=== PATIENT | female | born 1960 ===

== ENCOUNTER 2018-02-15 13:00 | Inpatient (IN) | payer MEDICARE, BC ==
[2018-02-15 14:00] VITALS: BMI 34.7
--- NOTE | 2018-02-15 14:04 | CP.PCM.HP ---
History of Present Illness - History of Present Illness History of Present Illness: Medicine Note for Hospitalist Service - Dr. 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 Patient seen and examined during dialysis. No acute complaints. Denied any fever, chills, chest pain, abdominal pain, n/v/d/c, or urinary symptoms. PMD: Dr. Salmeron Nephsteffi: Dr. 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, CAD s/p stents, IVC thrombus on Aspirin/Eliquis, ESRD on HD MWF (current left femoral HD access) with multiple failed HD access [id number], HTN, HLD,T2DM, Anemia of Chronic Disease, and Anxiety PSHx: cholecystectomy, , laser eye, left knee arthroscopy, cardiac stents, multiple AV fistula malfunction/revision [id number], left hand ischemia left radial artery embolus s/p embolectomy 11/2013, prior PD catheter and removal 09/2017, current access- left common femoral HD catheter 10/2017, pacemaker 01/15/18 Meds: As per EMR Allergy: Vancomycin SHx:Denies alcohol, tobacco and illicit drug use; lives w/ family at home FHx : Sister: breast ca; Brother: CKD/CA Present on Admission - Present on Admission Any Indicators Present on Admission: No Review of Systems - Constitutional Constitutional: absent: Anorexia, Chills, Fever, Headache, Night Sweats, Weight Loss, Weakness - EENT Eyes: absent: Blurred Vision, Change in Vision Ears: absent: Dizziness Nose/Mouth/Throat: absent: Nasal Congestion, Change in Voice, Hoarsness, Sore Throat - Cardiovascular Cardiovascular: absent: Chest Pain, Chest Pain at Rest, Dyspnea, Dyspnea on Exertion - Respiratory Respiratory: absent: Cough, Dyspnea - Gastrointestinal Gastrointestinal: absent: Abdominal Pain, Diarrhea, Nausea, Vomiting - Integumentary Integumentary: absent: Bleeding Lesions, Rash, Jaundice - Neurological Neurological: absent: Dizziness, Focal Weakness, Headaches, Loss of Vision - Psychiatric Psychiatric: Anxiety Past Patient History - Infectious Disease Hx of Infectious Diseases: None - Tetanus Immunizations Tetanus Immunization: Unknown - Past Medical History & Family History Past Medical History?: Yes - Past Social History Smoking Status: Never Smoked - CARDIAC Hx Cardiac Disorders: Yes Hx Congestive Heart Failure: Yes Hx Hypercholesterolemia: Yes Hx Hypertension: Yes - PULMONARY Hx Pneumonia: Yes - NEUROLOGICAL HX Cerebrovascular Accident: Yes - HEENT Hx HEENT Problems: Yes (RETINOPATHY) Hx Cataracts: Yes (Bilateral surgery,LASER SURGERY ALSO) Other/Comment: blurry vision, reading glasses, missing teeth - RENAL Hx Renal Failure: Yes (ESRD with HD) - ENDOCRINE/METABOLIC Hx Diabetes Mellitus Type 1: Yes Hx Diabetes Mellitus Type 2: Yes Hx Hypothyroidism: Yes - HEMATOLOGICAL/ONCOLOGICAL Hx Blood Disorders: Yes Hx Anemia: Yes - INTEGUMENTARY Hx Dermatological Problems: Yes Other/Comment: ble discolored, club foot left, hammertoes r ft, thick toenails b /l feet, 3 abd small incisions covered with dermabond and lower left abd healed from peritoneal dialysis cath insertion 03/2017, 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 5--18 large bruised area to forehead post fall,left upper arm large bruise from fall. left knee large laceration,stitched from fall. - MUSCULOSKELETAL/RHEUMATOLOGICAL Hx Arthritis: Yes - GASTROINTESTINAL Hx Gastroesophageal Reflux: Yes - GENITOURINARY/GYNECOLOGICAL Hx Genitourinary Disorders: Yes Hx Urinary Tract Infection: Yes - PSYCHIATRIC Hx Emotional Abuse: No Hx Physical Abuse: No Hx Substance Use: No - SURGICAL HISTORY Hx Surgeries: Yes (peritoneal dialysis inertion,multiple shunt placement,c section,laser eye s) Hx Cardiac Catheterization: Yes Hx Coronary Stent: Yes Other/Comment: l knee arthroscopy, central line to left groin area. - ANESTHESIA Hx Anesthesia: Yes Hx Anesthesia Reactions: No Hx Malignant Hyperthermia: No Meds Allergies/Adverse Reactions: Allergies Allergy/AdvReac Type Severity Reaction Status Date / Time vancomycin Allergy Unknown ITCHING Verified 02/13/18 12:09 Physical Exam - Constitutional Appears: No Acute Distress, Chronically Ill - Head Exam Head Exam: NORMAL INSPECTION, NORMOCEPHALIC - Eye Exam Eye Exam: EOMI, Normal appearance, PERRL Pupil Exam: NORMAL ACCOMODATION - ENT Exam ENT Exam: Mucous Membranes Moist - Neck Exam Neck exam: Positive for: Normal Inspection - Respiratory Exam Respiratory Exam: Clear to Auscultation Bilateral, NORMAL BREATHING PATTERN - Cardiovascular Exam Cardiovascular Exam: REGULAR RHYTHM, RRR - GI/Abdominal Exam GI & Abdominal Exam: Normal Bowel Sounds, Soft, Tenderness (lower abdomen, has bruising 2/2 mechanical fall ) - Extremities Exam Extremities exam: Positive for: normal inspection Additional comments: left femoral HD catheter in place. left knee sutures intact. bilateral lower extremities, with venous stasis - Skin Skin Exam: Dry, Intact, Warm Additional comments: Mulitple bruises throughout her head, upper and lower extremities, at different stages of healing. 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 Plan: ESRD on HD MWF - Nephrology consulted - Dr. Still - Patient admitted for hemodialysis. She will be dialyzed and discharged back to [place]. Disposition: Dr. Jakub Campbell spoke with Dr. Still, patient is admitted for hemodialysis. Dr. Still will see the patient here and after dialysis she will be discharged back to [facility]. DW Dr. Jakub Campbell, Sarah Car DO, PGY-1
[2018-02-15 14:30] VITALS: PULSE 64; RESP 16
[2018-02-15 15:24] LABS: HEMOGLOBIN 9.1 g/dL (11.0-16.0); MEAN CELL VOLUME 98.2 fL (81.0-99.0); MEAN CORPUSCULAR HEMOGLOBIN 32.3 pg (27.0-31.0); MEAN CORPUSCULAR HGB CONC 32.9 g/dL (33.0-37.0); MEAN PLATELET VOLUME 9.7 fL (7.2-11.7); RBC 2.82 Mil/uL (3.80-5.20); RED CELL DISTRIBUTION WIDTH 17.3 % (11.5-14.5); WHITE BLOOD COUNT 5.6 K/uL (4.8-10.8)
--- NOTE | 2018-02-15 16:16 | CP.PCM.DIS ---
Provider - Provider Date of Admission: 02/15/18 13:00 Attending physician: Jakub Campbell MD Time Spent in preparation of Discharge (in minutes): 55 Hospital Course - Lab Results Lab Results: Most Recent Lab Values WBC 5.6 K/uL (4.8-10.8) 02/15/18 15:21 RBC 2.82 Mil/uL (3.80-5.20) L 02/15/18 15:21 Hgb 9.1 g/dL (11.0-16.0) L 02/15/18 15:21 Hct 27.7 % (34.0-47.0) L 02/15/18 15:21 MCV 98.2 fL (81.0-99.0) 02/15/18 15:21 MCH 32.3 pg (27.0-31.0) H 02/15/18 15:21 MCHC 32.9 g/dL (33.0-37.0) L 02/15/18 15:21 RDW 17.3 % (11.5-14.5) H 02/15/18 15:21 Plt Count 268 K/uL (130-400) 02/15/18 15:21 MPV 9.7 fL (7.2-11.7) 02/15/18 15:21 Sodium 134 mmol/L (132-148) 02/15/18 15:19 Potassium 4.2 mmol/L (3.6-5.2) 02/15/18 15:19 Chloride 95 mmol/L (98-107) L 02/15/18 15:19 Carbon Dioxide 26 mmol/L (22-30) 02/15/18 15:19 Anion Gap 17 (10-20) 02/15/18 15:19 BUN 61 mg/dL (7-17) H 02/15/18 15:19 Creatinine 7.3 mg/dL (0.7-1.2) H 02/15/18 15:19 Est GFR ( Amer) 7 02/15/18 15:19 Est GFR (Non-Af Amer) 6 02/15/18 15:19 POC Glucose (mg/dL) 137 mg/dL (65-110) H 02/15/18 15:19 Random Glucose 152 mg/dL (65-105) H 02/15/18 15:19 Calcium 8.0 mg/dl (8.6-10.4) L 02/15/18 15:19 - Hospital Course Hospital Course: Throughout Hospital Course: CC: in need of dialysis HPI: 57 year old female with PMHx of 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 Patient seen and examined during dialysis. No acute complaints. Denied any fever, chills, chest pain, abdominal pain, n/v/d/c, or urinary symptoms. PMD: Dr. Salmeron Nephsteffi: Dr. 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, CAD s/p stents, IVC thrombus on Aspirin/Eliquis, ESRD on HD MWF (current left femoral HD access) with multiple failed HD access [id number], HTN, HLD,T2DM, Anemia of Chronic Disease, and Anxiety PSHx: cholecystectomy, , laser eye, left knee arthroscopy, cardiac stents, multiple AV fistula malfunction/revision [id number], left hand ischemia 2 /2 left radial artery embolus s/p embolectomy 11/2013, prior PD catheter and removal 09/2017, current access- left common femoral HD catheter 10/2017, pacemaker 01/15/18 Meds: As per EMR Allergy: Vancomycin SHx:Denies alcohol, tobacco and illicit drug use; lives w/ family at home FHx : Sister: breast ca; Brother: CKD/OR Discharge Exam - Additional Findings Additional findings: - Constitutional Appears: No Acute Distress, Chronically Ill - Head Exam Head Exam: NORMAL INSPECTION, NORMOCEPHALIC - Eye Exam Eye Exam: EOMI, Normal appearance, PERRL Pupil Exam: NORMAL ACCOMODATION - ENT Exam ENT Exam: Mucous Membranes Moist - Neck Exam Neck exam: Positive for: Normal Inspection - Respiratory Exam Respiratory Exam: Clear to Auscultation Bilateral, NORMAL BREATHING PATTERN - Cardiovascular Exam Cardiovascular Exam: REGULAR RHYTHM, RRR - GI/Abdominal Exam GI & Abdominal Exam: Normal Bowel Sounds, Soft, Tenderness (lower abdomen, has bruising 2/2 mechanical fall ) - Extremities Exam Extremities exam: Positive for: normal inspection Additional comments: left femoral HD catheter in place. left knee sutures intact. bilateral lower extremities, with venous stasis - Skin Skin Exam: Dry, Intact, Warm Additional comments: Mulitple bruises throughout her head, upper and lower extremities, at different stages of healing. Discharge Plan - Follow Up Plan Condition: STABLE Disposition: OTHER INSTITUTION Instructions: Preventing Falls in the Older Adult, Hemodialysis (DC), End Stage Kidney Disease (DC), Renal Failure Diet (DC) Referrals: Melvin Still MD [Staff Provider] -
[2018-02-15 16:25] VITALS: BP 174/92; TEMP 97; O2SAT 97
== END 2018-02-15 18:41 | disposition designated cancer center or children's hospital (05) | DRG 291 ==
LOC: C.3T 13:00
PROVIDERS: ADMIT Family Medicine; ATTEND Family Medicine
PROC: 5A1D70Z Performance of Urinary Filtration, Intermittent, Less than 6 Hours Per Day (ICD-10-PCS; principal; 2018-02-15)
DX: I13.2 Hypertensive heart and chronic kidney disease with heart failure and with stage 5 chronic kidney disease, or end stage renal disease (principal); N18.6 End stage renal disease; I50.9 Heart failure, unspecified; I25.10 Atherosclerotic heart disease of native coronary artery without angina pectoris; D63.8 Anemia in other chronic diseases classified elsewhere; E11.319 Type 2 diabetes mellitus with unspecified diabetic retinopathy without macular edema; E11.22 Type 2 diabetes mellitus with diabetic chronic kidney disease; K21.9 Gastro-esophageal reflux disease without esophagitis; E78.5 Hyperlipidemia, unspecified; E78.00 Pure hypercholesterolemia, unspecified; E03.9 Hypothyroidism, unspecified; F41.9 Anxiety disorder, unspecified; Z95.0 Presence of cardiac pacemaker; Z95.5 Presence of coronary angioplasty implant and graft; Z86.73 Personal history of transient ischemic attack (TIA), and cerebral infarction without residual deficits; Z79.4 Long term (current) use of insulin; Z87.01 Personal history of pneumonia (recurrent); Z87.440 Personal history of urinary (tract) infections; Z99.2 Dependence on renal dialysis

== ENCOUNTER 2018-02-17 15:17 | Inpatient (IN) | payer MEDICARE, BC ==
--- NOTE | 2018-02-17 16:07 | CP.PCM.HP ---
History of Present Illness - History of Present Illness History of Present Illness: CC: dialysis Patient is a 57 y/o F with pmhx of ESRD MWF (on hemodialysis for 6 years, 4 months of peritoneal dialysis last), DMII, hypertension, HLD, CAD s/p stents, and symptomatic bradycardia with pacemaker placement in December 2017 who presents today from [place] for dialysis. Patient had a pacemaker placed in December at [place] and has been in and out of the hospital since. Most recently patient was admitted for a fall about 2 weeks ago. Patient had no fractures, but has extensive ecchymosis on face, arms, and legs, and had a left knee laceration that was sutured closed. Today patient is still having pain from her fall. Allergies:vancomycin- itchy rash PMD: Dr. Bashir Salmeron Nephro: Dr. Still PMHx: ESRD, DMII, hypotension, CAD, and pacemaker Psurg: cholecystectomy 1975, c section 1983, R knee arthroscopy 1988, 2 stent 1995, pacemaker (12/2017), L foot ulcer 2015, pacemaker 12/2017, av fistulas left and right arm that failed, multiple permacaths Famhx: Dad: DMII, Mom: Alzheimer's, sister: Breast CA at 53, sister: leukemia at 60, brother: DM, CKD Social: lives with 2 sisters and nephew. denies tobacco, alcohol, and drug use Meds: as per EMR Present on Admission - Present on Admission Any Indicators Present on Admission: No History of DVT/PE: No History of Uncontrolled Diabetes: No Urinary Catheter: No Decubitus Ulcer Present: No Review of Systems - Constitutional Constitutional: absent: Anorexia, Chills, Fever, Headache, Weakness - EENT Eyes: absent: Blurred Vision, Change in Vision Ears: absent: Dizziness Nose/Mouth/Throat: absent: Nasal Congestion, Sore Throat - Cardiovascular Cardiovascular: absent: Chest Pain, Chest Pain at Rest, Dyspnea, Dyspnea on Exertion, Palpitations - Respiratory Respiratory: absent: Cough, Dyspnea - Gastrointestinal Gastrointestinal: absent: Abdominal Pain, Constipation, Diarrhea, Nausea, Vomiting - Genitourinary Genitourinary: absent: Change in Urinary Stream, Dysuria, Hematuria - Musculoskeletal Musculoskeletal: absent: Numbness, Tingling - Neurological Neurological: absent: Tremor, Vertigo, Weakness Past Patient History - Infectious Disease Hx of Infectious Diseases: None - Tetanus Immunizations Tetanus Immunization: Unknown - Past Medical History & Family History Past Medical History?: Yes - Past Social History Smoking Status: Never Smoked - CARDIAC Hx Cardiac Disorders: Yes Hx Congestive Heart Failure: Yes Hx Hypercholesterolemia: Yes Hx Hypertension: Yes - PULMONARY Hx Pneumonia: Yes - NEUROLOGICAL HX Cerebrovascular Accident: Yes - HEENT Hx HEENT Problems: Yes (RETINOPATHY) Hx Cataracts: Yes (Bilateral surgery,LASER SURGERY ALSO) Other/Comment: blurry vision, reading glasses, missing teeth - RENAL Date of Last Dialysis Treatment: 02/12/18 - ENDOCRINE/METABOLIC Hx Diabetes Mellitus Type 1: Yes Hx Diabetes Mellitus Type 2: Yes Hx Hypothyroidism: Yes - HEMATOLOGICAL/ONCOLOGICAL Hx Blood Transfusions: No - INTEGUMENTARY Hx Dermatological Problems: Yes Other/Comment: ble discolored, club foot left, hammertoes r ft, thick toenails b /l feet, 3 abd small incisions covered with dermabond and lower left abd healed from peritoneal dialysis cath insertion 03/2017, 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 5 large bruised area to forehead post fall,left upper arm large bruise from fall. left knee large laceration,stitched from fall. - MUSCULOSKELETAL/RHEUMATOLOGICAL Hx Falls: Yes (2 weeks ago) - GASTROINTESTINAL Hx Gastroesophageal Reflux: Yes - GENITOURINARY/GYNECOLOGICAL Hx Genitourinary Disorders: Yes Hx Urinary Tract Infection: Yes - PSYCHIATRIC Hx Emotional Abuse: No Hx Physical Abuse: No Hx Substance Use: No - SURGICAL HISTORY Hx Surgeries: Yes (peritoneal dialysis inertion,multiple shunt placement,c section,laser eye s) - ANESTHESIA Hx Anesthesia Reactions: No Hx Malignant Hyperthermia: No Meds Allergies/Adverse Reactions: Allergies Allergy/AdvReac Type Severity Reaction Status Date / Time vancomycin Allergy Unknown ITCHING Verified 02/13/18 12:09 Physical Exam - Constitutional Appears: Non-toxic, No Acute Distress - Head Exam Head Exam: ATRAUMATIC, NORMAL INSPECTION, NORMOCEPHALIC Additional comments: facial ecchymosis - Eye Exam Eye Exam: EOMI, Normal appearance, PERRL Pupil Exam: NORMAL ACCOMODATION - ENT Exam ENT Exam: Mucous Membranes Moist - Neck Exam Neck exam: Negative for: Tenderness - Respiratory Exam Respiratory Exam: Clear to Auscultation Bilateral, NORMAL BREATHING PATTERN - Cardiovascular Exam Cardiovascular Exam: REGULAR RHYTHM, RRR, +S1, +S2 - GI/Abdominal Exam GI & Abdominal Exam: Normal Bowel Sounds, Soft. absent: Tenderness - Extremities Exam Extremities exam: Negative for: normal inspection Additional comments: left femoral HD catheter in place. left knee sutures intact. bilateral lower extremities, with venous stasis - Psychiatric Exam Psychiatric exam: Normal Affect, Normal Mood - Skin Additional comments: ecchymosis throughout her face, upper and lower extremities, at different stages of healing. Assessment & Plan - Assessment and Plan (Free Text) Assessment: ESRD on HD MWF - Nephrology consulted - Dr. Still - Patient admitted for hemodialysis. She will be dialyzed and discharged back to [place]. Disposition: Dr. Jakub Campbell spoke with Dr. Still, patient is admitted for hemodialysis. Dr. Still will see the patient here and after dialysis she will be discharged back to [facility]. DW Dr. Jakub Campbell
[2018-02-17 16:56] VITALS: PULSE 68; TEMP 97.5
--- NOTE | 2018-02-17 16:59 | CP.PCM.DIS ---
<Arlene CampbellJhoana - Last Filed: 02/17/18 16:56> Provider - Provider Date of Admission: 02/17/18 15:17 Attending physician: Jakub Campbell MD Consults: Dr. Still Time Spent in preparation of Discharge (in minutes): 30 Diagnosis - Discharge Diagnosis (1) ESRD (end stage renal disease) on dialysis Status: Chronic Hospital Course - Hospital Course Hospital Course: CC: dialysis Patient is a 57 y/o F with pmhx of ESRD MWF (on hemodialysis for 6 years, 4 months of peritoneal dialysis last), DMII, hypertension, HLD, CAD s/p stents, and symptomatic bradycardia with pacemaker placement in December 2017 who presents today from [place] for dialysis. Patient had a pacemaker placed in December at [place] and has been in and out of the hospital since. Most recently patient was admitted for a fall about 2 weeks ago. Patient had no fractures, but has extensive ecchymosis on face, arms, and legs, and had a left knee laceration that was sutured closed. Today patient is still having pain from her fall. Allergies:vancomycin- itchy rash PMD: Dr. Bashir Salmeron Nephro: Dr. Still PMHx: ESRD, DMII, hypotension, CAD, and pacemaker Psurg: cholecystectomy 1975, c section 1983, R knee arthroscopy 1988, 2 stent 1995, pacemaker (12/2017), L foot ulcer 2015, pacemaker 12/2017, av fistulas left and right arm that failed, multiple permacaths Famhx: Dad: DMII, Mom: Alzheimer's, sister: Breast CA at 53, sister: leukemia at 60, brother: DM, CKD Social: lives with 2 sisters and nephew. denies tobacco, alcohol, and drug use Meds: as per EMR ESRD on HD MWF - Nephrology consulted - Dr. Still - Patient admitted for hemodialysis. She will be dialyzed and discharged back to [place]. Disposition: Dr. Jakub Campbell spoke with Dr. Still, patient is admitted for hemodialysis. Dr. Still will see the patient here and after dialysis she will be discharged back to [facility]. Discharge Exam - Additional Findings Additional findings: - Constitutional Appears: Non-toxic, No Acute Distress - Head Exam Head Exam: ATRAUMATIC, NORMAL INSPECTION, NORMOCEPHALIC Additional comments: facial ecchymosis - Eye Exam Eye Exam: EOMI, Normal appearance, PERRL Pupil Exam: NORMAL ACCOMODATION - ENT Exam ENT Exam: Mucous Membranes Moist - Neck Exam Neck exam: Negative for: Tenderness - Respiratory Exam Respiratory Exam: Clear to Auscultation Bilateral, NORMAL BREATHING PATTERN - Cardiovascular Exam Cardiovascular Exam: REGULAR RHYTHM, RRR, +S1, +S2 - GI/Abdominal Exam GI & Abdominal Exam: Normal Bowel Sounds, Soft. absent: Tenderness - Extremities Exam Extremities exam: Negative for: normal inspection Additional comments: left femoral HD catheter in place. left knee sutures intact. bilateral lower extremities, with venous stasis - Psychiatric Exam Psychiatric exam: Normal Affect, Normal Mood - Skin Additional comments: ecchymosis throughout her face, upper and lower extremities, at different stages of healing. Discharge Plan - Follow Up Plan Condition: GOOD Disposition: Trans to Other Acute Care Hosp Instructions: Heart Failure, Adult (DC), Kidney Failure (DC) Additional Instructions: Patient to be transferred back to [place] upon finishing dialysis. Referrals: Melvin Still MD [Staff Provider] - <Jakub Campbell - Last Filed: 02/17/18 20:02> Provider - Provider Date of Admission: 02/17/18 15:17 Attending physician: Jakub Campbell MD Hospital Course - Lab Results Lab Results: Most Recent Lab Values POC Glucose (mg/dL) 124 mg/dL (65-110) H 02/17/18 18:50 Attending/Attestation - Attestation I have personally seen and examined this patient.: Yes I have fully participated in the care of the patient.: Yes I have reviewed all pertinent clinical information, including history, physical exam and plan: Yes
[2018-02-17 19:59] VITALS: BP 145/36; RESP 18; O2SAT 100
== END 2018-02-17 21:10 | disposition short-term general hospital (02) | DRG 291 ==
LOC: C.3T 15:17
PROVIDERS: ADMIT Family Medicine; ATTEND Family Medicine
DX: I13.2 Hypertensive heart and chronic kidney disease with heart failure and with stage 5 chronic kidney disease, or end stage renal disease (principal); N18.6 End stage renal disease; E11.22 Type 2 diabetes mellitus with diabetic chronic kidney disease; I50.9 Heart failure, unspecified; Z99.2 Dependence on renal dialysis; E03.9 Hypothyroidism, unspecified; I25.10 Atherosclerotic heart disease of native coronary artery without angina pectoris; K21.9 Gastro-esophageal reflux disease without esophagitis; Z86.73 Personal history of transient ischemic attack (TIA), and cerebral infarction without residual deficits; Z95.0 Presence of cardiac pacemaker

== ENCOUNTER 2018-02-20 14:10 | Inpatient (IN) | payer MEDICARE, BC ==
--- NOTE | 2018-02-20 14:40 | CP.PCM.HP ---
<Tami Dominguez - Last Filed: 02/20/18 14:38> History of Present Illness - History of Present Illness History of Present Illness: CC: dialysis Patient is a 57 y/o F with pmhx of ESRD MWF (on hemodialysis for 6 years, 4 months of peritoneal dialysis last), DMII, hypertension, HLD, CAD s/p stents, and symptomatic bradycardia with pacemaker placement in December 2017 who presents today from [place] for dialysis. Patient is complaining of mild pain on her knee from a recent fall. No other complaints at this time. Denies chest pain or shortness of breath. Allergies:vancomycin- itchy rash PMD: Dr. Bashir Salmeron Nephro: Dr. Still PMHx: ESRD, DMII, hypotension, CAD, and pacemaker Psurg: cholecystectomy 1975, c section 1983, R knee arthroscopy 1988, 2 stent 1995, pacemaker (12/2017), L foot ulcer 2015, pacemaker 12/2017, av fistulas left and right arm that failed, multiple permacaths Famhx: Dad: DMII, Mom: Alzheimer's, sister: Breast CA at 53, sister: leukemia at 60, brother: DM, CKD Social: lives with 2 sisters and nephew. denies tobacco, alcohol, and drug use Meds: as per EMR Present on Admission - Present on Admission Any Indicators Present on Admission: No Review of Systems - Constitutional Constitutional: absent: Chills, Fever - Cardiovascular Cardiovascular: absent: Chest Pain - Respiratory Respiratory: absent: Dyspnea, Dyspnea on Exertion - Gastrointestinal Gastrointestinal: absent: Abdominal Pain, Nausea, Vomiting Past Patient History - Infectious Disease Hx of Infectious Diseases: None - Tetanus Immunizations Tetanus Immunization: Unknown - Past Medical History & Family History Past Medical History?: Yes - Past Social History Smoking Status: Never Smoked - CARDIAC Hx Cardiac Disorders: Yes Hx Congestive Heart Failure: Yes Hx Hypercholesterolemia: Yes Hx Hypertension: Yes - PULMONARY Hx Pneumonia: Yes - NEUROLOGICAL HX Cerebrovascular Accident: Yes - HEENT Hx HEENT Problems: Yes (RETINOPATHY) Hx Cataracts: Yes (Bilateral surgery,LASER SURGERY ALSO) Other/Comment: blurry vision, reading glasses, missing teeth - RENAL Date of Last Dialysis Treatment: 02/15/18 - ENDOCRINE/METABOLIC Hx Diabetes Mellitus Type 1: Yes Hx Diabetes Mellitus Type 2: Yes Hx Hypothyroidism: Yes - HEMATOLOGICAL/ONCOLOGICAL Hx Blood Transfusions: No - INTEGUMENTARY Hx Dermatological Problems: Yes Other/Comment: ble discolored, club foot left, hammertoes r ft, thick toenails b /l feet, 3 abd small incisions covered with dermabond and lower left abd healed from peritoneal dialysis cath insertion 03/2017, 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 02-03-18 large bruised area to forehead post fall,left upper arm large bruise from fall. left knee large laceration,stitched from fall. - MUSCULOSKELETAL/RHEUMATOLOGICAL Hx Falls: Yes (2 weeks ago) - GASTROINTESTINAL Hx Gastroesophageal Reflux: Yes - GENITOURINARY/GYNECOLOGICAL Hx Genitourinary Disorders: Yes Hx Urinary Tract Infection: Yes - PSYCHIATRIC Hx Emotional Abuse: No Hx Physical Abuse: No Hx Substance Use: No - SURGICAL HISTORY Hx Surgeries: Yes (peritoneal dialysis inertion,multiple shunt placement,c section,laser eye s) - ANESTHESIA Hx Anesthesia Reactions: No Hx Malignant Hyperthermia: No Meds Allergies/Adverse Reactions: Allergies Allergy/AdvReac Type Severity Reaction Status Date / Time vancomycin Allergy Unknown ITCHING Verified 02/13/18 12:09 Physical Exam - Constitutional Appears: Non-toxic, No Acute Distress - Head Exam Head Exam: NORMAL INSPECTION - Eye Exam Eye Exam: EOMI Pupil Exam: NORMAL ACCOMODATION - Respiratory Exam Respiratory Exam: Clear to Auscultation Bilateral, NORMAL BREATHING PATTERN. absent: Respiratory Distress - Cardiovascular Exam Cardiovascular Exam: REGULAR RHYTHM, +S1, +S2 - GI/Abdominal Exam GI & Abdominal Exam: Normal Bowel Sounds Additional comments: obese - Extremities Exam Additional comments: left femoral HD catheter in place. left knee sutures intact. bilateral lower extremities, with venous stasis - Back Exam Back exam: NORMAL INSPECTION - Neurological Exam Neurological exam: Alert, Oriented x3 - Psychiatric Exam Psychiatric exam: Normal Affect, Normal Mood - Skin Additional comments: discolored, club foot left, hammertoes r ft, thick toenails b/l feet, 3 abd small incisions covered with dermabond and lower left abd healed from peritoneal dialysis cath insertion 03/2017, 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 02-03-18 large bruised area to forehead post fall,left upper arm large bruise from fall. left knee large laceration, stitched from fall. Assessment & Plan - Assessment and Plan (Free Text) Assessment: ESRD on HD MWF - Nephrology consulted - Dr. Still - Patient admitted for hemodialysis. Disposition: After dialysis she will be discharged back to [facility]. <Anival Mccall - Last Filed: 02/20/18 18:01> Results - Vital Signs Recent Vital Signs: Last Vital Signs Temp 97.6 F 02/20/18 14:55 Pulse 63 02/20/18 14:55 Resp 20 02/20/18 14:55 BP 147/73 02/20/18 17:55 Pulse Ox 99 02/20/18 14:55 Attending/Attestation - Attestation I have personally seen and examined this patient.: Yes I have fully participated in the care of the patient.: Yes I have reviewed all pertinent clinical information: Yes Notes (Text): Please note we are not admitting the patient, patient is here because the dialysis unit at [facility] is dysfunctional. After she completes HD here, will be returning to [facility]
--- NOTE | 2018-02-20 14:44 | CP.PCM.DIS ---
Provider - Provider Date of Admission: 02/20/18 14:10 Attending physician: Jakub Campbell MD Consults: Dr. Still - nephrology Time Spent in preparation of Discharge (in minutes): 35 Diagnosis - Discharge Diagnosis (1) ESRD (end stage renal disease) on dialysis Status: Acute Hospital Course - Hospital Course Hospital Course: CC: dialysis Patient is a 57 y/o F with pmhx of ESRD MWF (on hemodialysis for 6 years, 4 months of peritoneal dialysis last), DMII, hypertension, HLD, CAD s/p stents, and symptomatic bradycardia with pacemaker placement in December 2017 who presents today from [place] for dialysis. Patient is complaining of mild pain on her knee from a recent fall. No other complaints at this time. Denies chest pain or shortness of breath. Allergies:vancomycin- itchy rash PMD: Dr. Bashir Salmeron Nephro: Dr. Still PMHx: ESRD, DMII, hypotension, CAD, and pacemaker Psurg: cholecystectomy 1975, c section 1983, R knee arthroscopy 1988, 2 stent 1995, pacemaker (12/2017), L foot ulcer 2015, pacemaker 12/2017, av fistulas left and right arm that failed, multiple permacaths Famhx: Dad: DMII, Mom: Alzheimer's, sister: Breast CA at 53, sister: leukemia at 60, brother: DM, CKD Social: lives with 2 sisters and nephew. denies tobacco, alcohol, and drug use Meds: as per EMR ESRD on HD MWF - Nephrology consulted - Dr. Still - Patient admitted for hemodialysis. Disposition: After dialysis she will be discharged back to [facility]. Discharge Exam - Head Exam Head Exam: NORMAL INSPECTION Additional comments: facial ecchymosis - Eye Exam Eye Exam: EOMI Pupil Exam: NORMAL ACCOMODATION - ENT Exam ENT Exam: Mucous Membranes Moist - Respiratory Exam Respiratory Exam: NORMAL BREATHING PATTERN. absent: Accessory Muscle Use, Respiratory Distress - Cardiovascular Exam Cardiovascular Exam: REGULAR RHYTHM, +S1, +S2 - Extremities Exam Additional comments: left femoral HD catheter in place. left knee sutures intact. bilateral lower extremities, with venous stasis - Neurological Exam Neurological exam: Alert, Oriented x3 - Skin Additional comments: ecchymosis throughout her face, upper and lower extremities, at different stages of healing. Discharge Plan - Follow Up Plan Condition: GOOD Disposition: HOSPITALIZED Additional Instructions: discharge back to [place] after dialysis
[2018-02-20 15:15] VITALS: PULSE 63
[2018-02-20 18:53] VITALS: BP 155/59; RESP 18; TEMP 97.5; O2SAT 97
== END 2018-02-20 19:57 | disposition short-term general hospital (02) | DRG 291 ==
LOC: C.3T 14:10
PROVIDERS: ADMIT Hospitalist; ATTEND Hospitalist
PROC: 5A1D70Z Performance of Urinary Filtration, Intermittent, Less than 6 Hours Per Day (ICD-10-PCS; principal; 2018-02-20)
DX: I13.2 Hypertensive heart and chronic kidney disease with heart failure and with stage 5 chronic kidney disease, or end stage renal disease (principal); N18.6 End stage renal disease; E78.5 Hyperlipidemia, unspecified; I25.10 Atherosclerotic heart disease of native coronary artery without angina pectoris; I50.9 Heart failure, unspecified; Z79.4 Long term (current) use of insulin; E03.9 Hypothyroidism, unspecified; E11.21 Type 2 diabetes mellitus with diabetic nephropathy

== ENCOUNTER 2018-03-01 13:16 | Inpatient (IN) | payer MEDICARE, BC ==
[2018-03-01 15:33] VITALS: RESP 20
[2018-03-01 18:53] VITALS: TEMP 97.6; O2SAT 100
[2018-03-01 18:56] VITALS: BP 155/65; PULSE 63
== END 2018-03-01 19:03 | disposition short-term general hospital (02) | DRG 682 ==
LOC: C.3T 13:16
PROVIDERS: ADMIT Family Medicine; ATTEND Family Medicine
PROC: 5A1D70Z Performance of Urinary Filtration, Intermittent, Less than 6 Hours Per Day (ICD-10-PCS; principal; 2018-03-01)
DX: I12.0 Hypertensive chronic kidney disease with stage 5 chronic kidney disease or end stage renal disease (principal); N18.6 End stage renal disease; E11.22 Type 2 diabetes mellitus with diabetic chronic kidney disease; Z99.2 Dependence on renal dialysis; I25.10 Atherosclerotic heart disease of native coronary artery without angina pectoris; Z86.73 Personal history of transient ischemic attack (TIA), and cerebral infarction without residual deficits

== ENCOUNTER 2018-03-15 16:03 | Inpatient (IN) | payer MEDICARE, BC ==
[2018-03-07 10:20] VITALS: BMI 33.3
[2018-03-15] MEDS ORDERED: Epoetin Alfa 10,000 unit/ml Dialysis IV ONE (16:33)
--- NOTE | 2018-03-15 16:46 | CP.PCM.HP ---
<Shubham Pierre - Last Filed: 03/15/18 17:46> History of Present Illness - History of Present Illness History of Present Illness: This is a 57 year old female with a past medical history significant for ESRD on HD (MWF), HTN, IDDM2, CAD, free-floating IVC thrombus, chronic vertigo and frequent falls who presents to the [facility] after two mechanical falls. Patient reports that on Thursday evening she slipped while getting out of the bathtub and fell to the floor on her left side. She reports that she dragged herself into the bedroom afterwards. She reports that on Thursday evening she was putting on her sneakers and fell on to her right side, hitting her head on the side of the bed in the process. She endorses pain to the affected areas but denies any fevers, chills, changes in her vision, chest pain, SOB, abdominal pain, N/V/D/C , changes in urine output, or any new numbness/tingling in her extremities. Of note she is on Eliquis for her IVC thrombus and took her last dose Thursday morning. She was also recently discharged from [facility] after being admitted for approximately one month after presenting after a mechanical fall. Patient was admitted to [facility] today and is being transferred to [facility] today because dialysis at [facility] is temporarily unavailable. PMD: Dr. Bashir Salmeron PMH: As stated above PSH: Cholecystectomy, C section, laser eye surgery, Peritoneal catheter placement and removal, s/p b/l unsuccessful A/V Fistulas, Left knee arthroscopy Family History: Sister-Breast cancer; Brother-CKD/[place] Social History: Denies any tobacco, alcohol or illicit drug use. She does say she has had a lot of secondhand smoke exposure. Of [place] descent. 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; Lives at home with family on first story of two story home Allergies: Vancomycin Home Medications: As per [facility] Insurance: medicare part A/BCBS fed Present on Admission - Present on Admission Any Indicators Present on Admission: Yes History of DVT/PE: Yes History of Uncontrolled Diabetes: No Urinary Catheter: No Decubitus Ulcer Present: No Review of Systems - Constitutional Constitutional: absent: Chills, Fever - EENT Eyes: absent: Blurred Vision, Change in Vision Nose/Mouth/Throat: absent: Nasal Discharge, Neck Pain - Cardiovascular Cardiovascular: absent: Chest Pain, Chest Pain at Rest, Dyspnea - Respiratory Respiratory: absent: Dyspnea, Dyspnea on Exertion - Gastrointestinal Gastrointestinal: absent: Nausea, Vomiting - Genitourinary Genitourinary: absent: Change in Urinary Stream, Difficulty Urinating - Musculoskeletal Musculoskeletal: Arthralgias, Back Pain - Integumentary Integumentary: absent: Bleeding Lesions, Changing Lesions - Neurological Neurological: absent: Syncope, Weakness - Psychiatric Psychiatric: absent: Auditory Hallucinations, Visual Hallucinations - Hematologic/Lymphatic Hematologic: absent: Easy Bleeding, Easy Bruising Past Patient History - Infectious Disease Hx of Infectious Diseases: None - Tetanus Immunizations Tetanus Immunization: Unknown - Past Medical History & Family History Past Medical History?: Yes - Past Social History Smoking Status: Never Smoked Chewing Tobacco Use: No Cigar Use: No Alcohol: None Drugs: Denies Home Situation {Lives}: With Family Domestic Violence: Negative - CARDIAC Hx Cardiac Disorders: Yes Hx Hypertension: Yes - PULMONARY Hx Pneumonia: Yes - NEUROLOGICAL HX Cerebrovascular Accident: Yes - HEENT Hx HEENT Problems: Yes (RETINOPATHY) Hx Cataracts: Yes (Bilateral surgery,LASER SURGERY ALSO) Other/Comment: blurry vision, reading glasses, missing teeth - RENAL Hx Dialysis: Yes (MWF @[facility]) Type of Dialysis Access: Left groin Date of Last Dialysis Treatment: 03/12/18 - ENDOCRINE/METABOLIC Hx Diabetes Mellitus Type 2: Yes - HEMATOLOGICAL/ONCOLOGICAL Hx Blood Transfusions: No - INTEGUMENTARY Hx Dermatological Problems: Yes Other/Comment: ble discolored, club foot left, hammertoes r ft, thick toenails b /l feet, 3 abd small incisions covered with dermabond and lower left abd healed from peritoneal dialysis cath insertion 03/2017, 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 02-03-18 large bruised area to forehead post fall,left upper arm large. bruise from fall. left knee large laceration,stitched from fall. 03/01/18 Left knee laceration from fall healing, no more stitches. No more bruises on forehead - MUSCULOSKELETAL/RHEUMATOLOGICAL Hx Musculoskeletal Disorders: Yes Hx Falls: Yes - GASTROINTESTINAL Hx Gastrointestinal Disorders: Yes Hx Gall Bladder Disease: Yes Hx Gastroesophageal Reflux: Yes - GENITOURINARY/GYNECOLOGICAL Hx Genitourinary Disorders: Yes Hx Urinary Tract Infection: Yes - PSYCHIATRIC Hx Psychophysiologic Disorder: No Hx Emotional Abuse: No Hx Physical Abuse: No Hx Substance Use: No - SURGICAL HISTORY Hx Surgeries: Yes Hx Cataract Extraction: Yes Hx Cardiac Catheterization: Yes Hx Section: Yes Hx Coronary Stent: Yes Other/Comment: l knee arthroscopy, central line to left groin area. - ANESTHESIA Hx Anesthesia: Yes Hx Anesthesia Reactions: No Hx Malignant Hyperthermia: No Has any member of the family had a problem w/ anesthesia?: No Meds Allergies/Adverse Reactions: Allergies Allergy/AdvReac Type Severity Reaction Status Date / Time vancomycin Allergy Unknown ITCHING Verified 02/13/18 12:09 Physical Exam - Constitutional Appears: Non-toxic, No Acute Distress, Chronically Ill - Head Exam Head Exam: ATRAUMATIC, NORMAL INSPECTION, NORMOCEPHALIC - Eye Exam Eye Exam: EOMI - ENT Exam ENT Exam: Mucous Membranes Moist - Neck Exam Neck exam: Positive for: Full Rom, Normal Inspection - Respiratory Exam Respiratory Exam: NORMAL BREATHING PATTERN. absent: Respiratory Distress - Cardiovascular Exam Cardiovascular Exam: REGULAR RHYTHM, +S1, +S2 - GI/Abdominal Exam GI & Abdominal Exam: Normal Bowel Sounds, Soft. absent: Tenderness - Extremities Exam Extremities exam: Negative for: full ROM, normal inspection Additional comments: bruising along left leg -dialysis catheter along left hip/leg - Neurological Exam Neurological exam: Alert, CN II-XII Intact, Oriented x3 - Psychiatric Exam Psychiatric exam: Normal Affect, Normal Mood - Skin Skin Exam: Dry, Intact, Normal Color, Warm Results - Labs Labs: Laboratory Results - last 24 hr 03/15/18 16:20 POC Glucose (mg/dL) 206 H Assessment & Plan - Assessment and Plan (Free Text) Assessment: This is a 57 year old female with a past medical history significant for ESRD on HD (MWF), HTN, IDDM2, CAD, free-floating IVC thrombus, chronic vertigo and frequent falls who presents to [facility] after two mechanical falls and is being transferred from [facility] because of need for dialysis. On a CT Lumbar Spine she was noted to have incompletely visualized posterior back subcutaneous soft tissue fluid and right posterior back edema/hemorrhage/hematoma measuring 6cm approximately in right and left dimension at the level of L4-S1. 1. Subcutaneous Soft Tissue Hematoma -See CT Lumbar Spine reviewed; Please see report for further details -Eliquis restarted, 5 mg po bid. Will monitor with daily CBC's and coag's. 2. S/P Mechanical Fall -CT Head showed no acute intracranial findings -CT Lumbar Spine without acute fractures but with hematoma as noted above -Hip/Pelvis xray negative -Rib xray was positive for multiple left sided fractures, mid basilar atelectasis, and elevated right hemidiaphragm -Repeat chest xray negative for any acute process. -Continue Tramadol 50 mg PO Q8 prn -Abdominal binder for support. -High risk fall precautions -OOB with assistance of two -Lidocaine patch -State expected to visit her Thursday03/15/18. Pending disposition. 3. History of ESRD on HD (MWF) -HD next scheduled for Thursday. -getting dialysis today -Nephrology rec's appreciated. -Renal Diet 5. Anemia -s/P IV venofer. -S/P 1 Unit of PRBC's. -Will continue to monitor. -may need to get heme/onc consult again if hospital stay is extended here at [facility] -morning labs 5. History of IDDM2 -SSI-Med and Accuchecks ACHS -Moderate Carbohydrate Consistency Diet 6. History of Peripheral Neuropathy -Continue home Gabapentin 100 mg po tid 7. History of CAD -Continue home Lipitor>> changed to crestor PO HS 8. History of HTN -Continue home Norvasc 5 mg po daily 9. History of Depression/Anxiety -Continue home Prozac daily 10. History of Migraines -Continue home Fioricet PRN 1 tab PO q 8 hrs headache GI Prophylaxis: Protonix 40 mg iv daily DVT Prophylaxis: SCD, eliquis 5 mg po bid discussed with Dr. Mcgarry. <Jose D Mcgarry - Last Filed: 03/19/18 13:52> Results - Vital Signs Recent Vital Signs: Last Vital Signs Temp 97.3 F L 03/19/18 13:10 Pulse 62 03/19/18 13:10 Resp 18 03/19/18 13:10 BP 151/68 H 03/19/18 13:10 Pulse Ox 99 03/19/18 13:10 - Labs Result Diagrams: 03/17/18 11:34 03/17/18 11:34 Labs: Laboratory Results - last 24 hr 03/18/18 03/18/18 03/19/18 16:37 21:21 07:16 POC Glucose (mg/dL) 281 H 264 H 209 H 03/19/18 11:33 POC Glucose (mg/dL) 269 H Attending/Attestation - Attestation I have personally seen and examined this patient.: Yes I have fully participated in the care of the patient.: Yes I have reviewed all pertinent clinical information: Yes Notes (Text): 1. Subcutaneous Soft Tissue Hematoma 2. S/P Mechanical Fall 3. History of ESRD on HD (MWF) 4. Anemia 5. History of IDDM2 6. History of Peripheral Neuropathy 7. History of CAD 8. History of HTN 9. History of Depression/Anxiety 10. History of Migraines
[2018-03-15] MEDS ORDERED: Glucagon Recombinant 1 mg Inj IM PRN (16:56)
[2018-03-15] MEDS ORDERED: Dextrose 50% SYRINGE Inj (50 ml) IV PRN (16:56)
[2018-03-15] MEDS ORDERED: Apap-Butalbital-Caffeine 325-50-40mg Tab PO PRN (17:03)
--- NOTE | 2018-03-15 21:20 | CP.PCM.DIS ---
Provider - Provider Date of Admission: 03/15/18 16:03 Attending physician: Jose D Mcgarry MD Time Spent in preparation of Discharge (in minutes): 25 Hospital Course - Lab Results Lab Results: Most Recent Lab Values POC Glucose (mg/dL) 152 mg/dL (65-110) H 03/15/18 19:21 - Hospital Course Hospital Course: This is a 57 year old female with a past medical history significant for ESRD on HD (MWF), HTN, IDDM2, CAD, free-floating IVC thrombus, chronic vertigo and frequent falls who presents to the [facility] ED after two mechanical falls. Patient reports that on Thursday evening she slipped while getting out of the bathtub and fell to the floor on her left side. She reports that she dragged herself into the bedroom afterwards. She reports that on Thursday evening she was putting on her sneakers and fell on to her right side, hitting her head on the side of the bed in the process. She endorses pain to the affected areas but denies any fevers, chills, changes in her vision, chest pain, SOB, abdominal pain, N/V/D/C , changes in urine output, or any new numbness/tingling in her extremities. Of note she is on Eliquis for her IVC thrombus and took her last dose Thursday morning. She was also recently discharged from [facility] after being admitted for approximately one month after presenting after a mechanical fall. Patient was admitted to [facility] today and is being transferred to [facility] today because dialysis at [facility] is temporarily unavailable. PMD: Dr. Bashir Salmeron PMH: As stated above PSH: Cholecystectomy, C section, laser eye surgery, Peritoneal catheter placement and removal, s/p b/l unsuccessful A/V Fistulas, Left knee arthroscopy Family History: Sister-Breast cancer; Brother-CKD/[place] Social History: Denies any tobacco, alcohol or illicit drug use. She does say she has had a lot of secondhand smoke exposure. Of [place] descent. 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 above is a brief summary of events. please see ehr for more information - Date & Time of H&P Date of H&P: 03/15/18 Time of H&P: 21:20 Discharge Exam - Head Exam Head Exam: ATRAUMATIC - Additional Findings Additional findings: - Constitutional Constitutional: absent: Chills, Fever - EENT Eyes: absent: Blurred Vision, Change in Vision Nose/Mouth/Throat: absent: Nasal Discharge, Neck Pain - Cardiovascular Cardiovascular: absent: Chest Pain, Chest Pain at Rest, Dyspnea - Respiratory Respiratory: absent: Dyspnea, Dyspnea on Exertion - Gastrointestinal Gastrointestinal: absent: Nausea, Vomiting - Genitourinary Genitourinary: absent: Change in Urinary Stream, Difficulty Urinating - Musculoskeletal Musculoskeletal: Arthralgias, Back Pain - Integumentary Integumentary: absent: Bleeding Lesions, Changing Lesions - Neurological Neurological: absent: Syncope, Weakness - Psychiatric Psychiatric: absent: Auditory Hallucinations, Visual Hallucinations - Hematologic/Lymphatic Hematologic: absent: Easy Bleeding, Easy Bruising Discharge Plan - Follow Up Plan Condition: FAIR Disposition: OTHER INSTITUTION
[2018-03-15] MEDS: (Novolin R) Insulin Human Regular 100 units/ml vial SC SCH (21:36)
[2018-03-16] MEDS: (Novolin R) Insulin Human Regular 100 units/ml vial SC SCH ×4 (08:34→21:50)
[2018-03-16 08:54] LABS: BASO % 0.7 % (0.0-2.0); EOS # 0.1 K/uL (0.0-0.7); EOS % 2.4 % (0.0-4.0); HEMOGLOBIN 9.4 g/dL (11.0-16.0); LYMPH % 17.6 % (20.0-40.0); MEAN CELL VOLUME 96.3 fL (81.0-99.0); MEAN CORPUSCULAR HEMOGLOBIN 31.8 pg (27.0-31.0); MONO # 0.6 K/uL (0.0-0.8); MONO % 10.3 % (0.0-10.0); NEUT # 4.1 K/uL (1.8-7.0); RBC 2.97 Mil/uL (3.80-5.20); RED CELL DISTRIBUTION WIDTH 16.6 % (11.5-14.5); WHITE BLOOD COUNT 5.9 K/uL (4.8-10.8)
[2018-03-16 09:18] LABS: ALBUMIN 3.9 g/dL (3.5-5.0); CALCIUM 9.4 mg/dl (8.6-10.4)
[2018-03-16] MEDS: Pantoprazole 40 mg EC Tab PO SCH ×2 (10:06→14:17)
--- NOTE | 2018-03-16 17:07 | CP.PCM.PN ---
<Marshal Vera - Last Filed: 03/16/18 17:04> Subjective - Date & Time of Evaluation Date of Evaluation: 03/16/18 Time of Evaluation: 17:04 - Subjective Subjective: patient seen and examined at bedisde and again while patient was in dialysis. No complaints at this time. Tolerating diet. ambulates with walker. Objective - Vital Signs/Intake and Output Vital Signs (last 24 hours): Temp Pulse Resp BP Pulse Ox 98.1 F 71 20 153/76 H 97 03/16/18 15:46 03/16/18 15:46 03/16/18 15:46 03/16/18 15:46 03/16/18 15:46 - Medications Medications: Current Medications Acetaminophen/Butalbital/Caffeine (Fioricet) 1 tab PO Q8 PRN PRN Reason: Headache Last Admin: 03/15/18 21:59 Dose: 1 tab Amlodipine Besylate (Norvasc) 5 mg PO DAILY [facility] Last Admin: 03/16/18 10:06 Dose: Not Given Apixaban (Eliquis) 5 mg PO BID [facility] Last Admin: 03/16/18 10:04 Dose: Not Given Calcitriol (Rocaltrol) 0.5 mcg PO DAILY [facility] Last Admin: 03/16/18 14:17 Dose: 0.5 mcg Calcium Acetate (Phoslo) 1,334 mg PO WM [facility] Dextrose (Dextrose 50% Inj) 0 ml IV STAT PRN; Protocol PRN Reason: Hypoglycemia Protocol Dextrose (Glutose 15) 0 gm PO ONCE PRN; Protocol PRN Reason: Hypoglycemia Protocol Gabapentin (Neurontin) 100 mg PO TID [facility] Last Admin: 03/16/18 14:14 Dose: 100 mg Glucagon (Glucagen Diagnostic Kit) 0 mg IM STAT PRN; Protocol PRN Reason: Hypoglycemia Protocol Dextrose (Dextrose 5% In Water 1000 Ml) 1,000 mls @ 0 mls/hr IV .Q0M PRN; Protocol; Per Protocol PRN Reason: Hypoglycemia Protocol Insulin Human Regular (Novolin R) 0 unit SC ACHS [facility] PRN Reason: Protocol Last Admin: 03/16/18 13:57 Dose: Not Given Morphine Sulfate (Morphine) 2 mg IVP Q4 PRN PRN Reason: Pain, severe (8-10) Pantoprazole Sodium (Protonix Ec Tab) 40 mg PO DAILY [facility] Last Admin: 03/16/18 14:17 Dose: 40 mg Rosuvastatin Calcium (Crestor) 10 mg PO HS [facility] Last Admin: 03/15/18 21:57 Dose: 10 mg Tramadol HCl (Ultram) 50 mg PO TID PRN PRN Reason: Pain, severe (8-10) - Labs Labs: 03/16/18 08:32 03/16/18 08:32 - Constitutional Appears: Well - Head Exam Head Exam: ATRAUMATIC, NORMAL INSPECTION, NORMOCEPHALIC - Eye Exam Eye Exam: EOMI, Normal appearance, PERRL Pupil Exam: NORMAL ACCOMODATION, PERRL - ENT Exam ENT Exam: Mucous Membranes Moist, Normal Exam - Neck Exam Neck Exam: Full ROM, Normal Inspection. absent: Lymphadenopathy - Respiratory Exam Respiratory Exam: Clear to Ausculation Bilateral, NORMAL BREATHING PATTERN - Cardiovascular Exam Cardiovascular Exam: REGULAR RHYTHM, +S1, +S2. absent: Murmur - GI/Abdominal Exam GI & Abdominal Exam: Soft, Normal Bowel Sounds. absent: Tenderness - Extremities Exam Extremities Exam: Full ROM, Normal Capillary Refill, Normal Inspection. absent : Joint Swelling, Pedal Edema - Back Exam Back Exam: NORMAL INSPECTION - Neurological Exam Neurological Exam: Alert, Awake, CN II-XII Intact, Normal Gait, Oriented x3 - Psychiatric Exam Psychiatric exam: Normal Affect, Normal Mood - Skin Skin Exam: Dry, Intact, Normal Color, Warm Assessment and Plan (1) ESRD on hemodialysis Assessment & Plan: Nephro is Dr. Still. Patient was originally at [facility] but they do not have HD so patient was transferred here. Patient is otherwise medically stable. She had HD today. Patient needs rehab. Will get PT reccs and have case management work on placement for rehab. Will continue to monitor the patient closely until then. 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 Has been worked up previously hypoercoagubility by Dr. Eddy but never followed up. Status: Chronic <Jose D Mcgarry - Last Filed: 03/19/18 13:53> Objective - Vital Signs/Intake and Output Vital Signs (last 24 hours): Temp Pulse Resp BP Pulse Ox 97.3 F L 62 18 151/68 H 99 03/19/18 13:10 03/19/18 13:10 03/19/18 13:10 03/19/18 13:10 03/19/18 13:10 Intake and Output: 03/19/18 03/19/18 06:59 18:59 Intake Total 640 480 Balance 640 480 - Medications Medications: Current Medications Acetaminophen/Butalbital/Caffeine (Fioricet) 1 tab PO Q8 PRN PRN Reason: Headache Last Admin: 03/15/18 21:59 Dose: 1 tab Amlodipine Besylate (Norvasc) 5 mg PO DAILY [facility] Last Admin: 03/19/18 09:19 Dose: Not Given Calcitriol (Rocaltrol) 0.5 mcg PO DAILY [facility] Last Admin: 03/19/18 09:19 Dose: Not Given Calcium Acetate (Phoslo) 1,334 mg PO WM [facility] Epoetin Nico (Procrit) 10,000 unit IV MWF [facility] Last Admin: 03/19/18 10:29 Dose: 10,000 unit Gabapentin (Neurontin) 100 mg PO TID [facility] Last Admin: 03/19/18 09:19 Dose: Not Given Insulin Human Regular (Novolin R) 0 unit SC ACHS [facility] PRN Reason: Protocol Last Admin: 03/19/18 08:29 Dose: 2 units Pantoprazole Sodium (Protonix Ec Tab) 40 mg PO DAILY [facility] Last Admin: 03/19/18 09:19 Dose: Not Given Rosuvastatin Calcium (Crestor) 10 mg PO HS [facility] Last Admin: 03/18/18 21:58 Dose: 10 mg Vitamin B Complex/Vit C/Folic Acid (Nephro-Elsie) 1 tab PO 0800 [facility] - Labs Labs: 03/17/18 11:34 03/17/18 11:34 Attending/Attestation - Attestation I have personally seen and examined this patient.: Yes I have fully participated in the care of the patient.: Yes I have reviewed all pertinent clinical information, including history, physical exam and plan: Yes Notes (Text): 1. Subcutaneous Soft Tissue Hematoma 2. S/P Mechanical Fall 3. History of ESRD on HD (MWF) 4. Anemia 5. History of IDDM2 6. History of Peripheral Neuropathy 7. History of CAD 8. History of HTN 9. History of Depression/Anxiety 10. History of Migraines
--- NOTE | 2018-03-16 23:59 | CP.PCM.CON ---
Past Patient History - Infectious Disease Hx of Infectious Diseases: None - Tetanus Immunizations Tetanus Immunization: Unknown - Past Medical History & Family History Past Medical History?: Yes - Past Social History Smoking Status: Never Smoked Chewing Tobacco Use: No Cigar Use: No Alcohol: None Drugs: Denies Home Situation {Lives}: With Family Domestic Violence: Negative - CARDIAC Hx Cardiac Disorders: Yes (CAD) Hx Hypertension: Yes - PULMONARY Hx Pneumonia: Yes - NEUROLOGICAL HX Cerebrovascular Accident: Yes - HEENT Hx HEENT Problems: Yes (RETINOPATHY) Hx Cataracts: Yes (Bilateral surgery,LASER SURGERY ALSO) Other/Comment: blurry vision, reading glasses, missing teeth - RENAL Hx Dialysis: Yes (MWF [facility]) Type of Dialysis Access: Left groin Date of Last Dialysis Treatment: 03/12/18 - ENDOCRINE/METABOLIC Hx Diabetes Mellitus Type 2: Yes - HEMATOLOGICAL/ONCOLOGICAL Hx Blood Transfusions: No - INTEGUMENTARY Hx Dermatological Problems: Yes Other/Comment: ble discolored, club foot left, hammertoes r ft, thick toenails b /l feet, 3 abd small incisions covered with dermabond and lower left abd healed from peritoneal dialysis cath insertion 03/2017, 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 02-03-18 large bruised area to forehead post fall,left upper arm large. bruise from fall. left knee large laceration,stitched from fall. 03/01/18 Left knee laceration from fall healing, no more stitches. No more bruises on forehead - MUSCULOSKELETAL/RHEUMATOLOGICAL Hx Musculoskeletal Disorders: Yes Hx Falls: Yes - GASTROINTESTINAL Hx Gastrointestinal Disorders: Yes Hx Gall Bladder Disease: Yes Hx Gastroesophageal Reflux: Yes - GENITOURINARY/GYNECOLOGICAL Hx Genitourinary Disorders: Yes Hx Urinary Tract Infection: Yes - PSYCHIATRIC Hx Psychophysiologic Disorder: No Hx Emotional Abuse: No Hx Physical Abuse: No Hx Substance Use: No - SURGICAL HISTORY Hx Surgeries: Yes Hx Cataract Extraction: Yes Hx Cardiac Catheterization: Yes Hx Section: Yes Hx Coronary Stent: Yes Other/Comment: l knee arthroscopy, central line to left groin area. - ANESTHESIA Hx Anesthesia: Yes Hx Anesthesia Reactions: No Hx Malignant Hyperthermia: No Has any member of the family had a problem w/ anesthesia?: No Meds Allergies/Adverse Reactions: Allergies Allergy/AdvReac Type Severity Reaction Status Date / Time vancomycin Allergy Unknown ITCHING Verified 02/13/18 12:09 - Medications Medications: Current Medications Acetaminophen/Butalbital/Caffeine (Fioricet) 1 tab PO Q8 PRN PRN Reason: Headache Last Admin: 03/15/18 21:59 Dose: 1 tab Amlodipine Besylate (Norvasc) 5 mg PO DAILY [facility] Last Admin: 03/16/18 10:06 Dose: Not Given Apixaban (Eliquis) 5 mg PO BID [facility] Last Admin: 03/16/18 17:28 Dose: 5 mg Calcitriol (Rocaltrol) 0.5 mcg PO DAILY [facility] Last Admin: 03/16/18 14:17 Dose: 0.5 mcg Calcium Acetate (Phoslo) 1,334 mg PO WM [facility] Gabapentin (Neurontin) 100 mg PO TID [facility] Last Admin: 03/16/18 17:28 Dose: 100 mg Insulin Human Regular (Novolin R) 0 unit SC ACHS [facility] PRN Reason: Protocol Last Admin: 03/16/18 21:50 Dose: Not Given Pantoprazole Sodium (Protonix Ec Tab) 40 mg PO DAILY [facility] Last Admin: 03/16/18 14:17 Dose: 40 mg Rosuvastatin Calcium (Crestor) 10 mg PO HS [facility] Last Admin: 03/16/18 21:50 Dose: 10 mg Results - Vital Signs Recent Vital Signs: Last Vital Signs Temp 97.6 F 03/16/18 22:24 Pulse 67 03/16/18 22:24 Resp 20 03/16/18 22:24 BP 121/80 03/16/18 22:24 Pulse Ox 97 03/16/18 22:24 - Labs Result Diagrams: 03/16/18 08:32 03/16/18 08:32 Labs: Laboratory Results - last 24 hr 03/15/18 03/16/18 03/16/18 21:17 06:12 08:32 WBC 5.9 RBC 2.97 L Hgb 9.4 L Hct 28.6 L MCV 96.3 MCH 31.8 H MCHC 33.0 RDW 16.6 H Plt Count 415 H D MPV 9.0 Neut % (Auto) 69.0 Lymph % (Auto) 17.6 L [place] % (Auto) 10.3 H Eos % (Auto) 2.4 Baso % (Auto) 0.7 Neut # (Auto) 4.1 Lymph # (Auto) 1.0 [place] # (Auto) 0.6 Eos # (Auto) 0.1 Baso # (Auto) 0.0 Sodium Potassium Chloride Carbon Dioxide Anion Gap BUN Creatinine Est GFR ( Amer) Est GFR (Non-Af Amer) POC Glucose (mg/dL) 207 H 164 H Random Glucose Calcium Total Bilirubin AST ALT Alkaline Phosphatase Total Protein Albumin Globulin Albumin/Globulin Ratio Hep Bs Antigen 03/16/18 03/16/18 03/16/18 08:32 11:27 16:00 WBC RBC Hgb Hct MCV MCH MCHC RDW Plt Count MPV Neut % (Auto) Lymph % (Auto) [place] % (Auto) Eos % (Auto) Baso % (Auto) Neut # (Auto) Lymph # (Auto) [place] # (Auto) Eos # (Auto) Baso # (Auto) Sodium 135 Potassium 5.0 Chloride 93 L Carbon Dioxide 27 Anion Gap 20 BUN 52 H Creatinine 8.1 H* Est GFR ( Amer) 6 Est GFR (Non-Af Amer) 5 POC Glucose (mg/dL) 195 H 313 H Random Glucose 149 H Calcium 9.4 Total Bilirubin 0.6 AST 23 ALT 12 Alkaline Phosphatase 130 H D Total Protein 7.7 Albumin 3.9 Globulin 3.8 Albumin/Globulin Ratio 1.0 Hep Bs Antigen 03/16/18 03/16/18 16:32 21:27 WBC RBC Hgb Hct MCV MCH MCHC RDW Plt Count MPV Neut % (Auto) Lymph % (Auto) [place] % (Auto) Eos % (Auto) Baso % (Auto) Neut # (Auto) Lymph # (Auto) [place] # (Auto) Eos # (Auto) Baso # (Auto) Sodium Potassium Chloride Carbon Dioxide Anion Gap BUN Creatinine Est GFR ( Amer) Est GFR (Non-Af Amer) POC Glucose (mg/dL) 251 H Random Glucose Calcium Total Bilirubin AST ALT Alkaline Phosphatase Total Protein Albumin Globulin Albumin/Globulin Ratio Hep Bs Antigen Negative
[2018-03-17] MEDS: (Novolin R) Insulin Human Regular 100 units/ml vial SC SCH ×2 (08:30→12:40)
[2018-03-17] MEDS: Pantoprazole 40 mg EC Tab PO SCH (09:43)
[2018-03-17 11:46] LABS: EOS # 0.1 K/uL (0.0-0.7); HEMOGLOBIN 9.2 g/dL (11.0-16.0)
--- NOTE | 2018-03-17 11:48 | CP.PCM.DIS ---
Provider - Provider Date of Admission: 03/15/18 16:03 Attending physician: Memo Leon MD Consults: Nephro: Tessy Time Spent in preparation of Discharge (in minutes): 45 Diagnosis - Discharge Diagnosis (1) ESRD on hemodialysis Status: Chronic Priority: Medium Hospital Course - Lab Results Lab Results: Most Recent Lab Values WBC 5.9 K/uL (4.8-10.8) 03/16/18 08:32 RBC 2.97 Mil/uL (3.80-5.20) L 03/16/18 08:32 Hgb 9.4 g/dL (11.0-16.0) L 03/16/18 08:32 Hct 28.6 % (34.0-47.0) L 03/16/18 08:32 MCV 96.3 fL (81.0-99.0) 03/16/18 08:32 MCH 31.8 pg (27.0-31.0) H 03/16/18 08:32 MCHC 33.0 g/dL (33.0-37.0) 03/16/18 08:32 RDW 16.6 % (11.5-14.5) H 03/16/18 08:32 Plt Count 415 K/uL (130-400) H D 03/16/18 08:32 MPV 9.0 fL (7.2-11.7) 03/16/18 08:32 Neut % (Auto) 69.0 % (50.0-75.0) 03/16/18 08:32 Lymph % (Auto) 17.6 % (20.0-40.0) L 03/16/18 08:32 [place] % (Auto) 10.3 % (0.0-10.0) H 03/16/18 08:32 Eos % (Auto) 2.4 % (0.0-4.0) 03/16/18 08:32 Baso % (Auto) 0.7 % (0.0-2.0) 03/16/18 08:32 Neut # (Auto) 4.1 K/uL (1.8-7.0) 03/16/18 08:32 Lymph # (Auto) 1.0 K/uL (1.0-4.3) 03/16/18 08:32 [place] # (Auto) 0.6 K/uL (0.0-0.8) 03/16/18 08:32 Eos # (Auto) 0.1 K/uL (0.0-0.7) 03/16/18 08:32 Baso # (Auto) 0.0 K/uL (0.0-0.2) 03/16/18 08:32 Sodium 135 mmol/L (132-148) 03/16/18 08:32 Potassium 5.0 mmol/L (3.6-5.2) 03/16/18 08:32 Chloride 93 mmol/L (98-107) L 03/16/18 08:32 Carbon Dioxide 27 mmol/L (22-30) 03/16/18 08:32 Anion Gap 20 (10-20) 03/16/18 08:32 BUN 52 mg/dL (7-17) H 03/16/18 08:32 Creatinine 8.1 mg/dL (0.7-1.2) H* 03/16/18 08:32 Est GFR ( Amer) 6 03/16/18 08:32 Est GFR (Non-Af Amer) 5 03/16/18 08:32 POC Glucose (mg/dL) 278 mg/dL (65-110) H 03/17/18 11:21 Random Glucose 149 mg/dL (65-105) H 03/16/18 08:32 Calcium 9.4 mg/dl (8.6-10.4) 03/16/18 08:32 Total Bilirubin 0.6 mg/dL (0.2-1.3) 03/16/18 08:32 AST 23 U/L (14-36) 03/16/18 08:32 ALT 12 U/L (9-52) 03/16/18 08:32 Alkaline Phosphatase 130 U/L (38-126) H D 03/16/18 08:32 Total Protein 7.7 g/dL (6.3-8.3) 03/16/18 08:32 Albumin 3.9 g/dL (3.5-5.0) 03/16/18 08:32 Globulin 3.8 gm/dL (2.2-3.9) 03/16/18 08:32 Albumin/Globulin Ratio 1.0 (1.0-2.1) 03/16/18 08:32 Hep Bs Antigen Negative (NEGATIVE) 03/16/18 16:32 - Hospital Course Hospital Course: On Admission: This is a 57 year old female with a past medical history significant for ESRD on HD (MWF), HTN, IDDM2, CAD, free-floating IVC thrombus, chronic vertigo and frequent falls who presents to the [facility] ED after two mechanical falls. Patient reports that on Thursday evening she slipped while getting out of the bathtub and fell to the floor on her left side. She reports that she dragged herself into the bedroom afterwards. She reports that on Thursday evening she was putting on her sneakers and fell on to her right side, hitting her head on the side of the bed in the process. She endorses pain to the affected areas but denies any fevers, chills, changes in her vision, chest pain, SOB, abdominal pain, N/V/D/C , changes in urine output, or any new numbness/tingling in her extremities. Of note she is on Eliquis for her IVC thrombus and took her last dose Thursday morning. She was also recently discharged from [facility] after being admitted for approximately one month after presenting after a mechanical fall. Patient was admitted to [facility] today and is being transferred to [facility] today because dialysis at [facility] is temporarily unavailable. Hospital course: Patient had dialysis twice while inpatient. Patient is otherwise medically stable. She has social issues as far as needing help taking her medications. We will set up home health services. She has run out of days for rehab. She should continue dialysis during her regularly scheduled sessions. Discharge Exam - Head Exam Head Exam: ATRAUMATIC, NORMAL INSPECTION, NORMOCEPHALIC - Eye Exam Eye Exam: EOMI, Normal appearance, PERRL Pupil Exam: NORMAL ACCOMODATION, PERRL - Respiratory Exam Respiratory Exam: Clear to PA & Lateral, NORMAL BREATHING PATTERN, UNREMARKABLE - Cardiovascular Exam Cardiovascular Exam: REGULAR RHYTHM - GI/Abdominal Exam GI & Abdominal Exam: Normal Bowel Sounds, Soft, Unremarkable. absent: Distended , Tenderness - Neurological Exam Neurological exam: Alert, CN II-XII Intact, Normal Gait, Oriented x3, Reflexes Normal - Psychiatric Exam Psychiatric exam: Normal Affect, Normal Mood - Skin Skin Exam: Dry, Intact, Normal Color, Warm Discharge Plan - Follow Up Plan Condition: STABLE Disposition: HOME/ ROUTINE Instructions: Dialysis Diet , Heart Failure, Adult (DC), High Blood Pressure ( DC), End Stage Kidney Disease (DC) Additional Instructions: Please continue dialysis as scheduled. Please follow up with your primary doctor in 7-10 days. Please come back to the ED if symptoms return. We will have home health services set up for you. Referrals: Bashir Salmeron MD [Staff Provider] -
[2018-03-17 12:06] LABS: BASO % 0.3 % (0.0-2.0); EOS % 1.7 % (0.0-4.0); MEAN CELL VOLUME 95.5 fL (81.0-99.0); MEAN CORPUSCULAR HEMOGLOBIN 31.8 pg (27.0-31.0); MEAN CORPUSCULAR HGB CONC 33.3 g/dL (33.0-37.0); MEAN PLATELET VOLUME 9.9 fL (7.2-11.7); MONO # 0.8 K/uL (0.0-0.8); MONO % 9.8 % (0.0-10.0); NEUT % 75.2 % (50.0-75.0); RBC 2.9 Mil/uL (3.80-5.20); WHITE BLOOD COUNT 7.9 K/uL (4.8-10.8)
[2018-03-17 12:22] LABS: ALB/GLOB RATIO 1.3 (1.0-2.1); ALBUMIN 4.2 g/dL (3.5-5.0); CALCIUM 9.2 mg/dl (8.6-10.4)
--- NOTE | 2018-03-18 05:51 | CP.PCM.PN ---
Subjective - Date & Time of Evaluation Date of Evaluation: 03/17/18 Time of Evaluation: 13:00 - Subjective Subjective: Patient set to be discharged home today; no more nausea/vomiting/diarrhea reported; Objective - Vital Signs/Intake and Output Vital Signs (last 24 hours): Temp Pulse Resp BP Pulse Ox 98.2 F 64 20 150/83 100 03/18/18 00:00 03/18/18 00:00 03/18/18 00:00 03/18/18 00:00 03/18/18 00:00 Intake and Output: 03/17/18 03/18/18 18:59 06:59 Intake Total 480 Balance 480 - Medications Medications: Current Medications Acetaminophen/Butalbital/Caffeine (Fioricet) 1 tab PO Q8 PRN PRN Reason: Headache Last Admin: 03/15/18 21:59 Dose: 1 tab Amlodipine Besylate (Norvasc) 5 mg PO DAILY [facility] Last Admin: 03/17/18 09:43 Dose: 5 mg Calcitriol (Rocaltrol) 0.5 mcg PO DAILY [facility] Last Admin: 03/17/18 09:43 Dose: 0.5 mcg Calcium Acetate (Phoslo) 1,334 mg PO WM [facility] Gabapentin (Neurontin) 100 mg PO TID [facility] Last Admin: 03/17/18 19:47 Dose: 100 mg Insulin Human Regular (Novolin R) 0 unit SC ACHS [facility] PRN Reason: Protocol Last Admin: 03/17/18 12:40 Dose: 3 units Pantoprazole Sodium (Protonix Ec Tab) 40 mg PO DAILY [facility] Last Admin: 03/17/18 09:43 Dose: 40 mg Rosuvastatin Calcium (Crestor) 10 mg PO HS [facility] Last Admin: 03/16/18 21:50 Dose: 10 mg - Labs Labs: 03/17/18 11:34 03/17/18 11:34 - Constitutional Appears: Non-toxic, No Acute Distress - Eye Exam Eye Exam: Normal appearance - ENT Exam ENT Exam: Mucous Membranes Moist - Respiratory Exam Respiratory Exam: Clear to Ausculation Bilateral. absent: Respiratory Distress - Cardiovascular Exam Cardiovascular Exam: RRR, +S1, +S2 - GI/Abdominal Exam GI & Abdominal Exam: Soft. absent: Distended, Tenderness - Extremities Exam Additional comments: mild leg leg edema; - Neurological Exam Neurological Exam: Alert, Awake - Psychiatric Exam Psychiatric exam: Depressed - Skin Skin Exam: Warm. absent: Cyanosis Assessment and Plan (1) ESRD on hemodialysis Assessment & Plan: Relatively stable volume and electrolyte status; is losing weight, will continue to UF as tolerated; HD today, next for Thursday as outpatient; Status: Chronic (2) Hypertensive CKD, ESRD on dialysis Assessment & Plan: BP controlled on amlodipine 5 mg, continue; Status: Acute (3) Anemia of renal disease Assessment & Plan: Hgb overall much improved, received aranesp last week, will continue with dose of 100 mcg weekly; Status: Chronic (4) Chronic kidney disease-mineral and bone disorder Assessment & Plan: On phoslo 3 tabs w/ meals and calcitriol 0.5 mcg daily, continue same; PTH, Ca and phos at goal; Status: Chronic (5) Hemodialysis catheter malfunction Assessment & Plan: Continues to be a recurrent issue; flow is positional; goal is to establish another termite treater helper access although options are limited, will pursue as outpatient ; Status: Chronic (6) IVC thrombosis Assessment & Plan: Thrombus resolved but source of provocation (HD catheter) still present; should be on AC indefinitely, however, in light of recurrent falls (fall suffered last month resulted in very large hematomas) and inability to place patient in skilled nursing care, should hold eliquis on d/c; Status: Resolved (7) Ataxic gait Assessment & Plan: Multifactorial, due to DM dysequilibrium, failing vision and vestibular disturbance; needs termite treater helper care but will have to work on getting it as outpatient; Status: Chronic
[2018-03-18] MEDS: (Novolin R) Insulin Human Regular 100 units/ml vial SC SCH ×4 (08:23→22:00)
[2018-03-18] MEDS: Pantoprazole 40 mg EC Tab PO SCH (09:56)
--- NOTE | 2018-03-18 18:01 | CP.PCM.PN ---
Subjective - Date & Time of Evaluation Date of Evaluation: 03/18/18 Time of Evaluation: 12:30 - Subjective Subjective: Reports feeling well; tolerating diet; needs to be re-admitted to outpatient HD unit after being out for over a month; Objective - Vital Signs/Intake and Output Vital Signs (last 24 hours): Temp Pulse Resp BP Pulse Ox 97.4 F L 68 20 137/79 98 03/18/18 15:49 03/18/18 15:49 03/18/18 15:49 03/18/18 15:49 03/18/18 15:49 Intake and Output: 03/18/18 03/18/18 06:59 18:59 Intake Total 300 Balance 300 - Medications Medications: Current Medications Acetaminophen/Butalbital/Caffeine (Fioricet) 1 tab PO Q8 PRN PRN Reason: Headache Last Admin: 03/15/18 21:59 Dose: 1 tab Amlodipine Besylate (Norvasc) 5 mg PO DAILY [facility] Last Admin: 03/18/18 09:57 Dose: 5 mg Calcitriol (Rocaltrol) 0.5 mcg PO DAILY [facility] Last Admin: 03/18/18 09:56 Dose: 0.5 mcg Calcium Acetate (Phoslo) 1,334 mg PO WM [facility] Gabapentin (Neurontin) 100 mg PO TID [facility] Last Admin: 03/18/18 17:36 Dose: 100 mg Insulin Human Regular (Novolin R) 0 unit SC ACHS [facility] PRN Reason: Protocol Last Admin: 03/18/18 17:37 Dose: 3 units Pantoprazole Sodium (Protonix Ec Tab) 40 mg PO DAILY [facility] Last Admin: 03/18/18 09:56 Dose: 40 mg Rosuvastatin Calcium (Crestor) 10 mg PO HS [facility] Last Admin: 03/16/18 21:50 Dose: 10 mg - Labs Labs: 03/17/18 11:34 03/17/18 11:34 - Constitutional Appears: Non-toxic, No Acute Distress - Eye Exam Eye Exam: Normal appearance - ENT Exam ENT Exam: Mucous Membranes Moist - Respiratory Exam Respiratory Exam: Clear to Ausculation Bilateral. absent: Respiratory Distress - Cardiovascular Exam Cardiovascular Exam: RRR, +S1, +S2 - GI/Abdominal Exam GI & Abdominal Exam: Soft. absent: Distended, Tenderness - Exam Exam: absent: Bladder Distension - Extremities Exam Additional comments: no leg edema; - Neurological Exam Neurological Exam: Alert, Awake - Psychiatric Exam Psychiatric exam: Normal Mood. absent: Agitated - Skin Skin Exam: Warm. absent: Cyanosis Assessment and Plan (1) ESRD on hemodialysis Assessment & Plan: Stable volume and electrolyte status; HD MWF per routine; Status: Chronic (2) Hypertensive CKD, ESRD on dialysis Assessment & Plan: BP controlled, continue norvasc 5 mg daily; Status: Chronic (3) Anemia of renal disease Assessment & Plan: Hgb much improved, stable; had been on aranesp 100 mcg weekly; will give EPO on HD tomorrow; Status: Chronic (4) Chronic kidney disease-mineral and bone disorder Assessment & Plan: Ca and phos at goal; continue calcitriol 0.5 mcg daily and phoslo 2 tabs w/ meals; Status: Chronic (5) Hemodialysis catheter malfunction Assessment & Plan: Unable to obtain adequate blood flows at times but recently able to complete HD ; monitor; Status: Chronic (6) IVC thrombosis Assessment & Plan: Thrombus resolved but needs eliquis indefinitely; since patient is going home and still fall risk, will hold eliquis for now; Status: Resolved (7) Ataxic gait Status: Chronic
[2018-03-19] MEDS: (Novolin R) Insulin Human Regular 100 units/ml vial SC SCH ×4 (08:29→21:45)
[2018-03-19] MEDS: Pantoprazole 40 mg EC Tab PO SCH ×2 (09:19→14:11)
[2018-03-19] MEDS: Epoetin Alfa 10,000 unit/ml Dialysis IV SCH (10:29)
--- NOTE | 2018-03-19 11:24 | CP.PCM.DIS ---
<Marshal Vera - Last Filed: 03/19/18 11:17> Provider - Provider Date of Admission: 03/15/18 16:03 Attending physician: Memo Leon MD Consults: Nephro: Vineet Time Spent in preparation of Discharge (in minutes): 45 Diagnosis - Discharge Diagnosis (1) ESRD on hemodialysis Status: Chronic Priority: Medium Hospital Course - Lab Results Lab Results: Most Recent Lab Values WBC 7.9 K/uL (4.8-10.8) 03/17/18 11:34 RBC 2.90 Mil/uL (3.80-5.20) L 03/17/18 11:34 Hgb 9.2 g/dL (11.0-16.0) L 03/17/18 11:34 Hct 27.7 % (34.0-47.0) L 03/17/18 11:34 MCV 95.5 fL (81.0-99.0) 03/17/18 11:34 MCH 31.8 pg (27.0-31.0) H 03/17/18 11:34 MCHC 33.3 g/dL (33.0-37.0) 03/17/18 11:34 RDW 17.0 % (11.5-14.5) H 03/17/18 11:34 Plt Count 397 K/uL (130-400) 03/17/18 11:34 MPV 9.9 fL (7.2-11.7) 03/17/18 11:34 Neut % (Auto) 75.2 % (50.0-75.0) H 03/17/18 11:34 Lymph % (Auto) 13.0 % (20.0-40.0) L 03/17/18 11:34 [place] % (Auto) 9.8 % (0.0-10.0) 03/17/18 11:34 Eos % (Auto) 1.7 % (0.0-4.0) 03/17/18 11:34 Baso % (Auto) 0.3 % (0.0-2.0) 03/17/18 11:34 Neut # (Auto) 6.0 K/uL (1.8-7.0) 03/17/18 11:34 Lymph # (Auto) 1.0 K/uL (1.0-4.3) 03/17/18 11:34 [place] # (Auto) 0.8 K/uL (0.0-0.8) 03/17/18 11:34 Eos # (Auto) 0.1 K/uL (0.0-0.7) 03/17/18 11:34 Baso # (Auto) 0.0 K/uL (0.0-0.2) 03/17/18 11:34 Sodium 137 mmol/L (132-148) 03/17/18 11:34 Potassium 4.8 mmol/L (3.6-5.2) 03/17/18 11:34 Chloride 95 mmol/L (98-107) L 03/17/18 11:34 Carbon Dioxide 26 mmol/L (22-30) 03/17/18 11:34 Anion Gap 20 (10-20) 03/17/18 11:34 BUN 49 mg/dL (7-17) H 03/17/18 11:34 Creatinine 7.6 mg/dL (0.7-1.2) H* 03/17/18 11:34 Est GFR ( Amer) 7 03/17/18 11:34 Est GFR (Non-Af Amer) 5 03/17/18 11:34 POC Glucose (mg/dL) 209 mg/dL (65-110) H 03/19/18 07:16 Random Glucose 202 mg/dL (65-105) H 03/17/18 11:34 Calcium 9.2 mg/dl (8.6-10.4) 03/17/18 11:34 Total Bilirubin 0.7 mg/dL (0.2-1.3) 03/17/18 11:34 AST 27 U/L (14-36) 03/17/18 11:34 ALT 17 U/L (9-52) 03/17/18 11:34 Alkaline Phosphatase 113 U/L (38-126) 03/17/18 11:34 Total Protein 7.4 g/dL (6.3-8.3) 03/17/18 11:34 Albumin 4.2 g/dL (3.5-5.0) 03/17/18 11:34 Globulin 3.1 gm/dL (2.2-3.9) 03/17/18 11:34 Albumin/Globulin Ratio 1.3 (1.0-2.1) 03/17/18 11:34 Hep Bs Antigen Negative (NEGATIVE) 03/16/18 16:32 - Hospital Course Hospital Course: On Admission: This is a 57 year old female with a past medical history significant for ESRD on HD ([facility]), HTN, IDDM2, CAD, free-floating IVC thrombus, chronic vertigo and frequent falls who presents to the [facility] ED after two mechanical falls. Patient reports that on Thursday evening she slipped while getting out of the bathtub and fell to the floor on her left side. She reports that she dragged herself into the bedroom afterwards. She reports that on Thursday evening she was putting on her sneakers and fell on to her right side, hitting her head on the side of the bed in the process. She endorses pain to the affected areas but denies any fevers, chills, changes in her vision, chest pain, SOB, abdominal pain, N/V/D/C , changes in urine output, or any new numbness/tingling in her extremities. Of note she is on Eliquis for her IVC thrombus and took her last dose Thursday morning. She was also recently discharged from [facility] after being admitted for approximately one month after presenting after a mechanical fall. Patient was admitted to [place] today and is being transferred to [facility] today because dialysis at [place] is temporarily unavailable. Hospital course: Patient had dialysis twice while inpatient. Patient is otherwise medically stable. She has social issues as far as needing help taking her medications. We will set up home health services. She has run out of days for rehab. She need to be reapproved for rehab. The patient is requesting to be at the same location as previous at [facility] schedule but we are not sure at this time whether that is a possibility. We will have dialysis set up by the end of the day. The patient should drop her Eliquis from 5mg BID to 2.5 mg BID. She will also need to follow up with her primary care Dr. Salmeron in 7-10 days as well as care services manager Dr. Jones in 7-10 days. Discharge Exam - Head Exam Head Exam: ATRAUMATIC, NORMAL INSPECTION, NORMOCEPHALIC - Eye Exam Eye Exam: EOMI, Normal appearance, PERRL Pupil Exam: NORMAL ACCOMODATION, PERRL - Respiratory Exam Respiratory Exam: Clear to PA & Lateral, NORMAL BREATHING PATTERN, UNREMARKABLE. absent: Wheezes - Cardiovascular Exam Cardiovascular Exam: REGULAR RHYTHM. absent: Tachycardia - GI/Abdominal Exam GI & Abdominal Exam: Normal Bowel Sounds, Soft, Unremarkable. absent: Distended , Tenderness - Back Exam Back exam: absent: CVA tenderness (L), CVA tenderness (R) - Neurological Exam Neurological exam: Alert, CN II-XII Intact, Normal Gait, Oriented x3, Reflexes Normal - Psychiatric Exam Psychiatric exam: Normal Affect, Normal Mood - Skin Skin Exam: Dry, Intact, Normal Color, Warm Discharge Plan - Discharge Medications Prescriptions: Apixaban [Eliquis] 2.5 mg PO BID 30 Days tab - Follow Up Plan Condition: STABLE Disposition: HOME/ ROUTINE Instructions: Dialysis Diet , Heart Failure, Adult (DC), High Blood Pressure ( DC), End Stage Kidney Disease (DC) Additional Instructions: Please continue dialysis as scheduled. Please follow up with your primary doctor Dr. Salmeron, in 7-10 days. Please come back to the ED if symptoms return. We will have home health services set up for you. Please stop taking 5mg Eliquis and switch to 2.5mg Eliquis. I will provide a script for you. Please follow up with care services manager Dr. Jones in 7-10 days as an outpatient. Referrals: Bashir Salmeron MD [Staff Provider] - Soledad Jones DPM [Staff Provider] - <Jakub Campbell - Last Filed: 03/19/18 19:22> Provider - Provider Date of Admission: 03/15/18 16:03 Attending physician: Memo Leon MD Time Spent in preparation of Discharge (in minutes): 40 Hospital Course - Lab Results Lab Results: Most Recent Lab Values WBC 7.9 K/uL (4.8-10.8) 03/17/18 11:34 RBC 2.90 Mil/uL (3.80-5.20) L 03/17/18 11:34 Hgb 9.2 g/dL (11.0-16.0) L 03/17/18 11:34 Hct 27.7 % (34.0-47.0) L 03/17/18 11:34 MCV 95.5 fL (81.0-99.0) 03/17/18 11:34 MCH 31.8 pg (27.0-31.0) H 03/17/18 11:34 MCHC 33.3 g/dL (33.0-37.0) 03/17/18 11:34 RDW 17.0 % (11.5-14.5) H 03/17/18 11:34 Plt Count 397 K/uL (130-400) 03/17/18 11:34 MPV 9.9 fL (7.2-11.7) 03/17/18 11:34 Neut % (Auto) 75.2 % (50.0-75.0) H 03/17/18 11:34 Lymph % (Auto) 13.0 % (20.0-40.0) L 03/17/18 11:34 [place] % (Auto) 9.8 % (0.0-10.0) 03/17/18 11:34 Eos % (Auto) 1.7 % (0.0-4.0) 03/17/18 11:34 Baso % (Auto) 0.3 % (0.0-2.0) 03/17/18 11:34 Neut # (Auto) 6.0 K/uL (1.8-7.0) 03/17/18 11:34 Lymph # (Auto) 1.0 K/uL (1.0-4.3) 03/17/18 11:34 [place] # (Auto) 0.8 K/uL (0.0-0.8) 03/17/18 11:34 Eos # (Auto) 0.1 K/uL (0.0-0.7) 03/17/18 11:34 Baso # (Auto) 0.0 K/uL (0.0-0.2) 03/17/18 11:34 Sodium 137 mmol/L (132-148) 03/17/18 11:34 Potassium 4.8 mmol/L (3.6-5.2) 03/17/18 11:34 Chloride 95 mmol/L (98-107) L 03/17/18 11:34 Carbon Dioxide 26 mmol/L (22-30) 03/17/18 11:34 Anion Gap 20 (10-20) 03/17/18 11:34 BUN 49 mg/dL (7-17) H 03/17/18 11:34 Creatinine 7.6 mg/dL (0.7-1.2) H* 03/17/18 11:34 Est GFR ( Amer) 7 03/17/18 11:34 Est GFR (Non-Af Amer) 5 03/17/18 11:34 POC Glucose (mg/dL) 276 mg/dL (65-110) H 03/19/18 16:35 Random Glucose 202 mg/dL (65-105) H 03/17/18 11:34 Calcium 9.2 mg/dl (8.6-10.4) 03/17/18 11:34 Total Bilirubin 0.7 mg/dL (0.2-1.3) 03/17/18 11:34 AST 27 U/L (14-36) 03/17/18 11:34 ALT 17 U/L (9-52) 03/17/18 11:34 Alkaline Phosphatase 113 U/L (38-126) 03/17/18 11:34 Total Protein 7.4 g/dL (6.3-8.3) 03/17/18 11:34 Albumin 4.2 g/dL (3.5-5.0) 03/17/18 11:34 Globulin 3.1 gm/dL (2.2-3.9) 03/17/18 11:34 Albumin/Globulin Ratio 1.3 (1.0-2.1) 03/17/18 11:34 Hep Bs Antigen Negative (NEGATIVE) 03/16/18 16:32 Attending/Attestation - Attestation I have personally seen and examined this patient.: Yes I have fully participated in the care of the patient.: Yes I have reviewed all pertinent clinical information, including history, physical exam and plan: Yes
--- NOTE | 2018-03-19 12:21 | CP.PCM.PN ---
Subjective - Date & Time of Evaluation Date of Evaluation: 03/19/18 Time of Evaluation: 12:20 - Subjective Subjective: Nephrology Consultation Note covering for Dr Still Assessment: Stable Diabetic chronic Kidney Disease (E11.22) Hypertensive Chronic Kidney Disease (I12.0) End stage renal disease (N18.6) dependence on hemodialysis (Z99.2) (MWF) via fermoral permacath Anemia (D64.9), Hyperphosphatemia (E83.39), Secondary Hyperparathyroidism (E21.1 ), HTN (I12.0) Plan: Will plan for HD today as ordered. Continue with Nephrovite 1 tab/day. PRBC as needed for anemia. on JOANNE with dialysis as last Hb 9.2 Continue with phos binders Continue with calcitriol. BP control with meds as ordered. Patient not on RAAS robert can consider Glycemic control, Dialysis consistent diet Further work up/management as per primary team Dose meds/antibiotics (if needed) for ESRD status. Avoid fleets enema/magnesium based laxatives. Thanks for allowing me to participate in care of your patient. Please call if any Qs. Dr Still will follow from tomorrow Dr Juan Myles Office: [phone] Subjective: Noted events overnight. Patients feels okay. Denies chest pain, palpitation, shortness of breath, leg swelling. All other negative Physical Examination: seen on HD General Appearance: Comfortable, in no acute respiratory distress, co-operative . Vitals reviewed and noted as below Head; Atraumatic, normocephalic ENT: no ulcers no thrush. Tongue is midline. Oropharynx: no rash or ulcers. EYES: Pupils are equal, round and reactive to light accommodation. Eye muscles and extraocular movement intact. Sclera is anicteric. Neck; supple no lymphadenopathy, no thyromegaly or bruit Lungs: Normal respiratory rate/effort. Breath sounds bilateral equal and clear Heart: Normal rate. s1s2 normal. No rub or gallop. Extremities: no edema. No varicose veins Neurological: Patient is alert, awake and oriented to person, place and time. No focal deficit. Strength bilateral appropriate and equal Skin: Warm and dry. Normal turgor. No rash. Palpitation: Normal elasticity for age Abdomen: Abdomen is soft. Bowel sounds +. There is no abdominal tenderness, no guarding/rigidity or organomegaly Psych: normal insight and normal affect/mood MSK: no joint tenderness or swelling. Digits and nails normal, no deformity : kidney or bladder not palpable Access: femoral catheter Labs/imaging reviewed. Past medical history, past surgical history, family history, social history, allergy reviewed and noted as below Family Hx: no hx of CKD. Non contributory Objective - Vital Signs/Intake and Output Vital Signs (last 24 hours): Temp Pulse Resp BP Pulse Ox 97.5 F L 64 18 130/65 97 03/19/18 09:40 03/19/18 09:40 03/19/18 09:40 03/19/18 11:40 03/19/18 09:40 Intake and Output: 03/19/18 03/19/18 06:59 18:59 Intake Total 640 Balance 640 - Medications Medications: Current Medications Acetaminophen/Butalbital/Caffeine (Fioricet) 1 tab PO Q8 PRN PRN Reason: Headache Last Admin: 03/15/18 21:59 Dose: 1 tab Amlodipine Besylate (Norvasc) 5 mg PO DAILY [facility] Last Admin: 03/19/18 09:19 Dose: Not Given Calcitriol (Rocaltrol) 0.5 mcg PO DAILY [facility] Last Admin: 03/19/18 09:19 Dose: Not Given Calcium Acetate (Phoslo) 1,334 mg PO WM [facility] Epoetin Nico (Procrit) 10,000 unit IV MWF [facility] Last Admin: 03/19/18 10:29 Dose: 10,000 unit Gabapentin (Neurontin) 100 mg PO TID [facility] Last Admin: 03/19/18 09:19 Dose: Not Given Insulin Human Regular (Novolin R) 0 unit SC ACHS [facility] PRN Reason: Protocol Last Admin: 03/19/18 08:29 Dose: 2 units Pantoprazole Sodium (Protonix Ec Tab) 40 mg PO DAILY [facility] Last Admin: 03/19/18 09:19 Dose: Not Given Rosuvastatin Calcium (Crestor) 10 mg PO HS [facility] Last Admin: 03/18/18 21:58 Dose: 10 mg Vitamin B Complex/Vit C/Folic Acid (Nephro-Elsie) 1 tab PO 0800 [facility] - Labs Labs: 03/17/18 11:34 03/17/18 11:34
--- NOTE | 2018-03-20 04:06 | CP.PCM.PN ---
<Shubham Fernandes - Last Filed: 03/20/18 06:53> Subjective - Date & Time of Evaluation Date of Evaluation: 03/20/18 Time of Evaluation: 06:35 - Subjective Subjective: PGY1 Medicine Note for Dr. Monalisa Campbell Patient seen and examined this morning at bedside. No acute events overnight. Patient is tolerating her diet well. Ambulates with a walker. She still has body pains from recent falls, but no acute changes. Her pain has been well controlled. No complaints at this time. Objective - Vital Signs/Intake and Output Vital Signs (last 24 hours): Temp Pulse Resp BP Pulse Ox 98.1 F 65 20 133/76 98 03/19/18 23:44 03/19/18 23:44 03/19/18 23:44 03/19/18 23:44 03/19/18 23:44 Intake and Output: 03/19/18 03/20/18 18:59 06:59 Intake Total 480 400 Balance 480 400 - Medications Medications: Current Medications Acetaminophen/Butalbital/Caffeine (Fioricet) 1 tab PO Q8 PRN PRN Reason: Headache Last Admin: 03/15/18 21:59 Dose: 1 tab Amlodipine Besylate (Norvasc) 5 mg PO DAILY [facility] Last Admin: 03/19/18 09:19 Dose: Not Given Calcitriol (Rocaltrol) 0.5 mcg PO DAILY [facility] Last Admin: 03/19/18 14:11 Dose: 0.5 mcg Calcium Acetate (Phoslo) 1,334 mg PO WM [facility] Epoetin Nico (Procrit) 10,000 unit IV MWF [facility] Last Admin: 03/19/18 10:29 Dose: 10,000 unit Gabapentin (Neurontin) 100 mg PO TID [facility] Last Admin: 03/19/18 17:15 Dose: 100 mg Insulin Human Regular (Novolin R) 0 unit SC ACHS [facility] PRN Reason: Protocol Last Admin: 03/19/18 21:45 Dose: Not Given Pantoprazole Sodium (Protonix Ec Tab) 40 mg PO DAILY [facility] Last Admin: 03/19/18 14:11 Dose: 40 mg Rosuvastatin Calcium (Crestor) 10 mg PO HS [facility] Last Admin: 03/19/18 21:45 Dose: 10 mg Vitamin B Complex/Vit C/Folic Acid (Nephro-Elsie) 1 tab PO 0800 [facility] - Labs Labs: 03/17/18 11:34 03/17/18 11:34 Assessment and Plan - Assessment and Plan (Free Text) Plan: - Constitutional Appears: Chronically Ill - Head Exam Head Exam: ATRAUMATIC, NORMAL INSPECTION, NORMOCEPHALIC - Eye Exam Eye Exam: EOMI, Pupil Exam: NORMAL ACCOMODATION, PERRL - ENT Exam ENT Exam: Mucous Membranes Moist, Normal Exam - Neck Exam Neck Exam: Full ROM, Normal Inspection. absent: Lymphadenopathy - Respiratory Exam Respiratory Exam: Clear to Ausculation Bilateral, NORMAL BREATHING PATTERN, Left sided chest tenderness - Cardiovascular Exam Cardiovascular Exam: REGULAR RHYTHM, +S1, +S2. absent: Murmur - GI/Abdominal Exam GI & Abdominal Exam: Soft, Normal Bowel Sounds. absent: Tenderness - Extremities Exam Extremities Exam: Left hip hematoma - dressing saturated with dry, dark colored fluid. absent: Joint Swelling, Pedal Edema - Back Exam Back Exam: NORMAL INSPECTION - Neurological Exam Neurological Exam: Alert, Awake, CN II-XII Intact, Normal Gait, Oriented x3 - Psychiatric Exam Psychiatric exam: Normal Affect, Normal Mood - Skin Skin Exam: Dry, Intact, Normal Color, Warm Assessment and Plan ESRD on hemodialysis Nephro is Dr. Still. Patient was originally at [facility] but they do not have HD so patient was transferred here. Patient is otherwise medically stable. She had HD today. Patient needs rehab. Will get PT reccs and have case management work on placement for rehab. Will continue to monitor the patient closely until then. 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 Eliquis is currently being held per Dr. Still as patient is a fall risk. Has been worked up previously hypoercoagubility by Dr. Edyd but never followed up. Patient was supposed to be discharged earlier this week but due to multiple recent hospitalizations, patient's outpatient dialysis center filled her spot and she is currently without outpatient dialysis. Patient will be here until she is able to be set up with an outpatient facility. Will discuss case with Dr. Monalisa Fernandes PGY1 <Jakub Campbell - Last Filed: 03/20/18 15:13> Objective - Vital Signs/Intake and Output Vital Signs (last 24 hours): Temp Pulse Resp BP Pulse Ox 97.4 F L 68 20 129/74 99 03/20/18 09:01 03/20/18 09:01 03/20/18 09:01 03/20/18 09:01 03/20/18 09:01 Intake and Output: 03/20/18 03/20/18 06:59 18:59 Intake Total 400 120 Balance 400 120 - Medications Medications: Current Medications Acetaminophen/Butalbital/Caffeine (Fioricet) 1 tab PO Q8 PRN PRN Reason: Headache Last Admin: 03/15/18 21:59 Dose: 1 tab Amlodipine Besylate (Norvasc) 5 mg PO DAILY [facility] Last Admin: 03/20/18 09:33 Dose: 5 mg Calcitriol (Rocaltrol) 0.5 mcg PO DAILY [facility] Last Admin: 03/20/18 09:32 Dose: 0.5 mcg Calcium Acetate (Phoslo) 1,334 mg PO WM [facility] Epoetin Nico (Procrit) 10,000 unit IV MWF [facility] Last Admin: 03/19/18 10:29 Dose: 10,000 unit Gabapentin (Neurontin) 100 mg PO TID [facility] Last Admin: 03/20/18 13:03 Dose: 100 mg Insulin Human Regular (Novolin R) 0 unit SC ACHS [facility] PRN Reason: Protocol Last Admin: 03/20/18 12:53 Dose: 3 units Pantoprazole Sodium (Protonix Ec Tab) 40 mg PO DAILY [facility] Last Admin: 03/20/18 09:33 Dose: 40 mg Rosuvastatin Calcium (Crestor) 10 mg PO HS [facility] Last Admin: 03/19/18 21:45 Dose: 10 mg Vitamin B Complex/Vit C/Folic Acid (Nephro-Elsie) 1 tab PO 0800 [facility] Last Admin: 03/20/18 08:38 Dose: 1 tab - Labs Labs: 03/20/18 08:58 03/20/18 08:58 Attending/Attestation - Attestation I have personally seen and examined this patient.: Yes I have fully participated in the care of the patient.: Yes I have reviewed all pertinent clinical information, including history, physical exam and plan: Yes Notes (Text): 03/20/18 15:09 Patient was seen and examined at 3:00 PM. Assessments: 1). Subcutaneous Soft Tissue Hematoma Left Lateral Hip/Lumbar Area 2). S/P Mechanical Fall 3). ESRD on HD -- 4). Anemia of Chronic Disease Secondary to ESRD 5). DM 2 on Insulin 6). Peripheral Neuropathy 7). CAD 8). HTN 9). Depression/Axiety 10). Migraine NO change in patient status. Awaiting [facility] HD [facility]. Jakub Campbell D.O.
[2018-03-20] MEDS: Multivitamin Vitamin B Complex (Nephro-Vite) Tab PO SCH (08:38)
[2018-03-20] MEDS: (Novolin R) Insulin Human Regular 100 units/ml vial SC SCH ×4 (08:39→22:01)
[2018-03-20 09:18] LABS: BASO # 0.1 K/uL (0.0-0.2); BASO % 0.8 % (0.0-2.0); EOS # 0.1 K/uL (0.0-0.7); EOS % 1.9 % (0.0-4.0); HEMOGLOBIN 9.2 g/dL (11.0-16.0); LYMPH # 1.2 K/uL (1.0-4.3); LYMPH % 18.5 % (20.0-40.0); MEAN CELL VOLUME 95.7 fL (81.0-99.0); MEAN CORPUSCULAR HGB CONC 33.5 g/dL (33.0-37.0); MEAN PLATELET VOLUME 9.4 fL (7.2-11.7); MONO # 0.7 K/uL (0.0-0.8); MONO % 9.9 % (0.0-10.0); NEUT # 4.6 K/uL (1.8-7.0); NEUT % 68.9 % (50.0-75.0); NRBC % 0.1 % (0.0-2.0); RBC 2.87 Mil/uL (3.80-5.20); RED CELL DISTRIBUTION WIDTH 17.4 % (11.5-14.5); WHITE BLOOD COUNT 6.6 K/uL (4.8-10.8)
[2018-03-20] MEDS: Pantoprazole 40 mg EC Tab PO SCH (09:33)
[2018-03-20 09:37] LABS: ALB/GLOB RATIO 1.2 (1.0-2.1); ALBUMIN 3.9 g/dL (3.5-5.0); CALCIUM 8.5 mg/dl (8.6-10.4)
--- NOTE | 2018-03-20 18:18 | CP.PCM.PN ---
Subjective - Date & Time of Evaluation Date of Evaluation: 03/20/18 Time of Evaluation: 12:00 - Subjective Subjective: Patient reports feeling well, but still with L rib pain; no sob; tolerating diet without nausea/vomiting; having some drainage from L hip hematoma site; Objective - Vital Signs/Intake and Output Vital Signs (last 24 hours): Temp Pulse Resp BP Pulse Ox 97.7 F 62 20 141/76 100 03/20/18 15:00 03/20/18 15:00 03/20/18 15:00 03/20/18 15:00 03/20/18 15:00 Intake and Output: 03/20/18 03/20/18 06:59 18:59 Intake Total 400 120 Balance 400 120 - Medications Medications: Current Medications Acetaminophen/Butalbital/Caffeine (Fioricet) 1 tab PO Q8 PRN PRN Reason: Headache Last Admin: 03/15/18 21:59 Dose: 1 tab Amlodipine Besylate (Norvasc) 5 mg PO DAILY [facility] Last Admin: 03/20/18 09:33 Dose: 5 mg Apixaban (Eliquis) 2.5 mg PO BID [facility] Last Admin: 03/20/18 17:38 Dose: 2.5 mg Calcitriol (Rocaltrol) 0.5 mcg PO DAILY [facility] Last Admin: 03/20/18 09:32 Dose: 0.5 mcg Calcium Acetate (Phoslo) 1,334 mg PO WM [facility] Epoetin Nico (Procrit) 10,000 unit IV MWF [facility] Last Admin: 03/19/18 10:29 Dose: 10,000 unit Gabapentin (Neurontin) 100 mg PO TID [facility] Last Admin: 03/20/18 17:35 Dose: 100 mg Insulin Human Regular (Novolin R) 0 unit SC ACHS [facility] PRN Reason: Protocol Last Admin: 03/20/18 17:00 Dose: 2 units Pantoprazole Sodium (Protonix Ec Tab) 40 mg PO DAILY [facility] Last Admin: 03/20/18 09:33 Dose: 40 mg Rosuvastatin Calcium (Crestor) 10 mg PO HS [facility] Last Admin: 03/19/18 21:45 Dose: 10 mg Vitamin B Complex/Vit C/Folic Acid (Nephro-Elsie) 1 tab PO 0800 [facility] Last Admin: 03/20/18 08:38 Dose: 1 tab - Labs Labs: 03/20/18 08:58 03/20/18 08:58 - Constitutional Appears: Non-toxic, No Acute Distress - Eye Exam Eye Exam: absent: Scleral icterus - ENT Exam ENT Exam: Mucous Membranes Moist - Respiratory Exam Respiratory Exam: Clear to Ausculation Bilateral. absent: Respiratory Distress - Cardiovascular Exam Cardiovascular Exam: RRR, +S1, +S2 - GI/Abdominal Exam GI & Abdominal Exam: Soft, Tenderness. absent: Distended Additional comments: mild tenderness; - Extremities Exam Additional comments: mild L leg edema; - Neurological Exam Neurological Exam: Alert, Awake - Psychiatric Exam Psychiatric exam: Normal Mood. absent: Agitated - Skin Skin Exam: Warm. absent: Cyanosis Assessment and Plan (1) ESRD on hemodialysis Assessment & Plan: Relatively stable volume status; K at higher end of normal despite getting HD yesterday; will give kayexalate dose tomorrow as she has history of K spikes on weekends, no need to check labs tomorrow; next HD for Thursday per routine; will discuss with outpatient HD center on Thursday regarding the holdup with re- admission to their unit (patient was discharged from their due to not receiving HD there for >30 days as she was hospitalized); Status: Chronic (2) Hypertensive CKD, ESRD on dialysis Assessment & Plan: BP controlled, on amlodipine 5 mg daily, continue same; Status: Chronic (3) Anemia of renal disease Assessment & Plan: Hgb below goal of 10-11g but stable, continue EPO 10,000 u on MWF on HD; Status: Chronic (4) Chronic kidney disease-mineral and bone disorder Assessment & Plan: Phos and PTH controlled on phoslo 2 tabs w/ meals and calcitriol 0.5 mcg daily respectively; continue same; Status: Chronic (5) Hemodialysis catheter malfunction Assessment & Plan: Due to type of catheter (long femoral catheter); chronic issue but so far getting by; will obtain vein mapping and discuss with vascular surgeon regarding any possibility of AVG placement (outpatient issue, but will try to get process started while patient still admitted); Status: Chronic (6) IVC thrombosis Assessment & Plan: Needs indefinite AC but would prefer to hold AC on discharge given patient's fall history; Status: Resolved (7) Ataxic gait Status: Chronic
[2018-03-21] MEDS: (Novolin R) Insulin Human Regular 100 units/ml vial SC SCH ×4 (08:18→21:42)
[2018-03-21] MEDS: Multivitamin Vitamin B Complex (Nephro-Vite) Tab PO SCH (08:19)
[2018-03-21] MEDS: Pantoprazole 40 mg EC Tab PO SCH (09:02)
[2018-03-21] MEDS ORDERED: Sod Polystyrene Sulf 15 gm/60 ml Susp PO ONE (10:00)
--- NOTE | 2018-03-21 10:06 | CP.PCM.PN ---
Subjective - Date & Time of Evaluation Date of Evaluation: 03/21/18 Time of Evaluation: 09:45 - Subjective Subjective: Patient was seen and examined at 9:45 AM. ROS: Left lateral lower rib pain Moving bowels Soreness at the left lateral hip/buttock hematoma site (bandage was changed by me at time of exam) NO other complaints at this time NO change on exam Assessments: 1). Subcutaneous Soft Tissue Hematoma Left Lateral Hip/Buttock/Lumbar Area: there is a small roughly 1 cm in diameter abrasion at the center with no surrounding signs of cellulitis 2). S/P Mechanical Fall: Left lower rib fractures and has abdominal binder in place 3). ESRD on HD via Left Femoral Catheter: Failed AVF in the bilateral arms (prior vascular surgeon Dr. Brennan as per patient). Evaluation for AVG needed and we will leave this upto Nephrology Dr. Still to see if he would like Dr. Brennan at [place] to reevaluate patient for this issue. Awaiting outpatient HD at [facility] (lost her spot due to greater than 30 days hospitalization. Currently on Racaltrol and Phoslo. 4). Anemia of Chronic Disease Secondary to ESRD: Procrit 5). DM 2 on Insulin Sliding Scale (no home oral hypoglycemics or insulin noted) 6). Peripheral Neuropathy: Gabapentin 7). CAD: Crestor 8). HTN: Norvasc 9). Depression/Anxiety: was on Prozac at home. However due to history of multiple falls this has been placed on HOLD 10). 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 However risk is too great for bleeding due to multiple falls and the current hematoma (see assessment #1) . Therefore Eliquis is on HOLD 11). Migraine: treated with Fioricet while in patient and has not required it recently NO change in patient status. Awaiting outpatient HD spot at [facility]: please speak with Crew Dispatcher on 03/22/18 to see where we are with this Jakub Campbell D.O. Objective - Vital Signs/Intake and Output Vital Signs (last 24 hours): Temp Pulse Resp BP Pulse Ox 97.6 F 67 20 134/76 98 03/21/18 08:14 03/21/18 08:14 03/21/18 08:14 03/21/18 08:14 03/21/18 08:14 Intake and Output: 03/21/18 03/21/18 06:59 18:59 Intake Total 0 Balance 0 - Medications Medications: Current Medications Acetaminophen/Butalbital/Caffeine (Fioricet) 1 tab PO Q8 PRN PRN Reason: Headache Last Admin: 03/15/18 21:59 Dose: 1 tab Amlodipine Besylate (Norvasc) 5 mg PO DAILY [facility] Last Admin: 03/21/18 09:02 Dose: 5 mg Calcitriol (Rocaltrol) 0.5 mcg PO DAILY [facility] Last Admin: 03/21/18 09:02 Dose: 0.5 mcg Calcium Acetate (Phoslo) 1,334 mg PO WM [facility] Epoetin Nico (Procrit) 10,000 unit IV MWF [facility] Last Admin: 03/19/18 10:29 Dose: 10,000 unit Gabapentin (Neurontin) 100 mg PO TID [facility] Last Admin: 03/21/18 09:02 Dose: 100 mg Insulin Human Regular (Novolin R) 0 unit SC ACHS [facility] PRN Reason: Protocol Last Admin: 03/21/18 08:18 Dose: 1 units Pantoprazole Sodium (Protonix Ec Tab) 40 mg PO DAILY [facility] Last Admin: 03/21/18 09:02 Dose: 40 mg Rosuvastatin Calcium (Crestor) 10 mg PO HS [facility] Last Admin: 03/20/18 21:40 Dose: 10 mg Sodium Polystyrene Sulfonate (Kayexalate Susp) 15 gm PO ONCE ONE Stop: 03/21/18 10:01 Last Admin: 03/21/18 09:03 Dose: 15 gm Vitamin B Complex/Vit C/Folic Acid (Nephro-Elsie) 1 tab PO 0800 [facility] Last Admin: 03/21/18 08:19 Dose: 1 tab - Labs Labs: 03/20/18 08:58 03/20/18 08:58
[2018-03-22] MEDS: (Novolin R) Insulin Human Regular 100 units/ml vial SC SCH ×4 (07:20→16:30)
[2018-03-22] MEDS: Multivitamin Vitamin B Complex (Nephro-Vite) Tab PO SCH (08:24)
[2018-03-22] MEDS: Pantoprazole 40 mg EC Tab PO SCH (09:57)
[2018-03-22] MEDS: Epoetin Alfa 10,000 unit/ml Dialysis IV SCH ×2 (10:05→16:41)
[2018-03-22 11:06] VITALS: O2SAT 98
--- NOTE | 2018-03-22 14:28 | CP.PCM.DIS ---
<Keyla Malagon - Last Filed: 03/22/18 17:21> Provider - Provider Date of Admission: 03/15/18 16:03 Attending physician: Giana Hewitt DO Primary care physician: Dr. Salmeron Consults: [place]: Dr. Still Time Spent in preparation of Discharge (in minutes): 45 Hospital Course - Lab Results Lab Results: Most Recent Lab Values WBC 6.6 K/uL (4.8-10.8) 03/20/18 08:58 RBC 2.87 Mil/uL (3.80-5.20) L 03/20/18 08:58 Hgb 9.2 g/dL (11.0-16.0) L 03/20/18 08:58 Hct 27.4 % (34.0-47.0) L 03/20/18 08:58 MCV 95.7 fL (81.0-99.0) 03/20/18 08:58 MCH 32.0 pg (27.0-31.0) H 03/20/18 08:58 MCHC 33.5 g/dL (33.0-37.0) 03/20/18 08:58 RDW 17.4 % (11.5-14.5) H 03/20/18 08:58 Plt Count 329 K/uL (130-400) 03/20/18 08:58 MPV 9.4 fL (7.2-11.7) 03/20/18 08:58 Neut % (Auto) 68.9 % (50.0-75.0) 03/20/18 08:58 Lymph % (Auto) 18.5 % (20.0-40.0) L 03/20/18 08:58 [place] % (Auto) 9.9 % (0.0-10.0) 03/20/18 08:58 Eos % (Auto) 1.9 % (0.0-4.0) 03/20/18 08:58 Baso % (Auto) 0.8 % (0.0-2.0) 03/20/18 08:58 Neut # (Auto) 4.6 K/uL (1.8-7.0) 03/20/18 08:58 Lymph # (Auto) 1.2 K/uL (1.0-4.3) 03/20/18 08:58 [place] # (Auto) 0.7 K/uL (0.0-0.8) 03/20/18 08:58 Eos # (Auto) 0.1 K/uL (0.0-0.7) 03/20/18 08:58 Baso # (Auto) 0.1 K/uL (0.0-0.2) 03/20/18 08:58 Sodium 138 mmol/L (132-148) 03/20/18 08:58 Potassium 5.0 mmol/L (3.6-5.2) 03/20/18 08:58 Chloride 98 mmol/L (98-107) 03/20/18 08:58 Carbon Dioxide 24 mmol/L (22-30) 03/20/18 08:58 Anion Gap 21 (10-20) H 03/20/18 08:58 BUN 50 mg/dL (7-17) H 03/20/18 08:58 Creatinine 7.7 mg/dL (0.7-1.2) H* 03/20/18 08:58 Est GFR ( Amer) 7 03/20/18 08:58 Est GFR (Non-Af Amer) 5 03/20/18 08:58 POC Glucose (mg/dL) 409 mg/dL (65-110) H* 03/22/18 11:09 Random Glucose 166 mg/dL (65-105) H 03/20/18 08:58 Calcium 8.5 mg/dl (8.6-10.4) L 03/20/18 08:58 Total Bilirubin 0.4 mg/dL (0.2-1.3) 03/20/18 08:58 AST 19 U/L (14-36) 03/20/18 08:58 ALT 20 U/L (9-52) 03/20/18 08:58 Alkaline Phosphatase 123 U/L (38-126) 03/20/18 08:58 Total Protein 7.0 g/dL (6.3-8.3) 03/20/18 08:58 Albumin 3.9 g/dL (3.5-5.0) 03/20/18 08:58 Globulin 3.1 gm/dL (2.2-3.9) 03/20/18 08:58 Albumin/Globulin Ratio 1.2 (1.0-2.1) 03/20/18 08:58 Hep Bs Antigen Negative (NEGATIVE) 03/16/18 16:32 - Hospital Course Hospital Course: HPI: This is a 57 year old female with a past medical history significant for ESRD on HD (MWF), HTN, IDDM2, CAD, free-floating IVC thrombus, chronic vertigo and frequent falls who presents to the [facility] ED after two mechanical falls. Patient reports that on Thursday evening she slipped while getting out of the bathtub and fell to the floor on her left side. She reports that she dragged herself into the bedroom afterwards. She reports that on Thursday evening she was putting on her sneakers and fell on to her right side, hitting her head on the side of the bed in the process. She endorses pain to the affected areas but denies any fevers, chills, changes in her vision, chest pain, SOB, abdominal pain, N/V/D/C, changes in urine output, or any new numbness/tingling in her extremities. Of note she is on Eliquis for her IVC thrombus and took her last dose Thursday morning. She was also recently discharged from [facility] after being admitted for approximately one month after presenting after a mechanical fall. Patient was admitted to [place] today and is being transferred to [facility] today because dialysis at [place] is temporarily unavailable. PMD: Dr. Bashir Salmeron PMH: As stated above PSH: Cholecystectomy, C section, laser eye surgery, Peritoneal catheter placement and removal, s/p b/l unsuccessful A/V Fistulas, Left knee arthroscopy Family History: Sister-Breast cancer; Brother-CKD/IA Social History: Denies any tobacco, alcohol or illicit drug use. She does say she has had a lot of secondhand smoke exposure. Of [place] descent. 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 Patient originally went to [facility] for dialysis, however was transferred to [facility] as [facility] does not have dialysis center. Patient has history of frequent falls. Eliquis was discontinued due to bleed risk. Patient must discuss restarting medication with PMD upon discharge. Patient had dialysis while in hospital. Patient has been medically stable and originally discharged on 03/17/18. Patient did not leave the hospital on 03/17/18 because patient had been in hospital for over 30 days, and therefore lost her place at dialysis center. Case management and social work organized placement at same facility, [facility] dialysis center in [place]. Patient stable for discharge. Patient must continue dialysis schedule and must follow up with PMD upon discharge. This is a brief summary of the hospital course. Please see EMR for more details. Discharge Exam - Head Exam Head Exam: NORMOCEPHALIC - Eye Exam Eye Exam: EOMI, Normal appearance - ENT Exam ENT Exam: Mucous Membranes Moist - Neck Exam Neck exam: Full Rom - Respiratory Exam Respiratory Exam: NORMAL BREATHING PATTERN. absent: Rales, Rhonchi, Wheezes, Respiratory Distress Additional comments: left chest tenderness secondary to fall - Cardiovascular Exam Cardiovascular Exam: REGULAR RHYTHM, +S1, +S2 - GI/Abdominal Exam GI & Abdominal Exam: Normal Bowel Sounds, Soft. absent: Distended, Firm, Tenderness Additional comments: Binder in place - Extremities Exam Extremities exam: pedal pulses present - Neurological Exam Neurological exam: Alert, Oriented x3 - Psychiatric Exam Psychiatric exam: Normal Affect, Normal Mood - Skin Skin Exam: Dry, Intact, Warm Discharge Plan - Follow Up Plan Condition: STABLE Disposition: HOME/ ROUTINE Instructions: Dialysis Diet , Heart Failure, Adult (DC), High Blood Pressure ( DC), End Stage Kidney Disease (DC) Additional Instructions: Please continue dialysis as scheduled at [facility] in [place]. Please follow up with your primary doctor Dr. Salmeron, in 7-10 days. Please stop taking Eliquis until discussed with PMD due to risk of bleed from frequent falls. Please follow up with ecologist Dr. Jones in 7-10 days as an outpatient. Please come back to the ED if symptoms return. Referrals: Bashir Salmeron MD [Staff Provider] - Soledad Jones DPM [Staff Provider] - <Giana Hewitt V - Last Filed: 03/22/18 20:54> Provider - Provider Date of Admission: 03/15/18 16:03 Attending physician: Giana Hewitt DO Hospital Course - Lab Results Lab Results: Most Recent Lab Values WBC 6.6 K/uL (4.8-10.8) 03/20/18 08:58 RBC 2.87 Mil/uL (3.80-5.20) L 03/20/18 08:58 Hgb 9.2 g/dL (11.0-16.0) L 03/20/18 08:58 Hct 27.4 % (34.0-47.0) L 03/20/18 08:58 MCV 95.7 fL (81.0-99.0) 03/20/18 08:58 MCH 32.0 pg (27.0-31.0) H 03/20/18 08:58 MCHC 33.5 g/dL (33.0-37.0) 03/20/18 08:58 RDW 17.4 % (11.5-14.5) H 03/20/18 08:58 Plt Count 329 K/uL (130-400) 03/20/18 08:58 MPV 9.4 fL (7.2-11.7) 03/20/18 08:58 Neut % (Auto) 68.9 % (50.0-75.0) 03/20/18 08:58 Lymph % (Auto) 18.5 % (20.0-40.0) L 03/20/18 08:58 [place] % (Auto) 9.9 % (0.0-10.0) 03/20/18 08:58 Eos % (Auto) 1.9 % (0.0-4.0) 03/20/18 08:58 Baso % (Auto) 0.8 % (0.0-2.0) 03/20/18 08:58 Neut # (Auto) 4.6 K/uL (1.8-7.0) 03/20/18 08:58 Lymph # (Auto) 1.2 K/uL (1.0-4.3) 03/20/18 08:58 [place] # (Auto) 0.7 K/uL (0.0-0.8) 03/20/18 08:58 Eos # (Auto) 0.1 K/uL (0.0-0.7) 03/20/18 08:58 Baso # (Auto) 0.1 K/uL (0.0-0.2) 03/20/18 08:58 Sodium 138 mmol/L (132-148) 03/20/18 08:58 Potassium 5.0 mmol/L (3.6-5.2) 03/20/18 08:58 Chloride 98 mmol/L (98-107) 03/20/18 08:58 Carbon Dioxide 24 mmol/L (22-30) 03/20/18 08:58 Anion Gap 21 (10-20) H 03/20/18 08:58 BUN 50 mg/dL (7-17) H 03/20/18 08:58 Creatinine 7.7 mg/dL (0.7-1.2) H* 03/20/18 08:58 Est GFR ( Amer) 7 03/20/18 08:58 Est GFR (Non-Af Amer) 5 03/20/18 08:58 POC Glucose (mg/dL) 409 mg/dL (65-110) H* 03/22/18 11:09 Random Glucose 166 mg/dL (65-105) H 03/20/18 08:58 Calcium 8.5 mg/dl (8.6-10.4) L 03/20/18 08:58 Total Bilirubin 0.4 mg/dL (0.2-1.3) 03/20/18 08:58 AST 19 U/L (14-36) 03/20/18 08:58 ALT 20 U/L (9-52) 03/20/18 08:58 Alkaline Phosphatase 123 U/L (38-126) 03/20/18 08:58 Total Protein 7.0 g/dL (6.3-8.3) 03/20/18 08:58 Albumin 3.9 g/dL (3.5-5.0) 03/20/18 08:58 Globulin 3.1 gm/dL (2.2-3.9) 03/20/18 08:58 Albumin/Globulin Ratio 1.2 (1.0-2.1) 03/20/18 08:58 Hep Bs Antigen Negative (NEGATIVE) 03/16/18 16:32 Attending/Attestation - Attestation I have personally seen and examined this patient.: Yes I have fully participated in the care of the patient.: Yes I have reviewed all pertinent clinical information, including history, physical exam and plan: Yes Notes (Text): Patient seen, examined and case discussed with day-time resident. Patient initially transferred from [place] to [facility] for dialysis; hospitalization complicated that she lost her outpatient dialysis spot because she was at [facility] hospitalized for more than 30 days. Patient seen during dialysis. No acute complaints except for arthritic pains. We have spoken with case and social work who are well-aware of the situation who have obtained patient's dialysis spot at [facility]. I have spoken with Nephrology that we have secured the dialysis spot which her next session is due Thursday03/24/18. We will continue to hold Eliquis given bleeding risk in light of her recent falls. I have discussed this with loan counselor who agrees as well. Patient is medically stable for discharge given we have resecured her dialysis outpatient placement. We have held her eliquis upon discharge in light of her most recent fall sustained on 03/07/18 and increase bleeding risk with Eliquis; I have spoken with loan counselor who is aware and will follow-up. This is a summary of patient's hospitalization. Please see EMR for further details of record. Discharge Diagnoses: (1) ESRD on hemodialysis Assessment & Plan: * Nephrology (Dr. Still) on consult-->help appreciated * Patient's hospital discharged complicated by her losing her outpatient dialysis placement; due to not receiving HD there for >30 days as she was hospitalized * Social and case management have received confirmation to obtaining her dialysis placement today * Patient is receiving Heparin with dialysis. Status: Chronic (2) Hypertensive CKD, ESRD on dialysis Assessment & Plan: * Patient receiving dialysis today at bedside * Norvasc 5mg PO daily * Status: Chronic (3) Anemia of renal disease Assessment & Plan: * Hgb below goal of 10-11g but stable, continue EPO 10,000 u on MWF on HD; Status: Chronic (4) Chronic kidney disease-mineral and bone disorder Assessment & Plan: * Phos and PTH controlled on phoslo 2 tabs w/ meals and calcitriol 0.5 mcg daily respectively; continue same; Status: Chronic (5) Hemodialysis catheter malfunction Assessment & Plan: * Discussed with nephrology, will follow-up in regards to patient's permcath since she has had it for over one year per discussion Status: Chronic (6) IVC thrombosis Assessment & Plan: * Will hold Eliquis on discharge given patient's fall history and given the risk of bleeding outweighs the fall at this time; will f/u with nephrology Status: Resolved (7) Ataxic gait Status: Chronic (8) s/p Fall; History of Falls Subcutaneous soft tissue and posterio back edema/hemorrhage hematoma Status: Chronic * CT head (03/07/18): no evidence of acute intracranial hemorrhage, midline shift , or mass effect is identified, possible right facial soft tissue swelling * Rib xrays (03/07/18): multiple left side rib fractures as described. Mild bibasilar atelectasis left greater than right. Elevation right hemidiaphrgam likely due to eventration * Hip (03/07/18):no definitive radiographic evidence of acute hip or pelvic fracture seen * Lumbar CT scan (12/20/17): incompletely visualized posterio back subcutaneous soft tissue fluid and right posterior back edema/hemorrhage hematoma measuring 6cm ~ in right and left dimension at level of L4-S1. Small left pleural effusion. no acute fracture of the lumbar spine. * Imaging available in patient's [facility] hospitalization prior to transfer; will hold Eliquis given hematoma and increase risk of falls
[2018-03-22 17:57] VITALS: BP 106/49; PULSE 60; RESP 16; TEMP 97.2
--- NOTE | 2018-03-22 19:40 | CP.PCM.PN ---
Objective - Vital Signs/Intake and Output Vital Signs (last 24 hours): Temp Pulse Resp BP Pulse Ox 97.2 F L 60 16 106/49 L 98 03/22/18 17:10 03/22/18 17:10 03/22/18 17:10 03/22/18 17:10 03/22/18 17:10 Intake and Output: 03/22/1818 18:59 06:59 Intake Total 300 Balance 300 - Medications Medications: Current Medications Acetaminophen/Butalbital/Caffeine (Fioricet) 1 tab PO Q8 PRN PRN Reason: Headache Last Admin: 03/15/18 21:59 Dose: 1 tab Amlodipine Besylate (Norvasc) 5 mg PO DAILY [facility] Last Admin: 03/22/18 10:04 Dose: Not Given Calcitriol (Rocaltrol) 0.5 mcg PO DAILY [facility] Last Admin: 03/22/18 09:58 Dose: 0.5 mcg Calcium Acetate (Phoslo) 1,334 mg PO [facility] Epoetin Nico (Procrit) 10,000 unit IV [facility] Last Admin: 03/22/18 16:41 Dose: 10,000 unit Gabapentin (Neurontin) 100 mg PO TID [facility] Last Admin: 03/22/18 17:22 Dose: 100 mg Heparin Sodium (Porcine) (Heparin) 7,000 units IVP [facility] Stop: 03/24/18 09:01 Last Admin: 03/22/18 16:42 Dose: 7,000 units Insulin Human Regular (Novolin R) 0 unit SC ACHS [facility] PRN Reason: Protocol Last Admin: 03/22/18 16:30 Dose: Not Given Pantoprazole Sodium (Protonix Ec Tab) 40 mg PO DAILY [facility] Last Admin: 03/22/18 09:57 Dose: 40 mg Rosuvastatin Calcium (Crestor) 10 mg PO HS [facility] Last Admin: 03/21/18 21:29 Dose: 10 mg Vitamin B Complex/Vit C/Folic Acid (Nephro-Elsie) 1 tab PO 0800 [facility] Last Admin: 03/22/18 08:24 Dose: 1 tab - Labs Labs: 03/20/18 08:58 03/20/18 08:58 Assessment and Plan (1) ESRD on hemodialysis Status: Chronic (2) Hypertensive CKD, ESRD on dialysis Status: Chronic (3) Anemia of renal disease Status: Chronic (4) Chronic kidney disease-mineral and bone disorder Status: Chronic (5) Hemodialysis catheter malfunction Status: Chronic (6) IVC thrombosis Status: Resolved (7) Ataxic gait Status: Chronic
== END 2018-03-22 19:55 | disposition home or self-care (01) | DRG 682 ==
LOC: C.5S 16:03 → C.3T 03-16 22:05
PROVIDERS: ADMIT Hospitalist; ATTEND Hospitalist
PROC: 5A1D70Z Performance of Urinary Filtration, Intermittent, Less than 6 Hours Per Day (ICD-10-PCS; principal; 2018-03-15)
DX: I12.0 Hypertensive chronic kidney disease with stage 5 chronic kidney disease or end stage renal disease (principal); I82.220 Acute embolism and thrombosis of inferior vena cava; N18.6 End stage renal disease; N25.81 Secondary hyperparathyroidism of renal origin; T82.49XA Other complication of vascular dialysis catheter, initial encounter; D63.1 Anemia in chronic kidney disease; E11.22 Type 2 diabetes mellitus with diabetic chronic kidney disease; F32.9 Major depressive disorder, single episode, unspecified; I25.10 Atherosclerotic heart disease of native coronary artery without angina pectoris; K21.9 Gastro-esophageal reflux disease without esophagitis; S70.02XA Contusion of left hip, initial encounter; Z86.73 Personal history of transient ischemic attack (TIA), and cerebral infarction without residual deficits; W18.39XA Other fall on same level, initial encounter; R26.0 Ataxic gait; R42 Dizziness and giddiness; Z91.81 History of falling; Z95.5 Presence of coronary angioplasty implant and graft; W18.30XA Fall on same level, unspecified, initial encounter; M89.8X9 Other specified disorders of bone, unspecified site; G43.909 Migraine, unspecified, not intractable, without status migrainosus; E11.40 Type 2 diabetes mellitus with diabetic neuropathy, unspecified; Y84.1 Kidney dialysis as the cause of abnormal reaction of the patient, or of later complication, without mention of misadventure at the time of the procedure; Z99.2 Dependence on renal dialysis; Z79.4 Long term (current) use of insulin

== ENCOUNTER 2018-03-24 08:35 | Inpatient (IN) | payer MEDICARE, BC, MEDICAID ==
[2018-03-24 08:36] VITALS: BMI 34.3
--- NOTE | 2018-03-24 09:08 | C.PDOC ---
History Of Present Illness 57 y/o female with history of HTN, NIDDM, CVA, CAD, ESRD on dialysis (MWF) presents to ED by EMS transferred by EMS for Hemo dialysis. At ED patient denies new symptoms since transfer and has no physical complaints at this time. TRANSFERRED FROM [facility] FOR HD. PT DENIES NEW SX SINCE TRANSFER. Time Seen by Provider: 03/24/18 08:47 Chief Complaint (Nursing): Medical Clearance History Per: Patient History/Exam Limitations: no limitations Onset/Duration Of Symptoms: Days Current Symptoms Are (Timing): Still Present Past Medical History Reviewed: Historical Data, Nursing Documentation, Vital Signs Vital Signs: Last Vital Signs Temp 97.9 F 03/24/18 08:46 Pulse 61 03/24/18 08:46 Resp 18 03/24/18 08:46 BP 172/92 H 03/24/18 08:46 Pulse Ox 100 03/24/18 09:12 - Medical History PMH: Anemia, Anxiety, Arthritis, Asthma, CAD, Cardia Arrhythmia, CHF, Depression , Diabetes, Deep Vein Thrombosis, Gall Bladder Disease, HTN, Hypercholesterolemia, Hyperlipidemia, Hypothyroidism, Peripheral Edema (+1 pitting tight skin ble), Pneumonia, End Stage Renal Disease, Chronic Kidney Disease, Sleep Apnea, TIA Surgical History: Cholecystectomy, Coronary Stent - [facility] (03/07/18) ARTERIOVEN FISTULA REP (11/02/12) CENTRAL VENOUS CATHETER PLACEMENT WITH GUIDANCE (12/14/14) CLOSURE SKIN & SUBCUTANEOUS NEC (01/13/13) CONTR CEREBR ARTERIOGRAM (09/20/12) CORONAR ARTERIOGR-2 CATH (07/06/12) DIALYSIS ARTERIOVENOSTOM (06/06/14) DILATION OF LEFT INNOMINATE VEIN, PERCUTANEOUS APPROACH (01/14/18) DILATION OF LEFT SUBCLAVIAN VEIN, PERCUTANEOUS APPROACH (01/14/18) DRESSING TECHNIQUES TREATMENT (04/02/17) DX ULTRASOUND-HEAD/NECK (06/28/12) DX ULTRASOUND-THORAX NEC (01/09/14) DX ULTRASOUND-VASCULAR (07/27/14) ESOPHAGOGASTRODUODENOSCOPY [EGD] W/CLOSED BIOPSY (12/15/14) GAIT TRAINING/AMBULAT TREATMENT USING ASSIST EQUIPMENT (07/28/17) GROOMING/PERSONAL HYGIENE TREATMENT (04/02/17) HEMODIALYSIS (11/29/14) HOME MANAGEMENT TREATMENT USING ASSIST EQUIPMENT (07/28/17) INCIS W REM OF FORIEGN BODY OR DEV FROM SKIN & SUBCUT TISSUE (09/20/12) INJECT/INFUSE NEC (07/02/12) INSERT INFUSION DEV IN L INT JUGULAR VEIN, PERC (05/02/17) INSERT PACE, SINGL ENRIKE RT RESPN IN CHEST SUBCU/FASCIA, OPEN (01/14/18) INSERTION OF INFUSION DEV INTO INF VENA CAVA, PERC APPROACH (03/26/17) INSERTION OF INFUSION DEVICE INTO R ATRIUM, PERC APPROACH (02/04/18) INSERTION OF PACEMAKER LEAD INTO R VENTRICLE, PERC APPROACH (01/14/18) INSERTION OF VAD INTO CHEST SUBCU/FASCIA, PERC APPROACH (02/04/18) INTRODUCE OF OTH THERAP SUBST INTO RESP TRACT, VIA OPENING (07/28/17) INTRODUCE OTH THERAP SUBST IN PERIPH VEIN, PERC (04/02/17) IRRIGATION OF PERITON CAV USING DIALYSATE, PERC APPROACH (08/24/17) IRRIGATION OF PERITONEAL CAVITY USING IRRIGAT, PERC APPROACH (05/02/17) LEFT HEART CARDIAC CATH (07/06/12) LT HEART ANGIOCARDIOGRAM (07/06/12) MAGNETIC RESONANCE IMAGING OF BRAIN AND BRAIN STEM (09/20/12) MEDICATION MANAGEMENT (08/26/17) NEBULIZER THERAPY (12/05/14) OCCUPATIONAL THERAPY (12/05/14) PERFORMANCE OF URINARY FILTRATION, MULTIPLE (04/02/17) PERFORMANCE OF URINARY FILTRATION, SINGLE (03/09/17) PHYSICAL THERAPY NEC (12/05/14) RELEASE SMALL INTESTINE, PERCUTANEOUS ENDOSCOPIC APPROACH (05/02/17) REMOV [place] [facility] (12/15/13) REMOVAL OF INFUSION DEVICE FROM LOWER VEIN, OPEN APPROACH (02/04/18) REMOVAL OF INFUSION DEVICE FROM LOWER VEIN, PERC APPROACH (03/26/17) REPAIR LEFT LOWER LEG SKIN, EXTERNAL APPROACH (02/04/18) [facility] [place] [facility] (07/27/14) THERAPEUTIC EXERCISE TREATMENT OF MUSCULOSK LOW BACK/LE (04/02/17) THORAX SFT TISS XRAY NEC (01/09/14) TRANSFER TRAINING TREATMENT (04/02/17) TRANSFUSE NONAUT RED BLOOD CELLS IN PERIPH VEIN, PERC (03/07/18) ULTRASONOGRAPHY OF RIGHT AND LEFT HEART, TRANSESOPHAGEAL (02/04/18) VENOUS CATHETERIZATION FOR RENAL DIALYSIS (03/17/14) Family History: States: No Known Family Hx - Social History Hx Tobacco Use: No Hx Alcohol Use: No Hx Substance Use: No - Immunization History Hx Tetanus Toxoid Vaccination: No Hx Influenza Vaccination: No Hx Pneumococcal Vaccination: No Review Of Systems Constitutional: Negative for: Fever, Chills Gastrointestinal: Negative for: Nausea, Vomiting Skin: Negative for: Rash Neurological: Negative for: Weakness, Numbness Physical Exam - Physical Exam Appears: Non-toxic, No Acute Distress Skin: Warm, Dry, No Rash Head: Atraumatic, Normacephalic Eye(s): bilateral: Normal Inspection Oral Mucosa: Moist Neck: Normal ROM, Supple Cardiovascular: Rhythm Regular Respiratory: Normal Breath Sounds, No Accessory Muscle Use, No Rales, No Rhonchi , No Wheezing Gastrointestinal/Abdominal: Soft, No Tenderness, No Guarding, No Rebound Back: No CVA Tenderness, Paraspinal Tenderness (Right paralumbar), Other (7x7cm hematoma over right gluteus with tenderness) Extremity: Normal ROM, No Pedal Edema, Capillary Refill (<2 seconds) Neurological/Psych: Oriented x3, Normal Speech, Normal Cognition ED Course And Treatment O2 Sat by Pulse Oximetry: 100 (RA) Progress - Re-Evaluation Re-evaluation Note: 03/24/18 09:07 [facility] ER RECORD REVIEWED. PER [facility], PT ACCEPTED BY [facility] WITHOUT LAB EVALUATION. D/W DR QUISPE ER ADMIN TECHNICIAN ASSISTANT. STATES NO NEED FOR LAB EVAL DUE TO PT'S NEED FOR ROUTINE HD. PER PROTOCOL, PT ADMIT TO HOSP DUE TO NO ADMITTING PMD. D/W DR WELLS AWARE OF ER FINDINGS, ACCEPTS FOR ADMISSION. - Data Reviewed Data Reviewed: Old records Disposition Counseled Patient/Family Regarding: Diagnosis - Disposition Disposition: HOSPITALIZED Disposition Time: 09:11 Condition: STABLE Forms: [facility] (Mauritanian) - POA Present On Arrival: Falls Or Trauma - Clinical Impression Clinical Impression: ESRD (end stage renal disease), Multiple contusions - Scribe Statement The provider has reviewed the documentation as recorded by the Scribe Viktor Ricardo All medical record entries made by the Scribe were at my direction and personally dictated by me. I have reviewed the chart and agree that the record accurately reflects my personal performance of the history, physical exam, medical decision making, and the department course for this patient. I have also personally directed, reviewed, and agree with the discharge instructions and disposition. Decision To Admit - Pt Status Changed To: Hospital Disposition Of: Observation - . Bed Request Type: Regular Admitting Physician: Misha Wells Patient Diagnosis: ESRD (end stage renal disease), Multiple contusions
--- NOTE | 2018-03-24 10:16 | CP.PCM.HP ---
<SoniaKeyla woodruffJhoana - Last Filed: 03/24/18 17:47> History of Present Illness - History of Present Illness History of Present Illness: CC: transfer from [facility] for dialysis HPI: Patient is a 57 year old female with a past medical history of ESRD on HD ( MWF), HTN, IDDM2, CAD, free-floating IVC thrombus, chronic vertigo and frequent falls who was transferred from [facility] for dialysis. The patient [place] [facility] [place] she fell and injured her right hit. The patient was transferring from her wheelchair to walker to bed, and as she stood up, she fell onto her right hip and buttocks. She complains of a hematoma on her hip and pain with movement and palpation. Patient was recently discharged for similar complaints- slipped and fell in her bathtub, fractures her ribs, and wsa admitted for dialysis. She was discharge from [facility] on 03/22/18 with placement at [facility]. She also currently complains of rib pain with movement, breathing, and coughing; however she had the same pain at previous admission due to fractured ribs. Patient denies palpitations, dyspnea, nausea, vomiting, fevers, headaches, diarrhea, and constipation. PMD: Dr. Bashir Salmeron PMH: As stated above PSH: Cholecystectomy, C section, laser eye surgery, Peritoneal catheter placement and removal, s/p b/l unsuccessful A/V Fistulas, Left knee arthroscopy Family History: Sister-Breast cancer; Brother-CKD/DC Social History: Denies any tobacco, alcohol or illicit drug use. 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; Lives at home with family (two sisters, 1 with breast cancer and second sister is handicapp- both unable to assist the patient) Allergies: Vancomycin (hives, rash) Home Medications: As per MAR Present on Admission - Present on Admission Any Indicators Present on Admission: Yes History of DVT/PE: Yes History of Uncontrolled Diabetes: Yes Past Patient History - Infectious Disease Hx of Infectious Diseases: None - Tetanus Immunizations Tetanus Immunization: Unknown - Past Medical History & Family History Past Medical History?: Yes - Past Social History Smoking Status: Never Smoked - CARDIAC Hx Cardia Arrhythmia: Yes Hx Congestive Heart Failure: Yes Hx Hypercholesterolemia: Yes Hx Hypertension: Yes Hx Peripheral Edema: Yes (+1 pitting tight skin ble) - PULMONARY Hx Asthma: Yes Hx Pneumonia: Yes Hx Sleep Apnea: Yes - NEUROLOGICAL Hx Transient Ischemic Attacks (TIA): Yes - HEENT Hx HEENT Problems: Yes (RETINOPATHY) Hx Cataracts: Yes (Bilateral surgery,LASER SURGERY ALSO) Other/Comment: blurry vision, reading glasses, missing teeth - RENAL Hx Chronic Kidney Disease: Yes - ENDOCRINE/METABOLIC Hx Hypothyroidism: Yes - HEMATOLOGICAL/ONCOLOGICAL Hx Anemia: Yes - INTEGUMENTARY Hx Dermatological Problems: Yes Other/Comment: ble discolored, club foot left, hammertoes r ft, thick toenails b /l feet, 3 abd small incisions covered with dermabond and lower left abd healed from peritoneal dialysis cath insertion 03/2017, 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 02-03-18 large bruised area to forehead post fall,left upper arm large. bruise from fall. left knee large laceration,stitched from fall. 03/01/18 Left knee laceration from fall healing, no more stitches. No more bruises on forehead - MUSCULOSKELETAL/RHEUMATOLOGICAL Hx Arthritis: Yes - GASTROINTESTINAL Hx Gall Bladder Disease: Yes - GENITOURINARY/GYNECOLOGICAL Hx Genitourinary Disorders: Yes Hx Urinary Tract Infection: Yes - PSYCHIATRIC Hx Anxiety: Yes Hx Depression: Yes Hx Substance Use: No - SURGICAL HISTORY Hx Cholecystectomy: Yes Hx Coronary Stent: Yes - ANESTHESIA Hx Anesthesia: Yes Hx Anesthesia Reactions: No Hx Malignant Hyperthermia: No Meds Allergies/Adverse Reactions: Allergies Allergy/AdvReac Type Severity Reaction Status Date / Time vancomycin Allergy Unknown ITCHING Verified 03/24/18 08:50 Results - Vital Signs Recent Vital Signs: Last Vital Signs Temp 97.9 F 03/24/18 08:46 Pulse 61 03/24/18 08:46 Resp 18 03/24/18 08:46 BP 172/92 H 03/24/18 08:46 Pulse Ox 100 03/24/18 10:03 - Labs Result Diagrams: 03/24/18 10:36 03/24/18 10:36 Assessment & Plan - Assessment and Plan (Free Text) Plan: (1) ESRD on hemodialysis Assessment & Plan: * Nephrology (Dr. Still) on consult, recs appreciated * Scheduled for dialysis today, 03/24 * Renal Diet (2) Hypertensive CKD, ESRD on dialysis Assessment & Plan: * Patient receiving dialysis today at bedside * Norvasc 5mg PO daily (3) Anemia of renal disease Assessment & Plan: * Hgb below goal of 10-11g but stable * [employer], Dr. Still, consulted. rec appreciated (4) Chronic kidney disease-mineral and bone disorder Assessment & Plan: * Phos and PTH controlled on phoslo 2 tabs w/ meals and calcitriol 0.5 mcg daily respectively; continue same (6) IVC thrombosis Assessment & Plan: * Will hold Eliquis due to patient's fall history and given the risk of bleeding ; will f/u with nephrology (7) Ataxic gait * PT/OT * Case management/social work consulted for placement at [facility] (8) s/p Fall; History of Falls Subcutaneous soft tissue and posterio back edema/hemorrhage hematoma * Lumbar spine CT: f/u results * Pelvic CT: f/u results Imaging from previous hospitalization * CT head (03/07/18): no evidence of acute intracranial hemorrhage, midline shift , or mass effect is identified, possible right facial soft tissue swelling * Rib xrays (03/07/18): multiple left side rib fractures as described. Mild bibasilar atelectasis left greater than right. Elevation right hemidiaphrgam likely due to eventration * Hip (03/07/18):no definitive radiographic evidence of acute hip or pelvic fracture seen * Lumbar CT scan (12/20/17): incompletely visualized posterio back subcutaneous soft tissue fluid and right posterior back edema/hemorrhage hematoma measuring 6cm ~ in right and left dimension at level of L4-S1. Small left pleural effusion. no acute fracture of the lumbar spine. * Imaging available in [facility] prior to transfer; will hold Eliquis given hematoma and increase risk of falls (8) DM * Accuchecks * ISS * Hypoglycemic protocol * A1c (12/2017): 6.6 (9) Prophylaxis * DVT: SCDs; Hold Eliquis due to risk of bleeding * Renal diet * Case management, social insurance specialist consulted * PT/OT * Wound care <Misha Wells - Last Filed: 03/27/18 17:52> Results - Vital Signs Recent Vital Signs: Last Vital Signs Temp 98.1 F 03/27/18 16:30 Pulse 63 03/27/18 16:30 Resp 20 03/27/18 16:30 BP 135/77 03/27/18 16:30 Pulse Ox 97 03/27/18 16:30 - Labs Result Diagrams: 03/24/18 10:36 03/24/18 10:36 Labs: Laboratory Results - last 24 hr 03/26/18 03/27/18 03/27/18 20:59 07:32 11:50 POC Glucose (mg/dL) 290 H 162 H 219 H 03/27/18 16:33 POC Glucose (mg/dL) 167 H Attending/Attestation - Attestation I have personally seen and examined this patient.: Yes I have fully participated in the care of the patient.: Yes I have reviewed all pertinent clinical information: Yes Notes (Text): Seen and examined by me. 57 year old female with a past medical history of ESRD on HD (MWF), HTN, IDDM2, CAD, free-floating IVC thrombus, chronic vertigo and frequent falls who was transferred from [facility] for dialysis. The patient [place] went [place] [facility] [place] because she fell and injured her right hit.Patient lives at home with sisters who cannot support her. patient was unsteady and had multiple falls at home with hematoma and rib fracture. 1.ESRD on HD 2.PVD 3.IVC thrombus 4.IDDM 5.HTN 6.multiple fall with big hematoma Plan- admit and get CW/SW for NH/Rehab
[2018-03-24 10:43] LABS: BASO # 0.1 K/uL (0.0-0.2); BASO % 0.8 % (0.0-2.0); EOS # 0.1 K/uL (0.0-0.7); EOS % 2.1 % (0.0-4.0); HEMOGLOBIN 9.3 g/dL (11.0-16.0); LYMPH % 15.3 % (20.0-40.0); MEAN CORPUSCULAR HGB CONC 32.3 g/dL (33.0-37.0); MONO # 0.8 K/uL (0.0-0.8); NEUT # 4.5 K/uL (1.8-7.0); NEUT % 69.8 % (50.0-75.0); NRBC % 0.1 % (0.0-2.0); RBC 2.99 Mil/uL (3.80-5.20); RED CELL DISTRIBUTION WIDTH 17.5 % (11.5-14.5); WHITE BLOOD COUNT 6.4 K/uL (4.8-10.8)
[2018-03-24 11:10] LABS: ALB/GLOB RATIO 1.2 (1.0-2.1); ALBUMIN 4.1 g/dL (3.5-5.0); CALCIUM 8.4 mg/dl (8.6-10.4)
[2018-03-24] MEDS: (Novolin R) Insulin Human Regular 100 units/ml vial SC SCH ×3 (12:44→21:21)
[2018-03-24] MEDS: Epoetin Alfa 10,000 unit/ml Dialysis IV SCH (16:49)
--- NOTE | 2018-03-25 07:00 | CP.PCM.PN ---
<Keyla Malagon - Last Filed: 03/25/18 12:52> Subjective - Date & Time of Evaluation Date of Evaluation: 03/25/18 Time of Evaluation: 07:00 - Subjective Subjective: Medicine progress note for Dr. Wells Patient was seen and examined at bedside in no acute distress. Patient reports having pain in her right hip and buttocks. Patient says she had decreased ROM of the right leg due to the pain. Patient denies chest pain, dyspnea, palpitations, abdominal pain, nausea, vomiting, fevers, headaches, leg swelling. Objective - Vital Signs/Intake and Output Vital Signs (last 24 hours): Temp Pulse Resp BP Pulse Ox 98.3 F 63 20 123/65 96 03/25/18 00:00 03/25/18 00:00 03/25/18 00:00 03/25/18 00:00 03/25/18 00:00 Intake and Output: 03/25/18 03/25/18 06:59 18:59 Intake Total 590 Balance 590 - Medications Medications: Current Medications Amlodipine Besylate (Norvasc) 5 mg PO DAILY [facility] Calcitriol (Rocaltrol) 0.5 mcg PO DAILY [facility] Calcium Acetate (Phoslo) 1,334 mg PO WM BUZZ Docusate Sodium (Colace) 100 mg PO DAILY [facility] Epoetin Nico (Procrit) 10,000 unit IV [facility] Stop: 03/29/18 09:01 Last Admin: 03/24/18 16:49 Dose: 10,000 unit Fluoxetine HCl (Prozac) 40 mg PO DAILY [facility] Heparin Sodium (Porcine) (Heparin) 7,000 units IVP [facility] Stop: 03/29/18 09:01 Last Admin: 03/24/18 16:48 Dose: 7,000 units Insulin Human Regular (Novolin R) 0 unit SC ACHS [facility] PRN Reason: Protocol Last Admin: 03/24/18 21:21 Dose: Not Given Rosuvastatin Calcium (Crestor) 5 mg PO HS [facility] Last Admin: 03/24/18 21:22 Dose: 5 mg Tramadol HCl (Ultram) 50 mg PO Q8H PRN PRN Reason: Pain, moderate (4-7) - Labs Labs: 03/24/18 10:36 03/24/18 10:36 - Constitutional Appears: Chronically Ill - Head Exam Head Exam: NORMOCEPHALIC - Eye Exam Eye Exam: EOMI, Normal appearance - ENT Exam ENT Exam: Mucous Membranes Moist - Respiratory Exam Respiratory Exam: NORMAL BREATHING PATTERN. absent: Rales, Rhonchi, Wheezes, Respiratory Distress - Cardiovascular Exam Cardiovascular Exam: REGULAR RHYTHM, +S1, +S2 - GI/Abdominal Exam GI & Abdominal Exam: Soft, Normal Bowel Sounds. absent: Distended, Tenderness Additional comments: Obese - Extremities Exam Extremities Exam: absent: Normal Inspection Additional comments: Bilateral LE: multiple ecchymosis on LE bilaterally; muscle atropy RLE: hematoma on right hip and gluteal region, hematoma on sacrum; pain with palpation of the bruised region; decreased ROM of RLE due to pain. LLE: left hip-wound from previous fall with yellow purulent discharge; erythema on LLE, no discharge, not tender to palpation. - Back Exam Additional comments: Abrasion and ecchymosis noted mid back from fall - Neurological Exam Neurological Exam: Abnormal Gait, Awake, Oriented x3 - Psychiatric Exam Psychiatric exam: Normal Affect, Normal Mood - Skin Skin Exam: Warm Assessment and Plan - Assessment and Plan (Free Text) Plan: (1) ESRD on hemodialysis Assessment & Plan: * Nephrology (Dr. Still) on consult, recs appreciated * Continue MWF schedule * Renal Diet (2) Hypertensive CKD, ESRD on dialysis Assessment & Plan: * Patient had dialysis on 03/24/18 * Norvasc 5mg PO daily (3) Anemia of renal disease Assessment & Plan: * Hgb below goal of 10-11g but stable * [employer], Dr. Still, consulted. rec appreciated (4) Chronic kidney disease-mineral and bone disorder Assessment & Plan: * Phos and PTH controlled on phoslo 2 tabs w/ meals and calcitriol 0.5 mcg daily respectively; continue same (6) IVC thrombosis Assessment & Plan: * Will hold Eliquis due to patient's fall history and given the risk of bleeding ; will f/u with nephrology (7) Ataxic gait * PT/OT * Case management/social work consulted for placement at [facility] (8) s/p Fall; History of Falls Subcutaneous soft tissue and posterio back edema/hemorrhage hematoma * Lumbar spine CT: subcutaneous hematoma partially visulaized in right lower lumbar and gluteal regions measuring 7.8x2.3cm; urinary bladder wall thickening possibly due to incomplete distention or cystitis; no fracture * Pelvic CT: Right lower lumbar and sacral region hematoma measuring up to 8.7 cm as well as a left side lateral gluteal/ hip region hematoma measuring 7 x 5.3 centimeters. Imaging from previous hospitalization * CT head (03/07/18): no evidence of acute intracranial hemorrhage, midline shift , or mass effect is identified, possible right facial soft tissue swelling * Rib xrays (03/07/18): multiple left side rib fractures as described. Mild bibasilar atelectasis left greater than right. Elevation right hemidiaphrgam likely due to eventration * Hip (03/07/18):no definitive radiographic evidence of acute hip or pelvic fracture seen * Lumbar CT scan (12/20/17): incompletely visualized posterio back subcutaneous soft tissue fluid and right posterior back edema/hemorrhage hematoma measuring 6cm ~ in right and left dimension at level of L4-S1. Small left pleural effusion. no acute fracture of the lumbar spine. * Imaging available in patient's [place] hospitalization prior to transfer; will hold Eliquis given hematoma and increase risk of falls (8) DM * Accuchecks * ISS * Hypoglycemic protocol * A1c (12/2017): 6.6 (9) Prophylaxis * DVT: SCDs; Hold Eliquis due to risk of bleeding * Renal diet * Case management, protective services social worker consulted * PT/OT * Wound care Disposition: Wound care on case. Per case management- [facility] will no longer cover [facility] as patient has already stayed at [facility] for too long in the past. Patient fell on 03/23/18 and went to [facility]. Patient was discharged, daughter was contacted to lease picker the patient, however daughter would not pick her up. Patient was scheduled for dialysis at [facility] in [place]. Because she did not show up at appointment, [facility] called daughter who did not answer. Patient was found still at [facility] after being discharged. APS was called. Patient was then transferred to [facility] for dialysis. Case management working on case and placement. No updates at this time. <Misha Wells - Last Filed: 03/27/18 18:03> Objective - Vital Signs/Intake and Output Vital Signs (last 24 hours): Temp Pulse Resp BP Pulse Ox 98.1 F 63 20 135/77 97 03/27/18 16:30 03/27/18 16:30 03/27/18 16:30 03/27/18 16:30 03/27/18 16:30 Intake and Output: 03/27/18 03/27/18 06:59 18:59 Intake Total 300 Output Total 400 Balance -100 - Medications Medications: Current Medications Amlodipine Besylate (Norvasc) 5 mg PO DAILY [facility] Last Admin: 03/27/18 09:54 Dose: Not Given Apixaban (Eliquis) 5 mg PO BID [facility] Last Admin: 03/27/18 17:39 Dose: Not Given Bacitracin (Bacitracin) 0 gm TOP DAILY [facility] Last Admin: 03/27/18 09:51 Dose: 1 applic Calcitriol (Rocaltrol) 0.5 mcg PO DAILY [facility] Last Admin: 03/27/18 09:50 Dose: 0.5 mcg Calcium Acetate (Phoslo) 1,334 mg PO WM [facility] Last Admin: 03/25/18 10:06 Dose: 1,334 mg Docusate Sodium (Colace) 100 mg PO DAILY [facility] Last Admin: 03/27/18 09:50 Dose: 100 mg Epoetin Nico (Procrit) 10,000 unit IV MWF [facility] Stop: 03/29/18 09:01 Last Admin: 03/26/18 10:34 Dose: 10,000 unit Fluoxetine HCl (Prozac) 40 mg PO DAILY [facility] Last Admin: 03/27/18 09:50 Dose: 40 mg Insulin Human Regular (Novolin R) 0 unit SC ACHS [facility] PRN Reason: Protocol Last Admin: 03/27/18 17:40 Dose: Not Given Rosuvastatin Calcium (Crestor) 5 mg PO HS [facility] Last Admin: 03/26/18 21:05 Dose: 5 mg Tramadol HCl (Ultram) 50 mg PO Q8H PRN PRN Reason: Pain, moderate (4-7) - Labs Labs: 03/24/18 10:36 03/24/18 10:36 Attending/Attestation - Attestation I have personally seen and examined this patient.: Yes I have fully participated in the care of the patient.: Yes I have reviewed all pertinent clinical information, including history, physical exam and plan: Yes Notes (Text): Seen and examined by me Discussed with the resident and CW. 57 year old female with a past medical history of ESRD on HD (MWF), HTN, IDDM2, CAD, free-floating IVC thrombus, chronic vertigo and frequent falls who was transferred from [facility] for dialysis. 1.ESRD on HD 2.PVD 3.IVC thrombus 4.IDDM 5.HTN 6.multiple fall with big hematoma d/w r d engineer Dr Still about groin HD and vascular consult I agree with the resident's documentation of the assessment and the plan
[2018-03-25] MEDS: (Novolin R) Insulin Human Regular 100 units/ml vial SC SCH ×4 (08:14→21:23)
--- NOTE | 2018-03-25 08:43 | CON ---
DATE: 03/24/2018 NEPHROLOGY CONSULTATION LOCATION: [facility]. HISTORY OF PRESENT ILLNESS: Patient is a 57-year-old female with past medical history of hypertension; diabetes; CAD, status post remote intervention; peripheral arterial disease; IVC thrombus, previously on anticoagulation with Eliquis; repeated falls and ESRD, on hemodialysis (at [facility] on Thursday, Thursday, Thursday under [facility]), presented to [place] ER today status post fall. Nephrology being consulted for ESRD care. Patient just discharged 2 days ago, status post hospitalization after she again suffered a fall; this previous hospitalization was subsequent to a prolonged hospitalization at [facility] for almost 1 month in 02/2018 during which the patient was admitted status post fall with laceration to her left knee and with large left hip hematoma, requiring PRBC transfusion. Patient reports that she fell at home again while getting ready to go for her hemodialysis session today; denies any dizziness or lightheadedness; had been eating well; denies feeling ill otherwise. PAST MEDICAL HISTORY: As above, status post pacemaker placement for tachybrady syndrome in 01/2018; patient with left femoral tunneled hemodialysis catheter having been exchanged multiple times, also status post catheter infection in 02/2015, status post IV antibiotics x3 weeks. SOCIAL HISTORY: Denies smoking. FAMILY HISTORY: Sister with breast cancer. Brother, status post RI. REVIEW OF SYSTEMS: CONSTITUTIONAL: Appetite fair. HEENT: Overall deteriorating vision. RESPIRATORY: No shortness of breath. CARDIOVASCULAR: Previously reporting palpitations during panic attacks. GASTROINTESTINAL: No nausea, vomiting or diarrhea. GENITOURINARY: No urine output. No other discharge. MUSCULOSKELETAL: Chronic back and leg pain. SKIN: Status post cellulitis of left lower leg. NEUROLOGIC: Numbness of feet. HEMATOLOGIC: Multiple bruises subsequent to falls. PSYCHIATRIC: History of depression for which she was admitted to inpatient psych late last year. PHYSICAL EXAMINATION: VITAL SIGNS: This morning, blood pressure 155/85, heart rate 61, respirations 19, temperature 97.9, O2 sat 99% on room air. GENERAL: No distress. Conversing coherently in full sentences. HEENT: Moist mucous membranes. Nonicteric. RESPIRATORY: Lungs clear to auscultation bilaterally. No rales or rhonchi. No wheezes. CARDIOVASCULAR: Heart sounds S1, S2 normal. No murmurs or gallops or rubs. GASTROINTESTINAL: Abdomen is soft, nontender, nondistended. EXTREMITIES: Minimal left leg edema. SKIN: Warm. No cyanosis. NEUROLOGIC: No resting tremor. PSYCHIATRIC: Normal mood, normal affect. LABORATORY DATA: This morning, CBC: WBC 6.4, hemoglobin 9.3, hematocrit 28.7, platelets 253. Chemistry panel: Sodium 137, potassium 5.4, chloride 97, bicarb 22, BUN 81, creatinine 10.8, glucose 111, calcium 8.4, albumin 4.1, phosphorus 5.9. ASSESSMENT AND PLAN: 1. End-stage renal disease, on hemodialysis, relatively stable volume status, dialyzing today for mild hyperkalemia on 2 K, 2.5 calcium, 32 bicarb dialysate with ultrafiltration goal of 2.5 liters net. 2. Hypertensive end-stage renal disease, blood pressure has been fluctuating, on amlodipine 5 mg daily. We will continue the same. Will benefit from ultrafiltration on hemodialysis today. 3. Anemia secondary to chronic kidney disease. Hemoglobin relatively stable lately, off of Eliquis. We will continue Epogen on dialysis 10,000 units. 4. Chronic kidney disease mineral bone disorder. Calcium controlled, phosphorus mildly elevated, on calcitriol 0.5 mcg daily, continue the same. Continue PhosLo 2 tablets with meals. Thank you for this referral. We will be following up closely. Melvin Still MD
[2018-03-25] MEDS: Bacitracin Ointment 30 GM TUBE TOP SCH (11:15)
--- NOTE | 2018-03-25 19:46 | CP.PCM.PN ---
Objective - Vital Signs/Intake and Output Vital Signs (last 24 hours): Temp Pulse Resp BP Pulse Ox 98.1 F 67 20 102/65 97 03/25/18 16:00 03/25/18 16:00 03/25/18 16:00 03/25/18 16:00 03/25/18 16:00 Intake and Output: 03/25/18 03/26/18 18:59 06:59 Intake Total 300 Balance 300 - Medications Medications: Current Medications Amlodipine Besylate (Norvasc) 5 mg PO DAILY [facility] Last Admin: 03/25/18 10:07 Dose: 5 mg Bacitracin (Bacitracin) 0 gm TOP DAILY [facility] Last Admin: 03/25/18 11:15 Dose: Not Given Calcitriol (Rocaltrol) 0.5 mcg PO DAILY [facility] Last Admin: 03/25/18 10:07 Dose: 0.5 mcg Calcium Acetate (Phoslo) 1,334 mg PO WM [facility] Last Admin: 03/25/18 10:06 Dose: 1,334 mg Docusate Sodium (Colace) 100 mg PO DAILY [facility] Last Admin: 03/25/18 10:07 Dose: 100 mg Epoetin Nico (Procrit) 10,000 unit IV [facility] Stop: 03/29/18 09:01 Last Admin: 03/24/18 16:49 Dose: 10,000 unit Fluoxetine HCl (Prozac) 40 mg PO DAILY [facility] Last Admin: 03/25/18 10:07 Dose: 40 mg Heparin Sodium (Porcine) (Heparin) 7,000 units IVP [facility] Stop: 03/29/18 09:01 Last Admin: 03/24/18 16:48 Dose: 7,000 units Insulin Human Regular (Novolin R) 0 unit SC ACHS [facility] PRN Reason: Protocol Last Admin: 03/25/18 17:51 Dose: 3 unit Rosuvastatin Calcium (Crestor) 5 mg PO HS [facility] Last Admin: 03/24/18 21:22 Dose: 5 mg Tramadol HCl (Ultram) 50 mg PO Q8H PRN PRN Reason: Pain, moderate (4-7) - Labs Labs: 03/24/18 10:36 03/24/18 10:36
--- NOTE | 2018-03-25 20:48 | CP.PCM.CON ---
History of Present Illness - History of Present Illness History of Present Illness: Vascular surgery 57 F w PMH of ESRD on HD MWF who had multiple failed dialysis access. Vascular surgery is consulted to evaluate for dialysis access. Pt had b/l LE AVF and multiple revisions in the past and they eventrally became thrombosed and failed last recorded R AVF revistion was in 2013. Pt also had permacath on b/l IJ and R groin that failed. Pt had Peritoneal dialysis catheter. Had bacterial peritonitis. Treated w ABX. It evcentuallly became malfucntioned. Pt had lysis of adhesion and had the PD catheter repositioned. However PD catheter was eventually taken out due to non-functioning. Currently pt is getting HD via L groin permacath. PMH depression, ESRD needing dialysis PSH PD catheter placement, revision, removal. b/l AVF creation and revision, b/ l IJ, femoral vein permacath placement Review of Systems - Constitutional Constitutional: Weakness. absent: Anorexia, Chills, Weight Loss - Respiratory Respiratory: absent: Dyspnea, Hemoptysis - Gastrointestinal Gastrointestinal: absent: Abdominal Pain, Bloating Past Patient History - Infectious Disease Hx of Infectious Diseases: None - Tetanus Immunizations Tetanus Immunization: Unknown - Past Medical History & Family History Past Medical History?: Yes - Past Social History Smoking Status: Never Smoked - CARDIAC Hx Congestive Heart Failure: Yes Hx Hypercholesterolemia: Yes Hx Hypertension: Yes - PULMONARY Hx Asthma: Yes Hx Pneumonia: Yes Hx Sleep Apnea: Yes - NEUROLOGICAL Hx Transient Ischemic Attacks (TIA): Yes - HEENT Hx HEENT Problems: Yes (RETINOPATHY) Hx Cataracts: Yes (Bilateral surgery,LASER SURGERY ALSO) Other/Comment: blurry vision, reading glasses, missing teeth - RENAL Hx Chronic Kidney Disease: Yes - ENDOCRINE/METABOLIC Hx Hypothyroidism: Yes - HEMATOLOGICAL/ONCOLOGICAL Hx Anemia: Yes - INTEGUMENTARY Hx Dermatological Problems: Yes Other/Comment: ble discolored, club foot left, hammertoes r ft, thick toenails b /l feet, 3 abd small incisions covered with dermabond and lower left abd healed from peritoneal dialysis cath insertion 03/2017, 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 5--18 large bruised area to forehead post fall,left upper arm large. bruise from fall. left knee large laceration,stitched from fall. 03/01/18 Left knee laceration from fall healing, no more stitches. No more bruises on forehead - MUSCULOSKELETAL/RHEUMATOLOGICAL Hx Arthritis: Yes (B/L HIP; L KNEE; L ANKLE) - GASTROINTESTINAL Hx Gall Bladder Disease: Yes - GENITOURINARY/GYNECOLOGICAL Hx Genitourinary Disorders: Yes Hx Urinary Tract Infection: Yes - PSYCHIATRIC Hx Anxiety: Yes Hx Depression: Yes Hx Substance Use: No - SURGICAL HISTORY Hx Cholecystectomy: Yes Hx Coronary Stent: Yes - ANESTHESIA Hx Anesthesia: Yes Hx Anesthesia Reactions: No Hx Malignant Hyperthermia: No Meds Allergies/Adverse Reactions: Allergies Allergy/AdvReac Type Severity Reaction Status Date / Time vancomycin Allergy Unknown ITCHING Verified 03/24/18 08:50 - Medications Medications: Current Medications Amlodipine Besylate (Norvasc) 5 mg PO DAILY [facility] Last Admin: 03/25/18 10:07 Dose: 5 mg Bacitracin (Bacitracin) 0 gm TOP DAILY [facility] Last Admin: 03/25/18 11:15 Dose: Not Given Calcitriol (Rocaltrol) 0.5 mcg PO DAILY [facility] Last Admin: 03/25/18 10:07 Dose: 0.5 mcg Calcium Acetate (Phoslo) 1,334 mg PO WM [facility] Last Admin: 03/25/18 10:06 Dose: 1,334 mg Docusate Sodium (Colace) 100 mg PO DAILY [facility] Last Admin: 03/25/18 10:07 Dose: 100 mg Epoetin Nico (Procrit) 10,000 unit IV [facility] Stop: 03/29/18 09:01 Last Admin: 03/24/18 16:49 Dose: 10,000 unit Fluoxetine HCl (Prozac) 40 mg PO DAILY [facility] Last Admin: 03/25/18 10:07 Dose: 40 mg Heparin Sodium (Porcine) (Heparin) 7,000 units IVP [facility] Stop: 03/29/18 09:01 Last Admin: 03/24/18 16:48 Dose: 7,000 units Insulin Human Regular (Novolin R) 0 unit SC [facility] PRN Reason: Protocol Last Admin: 03/25/18 17:51 Dose: 3 unit Rosuvastatin Calcium (Crestor) 5 mg PO HS [facility] Last Admin: 03/24/18 21:22 Dose: 5 mg Tramadol HCl (Ultram) 50 mg PO Q8H PRN PRN Reason: Pain, moderate (4-7) Physical Exam - Constitutional Appears: No Acute Distress - Head Exam Head Exam: ATRAUMATIC, NORMAL INSPECTION, NORMOCEPHALIC - Eye Exam Eye Exam: EOMI, Normal appearance, PERRL Pupil Exam: NORMAL ACCOMODATION, PERRL - ENT Exam ENT Exam: Mucous Membranes Moist, Normal Exam - Neck Exam Neck exam: Positive for: Normal Inspection - Respiratory Exam Respiratory Exam: Clear to Auscultation Bilateral, NORMAL BREATHING PATTERN - Cardiovascular Exam Cardiovascular Exam: REGULAR RHYTHM - GI/Abdominal Exam GI & Abdominal Exam: Normal Bowel Sounds, Soft. absent: Distended, Firm, Tenderness Additional comments: healed scars. - Exam Exam: NORMAL INSPECTION Additional comments: L groin permacath in place: no signs of infection - Extremities Exam Extremities exam: Positive for: normal inspection Additional comments: b/l AVF - Back Exam Back exam: NORMAL INSPECTION - Neurological Exam Neurological exam: Alert, CN II-XII Intact, Normal Gait, Oriented x3, Reflexes Normal - Psychiatric Exam Psychiatric exam: Normal Affect, Normal Mood - Skin Skin Exam: Dry, Intact, Normal Color, Warm Results - Vital Signs Recent Vital Signs: Last Vital Signs Temp 98.1 F 03/25/18 16:00 Pulse 67 03/25/18 16:00 Resp 20 03/25/18 16:00 BP 102/65 03/25/18 16:00 Pulse Ox 97 03/25/18 16:00 - Labs Result Diagrams: 03/24/18 10:36 03/24/18 10:36 Labs: Laboratory Results - last 24 hr 03/24/18 03/24/18 03/24/18 15:16 16:00 21:19 POC Glucose (mg/dL) 203 H 268 H PTH Intact Whole Molec 253 H 03/25/18 03/25/18 03/25/18 07:12 11:02 16:19 POC Glucose (mg/dL) 171 H 373 H 200 H PTH Intact Whole Molec Assessment & Plan - Assessment and Plan (Free Text) Assessment: ESRD needing dialysis with multiple failed b/l upper extremity AVF/permacath/ PD catheter US: central venous stenosis. Pt has exhausted most venous access for dialysis CUrrently R fem Permacath functioning With central venous stenosis/thrombosis attempt to revascularzise upper extremity AVF won't work. Lower extremity AVF may be an option but it has high morbidity including high infection rate, LE ischemia, steal syndrome. Also pt's only access is the L femoral vein currently. R femoral vein is stenosed/thrombosed for AVF. -COntinue using R fem permacath for dialysis DW Dr. Olson
--- NOTE | 2018-03-26 02:20 | CON ---
DATE: 03/25/2018 The patient is a 57-year-old diabetic woman who has a cardiac device in the left subclavian vein, has had multiple stents placement in the right side, has failed dialysis access, and now we will just see if other access. She has an indwelling left femoral catheter, which extends to her right atrium. She has multiple stents on the right side. She has failed access on both arms. It is hard for me to summarize everything in a short note. In addition, I reviewed extensively her imaging test including ultrasound test, which were done recently as well as previous CAT scans of the chest, abdomen and pelvis, CAT scan of the chest, and it appears that her major problems is her central veins are blocked up. Because of this, there are no plans to do anything. I do not know how her catheter in the leg will work, but at this point I do not think there is any real finding, new access, or anything that is going to help her. Cristopher Olson Jr., MD
[2018-03-26] MEDS: Epoetin Alfa 10,000 unit/ml Dialysis IV SCH (10:34)
[2018-03-26] MEDS: Bacitracin Ointment 30 GM TUBE TOP SCH (10:40)
[2018-03-26] MEDS: (Novolin R) Insulin Human Regular 100 units/ml vial SC SCH ×4 (10:40→21:02)
--- NOTE | 2018-03-26 16:24 | VASCLAB ---
PROCEDURE: Upper Extremity Venous Mapping HISTORY: ESRD, Vein mapping, Pre-op AV Fistula. PRIORS: None. TECHNIQUE: Bilateral upper extremity, internal jugular, subclavian, axillary, brachial, ulnar, radial, basilic and upper cephalic veins were evaluated. Flow was assessed with color Doppler, compressibility, assessment of phasic flow and augmentation response. Report prepared by Cecil Butcher, RVT FINDINGS: RIGHT: 1. Internal Jugular Vein: Compressibility - Fully compressible: Thrombus - None : Flow - Phasic 2. Subclavian Vein:Compressibility - Fully compressible: Thrombus - None : Flow - Phasic 3. Axillary Vein: Compressibility - Fully compressible: Thrombus - None 4. Brachial Vein: Compressibility - Fully compressible: Thrombus - None 5. Ulnar Vein:Compressibility - Fully compressible: Thrombus - None 6. Radial Vein:Compressibility - Fully compressible: Thrombus - None 7. Cephalic Vein: Compressibility - Incompressible) Subacute Thrombus basilic Vein:Compressibility - Fully compressible: thrombus - None 7.1. Upper Arm:Proximal Diameter: 0.40cm. Mid Diameter: 0.33cm. Distal Diameter: 0.29cm. 7.2. Forearm: Proximal Diameter: 0.32cm. Mid Diameter:0.26cm. Distal Diameter: 0.28cm. LEFT: 1. Internal Jugular Vein: Compressibility - Fully compressible: Thrombus - None : Flow - Phasic 2. Subclavian Vein:Compressibility - Fully compressible: Thrombus - None : Flow - Phasic 3. Axillary Vein: Compressibility - Fully compressible: Thrombus - None 4. Brachial Vein: Compressibility - Fully compressible: Thrombus - None 5. Ulnar Vein:Compressibility - Fully compressible: Thrombus - None 6. Radial Vein:Compressibility - Fully compressible: Thrombus - None 7. Cephalic Vein: Compressibility - Basilic Vein:Compressibility - Fully compressible: thrombus - None 7.1. Not visualized due to small caliber or was previously used for prior AVF. 7.2. Upper Arm:Proximal Diameter: 0.41cm. Mid Diameter: 0.39cm. Distal Diameter: 0.34cm. 7.3. Forearm: Proximal Diameter: 0.27cm. Mid Diameter:0.20cm. Distal Diameter: 0.19cm. OTHER FINDINGS: Right distal brachial artery measured 0.37cm with mostly triphasic flow and velocity of 148.4 cm/s. The radial and ulnar artery were severely calcified. Left distal brachial artery measured 0.39cm with mostly triphasic flow and velocity of 82.7 cm/s. The radial and ulnar artery were severely calcified. IMPRESSION: Right: Diameter measurements of the right basilic vein is measured between 0.40 cm and 0.26 cm. Superficial thrombophlebitis of the cephalic vein Left: Diameter measurements of the left basilic vein is measured between 0.41cm and 0.19cm.
--- NOTE | 2018-03-26 16:50 | CP.PCM.PN ---
<Anish Santiago R - Last Filed: 03/26/18 17:03> Subjective - Date & Time of Evaluation Date of Evaluation: 03/26/18 Time of Evaluation: 11:00 - Subjective Subjective: PGY-[address] Wells. No acute events noted overnight. Patient seen receiving HD. Stated her right hip hurt. Did not offer any other complaints. Denied chest pain, shortness of breath, fevers, bleeding. Objective - Vital Signs/Intake and Output Vital Signs (last 24 hours): Temp Pulse Resp BP Pulse Ox 97.7 F 63 16 113/72 98 03/26/18 13:35 03/26/18 13:35 03/26/18 13:35 03/26/18 13:35 03/26/18 13:35 Intake and Output: 03/26/18 03/26/18 06:59 18:59 Intake Total 300 300 Output Total 400 Balance -100 300 - Medications Medications: Current Medications Amlodipine Besylate (Norvasc) 5 mg PO DAILY [facility] Last Admin: 03/26/18 10:40 Dose: Not Given Bacitracin (Bacitracin) 0 gm TOP DAILY [facility] Last Admin: 03/26/18 10:40 Dose: Not Given Calcitriol (Rocaltrol) 0.5 mcg PO DAILY [facility] Last Admin: 03/26/18 10:41 Dose: Not Given Calcium Acetate (Phoslo) 1,334 mg PO WM [facility] Last Admin: 03/25/18 10:06 Dose: 1,334 mg Docusate Sodium (Colace) 100 mg PO DAILY [facility] Last Admin: 03/26/18 10:40 Dose: Not Given Epoetin Nico (Procrit) 10,000 unit IV [facility] Stop: 03/29/18 09:01 Last Admin: 03/26/18 10:34 Dose: 10,000 unit Fluoxetine HCl (Prozac) 40 mg PO DAILY [facility] Last Admin: 03/26/18 10:41 Dose: Not Given Heparin Sodium (Porcine) (Heparin) 7,000 units IVP [facility] Stop: 03/29/18 09:01 Last Admin: 03/26/18 10:35 Dose: 7,000 units Insulin Human Regular (Novolin R) 0 unit SC [facility] PRN Reason: Protocol Last Admin: 03/26/18 12:13 Dose: Not Given Rosuvastatin Calcium (Crestor) 5 mg PO HS [facility] Last Admin: 03/25/18 21:24 Dose: 5 mg Tramadol HCl (Ultram) 50 mg PO Q8H PRN PRN Reason: Pain, moderate (4-7) - Labs Labs: 03/24/18 10:36 03/24/18 10:36 - Additional Findings Additional findings: - Constitutional Appears: Chronically Ill - Head Exam Head Exam: NORMOCEPHALIC - Eye Exam Eye Exam: EOMI, Normal appearance - ENT Exam ENT Exam: Mucous Membranes Moist - Respiratory Exam Respiratory Exam: NORMAL BREATHING PATTERN. absent: Rales, Rhonchi, Wheezes, Respiratory Distress - Cardiovascular Exam Cardiovascular Exam: REGULAR RHYTHM, +S1, +S2 - GI/Abdominal Exam GI & Abdominal Exam: Soft, Normal Bowel Sounds. absent: Distended, Tenderness Additional comments: Obese - Extremities Exam Extremities Exam: absent: Normal Inspection Additional comments: Bilateral LE: multiple ecchymosis on LE bilaterally; muscle atropy RLE: hematoma on right hip and gluteal region, hematoma on sacrum; pain with palpation of the bruised region; decreased ROM of RLE due to pain. LLE: left hip-wound from previous fall with yellow purulent discharge; erythema on LLE, no discharge, not tender to palpation. - Back Exam Additional comments: Abrasion and ecchymosis noted mid back from fall - Neurological Exam Neurological Exam: Abnormal Gait, Awake, Oriented x3 - Psychiatric Exam Psychiatric exam: Normal Affect, Normal Mood - Skin Skin Exam: Warm Assessment and Plan - Assessment and Plan (Free Text) Assessment: (1) ESRD on hemodialysis Assessment & Plan: * Nephrology (Dr. Still) on consult, recs appreciated * Continue MWF schedule * Renal Diet (2) Hypertensive CKD, ESRD on dialysis Assessment & Plan: * Patient had dialysis on 03/24/18 * Norvasc 5mg PO daily (3) Anemia of renal disease Assessment & Plan: * Hgb below goal of 10-11g but stable * Tufting Machine Fixer, Dr. Still, consulted. rec appreciated (4) Chronic kidney disease-mineral and bone disorder Assessment & Plan: * Phos and PTH controlled on phoslo 2 tabs w/ meals and calcitriol 0.5 mcg daily respectively; continue same (6) IVC thrombosis Assessment & Plan: * Will hold Eliquis due to patient's fall history and given the risk of bleeding ; will f/u with nephrology (7) Ataxic gait * PT/OT * Case management/social work consulted for placement at [facility] (8) s/p Fall; History of Falls Subcutaneous soft tissue and posterio back edema/hemorrhage hematoma * Lumbar spine CT: subcutaneous hematoma partially visulaized in right lower lumbar and gluteal regions measuring 7.8x2.3cm; urinary bladder wall thickening possibly due to incomplete distention or cystitis; no fracture * Pelvic CT: Right lower lumbar and sacral region hematoma measuring up to 8.7 cm as well as a left side lateral gluteal/ hip region hematoma measuring 7 x 5.3 centimeters. Imaging from previous hospitalization * CT head (03/07/18): no evidence of acute intracranial hemorrhage, midline shift , or mass effect is identified, possible right facial soft tissue swelling * Rib xrays (03/07/18): multiple left side rib fractures as described. Mild bibasilar atelectasis left greater than right. Elevation right hemidiaphrgam likely due to eventration * Hip (03/07/18):no definitive radiographic evidence of acute hip or pelvic fracture seen * Lumbar CT scan (12/20/17): incompletely visualized posterio back subcutaneous soft tissue fluid and right posterior back edema/hemorrhage hematoma measuring 6cm ~ in right and left dimension at level of L4-S1. Small left pleural effusion. no acute fracture of the lumbar spine. * Imaging available in patient's [place] hospitalization prior to transfer; will hold Eliquis given hematoma and increase risk of falls (8) DM * Accuchecks * ISS * Hypoglycemic protocol * A1c (12/2017): 6.6 (9) Prophylaxis * DVT: SCDs; Hold Eliquis due to risk of bleeding * Renal diet * Case management, health social work professor consulted * PT/OT * Wound care Disposition: Wound care on case. Per case management- [facility] will no longer cover [facility] as patient has already stayed at [facility] for too long in the past. Patient fell on 03/23/18 and went to [facility] ER. Patient was discharged, daughter was contacted to orange picker the patient, however daughter would not pick her up. Patient was scheduled for dialysis at [facility] in [place]. Because she did not show up at appointment, [facility] called daughter who did not answer. Patient was found still at [facility] after being discharged. APS was called. Patient was then transferred to [facility] for dialysis. Case management working on case and placement. No updates at this time. <Misha Wells - Last Filed: 03/27/18 18:25> Objective - Vital Signs/Intake and Output Vital Signs (last 24 hours): Temp Pulse Resp BP Pulse Ox 98.1 F 63 20 135/77 97 03/27/18 16:30 03/27/18 16:30 03/27/18 16:30 03/27/18 16:30 03/27/18 16:30 Intake and Output: 03/27/18 03/27/18 06:59 18:59 Intake Total 300 Output Total 400 Balance -100 - Medications Medications: Current Medications Amlodipine Besylate (Norvasc) 5 mg PO DAILY [facility] Last Admin: 03/27/18 09:54 Dose: Not Given Apixaban (Eliquis) 5 mg PO BID [facility] Last Admin: 03/27/18 17:39 Dose: Not Given Bacitracin (Bacitracin) 0 gm TOP DAILY [facility] Last Admin: 03/27/18 09:51 Dose: 1 applic Calcitriol (Rocaltrol) 0.5 mcg PO DAILY [facility] Last Admin: 03/27/18 09:50 Dose: 0.5 mcg Calcium Acetate (Phoslo) 1,334 mg PO WM [facility] Last Admin: 03/25/18 10:06 Dose: 1,334 mg Docusate Sodium (Colace) 100 mg PO DAILY [facility] Last Admin: 03/27/18 09:50 Dose: 100 mg Epoetin Nico (Procrit) 10,000 unit IV MWF [facility] Stop: 03/29/18 09:01 Last Admin: 03/26/18 10:34 Dose: 10,000 unit Fluoxetine HCl (Prozac) 40 mg PO DAILY [facility] Last Admin: 03/27/18 09:50 Dose: 40 mg Insulin Human Regular (Novolin R) 0 unit SC ACHS [facility] PRN Reason: Protocol Last Admin: 03/27/18 17:40 Dose: Not Given Rosuvastatin Calcium (Crestor) 5 mg PO HS [facility] Last Admin: 03/26/18 21:05 Dose: 5 mg Tramadol HCl (Ultram) 50 mg PO Q8H PRN PRN Reason: Pain, moderate (4-7) - Labs Labs: 03/24/18 10:36 03/24/18 10:36 Attending/Attestation - Attestation I have personally seen and examined this patient.: Yes I have fully participated in the care of the patient.: Yes I have reviewed all pertinent clinical information, including history, physical exam and plan: Yes Notes (Text): Seen and examined by me. 1.ESRD on HD ---Currently pt is getting HD via L groin permacath. ( As per vascular surgery patient with history of multiple failed dialysis access. Vascular surgery is consulted to evaluate for dialysis access. Pt had b/ l LE AVF and multiple revisions in the past and they eventrally became thrombosed and failed last recorded R AVF revistion was in 2013. Pt also had permacath on b/l IJ and R groin that failed. Pt had Peritoneal dialysis catheter. Had bacterial peritonitis. Treated w ABX. It evcentuallly became malfucntioned. Pt had lysis of adhesion and had the PD catheter repositioned. However PD catheter was eventually taken out due to non-functioning. ) 2. Multiple falls and hematoma . She is at hospital where we can avoid falls. we will resume her Eliquis soon.(S/ P Hematoma) I agree with the resident's documentation
--- NOTE | 2018-03-27 01:16 | CP.PCM.PN ---
<Keyla Malagon - Last Filed: 03/27/18 01:13> Subjective - Date & Time of Evaluation Date of Evaluation: 03/27/18 Time of Evaluation: 01:13 - Subjective Subjective: Medicine progress note for Dr. Wells Patient was seen and examined at bedside in no acute distress. Patient reports having right hip pain with movement and states the pain has not decreased. Patient denies chest pain, dyspnea, abdominal pain, nausea, vomiting, fevers, leg pain, and leg swelling. Objective - Vital Signs/Intake and Output Vital Signs (last 24 hours): Temp Pulse Resp BP Pulse Ox 98.2 F 77 20 116/71 97 03/27/18 00:00 03/27/18 00:00 03/27/18 00:00 03/27/18 00:00 03/27/18 00:00 Intake and Output: 03/26/18 03/27/18 18:59 06:59 Intake Total 300 300 Output Total 400 Balance 300 -100 - Medications Medications: Current Medications Amlodipine Besylate (Norvasc) 5 mg PO DAILY [facility] Last Admin: 03/26/18 10:40 Dose: Not Given Bacitracin (Bacitracin) 0 gm TOP DAILY [facility] Last Admin: 03/26/18 10:40 Dose: Not Given Calcitriol (Rocaltrol) 0.5 mcg PO DAILY [facility] Last Admin: 03/26/18 10:41 Dose: Not Given Calcium Acetate (Phoslo) 1,334 mg PO WM [facility] Last Admin: 03/25/18 10:06 Dose: 1,334 mg Docusate Sodium (Colace) 100 mg PO DAILY [facility] Last Admin: 03/26/18 10:40 Dose: Not Given Epoetin Nico (Procrit) 10,000 unit IV [facility] Stop: 03/29/18 09:01 Last Admin: 03/26/18 10:34 Dose: 10,000 unit Fluoxetine HCl (Prozac) 40 mg PO DAILY [facility] Last Admin: 03/26/18 10:41 Dose: Not Given Heparin Sodium (Porcine) (Heparin) 7,000 units IVP [facility] Stop: 03/29/18 09:01 Last Admin: 03/26/18 10:35 Dose: 7,000 units Insulin Human Regular (Novolin R) 0 unit SC [facility] PRN Reason: Protocol Last Admin: 03/26/18 21:02 Dose: Not Given Rosuvastatin Calcium (Crestor) 5 mg PO HS [facility] Last Admin: 03/26/18 21:05 Dose: 5 mg Tramadol HCl (Ultram) 50 mg PO Q8H PRN PRN Reason: Pain, moderate (4-7) - Labs Labs: 03/24/18 10:36 03/24/18 10:36 - Additional Findings Additional findings: - Constitutional Appears: Chronically Ill - Head Exam Head Exam: NORMOCEPHALIC - Eye Exam Eye Exam: EOMI, Normal appearance - ENT Exam ENT Exam: Mucous Membranes Moist - Respiratory Exam Respiratory Exam: NORMAL BREATHING PATTERN. absent: Rales, Rhonchi, Wheezes, Respiratory Distress - Cardiovascular Exam Cardiovascular Exam: REGULAR RHYTHM, +S1, +S2 - GI/Abdominal Exam GI & Abdominal Exam: Soft, Normal Bowel Sounds. absent: Distended, Tenderness Additional comments: Obese - Extremities Exam Extremities Exam: absent: Normal Inspection Additional comments: Bilateral LE: multiple ecchymosis on LE bilaterally; muscle atropy RLE: hematoma on right hip and gluteal region, hematoma on sacrum; pain with palpation of the bruised region; decreased ROM of RLE due to pain. LLE: left hip-wound from previous fall with yellow purulent discharge; erythema on LLE, no discharge, not tender to palpation. - Back Exam Additional comments: Abrasion and ecchymosis noted mid back from fall - Neurological Exam Neurological Exam: Abnormal Gait, Awake, Oriented x3 - Psychiatric Exam Psychiatric exam: Normal Affect, Normal Mood - Skin Skin Exam: Warm Assessment and Plan - Assessment and Plan (Free Text) Plan: (1) ESRD on hemodialysis Assessment & Plan: * Nephrology (Dr. Still) on consult, recs appreciated * Continue MWF schedule * Renal Diet (2) Hypertensive CKD, ESRD on dialysis Assessment & Plan: * Norvasc 5mg PO daily * Continue MWF dialysis schedule (3) Anemia of renal disease Assessment & Plan: * Hgb below goal of 10-11 but stable * Handkerchief Sample Clerk, Dr. Still, consulted. rec appreciated (4) Chronic kidney disease-mineral and bone disorder Assessment & Plan: * Phos and PTH controlled on phoslo 2 tabs w/ meals and calcitriol 0.5 mcg daily respectively; continue same (6) IVC thrombosis Assessment & Plan: * Will hold Eliquis due to patient's fall history and given the risk of bleeding ; will f/u with nephrology (7) Ataxic gait * PT/OT * Case management/social work consulted for placement at [facility] (8) s/p Fall; History of Falls Subcutaneous soft tissue and posterio back edema/hemorrhage hematoma * Lumbar spine CT: subcutaneous hematoma partially visulaized in right lower lumbar and gluteal regions measuring 7.8x2.3cm; urinary bladder wall thickening possibly due to incomplete distention or cystitis; no fracture * Pelvic CT: Right lower lumbar and sacral region hematoma measuring up to 8.7 cm as well as a left side lateral gluteal/ hip region hematoma measuring 7 x 5.3 centimeters. Imaging from previous hospitalization * CT head (03/07/18): no evidence of acute intracranial hemorrhage, midline shift , or mass effect is identified, possible right facial soft tissue swelling * Rib xrays (03/07/18): multiple left side rib fractures as described. Mild bibasilar atelectasis left greater than right. Elevation right hemidiaphrgam likely due to eventration * Hip (03/07/18):no definitive radiographic evidence of acute hip or pelvic fracture seen * Lumbar CT scan (12/20/17): incompletely visualized posterio back subcutaneous soft tissue fluid and right posterior back edema/hemorrhage hematoma measuring 6cm ~ in right and left dimension at level of L4-S1. Small left pleural effusion. no acute fracture of the lumbar spine. * Imaging available in patient's [place] hospitalization prior to transfer; will hold Eliquis given hematoma and increase risk of falls (8) DM * Accuchecks * ISS * Hypoglycemic protocol * A1c (12/2017): 6.6 (9) Prophylaxis * DVT: SCDs; Hold Eliquis due to risk of bleeding * Renal diet * Case management, case management social worker consulted * PT/OT * Wound care Disposition: Wound care on case. Per case management- [facility] will no longer cover [facility] as patient has already stayed at [facility] for too long in the past. Patient fell on 03/23/18 and went to [facility]. Patient was discharged, daughter was contacted to pickle cutter the patient, however daughter would not pick her up. Patient was scheduled for dialysis at [facility] in [place]. Because she did not show up at appointment, [facility] called daughter who did not answer. Patient was found still at [facility] after being discharged. APS was called. Patient was then transferred to [facility] for dialysis. Case management working on case and placement. No updates at this time. <Misha Wells - Last Filed: 03/27/18 18:24> Objective - Vital Signs/Intake and Output Vital Signs (last 24 hours): Temp Pulse Resp BP Pulse Ox 98.1 F 63 20 135/77 97 03/27/18 16:30 03/27/18 16:30 03/27/18 16:30 03/27/18 16:30 03/27/18 16:30 Intake and Output: 03/27/18 03/27/18 06:59 18:59 Intake Total 300 Output Total 400 Balance -100 - Medications Medications: Current Medications Amlodipine Besylate (Norvasc) 5 mg PO DAILY [facility] Last Admin: 03/27/18 09:54 Dose: Not Given Apixaban (Eliquis) 5 mg PO BID [facility] Last Admin: 03/27/18 17:39 Dose: Not Given Bacitracin (Bacitracin) 0 gm TOP DAILY [facility] Last Admin: 03/27/18 09:51 Dose: 1 applic Calcitriol (Rocaltrol) 0.5 mcg PO DAILY [facility] Last Admin: 03/27/18 09:50 Dose: 0.5 mcg Calcium Acetate (Phoslo) 1,334 mg PO WM [facility] Last Admin: 03/25/18 10:06 Dose: 1,334 mg Docusate Sodium (Colace) 100 mg PO DAILY [facility] Last Admin: 03/27/18 09:50 Dose: 100 mg Epoetin Nico (Procrit) 10,000 unit IV MWF [facility] Stop: 03/29/18 09:01 Last Admin: 03/26/18 10:34 Dose: 10,000 unit Fluoxetine HCl (Prozac) 40 mg PO DAILY [facility] Last Admin: 03/27/18 09:50 Dose: 40 mg Insulin Human Regular (Novolin R) 0 unit SC ACHS [facility] PRN Reason: Protocol Last Admin: 03/27/18 17:40 Dose: Not Given Rosuvastatin Calcium (Crestor) 5 mg PO HS [facility] Last Admin: 03/26/18 21:05 Dose: 5 mg Tramadol HCl (Ultram) 50 mg PO Q8H PRN PRN Reason: Pain, moderate (4-7) - Labs Labs: 03/24/18 10:36 03/24/18 10:36 Attending/Attestation - Attestation I have personally seen and examined this patient.: Yes I have fully participated in the care of the patient.: Yes I have reviewed all pertinent clinical information, including history, physical exam and plan: Yes Notes (Text): Seen and examined by me Has no complain. S/P fall and hematoma (See CT report on 03/23/2018) Has IVC thrombus ,Eliquis discontinued due to falls at home. Not started on admission due to large hematoma (hip,sacrum) Her fall rsik is low at hospital ,we will resume Eliquis .We will monitor I agree with the resident's documentation of the assessment and the plan. Id/w Dr Still I agree with the resident's documentation of the assessment and the plan
--- NOTE | 2018-03-27 08:18 | CP.PCM.PN ---
Subjective - Date & Time of Evaluation Date of Evaluation: 03/26/18 Time of Evaluation: 12:00 - Subjective Subjective: Patient seen on HD; no sob, nausea/vomiting/diarrhea; not ambulating; tolerating diet; Objective - Vital Signs/Intake and Output Vital Signs (last 24 hours): Temp Pulse Resp BP Pulse Ox 98.2 F 77 20 116/71 97 03/27/18 00:00 03/27/18 00:00 03/27/18 00:00 03/27/18 00:00 03/27/18 00:00 Intake and Output: 03/27/18 03/27/18 06:59 18:59 Intake Total 300 Output Total 400 Balance -100 - Medications Medications: Current Medications Amlodipine Besylate (Norvasc) 5 mg PO DAILY [facility] Last Admin: 03/26/18 10:40 Dose: Not Given Bacitracin (Bacitracin) 0 gm TOP DAILY [facility] Last Admin: 03/26/18 10:40 Dose: Not Given Calcitriol (Rocaltrol) 0.5 mcg PO DAILY [facility] Last Admin: 03/26/18 10:41 Dose: Not Given Calcium Acetate (Phoslo) 1,334 mg PO WM [facility] Last Admin: 03/25/18 10:06 Dose: 1,334 mg Docusate Sodium (Colace) 100 mg PO DAILY [facility] Last Admin: 03/26/18 10:40 Dose: Not Given Epoetin Nico (Procrit) 10,000 unit IV [facility] Stop: 03/29/18 09:01 Last Admin: 03/26/18 10:34 Dose: 10,000 unit Fluoxetine HCl (Prozac) 40 mg PO DAILY [facility] Last Admin: 03/26/18 10:41 Dose: Not Given Heparin Sodium (Porcine) (Heparin) 7,000 units IVP [facility] Stop: 03/29/18 09:01 Last Admin: 03/26/18 10:35 Dose: 7,000 units Insulin Human Regular (Novolin R) 0 unit SC [facility] PRN Reason: Protocol Last Admin: 03/26/18 21:02 Dose: Not Given Rosuvastatin Calcium (Crestor) 5 mg PO HS [facility] Last Admin: 03/26/18 21:05 Dose: 5 mg Tramadol HCl (Ultram) 50 mg PO Q8H PRN PRN Reason: Pain, moderate (4-7) - Labs Labs: 03/24/18 10:36 03/24/18 10:36 - Constitutional Appears: Non-toxic, No Acute Distress - Eye Exam Eye Exam: Normal appearance - ENT Exam ENT Exam: Mucous Membranes Moist - Respiratory Exam Respiratory Exam: Clear to Ausculation Bilateral. absent: Respiratory Distress - Cardiovascular Exam Cardiovascular Exam: RRR, +S1, +S2 - GI/Abdominal Exam GI & Abdominal Exam: Soft. absent: Distended, Tenderness - Extremities Exam Additional comments: minimal lower leg edema; - Neurological Exam Neurological Exam: Alert, Awake - Psychiatric Exam Psychiatric exam: Normal Mood. absent: Agitated - Skin Skin Exam: Warm. absent: Cyanosis Assessment and Plan (1) ESRD on hemodialysis Assessment & Plan: Relatively stable electrolyte and volume status; however, unable to achieve adequate blood flows due to positional nature of HD catheter; -increasing HD time to 4 hrs -continue HD per routine on MWF schedule Status: Chronic (2) Anemia of renal disease Assessment & Plan: Hgb stable, continue EPO on HD; Status: Chronic (3) Ataxic gait Assessment & Plan: Decreasing ambulation; frequent falls; placement situation discussed at length with director of social services/case management; need family meeting to help resolve placement issues as patient remains unsafe for discharge; Status: Chronic (4) Chronic kidney disease-mineral and bone disorder Assessment & Plan: PTH at goal; continue calcitriol 0.5 mcg daily and phoslo 2 tabs with meals; Status: Chronic (5) Hemodialysis catheter malfunction Status: Chronic (6) Hypertensive CKD, ESRD on dialysis Assessment & Plan: BP stable; continue amlodipine 5 mg daily; need to assess weight before/after each HD session; Status: Chronic (7) IVC thrombosis Assessment & Plan: Resolved, however, will benefit from indefinite AC to avoid recurrence in the setting of long HD catheter; should continue as long as falls are prevented; Status: Resolved
[2018-03-27] MEDS: (Novolin R) Insulin Human Regular 100 units/ml vial SC SCH ×4 (08:25→21:37)
[2018-03-27] MEDS: Bacitracin Ointment 30 GM TUBE TOP SCH (09:51)
--- NOTE | 2018-03-27 12:21 | CP.PCM.PN ---
Subjective - Date & Time of Evaluation Date of Evaluation: 03/27/18 Time of Evaluation: 11:00 - Subjective Subjective: Reports eating well; no sob, nausea/vomiting/diarrhea; upset that daughter hasn' t visited her yet; Objective - Vital Signs/Intake and Output Vital Signs (last 24 hours): Temp Pulse Resp BP Pulse Ox 98.2 F 60 20 101/50 L 98 03/27/18 09:43 03/27/18 09:43 03/27/18 09:43 03/27/18 09:43 03/27/18 09:43 Intake and Output: 03/27/18 03/27/18 06:59 18:59 Intake Total 300 Output Total 400 Balance -100 - Medications Medications: Current Medications Amlodipine Besylate (Norvasc) 5 mg PO DAILY [facility] Last Admin: 03/27/18 09:54 Dose: Not Given Bacitracin (Bacitracin) 0 gm TOP DAILY [facility] Last Admin: 03/27/18 09:51 Dose: 1 applic Calcitriol (Rocaltrol) 0.5 mcg PO DAILY [facility] Last Admin: 03/27/18 09:50 Dose: 0.5 mcg Calcium Acetate (Phoslo) 1,334 mg PO WM [facility] Last Admin: 03/25/18 10:06 Dose: 1,334 mg Docusate Sodium (Colace) 100 mg PO DAILY [facility] Last Admin: 03/27/18 09:50 Dose: 100 mg Epoetin Nico (Procrit) 10,000 unit IV [facility] Stop: 03/29/18 09:01 Last Admin: 03/26/18 10:34 Dose: 10,000 unit Fluoxetine HCl (Prozac) 40 mg PO DAILY [facility] Last Admin: 03/27/18 09:50 Dose: 40 mg Heparin Sodium (Porcine) (Heparin) 7,000 units IVP [facility] Stop: 03/29/18 09:01 Last Admin: 03/26/18 10:35 Dose: 7,000 units Insulin Human Regular (Novolin R) 0 unit SC [facility] PRN Reason: Protocol Last Admin: 03/27/18 12:07 Dose: 3 unit Rosuvastatin Calcium (Crestor) 5 mg PO HS [facility] Last Admin: 03/26/18 21:05 Dose: 5 mg Tramadol HCl (Ultram) 50 mg PO Q8H PRN PRN Reason: Pain, moderate (4-7) - Labs Labs: 03/24/18 10:36 03/24/18 10:36 - Constitutional Appears: Non-toxic, No Acute Distress - Eye Exam Eye Exam: absent: Scleral icterus - ENT Exam ENT Exam: Mucous Membranes Moist - Respiratory Exam Respiratory Exam: Clear to Ausculation Bilateral. absent: Respiratory Distress - Cardiovascular Exam Cardiovascular Exam: RRR, +S1, +S2 - GI/Abdominal Exam GI & Abdominal Exam: Soft. absent: Distended, Tenderness - Extremities Exam Additional comments: no lower leg edema; - Neurological Exam Neurological Exam: Alert, Awake - Psychiatric Exam Psychiatric exam: Normal Mood. absent: Agitated - Skin Skin Exam: Warm. absent: Cyanosis Assessment and Plan (1) ESRD on hemodialysis Assessment & Plan: Stable volume status; will check lytes tomorrow to ensure there is no potassium spike (has had issues with this recently in setting of HD catheter malfunction) ; next HD for Thursday per routine; Status: Chronic (2) Anemia of renal disease Assessment & Plan: Hgb stable, continuing with epogen 10,000 u on HD; Status: Chronic (3) Ataxic gait Status: Chronic (4) Chronic kidney disease-mineral and bone disorder Assessment & Plan: Continue calcitiol 0.5 mcg daily and phoslo 2 tabs on HD; checking phos level on Thursday; Status: Chronic (5) Hemodialysis catheter malfunction Status: Chronic (6) Hypertensive CKD, ESRD on dialysis Assessment & Plan: Low/normal BP lately; weights relatively stable (86.4 kg bed weight today); amlodipine held since yesterday (not given today due to low BP); will montor for now; continue amlodipine 5 mg daily as long as SBP > 120; Status: Chronic (7) IVC thrombosis Assessment & Plan: Needs indefinite AC as long as falls can be prevented; restarting eliquis 5 mg bid while in the hospital; Status: Resolved
--- NOTE | 2018-03-28 03:35 | CP.PCM.PN ---
<Keyla Malagon - Last Filed: 03/28/18 03:49> Subjective - Date & Time of Evaluation Date of Evaluation: 03/28/18 Time of Evaluation: 03:29 - Subjective Subjective: Medicine progress note for Dr. Wells Patient was seen and examined at bedside in no acute distress. Patient says she still has hip pain, but it has slightly improved since yesterday. Patient denies chest pain, dyspnea, abdominal pain, nausea, vomiting, fevers, leg pain, and leg swelling. No acute events overnight. Objective - Vital Signs/Intake and Output Vital Signs (last 24 hours): Temp Pulse Resp BP Pulse Ox 98.1 F 62 20 120/69 95 03/28/18 00:00 03/28/18 00:00 03/28/18 00:00 03/28/18 00:00 03/28/18 00:00 Intake and Output: 03/27/18 03/28/18 18:59 06:59 Intake Total 250 Balance 250 - Medications Medications: Current Medications Amlodipine Besylate (Norvasc) 5 mg PO DAILY [facility] Last Admin: 03/27/18 09:54 Dose: Not Given Apixaban (Eliquis) 5 mg PO BID [facility] Last Admin: 03/27/18 17:39 Dose: Not Given Bacitracin (Bacitracin) 0 gm TOP DAILY [facility] Last Admin: 03/27/18 09:51 Dose: 1 applic Calcitriol (Rocaltrol) 0.5 mcg PO DAILY [facility] Last Admin: 03/27/18 09:50 Dose: 0.5 mcg Calcium Acetate (Phoslo) 1,334 mg PO WM [facility] Last Admin: 03/25/18 10:06 Dose: 1,334 mg Docusate Sodium (Colace) 100 mg PO DAILY [facility] Last Admin: 03/27/18 09:50 Dose: 100 mg Epoetin Nico (Procrit) 10,000 unit IV MWF [facility] Stop: 03/29/18 09:01 Last Admin: 03/26/18 10:34 Dose: 10,000 unit Fluoxetine HCl (Prozac) 40 mg PO DAILY [facility] Last Admin: 03/27/18 09:50 Dose: 40 mg Insulin Human Regular (Novolin R) 0 unit SC [facility] PRN Reason: Protocol Last Admin: 03/27/18 21:37 Dose: Not Given Rosuvastatin Calcium (Crestor) 5 mg PO HS [facility] Last Admin: 03/27/18 21:36 Dose: Not Given Tramadol HCl (Ultram) 50 mg PO Q8H PRN PRN Reason: Pain, moderate (4-7) - Labs Labs: 03/24/18 10:36 03/24/18 10:36 - Additional Findings Additional findings: - Constitutional Appears: Chronically Ill - Head Exam Head Exam: NORMOCEPHALIC - Eye Exam Eye Exam: EOMI, Normal appearance - ENT Exam ENT Exam: Mucous Membranes Moist - Respiratory Exam Respiratory Exam: NORMAL BREATHING PATTERN. absent: Rales, Rhonchi, Wheezes, Respiratory Distress - Cardiovascular Exam Cardiovascular Exam: REGULAR RHYTHM, +S1, +S2 - GI/Abdominal Exam GI & Abdominal Exam: Soft, Normal Bowel Sounds. absent: Distended, Tenderness Additional comments: Obese - Extremities Exam Extremities Exam: absent: Normal Inspection Additional comments: Bilateral LE: multiple ecchymosis on LE bilaterally; muscle atropy RLE: hematoma on right hip and gluteal region, hematoma on sacrum; pain with palpation of the bruised region; decreased ROM of RLE due to pain. LLE: left hip-wound from previous fall with yellow purulent discharge; erythema on LLE, no discharge, not tender to palpation. - Back Exam Additional comments: Abrasion and ecchymosis noted mid back from fall - Neurological Exam Neurological Exam: Abnormal Gait, Awake, Oriented x3 - Psychiatric Exam Psychiatric exam: Normal Affect, Normal Mood - Skin Skin Exam: Warm Assessment and Plan - Assessment and Plan (Free Text) Plan: (1) ESRD on hemodialysis Assessment & Plan: * Nephrology (Dr. Still) on consult, recs appreciated * Vascular surgery (Dr. Olson) consulted- no surgical intervention for AVG at this time * Continue MWF schedule * Procrit [id number] MWF * Phoslo 1334mg PO WM * Calcitriol 0.5.cg PO daily * Renal Diet (2) Hypertensive CKD, ESRD on dialysis Assessment & Plan: * Norvasc 5mg PO daily * Continue MWF dialysis schedule (3) Anemia of renal disease Assessment & Plan: * Hgb below goal of 10-11 but stable * Credit Collection Specialist, Dr. Still, consulted. rec appreciated (4) Chronic kidney disease-mineral and bone disorder Assessment & Plan: * Phos and PTH controlled on phoslo 2 tabs w/ meals and calcitriol 0.5 mcg daily respectively; continue same (6) IVC thrombosis Assessment & Plan: * Continue Eliquis 5mg PO daily (7) Ataxic gait * PT/OT * Case management/social work consulted for placement at [facility] (8) s/p Fall; History of Falls Subcutaneous soft tissue and posterio back edema/hemorrhage hematoma * Lumbar spine CT: subcutaneous hematoma partially visulaized in right lower lumbar and gluteal regions measuring 7.8x2.3cm; urinary bladder wall thickening possibly due to incomplete distention or cystitis; no fracture * Pelvic CT: Right lower lumbar and sacral region hematoma measuring up to 8.7 cm as well as a left side lateral gluteal/ hip region hematoma measuring 7 x 5.3 centimeters. Imaging from previous hospitalization * CT head (03/07/18): no evidence of acute intracranial hemorrhage, midline shift , or mass effect is identified, possible right facial soft tissue swelling * Rib xrays (03/07/18): multiple left side rib fractures as described. Mild bibasilar atelectasis left greater than right. Elevation right hemidiaphrgam likely due to eventration * Hip (03/07/18):no definitive radiographic evidence of acute hip or pelvic fracture seen * Lumbar CT scan (12/20/17): incompletely visualized posterio back subcutaneous soft tissue fluid and right posterior back edema/hemorrhage hematoma measuring 6cm ~ in right and left dimension at level of L4-S1. Small left pleural effusion. no acute fracture of the lumbar spine. * Imaging available in patient's [place] hospitalization prior to transfer; will hold Eliquis given hematoma and increase risk of falls (8) DM * Accuchecks * ISS * Hypoglycemic protocol * A1c (12/2017): 6.6 (9) Prophylaxis * DVT: SCDs; Eliquis 5mg PO daily * Renal diet * Case management, healthcare social worker consulted * PT/OT * Wound care Disposition: Wound care on case. Per case management- [facility] will no longer cover [facility] as patient has already stayed at [facility] for too long in the past. Patient fell on 03/23/18 and went to [facility]. Patient was discharged, daughter was contacted to continuous pickling line pickler helper the patient, however daughter would not pick her up. Patient was scheduled for dialysis at [facility] in [place]. Because she did not show up at appointment, Sp called daughter who did not answer. Patient was found still at [facility] after being discharged. APS was called. Patient was then transferred to [facility] for dialysis. Case management working on case and placement. No updates at this time. <Misha Wells - Last Filed: 04/07/18 11:52> Objective - Vital Signs/Intake and Output Vital Signs (last 24 hours): Temp Pulse Resp BP Pulse Ox 97.6 F 76 20 158/82 H 97 03/28/18 16:27 03/28/18 16:27 03/28/18 16:27 03/28/18 16:27 03/28/18 16:27 Intake and Output: 03/28/18 03/29/18 18:59 06:59 Intake Total 600 Balance 600 - Medications Medications: Current Medications Amlodipine Besylate (Norvasc) 5 mg PO DAILY [facility] Last Admin: 03/28/18 09:50 Dose: Not Given Apixaban (Eliquis) 5 mg PO BID [facility] Last Admin: 03/28/18 17:38 Dose: Not Given Bacitracin (Bacitracin) 0 gm TOP DAILY [facility] Last Admin: 03/28/18 09:51 Dose: Not Given Calcitriol (Rocaltrol) 0.5 mcg PO DAILY [facility] Last Admin: 03/28/18 09:50 Dose: Not Given Calcium Acetate (Phoslo) 1,334 mg PO WM [facility] Last Admin: 03/25/18 10:06 Dose: 1,334 mg Docusate Sodium (Colace) 100 mg PO DAILY [facility] Last Admin: 03/28/18 09:50 Dose: Not Given Epoetin Nico (Procrit) 10,000 unit IV F [facility] Stop: 03/29/18 09:01 Last Admin: 03/26/18 10:34 Dose: 10,000 unit Fluoxetine HCl (Prozac) 40 mg PO DAILY [facility] Last Admin: 03/28/18 09:50 Dose: Not Given Insulin Human Regular (Novolin R) 0 unit SC [facility] PRN Reason: Protocol Last Admin: 03/28/18 21:14 Dose: Not Given Rosuvastatin Calcium (Crestor) 5 mg PO HS [facility] Last Admin: 03/28/18 21:14 Dose: Not Given Tramadol HCl (Ultram) 50 mg PO Q8H PRN PRN Reason: Pain, moderate (4-7) - Labs Labs: 03/24/18 10:36 03/28/18 08:40 Attending/Attestation - Attestation I have personally seen and examined this patient.: Yes I have fully participated in the care of the patient.: Yes I have reviewed all pertinent clinical information, including history, physical exam and plan: Yes Notes (Text): Seen and examined by me She was sitting on the chair with out complain Has lower back and rib pain due to fall injury Noted to have size of her hematoma is larger than before ?Complaining of tenderness I will hold her Eliquis and monitor cbc and the size of the hematoma
[2018-03-28] MEDS: (Novolin R) Insulin Human Regular 100 units/ml vial SC SCH ×4 (08:17→21:14)
[2018-03-28 09:19] LABS: CALCIUM 8.9 mg/dl (8.6-10.4)
[2018-03-28] MEDS: Bacitracin Ointment 30 GM TUBE TOP SCH (09:51)
[2018-03-29 06:48] LABS: BASO # 0.1 K/uL (0.0-0.2); BASO % 0.6 % (0.0-2.0); EOS # 0.1 K/uL (0.0-0.7); LYMPH % 11.8 % (20.0-40.0); MEAN CELL VOLUME 96.3 fL (81.0-99.0); MEAN CORPUSCULAR HEMOGLOBIN 31.2 pg (27.0-31.0); MEAN CORPUSCULAR HGB CONC 32.3 g/dL (33.0-37.0); MEAN PLATELET VOLUME 9.4 fL (7.2-11.7); MONO # 0.8 K/uL (0.0-0.8); MONO % 9.5 % (0.0-10.0); NEUT # 6.7 K/uL (1.8-7.0); NEUT % 77.1 % (50.0-75.0); RBC 2.88 Mil/uL (3.80-5.20); RED CELL DISTRIBUTION WIDTH 17.7 % (11.5-14.5); WHITE BLOOD COUNT 8.7 K/uL (4.8-10.8)
[2018-03-29 08:30] LABS: ALB/GLOB RATIO 1.2 (1.0-2.1); ALBUMIN 4.1 g/dL (3.5-5.0); CALCIUM 8.5 mg/dl (8.6-10.4)
[2018-03-29] MEDS: (Novolin R) Insulin Human Regular 100 units/ml vial SC SCH ×4 (08:32→22:12)
--- NOTE | 2018-03-29 09:30 | CP.PCM.PN ---
<Keyla Malagon - Last Filed: 03/29/18 11:19> Subjective - Date & Time of Evaluation Date of Evaluation: 03/29/18 Time of Evaluation: 09:27 - Subjective Subjective: Medicine progress note for Dr. Mccall Patient was seen and examined in no acute distress. Patient was OOB to chair. She complains of hip and sacral pain and pain with breathing due to rib fractures. She says the pain has slightly improved. Patient denies chest pain, abdominal pain, dyspnea, nausea, vomiting, fevers, and headaches. Objective - Vital Signs/Intake and Output Vital Signs (last 24 hours): Temp Pulse Resp BP Pulse Ox 98.5 F 84 20 122/68 96 03/29/18 08:00 03/29/18 08:00 03/29/18 08:00 03/29/18 08:00 03/29/18 08:00 Intake and Output: 03/29/18 03/29/18 06:59 18:59 Intake Total 300 200 Balance 300 200 - Medications Medications: Current Medications Alteplase, Recombinant (Cathflo 2 Mg Inj) 4 mg IV ONCE ONE Stop: 03/29/18 09:31 Amlodipine Besylate (Norvasc) 5 mg PO DAILY [facility] Last Admin: 03/28/18 09:50 Dose: Not Given Apixaban (Eliquis) 5 mg PO BID [facility] Last Admin: 03/28/18 17:38 Dose: Not Given Bacitracin (Bacitracin) 0 gm TOP DAILY [facility] Last Admin: 03/28/18 09:51 Dose: Not Given Calcitriol (Rocaltrol) 0.5 mcg PO DAILY [facility] Last Admin: 03/28/18 09:50 Dose: Not Given Calcium Acetate (Phoslo) 1,334 mg PO WM [facility] Last Admin: 03/25/18 10:06 Dose: 1,334 mg Docusate Sodium (Colace) 100 mg PO DAILY [facility] Last Admin: 03/28/18 09:50 Dose: Not Given Fluoxetine HCl (Prozac) 40 mg PO DAILY [facility] Last Admin: 03/28/18 09:50 Dose: Not Given Insulin Human Regular (Novolin R) 0 unit SC [facility] PRN Reason: Protocol Last Admin: 03/29/18 08:32 Dose: 2 unit Rosuvastatin Calcium (Crestor) 5 mg PO HS [facility] Last Admin: 03/28/18 21:14 Dose: Not Given Tramadol HCl (Ultram) 50 mg PO Q8H PRN PRN Reason: Pain, moderate (4-7) - Labs Labs: 03/29/18 06:35 03/29/18 06:35 - Additional Findings Additional findings: - Constitutional Appears: Chronically Ill - Head Exam Head Exam: NORMOCEPHALIC - Eye Exam Eye Exam: EOMI, Normal appearance - ENT Exam ENT Exam: Mucous Membranes Moist - Respiratory Exam Respiratory Exam: NORMAL BREATHING PATTERN. absent: Rales, Rhonchi, Wheezes, Respiratory Distress - Cardiovascular Exam Cardiovascular Exam: REGULAR RHYTHM, +S1, +S2 - GI/Abdominal Exam GI & Abdominal Exam: Soft, Normal Bowel Sounds. absent: Distended, Tenderness Additional comments: Obese - Extremities Exam Extremities Exam: absent: Normal Inspection Additional comments: Bilateral LE: multiple ecchymosis on LE bilaterally; muscle atropy RLE: hematoma on right hip and gluteal region, hematoma on sacrum; pain with palpation of the bruised region; decreased ROM of RLE due to pain. LLE: left hip-wound from previous fall with yellow purulent discharge; erythema on LLE, no discharge, not tender to palpation. - Back Exam Additional comments: Abrasion and ecchymosis noted mid back from fall - Neurological Exam Neurological Exam: Abnormal Gait, Awake, Oriented x3 - Psychiatric Exam Psychiatric exam: Normal Affect, Normal Mood - Skin Skin Exam: Warm Assessment and Plan - Assessment and Plan (Free Text) Plan: (1) ESRD on hemodialysis Assessment & Plan: * Nephrology (Dr. Still) on consult, recs appreciated * Vascular surgery (Dr. Olson) consulted- no surgical intervention for AVG at this time * Continue MWF schedule * Procrit [id number] MWF * Phoslo 1334mg PO WM * Calcitriol 0.5.cg PO daily * Renal Diet (2) Hypertensive CKD, ESRD on dialysis Assessment & Plan: * Norvasc 5mg PO daily * Continue MWF dialysis schedule (3) Anemia of renal disease Assessment & Plan: * Hgb below goal of 10-11 but stable * News Videotape Editor, Dr. Still, consulted. rec appreciated (4) Chronic kidney disease-mineral and bone disorder Assessment & Plan: * Phos and PTH controlled on phoslo 2 tabs w/ meals and calcitriol 0.5 mcg daily respectively; continue same (6) IVC thrombosis Assessment & Plan: * Continue Eliquis 5mg PO daily (7) Ataxic gait * PT/OT * Case management/social work consulted for placement at [facility] (8) s/p Fall; History of Falls Subcutaneous soft tissue and posterio back edema/hemorrhage hematoma * Lumbar spine CT: subcutaneous hematoma partially visulaized in right lower lumbar and gluteal regions measuring 7.8x2.3cm; urinary bladder wall thickening possibly due to incomplete distention or cystitis; no fracture * Pelvic CT: Right lower lumbar and sacral region hematoma measuring up to 8.7 cm as well as a left side lateral gluteal/ hip region hematoma measuring 7 x 5.3 centimeters. Imaging from previous hospitalization * CT head (03/07/18): no evidence of acute intracranial hemorrhage, midline shift , or mass effect is identified, possible right facial soft tissue swelling * Rib xrays (03/07/18): multiple left side rib fractures as described. Mild bibasilar atelectasis left greater than right. Elevation right hemidiaphrgam likely due to eventration * Hip (03/07/18):no definitive radiographic evidence of acute hip or pelvic fracture seen * Lumbar CT scan (12/20/17): incompletely visualized posterio back subcutaneous soft tissue fluid and right posterior back edema/hemorrhage hematoma measuring 6cm ~ in right and left dimension at level of L4-S1. Small left pleural effusion. no acute fracture of the lumbar spine. * Imaging available in patient's [place] hospitalization prior to transfer; will hold Eliquis given hematoma and increase risk of falls (8) DM * Accuchecks * ISS * Hypoglycemic protocol * A1c (12/2017): 6.6 (9) Prophylaxis * DVT: SCDs; Eliquis 5mg PO daily * Renal diet * Case management, social welfare research worker consulted * PT/OT * Wound care Disposition: Wound care on case. Per case management- [facility] will no longer cover [facility] as patient has already stayed at [facility] for too long in the past. Patient fell on 03/23/18 and went to [facility] ER. Patient was discharged, daughter was contacted to curing pickling packer the patient, however daughter would not pick her up. Patient was scheduled for dialysis at [facility] in [place]. Because she did not show up at appointment, Sp called daughter who did not answer. Patient was found still at [facility] after being discharged. APS was called. Patient was then transferred to [facility] for dialysis. Case management working on case and placement. No updates at this time. <Anival Mccall - Last Filed: 03/29/18 14:51> Objective - Vital Signs/Intake and Output Vital Signs (last 24 hours): Temp Pulse Resp BP Pulse Ox 97.8 F 52 L 20 107/59 L 96 03/29/18 09:00 03/29/18 09:00 03/29/18 09:00 03/29/18 09:00 03/29/18 08:00 Intake and Output: 03/29/18 03/29/18 06:59 18:59 Intake Total 300 200 Balance 300 200 - Medications Medications: Current Medications Amlodipine Besylate (Norvasc) 5 mg PO DAILY [facility] Last Admin: 03/29/18 10:37 Dose: Not Given Apixaban (Eliquis) 5 mg PO BID [facility] Last Admin: 03/28/18 17:38 Dose: Not Given Bacitracin (Bacitracin) 0 gm TOP DAILY [facility] Last Admin: 03/29/18 10:37 Dose: Not Given Calcitriol (Rocaltrol) 0.5 mcg PO DAILY [facility] Last Admin: 03/29/18 10:37 Dose: Not Given Calcium Acetate (Phoslo) 1,334 mg PO WM [facility] Last Admin: 03/25/18 10:06 Dose: 1,334 mg Docusate Sodium (Colace) 100 mg PO DAILY [facility] Last Admin: 03/29/18 10:37 Dose: Not Given Fluoxetine HCl (Prozac) 40 mg PO DAILY [facility] Last Admin: 03/29/18 10:37 Dose: Not Given Insulin Human Regular (Novolin R) 0 unit SC [facility] PRN Reason: Protocol Last Admin: 03/29/18 14:07 Dose: Not Given Rosuvastatin Calcium (Crestor) 5 mg PO HS [facility] Last Admin: 03/28/18 21:14 Dose: Not Given Tramadol HCl (Ultram) 50 mg PO Q8H PRN PRN Reason: Pain, moderate (4-7) - Labs Labs: 03/29/18 06:35 03/29/18 06:35 Attending/Attestation - Attestation I have personally seen and examined this patient.: Yes I have fully participated in the care of the patient.: Yes I have reviewed all pertinent clinical information, including history, physical exam and plan: Yes Notes (Text): 03/29/18 14:46 Medical attending: Patient was seen and examined by me as well. This is my first time meeting the patient. Case was reviewed with the medical residents and also with the social workers and case workers I had an extended conversation with social workers as they have not been able to get in contact with family member. There is also concern about the amount of time the patient has spent at [facility] as she may have used up all of her [facility] time. The patient still appears weak and frail on exam. Inspected her hips and she does have echymosis from previous falls. Per case workers she mayhave to wait past April 04 before [facility] can re- evaluate. After that she could potentially go to another [facility] They says she is not an LTAC candidate. Later I was informed by selector packer that there was problems with her HD access as she has had numerous problems with access in the past. They are trying to get her to [facility] for a new tunneled femoral cathter Anival Mccall
[2018-03-29] MEDS: Bacitracin Ointment 30 GM TUBE TOP SCH (10:37)
[2018-03-29] MEDS: Epoetin Alfa 10,000 unit/ml Dialysis IV SCH (10:38)
[2018-03-29] MEDS ORDERED: Sod Polystyrene Sulf 15 gm/60 ml Susp PO STA (11:23)
[2018-03-29] MEDS ORDERED: Dextrose 50% SYRINGE Inj (50 ml) IV STA (11:26)
[2018-03-29] MEDS ORDERED: (Novolin R) Insulin Human Regular 100 units/ml vial IV STA (11:27)
--- NOTE | 2018-03-29 19:35 | CP.PCM.PN ---
Subjective - Date & Time of Evaluation Date of Evaluation: 03/29/18 Time of Evaluation: 13:00 - Subjective Subjective: Patient seen before HD today; reporting some shortness of breath; otherwise, no nausea/vomting; tolerating diet well; makes scant urine, none in a few days Objective - Vital Signs/Intake and Output Vital Signs (last 24 hours): Temp Pulse Resp BP Pulse Ox 97.8 F 52 L 20 107/59 L 96 03/29/18 09:00 03/29/18 09:00 03/29/18 09:00 03/29/18 09:00 03/29/18 08:00 Intake and Output: 03/29/18 03/30/18 18:59 06:59 Intake Total 700 Balance 700 - Medications Medications: Current Medications Amlodipine Besylate (Norvasc) 5 mg PO DAILY [facility] Last Admin: 03/29/18 10:37 Dose: Not Given Apixaban (Eliquis) 5 mg PO BID [facility] Last Admin: 03/28/18 17:38 Dose: Not Given Apixaban (Eliquis) 5 mg PO DAILY [facility] Bacitracin (Bacitracin) 0 gm TOP DAILY [facility] Last Admin: 03/29/18 10:37 Dose: Not Given Calcitriol (Rocaltrol) 0.5 mcg PO DAILY [facility] Last Admin: 03/29/18 10:37 Dose: Not Given Calcium Acetate (Phoslo) 1,334 mg PO WM [facility] Last Admin: 03/25/18 10:06 Dose: 1,334 mg Docusate Sodium (Colace) 100 mg PO DAILY [facility] Last Admin: 03/29/18 10:37 Dose: Not Given Fluoxetine HCl (Prozac) 40 mg PO DAILY [facility] Last Admin: 03/29/18 10:37 Dose: Not Given Insulin Human Regular (Novolin R) 0 unit SC ACHS [facility] PRN Reason: Protocol Last Admin: 03/29/18 14:07 Dose: Not Given Rosuvastatin Calcium (Crestor) 5 mg PO HS [facility] Last Admin: 03/28/18 21:14 Dose: Not Given Tramadol HCl (Ultram) 50 mg PO Q8H PRN PRN Reason: Pain, moderate (4-7) - Labs Labs: 03/29/18 06:35 03/29/18 06:35 - Constitutional Appears: Non-toxic, No Acute Distress - Eye Exam Eye Exam: absent: Scleral icterus - ENT Exam ENT Exam: Mucous Membranes Moist - Respiratory Exam Respiratory Exam: Clear to Ausculation Bilateral. absent: Respiratory Distress - Cardiovascular Exam Cardiovascular Exam: RRR, +S1, +S2 - GI/Abdominal Exam GI & Abdominal Exam: Soft. absent: Distended, Tenderness - Extremities Exam Additional comments: no lower leg edema; - Neurological Exam Neurological Exam: Alert, Awake - Psychiatric Exam Psychiatric exam: Normal Mood. absent: Agitated - Skin Skin Exam: Warm. absent: Cyanosis Assessment and Plan (1) ESRD on hemodialysis Assessment & Plan: Hyperkalemia in the setting of inadequate HD blood flows due to catheter malfunction; today, unable to use femoral catheter for HD; tPA tried but unsuccessful; patient subsequently sent to [facility] for catheter exchange; translumbar catheter placed instead and femoral catheter removed; -Dialyzing this evening at [facility] for hyperkalemia, 2hr session on 1K dialysate ; next HD for tomorrow; Status: Chronic (2) Right atrial thrombus Assessment & Plan: R atrial thrombus seen on fluoroscopy; patient had been off AC due to concern for fall risk; s/p IVC thrombus last year which had resolved on repeat imaging recently; -Will need to be kept on full dose AC; resuming eliquis at 10 mg bid (loading dose for 1 week, followed by 5 mg bid) -obtain TTE Status: Acute (3) Anemia of renal disease Assessment & Plan: Hgb below goal, continue EPO 10,000 u on HD; Status: Chronic (4) Ataxic gait Status: Chronic (5) Chronic kidney disease-mineral and bone disorder Assessment & Plan: PTH at goal; continue calcitriol 0.5 mcg daily and phoslo 2 tabs w/ meals; Status: Chronic (6) Hemodialysis catheter malfunction Assessment & Plan: See above; Status: Chronic (7) Hypertensive CKD, ESRD on dialysis Assessment & Plan: BP fluctuating; continue amlodipine 5 mg daily as long as SBP > 120; Status: Chronic - Assessment and Plan (Free Text) Assessment: Critical care time arranging for urgent HD catheter change, medical management of hyperkalemia, discussions with primary team and coordinating HD session > 45 minutes;
[2018-03-29 23:04] LABS: CALCIUM 8.3 mg/dl (8.6-10.4)
--- NOTE | 2018-03-30 07:11 | CP.PCM.PN ---
<Keyla Malagon - Last Filed: 03/30/18 11:16> Subjective - Date & Time of Evaluation Date of Evaluation: 03/30/18 Time of Evaluation: 07:08 - Subjective Subjective: Medicine progress note for Dr. Mccall Patient was seen and examined at bedside in no acute distress. Patient is oob to chair. She complains of back pain at the insertion site of the dialysis catheter. Patient denies chest pain, abdominal pain, dyspnea, nausea, vomiting , fevers, headaches, dysuria, constipation, and diarrhea. Objective - Vital Signs/Intake and Output Vital Signs (last 24 hours): Temp Pulse Resp BP Pulse Ox 97.6 F 65 20 151/64 H 98 03/30/18 01:38 03/30/18 01:38 03/30/18 01:38 03/30/18 03:15 03/30/18 01:38 Intake and Output: 03/30/18 03/30/18 06:59 18:59 Intake Total 200 Balance 200 - Medications Medications: Current Medications Amlodipine Besylate (Norvasc) 5 mg PO DAILY [facility] Last Admin: 03/29/18 10:37 Dose: Not Given Apixaban (Eliquis) 10 mg PO BID [facility] Stop: 04/03/18 18:01 Bacitracin (Bacitracin) 0 gm TOP DAILY [facility] Last Admin: 03/29/18 10:37 Dose: Not Given Calcitriol (Rocaltrol) 0.5 mcg PO DAILY [facility] Last Admin: 03/29/18 10:37 Dose: Not Given Calcium Acetate (Phoslo) 1,334 mg PO WM [facility] Last Admin: 03/25/18 10:06 Dose: 1,334 mg Docusate Sodium (Colace) 100 mg PO DAILY [facility] Last Admin: 03/29/18 10:37 Dose: Not Given Fluoxetine HCl (Prozac) 40 mg PO DAILY [facility] Last Admin: 03/29/18 10:37 Dose: Not Given Insulin Human Regular (Novolin R) 0 unit SC ACHS [facility] PRN Reason: Protocol Last Admin: 03/29/18 22:12 Dose: Not Given Rosuvastatin Calcium (Crestor) 5 mg PO HS [facility] Last Admin: 03/29/18 22:09 Dose: 5 mg Tramadol HCl (Ultram) 50 mg PO Q8H PRN PRN Reason: Pain, moderate (4-7) Last Admin: 03/30/18 03:18 Dose: 50 mg - Labs Labs: 03/29/18 06:35 03/29/18 22:38 - Additional Findings Additional findings: - Constitutional Appears: Chronically Ill - Head Exam Head Exam: NORMOCEPHALIC - Eye Exam Eye Exam: EOMI, Normal appearance - ENT Exam ENT Exam: Mucous Membranes Moist - Respiratory Exam Respiratory Exam: NORMAL BREATHING PATTERN. absent: Rales, Rhonchi, Wheezes, Respiratory Distress - Cardiovascular Exam Cardiovascular Exam: REGULAR RHYTHM, +S1, +S2 - GI/Abdominal Exam GI & Abdominal Exam: Soft, Normal Bowel Sounds. absent: Distended, Tenderness Additional comments: Obese - Extremities Exam Extremities Exam: absent: Normal Inspection Additional comments: Bilateral LE: multiple ecchymosis on LE bilaterally; muscle atropy RLE: hematoma on right hip and gluteal region, hematoma on sacrum; pain with palpation of the bruised region; decreased ROM of RLE due to pain. LLE: left hip-wound from previous fall with yellow purulent discharge; erythema on LLE, no discharge, not tender to palpation. - Back Exam Additional comments: Abrasion and ecchymosis noted mid back from fall Dialysis catheter place; dressing clean, dry, and intact - Neurological Exam Neurological Exam: Abnormal Gait, Awake, Oriented x3 - Psychiatric Exam Psychiatric exam: Normal Affect, Normal Mood - Skin Skin Exam: Warm Assessment and Plan - Assessment and Plan (Free Text) Plan: (1) ESRD on hemodialysis Assessment & Plan: * Nephrology (Dr. Still) on consult, recs appreciated * Vascular surgery (Dr. Olson) consulted- no surgical intervention for AVG at this time * Continue MWF schedule * Procrit [id number] MWF * Phoslo 1334mg PO WM * Calcitriol 0.5.cg PO daily * Renal Diet * Femoral vein permacath thrombosed- New dialysis catheter placed in back on at [facility]. Patient was dialyzed s/p catheter placement. (2) Hypertensive CKD, ESRD on dialysis Assessment & Plan: * Norvasc 5mg PO daily * Continue MWF dialysis schedule (3) Anemia of renal disease Assessment & Plan: * Hgb below goal of 10-11 but stable * Cloud Engineer, Dr. Still, consulted. rec appreciated (4) Chronic kidney disease-mineral and bone disorder Assessment & Plan: * Phos and PTH controlled on phoslo 2 tabs w/ meals and calcitriol 0.5 mcg daily respectively; continue same (6) IVC thrombosis Right Atrium Clot Assessment & Plan: * Continue Eliquis 5mg PO daily * While placing new dialysis catheter in back on 03/29, found atrial clot. * Echo: ordered, f/u (7) Ataxic gait * PT/OT * Case management/social work consulted for placement at [facility] (8) s/p Fall; History of Falls Subcutaneous soft tissue and posterio back edema/hemorrhage hematoma * Lumbar spine CT: subcutaneous hematoma partially visulaized in right lower lumbar and gluteal regions measuring 7.8x2.3cm; urinary bladder wall thickening possibly due to incomplete distention or cystitis; no fracture * Pelvic CT: Right lower lumbar and sacral region hematoma measuring up to 8.7 cm as well as a left side lateral gluteal/ hip region hematoma measuring 7 x 5.3 centimeters. Imaging from previous hospitalization * CT head (03/07/18): no evidence of acute intracranial hemorrhage, midline shift , or mass effect is identified, possible right facial soft tissue swelling * Rib xrays (03/07/18): multiple left side rib fractures as described. Mild bibasilar atelectasis left greater than right. Elevation right hemidiaphrgam likely due to eventration * Hip (03/07/18):no definitive radiographic evidence of acute hip or pelvic fracture seen * Lumbar CT scan (12/20/17): incompletely visualized posterio back subcutaneous soft tissue fluid and right posterior back edema/hemorrhage hematoma measuring 6cm ~ in right and left dimension at level of L4-S1. Small left pleural effusion. no acute fracture of the lumbar spine. * Imaging available in patient's [place] hospitalization prior to transfer; will hold Eliquis given hematoma and increase risk of falls (8) DM * Accuchecks * ISS * Hypoglycemic protocol * A1c (12/2017): 6.6 (9) Prophylaxis * DVT: SCDs; Eliquis 5mg PO daily * Renal diet * Case management, drug abuse social worker consulted * PT/OT * Wound care * Palliative care consult- Goals of care Disposition: Wound care on case. Per case management- [facility] will no longer cover [facility] as patient has already stayed at [facility] for too long in the past. Patient fell on 03/23/18 and went to [facility]. Patient was discharged, daughter was contacted to bean picker machine operator the patient, however daughter would not pick her up. Patient was scheduled for dialysis at [facility] in [place]. Because she did not show up at appointment, [facility] called daughter who did not answer. Patient was found still at [facility] after being discharged. APS was called. Patient was then transferred to [facility] for dialysis. Case management working on case and placement. No updates at this time. <Anival Mccall H - Last Filed: 03/30/18 14:15> Objective - Vital Signs/Intake and Output Vital Signs (last 24 hours): Temp Pulse Resp BP Pulse Ox 97.6 F 65 20 151/64 H 98 03/30/18 01:38 03/30/18 01:38 03/30/18 01:38 03/30/18 03:15 03/30/18 01:38 Intake and Output: 03/30/18 03/30/18 06:59 18:59 Intake Total 200 200 Balance 200 200 - Medications Medications: Current Medications Amlodipine Besylate (Norvasc) 5 mg PO DAILY [facility] Last Admin: 03/30/18 09:11 Dose: 5 mg Apixaban (Eliquis) 10 mg PO BID [facility] Stop: 04/03/18 18:01 Last Admin: 03/30/18 09:17 Dose: 10 mg Bacitracin (Bacitracin) 0 gm TOP DAILY [facility] Last Admin: 03/30/18 09:15 Dose: 1 applic Calcitriol (Rocaltrol) 0.5 mcg PO DAILY [facility] Last Admin: 03/30/18 09:14 Dose: 0.5 mcg Calcium Acetate (Phoslo) 1,334 mg PO WM [facility] Last Admin: 03/30/18 09:14 Dose: 1,334 mg Docusate Sodium (Colace) 100 mg PO DAILY [facility] Last Admin: 03/30/18 09:11 Dose: 100 mg Fluoxetine HCl (Prozac) 40 mg PO DAILY [facility] Last Admin: 03/30/18 09:14 Dose: 40 mg Insulin Human Regular (Novolin R) 0 unit SC ACHS [facility] PRN Reason: Protocol Last Admin: 03/30/18 11:49 Dose: 8 unit Rosuvastatin Calcium (Crestor) 5 mg PO HS [facility] Last Admin: 03/29/18 22:09 Dose: 5 mg Tramadol HCl (Ultram) 50 mg PO Q8H PRN PRN Reason: Pain, moderate (4-7) Last Admin: 03/30/18 11:44 Dose: 50 mg - Labs Labs: 03/29/18 06:35 03/29/18 22:38 Attending/Attestation - Attestation I have personally seen and examined this patient.: Yes I have fully participated in the care of the patient.: Yes I have reviewed all pertinent clinical information, including history, physical exam and plan: Yes Notes (Text): Medical attending: Patient was seen and examined by me, reviewed the above note by medical office administrator and agree with the above note. The patient had a very long day yesterday. Yesterday she had to be transferred to [facility] 22 another failed dialysis access. And [facility] she had placement of a new dialysis catheter near the lumbar area of her back. The patient was then brought back to [facility] for hemodialysis.. Paint Spraying Machine Operator Helper catheter was being placed it was shown that she has what appears to be of right atrial clot. She was previously on eloquence. And she says that she' s been on it before in the past however given that there is evidence of a right atrial clot we restarted this. The Eliquis was had been held due to her concern with bleeding especially given the fact that the patient falls quite easily. Also as documented above the resident note the other issue is what kind of rehabilitation placement the patient could qualify for. From what I'm being told she was recently at [facility] was discharged in November. It seems that she used to all her [facility] time. The other item is the family members are not calling back understand protective services was notified earlier as well. Thank you very much, Anival Mccall
[2018-03-30] MEDS: (Novolin R) Insulin Human Regular 100 units/ml vial SC SCH ×4 (08:52→22:57)
[2018-03-30] MEDS: Bacitracin Ointment 30 GM TUBE TOP SCH (09:15)
[2018-03-30 15:25] LABS: HEMOGLOBIN 8.5 g/dL (11.0-16.0); MEAN CELL VOLUME 96.9 fL (81.0-99.0); MEAN CORPUSCULAR HEMOGLOBIN 31.7 pg (27.0-31.0); MEAN CORPUSCULAR HGB CONC 32.8 g/dL (33.0-37.0); MEAN PLATELET VOLUME 9.8 fL (7.2-11.7); RBC 2.68 Mil/uL (3.80-5.20); RED CELL DISTRIBUTION WIDTH 18.1 % (11.5-14.5); WHITE BLOOD COUNT 6.9 K/uL (4.8-10.8)
[2018-03-30 15:37] LABS: CALCIUM 8.2 mg/dl (8.6-10.4)
[2018-03-30] MEDS ORDERED: Epoetin Alfa 10,000 unit/ml Dialysis IV ONE ×2 (16:19→16:45)
[2018-03-30] MEDS ORDERED: Epoetin Alfa Dialysis 2000 U/ML Inj IV ONE (16:30)
[2018-03-30] MEDS ORDERED: Epoetin Alfa Dialysis 3000 UNIT/ML Inj IV ONE (16:30)
--- NOTE | 2018-03-30 18:12 | CP.PCM.PN ---
Subjective - Date & Time of Evaluation Date of Evaluation: 03/30/18 Time of Evaluation: 19:30 - Subjective Subjective: Shortness of breath yesterday improved after HD session last night; currently breathing well; vomited yesterday evening; no nausea/vomiting today but lack of appetite; Objective - Vital Signs/Intake and Output Vital Signs (last 24 hours): Temp Pulse Resp BP Pulse Ox 97.6 F 60 20 103/51 L 95 03/30/18 17:43 03/30/18 17:43 03/30/18 17:43 03/30/18 17:43 03/30/18 17:43 Intake and Output: 03/30/18 03/30/18 06:59 18:59 Intake Total 200 200 Balance 200 200 - Medications Medications: Current Medications Amlodipine Besylate (Norvasc) 5 mg PO DAILY [facility] Last Admin: 03/30/18 09:11 Dose: 5 mg Apixaban (Eliquis) 10 mg PO BID [facility] Stop: 04/03/18 18:01 Last Admin: 03/30/18 09:17 Dose: 10 mg Bacitracin (Bacitracin) 0 gm TOP DAILY [facility] Last Admin: 03/30/18 09:15 Dose: 1 applic Calcitriol (Rocaltrol) 0.5 mcg PO DAILY [facility] Last Admin: 03/30/18 09:14 Dose: 0.5 mcg Calcium Acetate (Phoslo) 1,334 mg PO WM [facility] Last Admin: 03/30/18 09:14 Dose: 1,334 mg Docusate Sodium (Colace) 100 mg PO DAILY [facility] Last Admin: 03/30/18 09:11 Dose: 100 mg Fluoxetine HCl (Prozac) 40 mg PO DAILY [facility] Last Admin: 03/30/18 09:14 Dose: 40 mg Heparin Sodium (Porcine) (Heparin) 5,400 units IVP MWF [facility] Stop: 04/09/18 09:01 Last Admin: 03/30/18 16:35 Dose: 5,400 units Insulin Human Regular (Novolin R) 0 unit SC ACHS [facility] PRN Reason: Protocol Last Admin: 03/30/18 11:49 Dose: 8 unit Rosuvastatin Calcium (Crestor) 5 mg PO HS [facility] Last Admin: 03/29/18 22:09 Dose: 5 mg Tramadol HCl (Ultram) 50 mg PO Q8H PRN PRN Reason: Pain, moderate (4-7) Last Admin: 03/30/18 11:44 Dose: 50 mg - Labs Labs: 03/30/18 15:14 03/30/18 15:14 - Constitutional Appears: Non-toxic, No Acute Distress - Eye Exam Eye Exam: absent: Scleral icterus - ENT Exam ENT Exam: Mucous Membranes Moist - Respiratory Exam Respiratory Exam: Clear to Ausculation Bilateral. absent: Respiratory Distress - Cardiovascular Exam Cardiovascular Exam: RRR, +S1, +S2. absent: Gallop - GI/Abdominal Exam GI & Abdominal Exam: Soft. absent: Distended - Extremities Exam Additional comments: minimal lower leg edema; - Neurological Exam Neurological Exam: Alert, Awake - Psychiatric Exam Psychiatric exam: Normal Mood. absent: Agitated - Skin Skin Exam: Warm. absent: Cyanosis Assessment and Plan (1) ESRD on hemodialysis Assessment & Plan: Stable volume and electrolyte status today after urgent short HD session last night; no issues reported with new trans-lumbar catheter; HD today for 3 hrs with 1.5L UF goal; HD tomorrow again for 3 hrs to put patient back on her usual schedule; Status: Chronic (2) Right atrial thrombus Assessment & Plan: SVC and possible RA thrombus; echo ordered; started on loading dose eliquis 10 mg bid for 1 week, will follow with maintenance dose at 5 mg bid; patient advised that she cannot be off of AC; clot resulted in malfunctioning/failed femoral HD catheter; Status: Acute (3) Anemia of renal disease Assessment & Plan: Hgb trending downward; increasing EPO dose to 15,000 u qHD; Status: Chronic (4) Ataxic gait Assessment & Plan: With persistent fall risk; in process of getting Medicaid so she can get into emt intermediate facility; Status: Chronic (5) Chronic kidney disease-mineral and bone disorder Assessment & Plan: On calcitriol 0.5 mcg daily, PTH at goal (290's); checking phos tomorrow, continue phoslo 2 tabs w/ meals for now; Status: Chronic (6) Hemodialysis catheter malfunction Assessment & Plan: Now s/p femoral catheter removal and new trans-lumbar catheter placement; has exhausted all other HD accesses; patient counseled on considering going back to [facility] if we can get her into emt intermediate care facility that will assist her with this ; Status: Chronic (7) Hypertensive CKD, ESRD on dialysis Assessment & Plan: BP controlled; continue amlodipine 5 mg daily; Status: Chronic
--- NOTE | 2018-03-30 22:23 | CARD ---
APPROVED REPORT EXAM: Two-dimensional and M-mode echocardiogram with Doppler and color Doppler. Other Information Quality : GoodRhythm : INDICATION Dizziness and Vertigo Chest Pain ESRD, PT IN LOTS OF PAIN WHILE THE STUDY RISK FACTORS Hypertension Obesity Hyperlipidemia Diabetes 2D DIMENSIONS IVSd1.1 (0.7-1.1cm)LVDd4.8 (3.9-5.9cm) PWd1.1 (0.7-1.1cm)LVDs2.9 (2.5-4.0cm) FS (%) 38.3 %LVEF (%)68.5 (>50%) M-Mode DIMENSIONS RVDd2.51 (2.1-3.2cm)Left Atrium (MM)4.12 (2.5-4.0cm) IVSd1.22 (0.7-1.1cm)Aortic Root2.57 (2.2-3.7cm) LVDd5.16 (4.0-5.6cm)Aortic Cusp Exc.1.81 (1.5-2.0cm) PWd1.07 (0.7-1.1cm)FS (%) 29 % LVDs3.69 (2.0-3.8cm)LVEF (%)61 (>50%) Mitral Valve MV E Yoccbgoj619.6cm/sMV A Ifxelrhv59.9cm/sE/A ratio1.2 TDI E/Lateral E'0.0E/Medial E'0.0 Tricuspid Valve TR Peak [id number]/sTR Peak Gr.[id number] LEFT VENTRICLE There is borderline to mild asymmetric left ventricular hypertrophy. Left ventricle systolic function is borderline. The Ejection Fraction is 50-55%. There is mild global hypokinesis of the left ventricle noted on 2D. The left ventricular diastolic function is normal. No left ventricle thrombus noted on this study. RIGHT VENTRICLE The right ventricle is normal size. The right ventricular systolic function is normal. ATRIA The left atrium is borderline dilated. The right atrium size is normal. AORTIC VALVE The aortic valve is mildly sclerotic. The aortic valve is probably trileaflet. No aortic regurgitation is present. There is no aortic valvular stenosis. There is no aortic valvular vegetation. MITRAL VALVE Mitral annular calcification is mild. There is no evidence of mitral valve prolapse. There is no mitral valve stenosis. Mitral regurgitation is trace to mild. TRICUSPID VALVE The tricuspid valve is normal in structure. There is mild to moderate tricuspid regurgitation. Right ventricular systolic pressure is estimated at less than 30 mmHg. There is no pulmonary hypertension. There is no tricuspid valve prolapse or vegetation. There is no tricuspid valve stenosis. PULMONIC VALVE The pulmonic valve is not well visualized. There is no pulmonic valvular regurgitation. GREAT VESSELS The aortic root is normal in size. The IVC is normal in size and collapses >50% with inspiration. PERICARDIAL EFFUSION There is no pericardial effusion. There is no pleural effusion. <Conclusion> There is borderline to mild asymmetric left ventricular hypertrophy. Left ventricle systolic function is borderline. The Ejection Fraction is 50-55%. There is mild global hypokinesis of the left ventricle noted on 2D. The left ventricular diastolic function is normal. The right ventricle is normal size. The right ventricular systolic function is normal. The left atrium is borderline dilated. The right atrium size is normal. Mitral regurgitation is trace to mild. There is mild to moderate tricuspid regurgitation.
--- NOTE | 2018-03-31 06:54 | CP.PCM.PN ---
<Keyla Malagon - Last Filed: 03/31/18 12:55> Subjective - Date & Time of Evaluation Date of Evaluation: 03/31/18 Time of Evaluation: 06:54 - Subjective Subjective: Medicine progress note for Dr. Mccall Patient was seen and examined at bedside in no acute distress. Patient reports having back pain at the site of the dialysis catheter that radiates down her right leg. She is requesting pain medication. Patient denies chest pain, abdominal pain, dyspnea, nausea, vomiting, fevers, headaches, dysuria, constipation, and diarrhea. Objective - Vital Signs/Intake and Output Vital Signs (last 24 hours): Temp Pulse Resp BP Pulse Ox 98.5 F 61 18 103/50 L 98 03/31/18 00:08 03/31/18 01:00 03/31/18 00:08 03/31/18 00:08 03/31/18 00:08 Intake and Output: 03/30/18 03/31/18 18:59 06:59 Intake Total 200 450 Balance 200 450 - Medications Medications: Current Medications Amlodipine Besylate (Norvasc) 5 mg PO DAILY [facility] Last Admin: 03/30/18 09:11 Dose: 5 mg Apixaban (Eliquis) 10 mg PO BID [facility] Stop: 04/03/18 18:01 Last Admin: 03/30/18 20:29 Dose: 10 mg Bacitracin (Bacitracin) 0 gm TOP DAILY [facility] Last Admin: 03/30/18 09:15 Dose: 1 applic Calcitriol (Rocaltrol) 0.5 mcg PO DAILY [facility] Last Admin: 03/30/18 09:14 Dose: 0.5 mcg Calcium Acetate (Phoslo) 1,334 mg PO WM [facility] Last Admin: 03/30/18 09:14 Dose: 1,334 mg Docusate Sodium (Colace) 100 mg PO DAILY [facility] Last Admin: 03/30/18 09:11 Dose: 100 mg Epoetin Nico (Procrit) 15,[address] [facility] Fluoxetine HCl (Prozac) 40 mg PO DAILY [facility] Last Admin: 03/30/18 09:14 Dose: 40 mg Heparin Sodium (Porcine) (Heparin) 5,[address] [facility] Stop: 04/09/18 09:01 Last Admin: 03/30/18 16:35 Dose: 5,400 units Insulin Human Regular (Novolin R) 0 unit SC ACHS [facility] PRN Reason: Protocol Last Admin: 03/30/18 22:57 Dose: Not Given Rosuvastatin Calcium (Crestor) 5 mg PO HS [facility] Last Admin: 03/30/18 22:57 Dose: 5 mg Tramadol HCl (Ultram) 50 mg PO Q8H PRN PRN Reason: Pain, moderate (4-7) Last Admin: 03/30/18 20:29 Dose: 50 mg - Labs Labs: 03/30/18 15:14 03/30/18 15:14 - Additional Findings Additional findings: - Constitutional Appears: Chronically Ill - Head Exam Head Exam: NORMOCEPHALIC - Eye Exam Eye Exam: EOMI, Normal appearance - ENT Exam ENT Exam: Mucous Membranes Moist - Respiratory Exam Respiratory Exam: NORMAL BREATHING PATTERN. absent: Rales, Rhonchi, Wheezes, Respiratory Distress - Cardiovascular Exam Cardiovascular Exam: REGULAR RHYTHM, +S1, +S2 - GI/Abdominal Exam GI & Abdominal Exam: Soft, Normal Bowel Sounds. absent: Distended, Tenderness Additional comments: Obese - Extremities Exam Extremities Exam: absent: Normal Inspection Additional comments: Bilateral LE: multiple ecchymosis on LE bilaterally; muscle atropy RLE: hematoma on right hip and gluteal region, hematoma on sacrum; pain with palpation of the bruised region; decreased ROM of RLE due to pain. LLE: left hip-wound from previous fall with yellow purulent discharge; erythema on LLE, no discharge, not tender to palpation. - Back Exam Additional comments: Abrasion and ecchymosis noted mid back from fall Dialysis catheter place; dressing clean, dry, and intact - Neurological Exam Neurological Exam: Abnormal Gait, Awake, Oriented x3 - Psychiatric Exam Psychiatric exam: Normal Affect, Normal Mood - Skin Skin Exam: Warm Assessment and Plan - Assessment and Plan (Free Text) Plan: (1) ESRD on hemodialysis Assessment & Plan: * Nephrology (Dr. Still) on consult, recs appreciated * Vascular surgery (Dr. Olson) consulted- no surgical intervention for AVG at this time * Continue MWF schedule * Procrit [id number] MWF * Phoslo 1334mg PO WM * Calcitriol 0.5.cg PO daily * Renal Diet * Femoral vein permacath thrombosed- New dialysis catheter placed in back on at [facility]. Patient was dialyzed s/p catheter placement. Percocet 1tab Q6h prn for pain (2) Hypertensive CKD, ESRD on dialysis Assessment & Plan: * Norvasc 5mg PO daily * Continue MWF dialysis schedule (3) Anemia of renal disease Assessment & Plan: * Hgb below goal of 10-11 but stable * [employer], Dr. Still, consulted. rec appreciated (4) Chronic kidney disease-mineral and bone disorder Assessment & Plan: * Phos and PTH controlled on phoslo 2 tabs w/ meals and calcitriol 0.5 mcg daily respectively; continue same (6) IVC thrombosis Right Atrium Clot? Assessment & Plan: * Continue Eliquis 5mg PO daily * While placing new dialysis catheter in back on 03/29, found atrial clot. * Echo: borderline to mild asymetric LVH; EF 50-55%; mild global hypokinesis of lV; LA mildly dilated; trace-mild MR; mild to moderate TR. (7) Ataxic gait * PT/OT * Case management/social work consulted for placement at [facility] (8) s/p Fall; History of Falls Subcutaneous soft tissue and posterio back edema/hemorrhage hematoma * Lumbar spine CT: subcutaneous hematoma partially visulaized in right lower lumbar and gluteal regions measuring 7.8x2.3cm; urinary bladder wall thickening possibly due to incomplete distention or cystitis; no fracture * Pelvic CT: Right lower lumbar and sacral region hematoma measuring up to 8.7 cm as well as a left side lateral gluteal/ hip region hematoma measuring 7 x 5.3 centimeters. Imaging from previous hospitalization * CT head (03/07/18): no evidence of acute intracranial hemorrhage, midline shift , or mass effect is identified, possible right facial soft tissue swelling * Rib xrays (03/07/18): multiple left side rib fractures as described. Mild bibasilar atelectasis left greater than right. Elevation right hemidiaphrgam likely due to eventration * Hip (03/07/18):no definitive radiographic evidence of acute hip or pelvic fracture seen * Lumbar CT scan (12/20/17): incompletely visualized posterio back subcutaneous soft tissue fluid and right posterior back edema/hemorrhage hematoma measuring 6cm ~ in right and left dimension at level of L4-S1. Small left pleural effusion. no acute fracture of the lumbar spine. * Imaging available in patient's [place] hospitalization prior to transfer; will hold Eliquis given hematoma and increase risk of falls (8) DM * Accuchecks * ISS * Hypoglycemic protocol * A1c (12/2017): 6.6 (9) Prophylaxis * DVT: SCDs; Eliquis 5mg PO daily * Renal diet * Case management, social work job titles consulted * PT/OT * Wound care * Palliative care consult- Goals of care * Percocet 1tab Q6h prn for pain Disposition: Wound care on case. Per case management- [facility] will no longer cover [facility] as patient has already stayed at [facility] for too long in the past. Patient fell on 03/23/18 and went to [facility] ER. Patient was discharged, daughter was contacted to picker and packer the patient, however daughter would not pick her up. Patient was scheduled for dialysis at [facility] in [place]. Because she did not show up at appointment, [facility] called daughter who did not answer. Patient was found still at [facility] after being discharged. [facility] was called. Patient was then transferred to [facility] for dialysis. Case management working on case and placement. No updates at this time. <Anival Mccall - Last Filed: 03/31/18 16:12> Objective - Vital Signs/Intake and Output Vital Signs (last 24 hours): Temp Pulse Resp BP Pulse Ox 98.5 F 65 20 121/61 99 03/31/18 15:00 03/31/18 15:00 03/31/18 15:00 03/31/18 15:00 03/31/18 15:00 Intake and Output: 03/31/18 03/31/18 06:59 18:59 Intake Total 450 300 Balance 450 300 - Medications Medications: Current Medications Amlodipine Besylate (Norvasc) 5 mg PO DAILY [facility] Last Admin: 03/31/18 10:44 Dose: Not Given Apixaban (Eliquis) 10 mg PO BID [facility] Stop: 04/03/18 18:01 Last Admin: 03/31/18 13:37 Dose: 10 mg Bacitracin (Bacitracin) 0 gm TOP DAILY [facility] Last Admin: 03/31/18 10:43 Dose: Not Given Calcitriol (Rocaltrol) 0.5 mcg PO DAILY [facility] Last Admin: 03/31/18 10:44 Dose: Not Given Calcium Acetate (Phoslo) 2,001 mg PO [facility] Docusate Sodium (Colace) 100 mg PO DAILY [facility] Last Admin: 03/31/18 10:43 Dose: Not Given Epoetin Nico (Procrit) 2,[address] [facility] Last Admin: 03/31/18 11:07 Dose: 2,000 u Epoetin Nico (Procrit) 3,[address] [facility] Last Admin: 03/31/18 11:07 Dose: 3,000 unit Epoetin Nico (Procrit) 10,[address] [facility] Last Admin: 03/31/18 11:08 Dose: 10,000 unit Fluoxetine HCl (Prozac) 40 mg PO DAILY [facility] Last Admin: 03/31/18 10:44 Dose: Not Given Heparin Sodium (Porcine) (Heparin) 5,[address] [facility] Stop: 04/09/18 09:01 Last Admin: 03/31/18 11:06 Dose: 5,400 units Insulin Human Regular (Novolin R) 0 unit SC [facility] PRN Reason: Protocol Last Admin: 03/31/18 12:29 Dose: Not Given Oxycodone/Acetaminophen (Percocet 5/325 Mg Tab) 1 tab PO Q6H PRN PRN Reason: Pain, severe (8-10) Stop: 04/03/18 09:53 Rosuvastatin Calcium (Crestor) 5 mg PO [facility] Last Admin: 03/30/18 22:57 Dose: 5 mg Tramadol HCl (Ultram) 50 mg PO Q8H PRN PRN Reason: Pain, moderate (4-7) Last Admin: 03/31/18 11:46 Dose: 50 mg - Labs Labs: 03/30/18 15:14 03/30/18 15:14 Attending/Attestation - Attestation I have personally seen and examined this patient.: Yes I have fully participated in the care of the patient.: Yes I have reviewed all pertinent clinical information, including history, physical exam and plan: Yes Notes (Text): 03/31/18 16:09 Medical attending: Patient was seen and examined by me, agrees the above note by the medical record retrieval specialist. The patient was seen during hemodialysis today. During hemodialysis she appeared to be calm but however when we woke her up she explained to us that she was having a severe amount of pain. She points to the previous area that she 's been telling us about for the past For the time being will try her on a small amount of Percocet just to see how this does In the meantime she continues to be on liquids due to the recent findings of the right atrial thrombus Also were still pending to see what the caseworkers/social workers were able to arrange with regards to the rehab Thank you very much, Anival Mccall
[2018-03-31] MEDS: (Novolin R) Insulin Human Regular 100 units/ml vial SC SCH ×4 (08:17→23:07)
[2018-03-31] MEDS ORDERED: Epoetin Alfa Dialysis 40000 UNIT/ml Inj IV SCH (09:00)
[2018-03-31] MEDS ORDERED: Oxycodone/Acetaminophen 5/325 mg Tab PO PRN (09:52)
[2018-03-31] MEDS: Bacitracin Ointment 30 GM TUBE TOP SCH (10:43)
[2018-03-31] MEDS: Epoetin Alfa Dialysis 2000 U/ML Inj IV SCH (11:07)
[2018-03-31] MEDS: Epoetin Alfa Dialysis 3000 UNIT/ML Inj IV SCH (11:07)
[2018-03-31] MEDS: Epoetin Alfa 10,000 unit/ml Dialysis IV SCH (11:08)
[2018-03-31 11:45] LABS: IRON 21 ug/dL (37-170)
[2018-03-31 11:54] LABS: % IRON SATURATION 11 (20-55); TOTAL IRON BINDING CAPACITY 180 ug/dL (250-450)
--- NOTE | 2018-04-01 01:10 | CP.PCM.PN ---
Subjective - Date & Time of Evaluation Date of Evaluation: 03/31/18 Time of Evaluation: 11:00 - Subjective Subjective: 57 yo F w/ pmh of htn, dm w/ neuropathy/retinopathy, PAD, CAD s/p remote intervention, s/p pacemaker placement, s/p IVC thrombus, now with SVC thrombus and ESRD on HD now s/p new trans-lumbar HD catheter; Patient with mild hypotension today on HD; otherwise, tolerating diet; no nausea /vomiting; breathing improved; Objective - Vital Signs/Intake and Output Vital Signs (last 24 hours): Temp Pulse Resp BP Pulse Ox 98 F 65 20 129/60 95 04/01/18 00:01 04/01/18 00:01 04/01/18 00:01 04/01/18 00:01 04/01/18 00:01 Intake and Output: 03/31/18 04/01/18 18:59 06:59 Intake Total 300 300 Balance 300 300 - Medications Medications: Current Medications Amlodipine Besylate (Norvasc) 5 mg PO DAILY [facility] Last Admin: 03/31/18 10:44 Dose: Not Given Apixaban (Eliquis) 10 mg PO BID [facility] Stop: 04/03/18 18:01 Last Admin: 03/31/18 21:42 Dose: 10 mg Bacitracin (Bacitracin) 0 gm TOP DAILY [facility] Last Admin: 03/31/18 10:43 Dose: Not Given Calcitriol (Rocaltrol) 0.5 mcg PO DAILY [facility] Last Admin: 03/31/18 10:44 Dose: Not Given Calcium Acetate (Phoslo) 2,001 mg PO [facility] Docusate Sodium (Colace) 100 mg PO DAILY [facility] Last Admin: 03/31/18 10:43 Dose: Not Given Epoetin Nico (Procrit) 2,000 u IV MWF [facility] Last Admin: 03/31/18 11:07 Dose: 2,000 u Epoetin Nico (Procrit) 3,000 unit IV MWF [facility] Last Admin: 03/31/18 11:07 Dose: 3,000 unit Epoetin Nico (Procrit) 10,000 unit IV MWF [facility] Last Admin: 03/31/18 11:08 Dose: 10,000 unit Fluoxetine HCl (Prozac) 40 mg PO DAILY [facility] Last Admin: 03/31/18 10:44 Dose: Not Given Heparin Sodium (Porcine) (Heparin) 5,400 units IVP MWF [facility] Stop: 04/09/18 09:01 Last Admin: 03/31/18 11:06 Dose: 5,400 units Insulin Human Regular (Novolin R) 0 unit SC ACHS [facility] PRN Reason: Protocol Last Admin: 03/31/18 23:07 Dose: Not Given Oxycodone/Acetaminophen (Percocet 5/325 Mg Tab) 1 tab PO Q6H PRN PRN Reason: Pain, severe (8-10) Stop: 04/03/18 09:53 Rosuvastatin Calcium (Crestor) 5 mg PO HS [facility] Last Admin: 03/31/18 21:41 Dose: 5 mg Sodium Polystyrene Sulfonate (Kayexalate Susp) 15 gm PO SA [facility] Sodium Polystyrene Sulfonate (Kayexalate Susp) 15 gm PO [facility] Tramadol HCl (Ultram) 50 mg PO Q8H PRN PRN Reason: Pain, moderate (4-7) Last Admin: 03/31/18 19:43 Dose: 50 mg - Labs Labs: 03/30/18 15:14 03/30/18 15:14 - Constitutional Appears: Non-toxic, No Acute Distress - Eye Exam Eye Exam: absent: Scleral icterus - ENT Exam ENT Exam: Mucous Membranes Moist - Respiratory Exam Respiratory Exam: Clear to Ausculation Bilateral. absent: Respiratory Distress - Cardiovascular Exam Cardiovascular Exam: RRR, +S1, +S2 - GI/Abdominal Exam GI & Abdominal Exam: Soft. absent: Distended - Extremities Exam Additional comments: very mild L lower leg edema; - Neurological Exam Neurological Exam: Alert, Awake - Psychiatric Exam Psychiatric exam: Normal Mood. absent: Agitated - Skin Skin Exam: Warm. absent: Cyanosis Assessment and Plan (1) ESRD on hemodialysis Assessment & Plan: Again with sub-par blood flow even using new trans-lumbar catheter, even with lines reversed on HD (only 260 cc/min); stable volume and electrolyte status; Again discussed possiblity of going back to PD; patient is open to it if someone can do it for her; social insurance analyst will look into finding buttermaker care facility that does PD; -receiving HD again today to bring her back on MWF schedule; -repeat labs on Thursday to ensure no hyperkalemia (has been a recurrent problem over the weekend); -giving kayexalate on Sat and Sun; Status: Chronic (2) Acute deep vein thrombosis (DVT) of superior vena cava Assessment & Plan: SVC thrombus seen on fluoroscopy during catheter exchange; question also of RA thrombus but not mentioned on TTE; remains hypercoaguable with free floating thrombus seen in IVC last year; -continue eliquis (loading dose of 10 mg bid for 1 week, followed by 5 mg bid); Status: Acute (3) Right atrial thrombus Status: Suspected (4) Anemia of renal disease Assessment & Plan: Hgb trending downward; EPO already increased to 15,000 u qHD; iron sat low but ferritin elevated; will give maintenance IV ferrlecit 125 mcg weekly; -daily cbc; transfuse as needed; Status: Chronic (5) Ataxic gait Assessment & Plan: Major fall risk; awaiting placement; Status: Chronic (6) Chronic kidney disease-mineral and bone disorder Assessment & Plan: PTH at goal, continue calcitriol 0.5 mcg daily; phos high, increase phoslo to 3 tabs w/ meals; Status: Chronic (7) Hemodialysis catheter malfunction Status: Chronic (8) Hypertensive CKD, ESRD on dialysis Assessment & Plan: Fluctuating BP; continue amlodipine 5 if SBP > 120; Status: Chronic
--- NOTE | 2018-04-01 07:15 | CP.PCM.PN ---
Subjective - Date & Time of Evaluation Date of Evaluation: 04/01/18 Time of Evaluation: 07:14 - Subjective Subjective: Medicine progress note for Dr. Mccall Patient was seen and examined at bedside in no acute distress. Patient was oob in chair. She reports still having back pain, but it is better than yesterday and the pain medication helps. She still complains of chest pain with breathing/ coughing due to hx of fractured ribs. Patient denies chest pain, abdominal pain , dyspnea, nausea, vomiting, fevers, headaches, constipation, and diarrhea. Objective - Vital Signs/Intake and Output Vital Signs (last 24 hours): Temp Pulse Resp BP Pulse Ox 98 F 65 20 129/60 95 04/01/18 00:01 04/01/18 00:01 04/01/18 00:01 04/01/18 00:01 04/01/18 00:01 Intake and Output: 04/01/18 04/01/18 06:59 18:59 Intake Total 450 Balance 450 - Medications Medications: Current Medications Amlodipine Besylate (Norvasc) 5 mg PO DAILY [facility] Last Admin: 03/31/18 10:44 Dose: Not Given Apixaban (Eliquis) 10 mg PO BID [facility] Stop: 04/03/18 18:01 Last Admin: 03/31/18 21:42 Dose: 10 mg Bacitracin (Bacitracin) 0 gm TOP DAILY [facility] Last Admin: 03/31/18 10:43 Dose: Not Given Calcitriol (Rocaltrol) 0.5 mcg PO DAILY [facility] Last Admin: 03/31/18 10:44 Dose: Not Given Calcium Acetate (Phoslo) 2,001 mg PO [facility] Docusate Sodium (Colace) 100 mg PO DAILY [facility] Last Admin: 03/31/18 10:43 Dose: Not Given Epoetin Nico (Procrit) 2,000 u IV MWF [facility] Last Admin: 03/31/18 11:07 Dose: 2,000 u Epoetin Nico (Procrit) 3,000 unit IV MWF [facility] Last Admin: 03/31/18 11:07 Dose: 3,000 unit Epoetin Nico (Procrit) 10,000 unit IV MWF [facility] Last Admin: 03/31/18 11:08 Dose: 10,000 unit Ferric Sodium Gluconate Complex (Ferrlecit) 125 mg IVPB QWK [facility] Stop: 04/09/18 10:01 Fluoxetine HCl (Prozac) 40 mg PO DAILY [facility] Last Admin: 03/31/18 10:44 Dose: Not Given Heparin Sodium (Porcine) (Heparin) 5,400 units IVP MWF [facility] Stop: 04/09/18 09:01 Last Admin: 03/31/18 11:06 Dose: 5,400 units Insulin Human Regular (Novolin R) 0 unit SC [facility]S [facility] PRN Reason: Protocol Last Admin: 03/31/18 23:07 Dose: Not Given Oxycodone/Acetaminophen (Percocet 5/325 Mg Tab) 1 tab PO Q6H PRN PRN Reason: Pain, severe (8-10) Stop: 04/03/18 09:53 Rosuvastatin Calcium (Crestor) 5 mg PO HS [facility] Last Admin: 03/31/18 21:41 Dose: 5 mg Sodium Polystyrene Sulfonate (Kayexalate Susp) 15 gm PO SA BUZZ Sodium Polystyrene Sulfonate (Kayexalate Susp) 15 gm PO MCCLAIN [facility] Tramadol HCl (Ultram) 50 mg PO Q8H PRN PRN Reason: Pain, moderate (4-7) Last Admin: 03/31/18 19:43 Dose: 50 mg - Labs Labs: 03/30/18 15:14 03/30/18 15:14 - Additional Findings Additional findings: - Constitutional Appears: Chronically Ill - Head Exam Head Exam: NORMOCEPHALIC - Eye Exam Eye Exam: EOMI, Normal appearance - ENT Exam ENT Exam: Mucous Membranes Moist - Respiratory Exam Respiratory Exam: NORMAL BREATHING PATTERN. absent: Rales, Rhonchi, Wheezes, Respiratory Distress - Cardiovascular Exam Cardiovascular Exam: REGULAR RHYTHM, +S1, +S2 - GI/Abdominal Exam GI & Abdominal Exam: Soft, Normal Bowel Sounds. absent: Distended, Tenderness Additional comments: Obese - Extremities Exam Extremities Exam: absent: Normal Inspection Additional comments: Bilateral LE: multiple ecchymosis on LE bilaterally; muscle atropy RLE: hematoma on right hip and gluteal region, hematoma on sacrum; pain with palpation of the bruised region; decreased ROM of RLE due to pain. LLE: left hip-wound from previous fall with yellow purulent discharge; erythema on LLE, no discharge, not tender to palpation. - Back Exam Additional comments: Abrasion and ecchymosis noted mid back from fall Dialysis catheter place; dressing clean, dry, and intact - Neurological Exam Neurological Exam: Abnormal Gait, Awake, Oriented x3 - Psychiatric Exam Psychiatric exam: Normal Affect, Normal Mood - Skin Skin Exam: Warm Assessment and Plan - Assessment and Plan (Free Text) Plan: (1) ESRD on hemodialysis Assessment & Plan: * Nephrology (Dr. Still) on consult, recs appreciated * Vascular surgery (Dr. Olson) consulted- no surgical intervention for AVG at this time * Continue MWF schedule * Procrit 32207b MWF * Phoslo 1334mg PO WM * Calcitriol 0.5.cg PO daily * Renal Diet * Femoral vein permacath thrombosed- New dialysis catheter placed in back on at [facility]. Patient was dialyzed s/p catheter placement. Percocet 1tab Q6h prn for pain (2) Hypertensive CKD, ESRD on dialysis Assessment & Plan: * Norvasc 5mg PO daily * Continue MWF dialysis schedule (3) Anemia of renal disease Assessment & Plan: * Hgb below goal of 10-11 but stable * Clerk General, Dr. Still, consulted. rec appreciated (4) Chronic kidney disease-mineral and bone disorder Assessment & Plan: * Phos and PTH controlled on phoslo 2 tabs w/ meals and calcitriol 0.5 mcg daily respectively; continue same (6) IVC thrombosis Right Atrium Clot? Assessment & Plan: * Continue Eliquis 5mg PO daily * While placing new dialysis catheter in back on 03/29, found atrial clot. * Echo: borderline to mild asymetric LVH; EF 50-55%; mild global hypokinesis of lV; LA mildly dilated; trace-mild MR; mild to moderate TR. (7) Ataxic gait * PT/OT * Case management/social work consulted for placement at [facility] (8) s/p Fall; History of Falls Subcutaneous soft tissue and posterio back edema/hemorrhage hematoma * Lumbar spine CT: subcutaneous hematoma partially visulaized in right lower lumbar and gluteal regions measuring 7.8x2.3cm; urinary bladder wall thickening possibly due to incomplete distention or cystitis; no fracture * Pelvic CT: Right lower lumbar and sacral region hematoma measuring up to 8.7 cm as well as a left side lateral gluteal/ hip region hematoma measuring 7 x 5.3 centimeters. Imaging from previous hospitalization * CT head (03/07/18): no evidence of acute intracranial hemorrhage, midline shift , or mass effect is identified, possible right facial soft tissue swelling * Rib xrays (03/07/18): multiple left side rib fractures as described. Mild bibasilar atelectasis left greater than right. Elevation right hemidiaphrgam likely due to eventration * Hip (03/07/18):no definitive radiographic evidence of acute hip or pelvic fracture seen * Lumbar CT scan (12/20/17): incompletely visualized posterior back subcutaneous soft tissue fluid and right posterior back edema/hemorrhage hematoma measuring 6cm ~ in right and left dimension at level of L4-S1. Small left pleural effusion. no acute fracture of the lumbar spine. * Imaging available in patient's [place] hospitalization prior to transfer; will hold Eliquis given hematoma and increase risk of falls (8) DM * Accuchecks * ISS * Hypoglycemic protocol * A1c (12/2017): 6.6 (9) Prophylaxis * DVT: SCDs; Eliquis 5mg PO daily * Renal diet * Case management, social work assistant consulted * PT/OT * Wound care * Palliative care consult- Goals of care * Percocet 1tab Q6h prn for pain Disposition: Wound care on case. Per case management- [facility] will no longer cover [facility] as patient has already stayed at [facility] for too long in the past. Patient fell on 03/23/18 and went to [facility]. Patient was discharged, daughter was contacted to picker box operator the patient, however daughter would not pick her up. Patient was scheduled for dialysis at [facility] in [place]. Because she did not show up at appointment, [facility] called daughter who did not answer. Patient was found still at [facility] after being discharged. [facility]PS was called. Patient was then transferred to [facility] for dialysis. Case management working on case and placement. Per patient- daughter faxed appropriate forms for medicare/ medicaid, however no fax has been received as of yet. No other updates at this time.
[2018-04-01] MEDS: (Novolin R) Insulin Human Regular 100 units/ml vial SC SCH ×4 (08:29→21:37)
[2018-04-01] MEDS: Ferric Sodium Gluconat Complex 62.5 mg/5 ml Vial IVPB SCH (10:18)
[2018-04-01] MEDS: Bacitracin Ointment 30 GM TUBE TOP SCH (10:39)
--- NOTE | 2018-04-01 11:27 | CP.PCM.CON ---
History of Present Illness - History of Present Illness History of Present Illness: Palliative consult requested by Doctor Malagon for goals of care discussion Patient is a 57 yo lad transferred from [facility] for inpatient HD. Patient was originally admitted to [facility] after she fail at home and complained of rib pain with movement and cough. After being treated there, patient was discharged home and [place] [facility] HD. But , patient's daughter never picked up the patient, the fallowing day patient was due for HD and was transferred here. Patient was given US of HD access and superficial thrombophlebitis of cephalic vein was noted. Patient has failed HD access to both arms, than access was obtaned trough right groin, which also failed. Latest, HD access given trough right lower back area. Topher Pisano consulted and no possible interventions are left for the new permanent HD access due to multiple thrombosis on both arms. Doctor Tessy is considering the PD. PMH: HTN, NIDDM, CVA, ESRD with HD, fall in bath tub, fractured ribs Soc. Hx: , lives at home in same building with her daughter and two sisters Fam. Hx: one sister with breast cancer and other, is handicapped Review of Systems - Constitutional Constitutional: Weakness - EENT Eyes: absent: As Per HPI, Blind Spots, Blurred Vision, Change in Vision, Decreased Night Vision, Diplopia, Discharge, Dry Eye, Exophthalmos, Floaters, Irritation, Itchy Eyes, Loss of Peripheral Vision, Pain, Photophobia, Requires Corrective Lenses, Sees Flashes, Spots in Vision, Tunnel Vision, Other Visual Disturbances, Loss of Vision, Other Ears: absent: As Per HPI, Decreased Hearing, Ear Discharge, Ear Pain, Tinnitus, Abnormal Hearing, Disequilibrium, Dizziness, Other Additional comments: Poor dentition - Breasts Breasts: absent: As Per HPI, Change in Shape, Mass, Pain, Nipple Discharge, Nipple Inversion, Skin Changes, Swelling, Other - Cardiovascular Cardiovascular: absent: As Per HPI, Acrocyanosis, Chest Pain, Chest Pain at Rest , Chest Pain with Activity, Claudication, Diaphoresis, Dyspnea, Dyspnea on Exertion, Edema, Irregular Heart Rhythm, Pain Radiating to Arm/Neck/Jaw, Leg Edema, Leg Ulcers, Lightheadedness, Orthopnea, Palpitations, Paroxysmal Nocturnal Dyspnea, Pedal Edema, Radiating Pain, Rapid Heart Rate, Slow Heart Rate, Syncope, Other - Respiratory Respiratory: Dyspnea on Exertion - Gastrointestinal Gastrointestinal: absent: As Per HPI, Abdominal Pain, Belching, Bloating, Change in Bowel Habits, Change in Stool Character, Coffee Ground Emesis, Constipation, Cramping, Diarrhea, Dyspepsia, Dysphagia, Early Satiety, Excessive Flatus, Fecal Incontinence, Heartburn, Hematemesis, Hematochezia, Loose Stools, Melena, Nausea, Odynophagia, Temesmus, Vomiting, Other - Genitourinary Additional comments: On HD - Reproductive: Female Reproductive:Female: Post Menopausal - Menstruation Menstruation: Post Menopausal - Musculoskeletal Musculoskeletal: Muscle Weakness Additional comments: Fractured ribs - Integumentary Integumentary: Change in Pigmentation - Neurological Neurological: absent: As Per HPI, Abnormal Gait, Abnormal Hearing, Abnormal Movements, Abnormal Speech, Behavioral Changes, Burning Sensations, Confusion, Convulsions, Disequilibrium, Dizziness, Numbness, Focal Weakness, Frequent Falls , Headaches, Lack of Coordination, Loss of Vision, Memory Loss, Paresthesias, Radicular Pain, Restless Legs, Sensory Deficit, Syncope, Tingling, Tremor, Vertigo, Weakness, Other Visual Disturbances, Other - Psychiatric Psychiatric: absent: As Per HPI, Abnormal Sleep Pattern, Anhedonia, Anxiety, Auditory Hallucinations, Behavioral Changes, Change in Appetite, Change in Libido, Confusion, Depression, Difficulty Concentrating, Hallucinations, Homicidal Ideation, Hopelessness, Irritability, Memory Loss, Mood Swings, Panic Attacks, Paranoia, Suicidal Ideation, Visual Hallucinations, Tactile Hallucinations, Other - Endocrine Endocrine: absent: As Per HPI, Change in Body Appearance, Change in Libido, Cold Intolorance, Deepening of Voice, Excessive Sweating, Fatigue, Flushing, Heat Intolorance, Increase in Ring/Shoe/Hat Size, Palpitations, Polydipsia, Polyphagia, Polyuria, Other - Hematologic/Lymphatic Hematologic: Easy Bleeding Past Patient History - Infectious Disease Hx of Infectious Diseases: None - Tetanus Immunizations Tetanus Immunization: Unknown - Past Medical History & Family History Past Medical History?: Yes - Past Social History Smoking Status: Never Smoked - CARDIAC Hx Angina: Yes Hx Congestive Heart Failure: Yes Hx Hypercholesterolemia: Yes Hx Hypertension: Yes Hx Pacemaker: Yes - PULMONARY Hx Asthma: Yes Hx Pneumonia: Yes Hx Sleep Apnea: Yes - NEUROLOGICAL Hx Transient Ischemic Attacks (TIA): Yes Hx Vertigo: Yes - HEENT Hx HEENT Problems: Yes (RETINOPATHY) Hx Cataracts: Yes (Bilateral surgery,LASER SURGERY ALSO) Other/Comment: blurry vision, reading glasses, missing teeth - RENAL Hx Chronic Kidney Disease: Yes Hx Dialysis: Yes Type of Dialysis Access: left groin perma cath Date of Last Dialysis Treatment: 03/26/18 Hx Renal Failure: Yes - ENDOCRINE/METABOLIC Hx Diabetes Mellitus Type 2: Yes Hx Hypothyroidism: Yes - HEMATOLOGICAL/ONCOLOGICAL Hx Anemia: Yes Hx Bruising: Yes - INTEGUMENTARY Hx Dermatological Problems: Yes Other/Comment: ble discolored, club foot left, hammertoes r ft, thick toenails b /l feet, 3 abd small incisions covered with dermabond and lower left abd healed from peritoneal dialysis cath insertion 03/2017, 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 02-03-18 large bruised area to forehead post fall,left upper arm large. bruise from fall. left knee large laceration,stitched from fall. 03/01/18 Left knee laceration from fall healing, no more stitches. No more bruises on forehead - MUSCULOSKELETAL/RHEUMATOLOGICAL Hx Arthritis: Yes (B/L HIP; L KNEE; L ANKLE) Hx Falls: Yes Hx Fractures: Yes Hx Unsteady Gait: Yes - GASTROINTESTINAL Hx Constipation: Yes Hx Gall Bladder Disease: Yes - GENITOURINARY/GYNECOLOGICAL Hx Genitourinary Disorders: Yes Hx Urinary Tract Infection: Yes - PSYCHIATRIC Hx Anxiety: Yes Hx Depression: Yes Hx Substance Use: No - SURGICAL HISTORY Hx Cholecystectomy: Yes Hx Coronary Stent: Yes Hx Vascular Surgery: Yes Hx Vascular Access Device: Yes - ANESTHESIA Hx Anesthesia: Yes Hx Anesthesia Reactions: No Hx Malignant Hyperthermia: No Has any member of the family had a problem w/ anesthesia?: No Meds Allergies/Adverse Reactions: Allergies Allergy/AdvReac Type Severity Reaction Status Date / Time vancomycin Allergy Unknown ITCHING Verified 03/24/18 08:50 - Medications Medications: Current Medications Amlodipine Besylate (Norvasc) 5 mg PO DAILY [facility] Last Admin: 04/01/18 10:06 Dose: 5 mg Apixaban (Eliquis) 10 mg PO BID [facility] Stop: 04/03/18 18:01 Last Admin: 04/01/18 10:06 Dose: 10 mg Bacitracin (Bacitracin) 0 gm TOP DAILY [facility] Last Admin: 04/01/18 10:39 Dose: 1 applic Calcitriol (Rocaltrol) 0.5 mcg PO DAILY [facility] Last Admin: 04/01/18 10:06 Dose: 0.5 mcg Calcium Acetate (Phoslo) 2,001 mg PO [facility] Docusate Sodium (Colace) 100 mg PO DAILY [facility] Last Admin: 04/01/18 10:06 Dose: 100 mg Epoetin Nico (Procrit) 2,000 u IV [facility] Last Admin: 03/31/18 11:07 Dose: 2,000 u Epoetin Nico (Procrit) 3,000 unit IV [facility] Last Admin: 03/31/18 11:07 Dose: 3,000 unit Epoetin Nico (Procrit) 10,000 unit IV [facility] Last Admin: 03/31/18 11:08 Dose: 10,000 unit Ferric Sodium Gluconate Complex (Ferrlecit) 125 mg IVPB QWK [facility] Stop: 04/09/18 10:01 Last Admin: 04/01/18 10:18 Dose: 125 mg Fluoxetine HCl (Prozac) 40 mg PO DAILY [facility] Last Admin: 04/01/18 10:06 Dose: 40 mg Heparin Sodium (Porcine) (Heparin) 5,400 units IVP [facility] Stop: 04/09/18 09:01 Last Admin: 03/31/18 11:06 Dose: 5,400 units Insulin Human Regular (Novolin R) 0 unit SC [facility] PRN Reason: Protocol Last Admin: 04/01/18 08:29 Dose: Not Given Oxycodone/Acetaminophen (Percocet 5/325 Mg Tab) 1 tab PO Q6H PRN PRN Reason: Pain, severe (8-10) Stop: 04/03/18 09:53 Rosuvastatin Calcium (Crestor) 5 mg PO HS [facility] Last Admin: 03/31/18 21:41 Dose: 5 mg Sodium Polystyrene Sulfonate (Kayexalate Susp) 15 gm PO SA [facility] Sodium Polystyrene Sulfonate (Kayexalate Susp) 15 gm PO MCCLAIN [facility] Tramadol HCl (Ultram) 50 mg PO Q8H PRN PRN Reason: Pain, moderate (4-7) Last Admin: 03/31/18 19:43 Dose: 50 mg Physical Exam - Constitutional Appears: Chronically Ill - Head Exam Head Exam: ATRAUMATIC, NORMAL INSPECTION, NORMOCEPHALIC - Eye Exam Eye Exam: EOMI, Normal appearance, PERRL Pupil Exam: NORMAL ACCOMODATION, PERRL - ENT Exam ENT Exam: Mucous Membranes Moist, Normal Exam - Neck Exam Neck exam: Positive for: Normal Inspection - Respiratory Exam Respiratory Exam: Decreased Breath Sounds, Clear to Auscultation Bilateral, NORMAL BREATHING PATTERN - Cardiovascular Exam Cardiovascular Exam: REGULAR RHYTHM - GI/Abdominal Exam GI & Abdominal Exam: Normal Bowel Sounds, Soft - Rectal Exam Rectal Exam: Deferred - Extremities Exam Extremities exam: Positive for: normal inspection - Back Exam Back exam: NORMAL INSPECTION - Neurological Exam Neurological exam: Alert, Oriented x3 - Psychiatric Exam Psychiatric exam: Normal Affect, Normal Mood - Skin Skin Exam: Normal Color, Warm Results - Vital Signs Recent Vital Signs: Last Vital Signs Temp 98 F 04/01/18 00:01 Pulse 65 04/01/18 00:01 Resp 20 04/01/18 00:01 BP 129/60 04/01/18 00:01 Pulse Ox 95 04/01/18 00:01 - Labs Result Diagrams: 03/30/18 15:14 03/30/18 15:14 Labs: Laboratory Results - last 24 hr 03/31/18 03/31/18 03/31/18 11:25 11:25 11:54 POC Glucose (mg/dL) 201 H Iron 21 L TIBC 180 L % Saturation 11 L Ferritin 960.0 03/31/18 03/31/18 04/01/18 16:15 21:02 08:22 POC Glucose (mg/dL) 293 H 228 H 146 H Iron TIBC % Saturation Ferritin Assessment & Plan - Assessment and Plan (Free Text) Assessment: Palliative consult Full Code before consult, no Advance directive on chart, PPS 30% I reviewed Medical records, all diagnostic studies, examined and interviewed patient in the chair. Patient is alert, oriented X 3, very pleasant lady with speech that is clear. Very poor dentition. Many front teeth are broken. Patient reports not being able to visit dental offices as she needed some one to take her there. Patient reports mild to moderate pain to right lower back , where HD access is. Patient takes 1/2 Percocet only, says it bothers her stomach. Doctor Mccall discussed with patient uncertainty if new HD access would be put in again, if she should need it, due to compromised circulation on both arms. Patient is hopeful that she will than begun PD as suggested by Doctor Still. Goals of care discussed. Patient stated that she does not feel safe at home, as she sustained multiple falls there. None of her sisters is able to assist her with ADLs, nor is her daughter. Patient is looking toward Financial Analysis Manager placement at [place]. She prefers [facility] as her mother is there and her brother works there. Patient had submitted Medicaid application and hopes will be approved for it. Code status discussed. POLST introduced. Patient knew right away she would not want her life to be prolonged by life support if meaningful recovery was not expected. She said, she shared her wishes with her daughter as well. Patient chose DNR/DNI. I shared this with Doctor Rodriguez and [employer] Picking Supervisor. Impression * This is a very unfortunate , young lady, chronically ill with ESRD on HD * Multiple failed HD access due to interrupted circulation * PD is the last option if this last HD access failed * Mild to moderate pain o right lower back where HD access is * Lack of family support * Multiple falls at home * Looking forward local company intermodal truck driver placement; prefers [place] where her mother resides * Chose DNR/DNI Suggestion * Promote safety * Tramadol PRN pain * Discharge planing for Financial Analysis Manager placement. Patient prefers [facility] * DNR/DNI Advance Care planing 45 min
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
[2018-04-02] MEDS: (Novolin R) Insulin Human Regular 100 units/ml vial SC SCH ×4 (07:47→21:38)
[2018-04-02] MEDS: Bacitracin Ointment 30 GM TUBE TOP SCH (10:37)
--- NOTE | 2018-04-02 14:38 | CP.PCM.PN ---
Subjective - Date & Time of Evaluation Date of Evaluation: 04/02/18 Time of Evaluation: 14:35 - Subjective Subjective: COVERING DR HILL feels better overall; not dyspneic, no n, v, f, diarrhea IVC dialysis cath in place dialysis arranged for today and on AM chemistries acceptable on ESAs, IV fe Objective - Vital Signs/Intake and Output Vital Signs (last 24 hours): Temp Pulse Resp BP Pulse Ox 98.1 F 61 20 138/62 96 04/02/18 08:13 04/02/18 08:13 04/02/18 08:13 04/02/18 08:13 04/02/18 08:13 Intake and Output: 04/02/18 04/02/18 06:59 18:59 Intake Total 420 350 Output Total 400 Balance 20 350 - Medications Medications: Current Medications Amlodipine Besylate (Norvasc) 5 mg PO DAILY [facility] Last Admin: 04/02/18 10:14 Dose: Not Given Apixaban (Eliquis) 10 mg PO BID [facility] Stop: 04/03/18 18:01 Last Admin: 04/02/18 10:30 Dose: 10 mg Bacitracin (Bacitracin) 0 gm TOP DAILY [facility] Last Admin: 04/02/18 10:37 Dose: 1 applic Calcitriol (Rocaltrol) 0.5 mcg PO DAILY [facility] Last Admin: 04/02/18 10:31 Dose: 0.5 mcg Calcium Acetate (Phoslo) 2,001 mg PO [facility] Docusate Sodium (Colace) 100 mg PO DAILY [facility] Last Admin: 04/02/18 10:30 Dose: 100 mg Epoetin Nico (Procrit) 2,000 u IV MWF [facility] Last Admin: 03/31/18 11:07 Dose: 2,000 u Epoetin Nico (Procrit) 3,000 unit IV MWF [facility] Last Admin: 03/31/18 11:07 Dose: 3,000 unit Epoetin Nico (Procrit) 10,000 unit IV MWF [facility] Last Admin: 03/31/18 11:08 Dose: 10,000 unit Ferric Sodium Gluconate Complex (Ferrlecit) 125 mg IVPB QWK [facility] Stop: 04/09/18 10:01 Last Admin: 04/01/18 10:18 Dose: 125 mg Fluoxetine HCl (Prozac) 40 mg PO DAILY [facility] Last Admin: 04/02/18 10:31 Dose: 40 mg Insulin Human Regular (Novolin R) 0 unit SC ACHS [facility] PRN Reason: Protocol Last Admin: 04/02/18 11:22 Dose: 3 unit Oxycodone/Acetaminophen (Percocet 5/325 Mg Tab) 1 tab PO Q6H PRN PRN Reason: Pain, severe (8-10) Stop: 04/03/18 09:53 Last Admin: 04/01/18 21:35 Dose: 1 tab Rosuvastatin Calcium (Crestor) 5 mg PO HS [facility] Last Admin: 04/01/18 21:36 Dose: 5 mg Sodium Polystyrene Sulfonate (Kayexalate Susp) 15 gm PO SA [facility] Sodium Polystyrene Sulfonate (Kayexalate Susp) 15 gm PO M[facility]LAIN [facility] Tramadol HCl (Ultram) 50 mg PO Q8H PRN PRN Reason: Pain, moderate (4-7) Last Admin: 04/02/18 08:35 Dose: 50 mg - Labs Labs: 03/30/18 15:14 03/30/18 15:14 - Constitutional Appears: No Acute Distress, Chronically Ill - Head Exam Head Exam: NORMAL INSPECTION - Eye Exam Eye Exam: EOMI, Normal appearance - Neck Exam Neck Exam: Normal Inspection. absent: Tenderness - Respiratory Exam Respiratory Exam: Clear to Ausculation Bilateral, NORMAL BREATHING PATTERN - Cardiovascular Exam Cardiovascular Exam: REGULAR RHYTHM, +S4 - GI/Abdominal Exam GI & Abdominal Exam: Soft. absent: Tenderness - Extremities Exam Extremities Exam: Normal Inspection. absent: Tenderness - Neurological Exam Neurological Exam: Alert, CN II-XII Intact - Skin Skin Exam: Dry, Warm Assessment and Plan (1) Failure of peritoneal dialysis access Status: Acute (2) Type 2 diabetes mellitus with diabetic nephropathy Status: Acute (3) ESRD (end stage renal disease) Status: Chronic (4) Right atrial thrombus Status: Suspected - Assessment and Plan (Free Text) Plan: dialysis today and in aM
[2018-04-02 15:26] LABS: BASO # 0.1 K/uL (0.0-0.2); BASO % 1.7 % (0.0-2.0); EOS % 0.7 % (0.0-4.0); HEMOGLOBIN 8.7 g/dL (11.0-16.0); LYMPH # 0.7 K/uL (1.0-4.3); LYMPH % 12.5 % (20.0-40.0); MEAN CELL VOLUME 96.8 fL (81.0-99.0); MEAN CORPUSCULAR HEMOGLOBIN 30.7 pg (27.0-31.0); MEAN CORPUSCULAR HGB CONC 31.7 g/dL (33.0-37.0); MEAN PLATELET VOLUME 9.4 fL (7.2-11.7); MONO # 0.5 K/uL (0.0-0.8); MONO % 9.2 % (0.0-10.0); NEUT # 4.4 K/uL (1.8-7.0); NEUT % 75.9 % (50.0-75.0); NRBC % 0.1 % (0.0-2.0); RBC 2.83 Mil/uL (3.80-5.20); RED CELL DISTRIBUTION WIDTH 17.4 % (11.5-14.5); WHITE BLOOD COUNT 5.8 K/uL (4.8-10.8)
[2018-04-02] MEDS: Epoetin Alfa Dialysis 2000 U/ML Inj IV SCH (16:48)
[2018-04-02] MEDS: Epoetin Alfa Dialysis 3000 UNIT/ML Inj IV SCH (16:49)
[2018-04-02] MEDS: Epoetin Alfa 10,000 unit/ml Dialysis IV SCH (16:49)
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
[2018-04-03] MEDS: (Novolin R) Insulin Human Regular 100 units/ml vial SC SCH ×4 (08:00→21:52)
[2018-04-03] MEDS: Sod Polystyrene Sulf 15 gm/60 ml Susp PO SCH (09:46)
[2018-04-03] MEDS: Bacitracin Ointment 30 GM TUBE TOP SCH (09:46)
--- NOTE | 2018-04-03 10:09 | CP.PCM.PN ---
Subjective - Date & Time of Evaluation Date of Evaluation: 04/03/18 Time of Evaluation: 10:07 - Subjective Subjective: seen on HD using IVC catheter c/o pain in right hip and leg 2 kg UF Objective - Vital Signs/Intake and Output Vital Signs (last 24 hours): Temp Pulse Resp BP Pulse Ox 97.9 F 70 20 103/48 L 96 04/03/18 00:06 04/03/18 00:06 04/03/18 00:06 04/02/18 18:10 04/03/18 08:32 Intake and Output: 04/03/18 04/03/18 06:59 18:59 Intake Total 600 Balance 600 - Medications Medications: Current Medications Amlodipine Besylate (Norvasc) 5 mg PO DAILY [facility] Last Admin: 04/03/18 09:46 Dose: Not Given Apixaban (Eliquis) 10 mg PO BID [facility] Stop: 04/03/18 18:01 Last Admin: 04/03/18 09:46 Dose: Not Given Bacitracin (Bacitracin) 0 gm TOP DAILY [facility] Last Admin: 04/03/18 09:46 Dose: Not Given Calcitriol (Rocaltrol) 0.5 mcg PO DAILY [facility] Last Admin: 04/03/18 09:47 Dose: Not Given Calcium Acetate (Phoslo) 2,001 mg PO [facility] Docusate Sodium (Colace) 100 mg PO DAILY [facility] Last Admin: 04/03/18 09:46 Dose: Not Given Epoetin Nico (Procrit) 2,000 u IV MWF [facility] Last Admin: 04/02/18 16:48 Dose: 2,000 u Epoetin Nico (Procrit) 3,000 unit IV MWF [facility] Last Admin: 04/02/18 16:49 Dose: 3,000 unit Epoetin Nico (Procrit) 10,000 unit IV MWF [facility] Last Admin: 04/02/18 16:49 Dose: 10,000 unit Ferric Sodium Gluconate Complex (Ferrlecit) 125 mg IVPB QWK [facility] Stop: 04/09/18 10:01 Last Admin: 04/01/18 10:18 Dose: 125 mg Fluoxetine HCl (Prozac) 40 mg PO DAILY [facility] Last Admin: 04/03/18 09:47 Dose: Not Given Heparin Sodium (Porcine) (Heparin) 5,400 units IVP MWF [facility] Last Admin: 04/02/18 16:48 Dose: 5,400 units Insulin Human Regular (Novolin R) 0 unit SC ACHS [facility] PRN Reason: Protocol Last Admin: 04/03/18 08:00 Dose: Not Given Rosuvastatin Calcium (Crestor) 5 mg PO HS [facility] Last Admin: 04/02/18 21:37 Dose: 5 mg Sodium Polystyrene Sulfonate (Kayexalate Susp) 15 gm PO SA [facility] Last Admin: 04/03/18 09:46 Dose: Not Given Sodium Polystyrene Sulfonate (Kayexalate Susp) 15 gm PO MCCLAIN [facility] Tramadol HCl (Ultram) 50 mg PO Q8H PRN PRN Reason: Pain, moderate (4-7) Last Admin: 04/03/18 09:40 Dose: 50 mg - Labs Labs: 04/02/18 15:22 03/30/18 15:14 - Constitutional Appears: Chronically Ill - Head Exam Head Exam: ATRAUMATIC, NORMAL INSPECTION - Eye Exam Eye Exam: EOMI - ENT Exam ENT Exam: Mucous Membranes Moist - Neck Exam Neck Exam: Full ROM. absent: Lymphadenopathy - Respiratory Exam Respiratory Exam: Clear to Ausculation Bilateral. absent: Accessory Muscle Use - Cardiovascular Exam Cardiovascular Exam: REGULAR RHYTHM. absent: Rubs - GI/Abdominal Exam GI & Abdominal Exam: Soft. absent: Tenderness - Extremities Exam Extremities Exam: Pedal Edema - Neurological Exam Neurological Exam: Alert, Oriented x3 Assessment and Plan - Assessment and Plan (Free Text) Plan: s/p ivc dialysis catheter placement continue same maint HD
[2018-04-03 13:01] LABS: BASO % 0.2 % (0.0-2.0); EOS # 0.1 K/uL (0.0-0.7); EOS % 1.6 % (0.0-4.0); HEMOGLOBIN 9.7 g/dL (11.0-16.0); LYMPH # 1.4 K/uL (1.0-4.3); LYMPH % 21.4 % (20.0-40.0); MEAN CELL VOLUME 97.2 fL (81.0-99.0); MEAN CORPUSCULAR HEMOGLOBIN 31.6 pg (27.0-31.0); MEAN CORPUSCULAR HGB CONC 32.5 g/dL (33.0-37.0); MEAN PLATELET VOLUME 9.4 fL (7.2-11.7); MONO # 0.8 K/uL (0.0-0.8); MONO % 12.3 % (0.0-10.0); NEUT # 4.2 K/uL (1.8-7.0); NEUT % 64.5 % (50.0-75.0); NRBC % 0.1 % (0.0-2.0); RBC 3.07 Mil/uL (3.80-5.20); WHITE BLOOD COUNT 6.5 K/uL (4.8-10.8)
[2018-04-03 13:21] LABS: ALBUMIN 4.1 g/dL (3.5-5.0); CALCIUM 9.1 mg/dl (8.6-10.4)
--- NOTE | 2018-04-03 14:28 | PCM.RRT ---
BAG REPAIRER Nurses Assessment - Situation Date: 04/03/18 Time BAG REPAIRER was called: 12:32 BAG REPAIRER Responder Arrival Time:: 12:32 BAG REPAIRER Location:: Med/Oncology Room Number: 364b BAG REPAIRER Reason for Call: Looks Sicker BAG REPAIRER Called By: RN - IV IV Inserted during BAG REPAIRER?: No - Respiratory BAG REPAIRER Delivery Method: Nasal Cannula @L/min Oxygen Flow Rate: 5 Received Nebulizer Treatments: No Was the Patient Ventilated with Bag/Mask 100% O2?: No Secretions Suctioned?: No Was the Patient Intubated?: No Was the Patient Placed on a Ventilator?: No - Medication Medications Administered During BAG REPAIRER: none - Diagnostic Test Ordered EKG: No Chest X-Ray: No CT Scan: No - Stat Labs Ordered BAG REPAIRER Stat Labs Ordered: CBC, BMP CPR started during BAG REPAIRER?: No - Vital Signs Vital Signs: Rapid Response Vital Sign Blood Pressure 120/60 Pulse Rate 83 Respiratory Rate 15 Temperature 98 F Oxygen Saturation 98 - Time BAG REPAIRER Ended Time BAG REPAIRER Ended: 13:00 - Vital Signs at end of BAG REPAIRER Vital Signs at end of BAG REPAIRER: Rapid Response End Vital Sign Blood Pressure 112/66 Pulse Rate 63 Respiratory Rate 18 Temperature 98.4 F O2 Sat by Pulse Oximetry 100 - Recommendations Notifications: Attending Physician - Respiratory Oxygen Delivery Method: Nasal Cannula @L/min Oxygen Flow Rate: 5 Plan - Assessment of Findings&Treatment Plan BAG REPAIRER called for an episode of altered mental status/ confusion. As per nursing, patient had just come back from dialysis and started breathing heavily and was not responsive to questions for less than 1 minute. Then patient felt nauseous with no vomiting. Upon arrival patient was AAOx3. Patient' s room was very hot so air conditioning put on and patient given cool wet towels. Patient felt better. Vitals: BP: 112/66, P: 63, 98% on 5L (decreased to 3L and O2 saturation did not decrease), blood sugar: 120 CBC, CMP, Mag and Phos ordered
--- NOTE | 2018-04-04 04:54 | CP.PCM.PN ---
Addendum entered and electronically signed by Fred Chavarria 04/04/18 05:00: On lower extremities physical examination: * Cold to touch * DP and PT pulses audible with doppler Original Note: <Fred Chavarria - Last Filed: 04/04/18 05:00> Subjective - Date & Time of Evaluation Date of Evaluation: 04/04/18 Time of Evaluation: 04:40 - Subjective Subjective: Patient was seen and examined at bedside. Patient reports that she is doing well. Patient denies any discomfort or new complaints. Objective - Vital Signs/Intake and Output Vital Signs (last 24 hours): Temp Pulse Resp BP Pulse Ox 97.0 F L 73 18 124/73 99 04/04/18 00:00 04/04/18 00:00 04/04/18 00:00 04/04/18 00:00 04/04/18 00:00 Intake and Output: 04/03/18 04/04/18 18:59 06:59 Intake Total 300 Balance 300 - Medications Medications: Current Medications Amlodipine Besylate (Norvasc) 5 mg PO DAILY [facility] Last Admin: 04/03/18 09:46 Dose: Not Given Bacitracin (Bacitracin) 0 gm TOP DAILY [facility] Last Admin: 04/03/18 09:46 Dose: Not Given Calcitriol (Rocaltrol) 0.5 mcg PO DAILY [facility] Last Admin: 04/03/18 09:47 Dose: Not Given Calcium Acetate (Phoslo) 2,[address] [facility] Docusate Sodium (Colace) 100 mg PO DAILY [facility] Last Admin: 04/03/18 09:46 Dose: Not Given Epoetin Nico (Procrit) 2,000 u IV MWF [facility] Last Admin: 04/02/18 16:48 Dose: 2,000 u Epoetin Nico (Procrit) 3,000 unit IV MWF [facility] Last Admin: 04/02/18 16:49 Dose: 3,000 unit Epoetin Nico (Procrit) 10,000 unit IV MWF [facility] Last Admin: 04/02/18 16:49 Dose: 10,000 unit Ferric Sodium Gluconate Complex (Ferrlecit) 125 mg IVPB QWK [facility] Stop: 04/09/18 10:01 Last Admin: 04/01/18 10:18 Dose: 125 mg Fluoxetine HCl (Prozac) 40 mg PO DAILY [facility] Last Admin: 04/03/18 09:47 Dose: Not Given Heparin Sodium (Porcine) (Heparin) 5,400 units IVP MWF [facility] Last Admin: 04/02/18 16:48 Dose: 5,400 units Insulin Human Regular (Novolin R) 0 unit SC ACHS [facility] PRN Reason: Protocol Last Admin: 04/03/18 21:52 Dose: Not Given Rosuvastatin Calcium (Crestor) 5 mg PO HS [facility] Last Admin: 04/03/18 21:19 Dose: 5 mg Sodium Polystyrene Sulfonate (Kayexalate Susp) 15 gm PO SA [facility] Last Admin: 04/03/18 09:46 Dose: Not Given Sodium Polystyrene Sulfonate (Kayexalate Susp) 15 gm PO M[facility]LAIN [facility] Tramadol HCl (Ultram) 50 mg PO Q8H PRN PRN Reason: Pain, moderate (4-7) Last Admin: 04/03/18 21:21 Dose: 50 mg - Labs Labs: 04/03/18 12:57 04/03/18 12:57 - Constitutional Appears: No Acute Distress - Head Exam Head Exam: ATRAUMATIC - Eye Exam Eye Exam: EOMI - ENT Exam ENT Exam: Mucous Membranes Moist - Respiratory Exam Respiratory Exam: Clear to Ausculation Bilateral, NORMAL BREATHING PATTERN - Cardiovascular Exam Cardiovascular Exam: REGULAR RHYTHM, +S1, +S2 - GI/Abdominal Exam GI & Abdominal Exam: Soft, Normal Bowel Sounds. absent: Distended, Firm, Guarding, Rigid, Tenderness - Extremities Exam Additional comments: Bilateral LE: multiple ecchymosis on LE bilaterally; muscle atropy RLE: hematoma on right hip and gluteal region, hematoma on sacrum; pain with palpation of the bruised region; decreased ROM of RLE due to pain. LLE: left hip-wound from previous fall with yellow purulent discharge; erythema on LLE, no discharge, not tender to palpation. - Back Exam Additional comments: Abrasion and ecchymosis noted mid back from fall - Neurological Exam Neurological Exam: Alert, Awake, Oriented x3 - Psychiatric Exam Psychiatric exam: Normal Affect - Skin Skin Exam: Normal Color Assessment and Plan (1) ESRD (end stage renal disease) Assessment & Plan: * Nephrology (Dr. Still) on consult, recs appreciated * Vascular surgery (Dr. Olson) consulted- no surgical intervention for AVG at this time * Continue HD MWF schedule * Procrit [id number] MWF * Phoslo 1334mg PO WM * Calcitriol 0.5.cg PO daily * Renal Diet * Femoral vein permacath thrombosed- New dialysis catheter placed in back on at [facility]. Patient was dialyzed s/p catheter placement. Percocet 1tab Q6h prn for pain Status: Chronic (2) HTN (hypertension) Assessment & Plan: * Norvasc 5mg PO daily * Continue MWF dialysis schedule Status: Acute (3) Anemia in chronic kidney disease Assessment & Plan: Hgb below goal of 10-11 but stable Procrit 15,000 units M, W,F Ferrlecit 125mg IVPB QWK Status: Acute (4) IVC thrombosis Assessment & Plan: * Continue Eliquis 5mg PO daily * While placing new dialysis catheter in back on 03/29, found atrial clot. * Echo: borderline to mild asymetric LVH; EF 50-55%; mild global hypokinesis of lV; LA mildly dilated; trace-mild MR; mild to moderate TR. Status: Ruled-out (5) Ataxia Assessment & Plan: * PT/OT * Case management/social work consulted for placement at [facility] Status: Chronic (6) History of fall Assessment & Plan: Subcutaneous soft tissue and posterio back edema/hemorrhage hematoma * Lumbar spine CT: subcutaneous hematoma partially visulaized in right lower lumbar and gluteal regions measuring 7.8x2.3cm; urinary bladder wall thickening possibly due to incomplete distention or cystitis; no fracture * Pelvic CT: Right lower lumbar and sacral region hematoma measuring up to 8.7 cm as well as a left side lateral gluteal/ hip region hematoma measuring 7 x 5.3 centimeters. Imaging from previous hospitalization * CT head (03/07/18): no evidence of acute intracranial hemorrhage, midline shift , or mass effect is identified, possible right facial soft tissue swelling * Rib xrays (03/07/18): multiple left side rib fractures as described. Mild bibasilar atelectasis left greater than right. Elevation right hemidiaphrgam likely due to eventration * Hip (03/07/18):no definitive radiographic evidence of acute hip or pelvic fracture seen * Lumbar CT scan (12/20/17): incompletely visualized posterior back subcutaneous soft tissue fluid and right posterior back edema/hemorrhage hematoma measuring 6cm ~ in right and left dimension at level of L4-S1. Small left pleural effusion. no acute fracture of the lumbar spine. * Imaging available in patient's [place] hospitalization prior to transfer; will hold Eliquis given hematoma and increase risk of falls Status: Acute (7) Diabetes mellitus Assessment & Plan: * HgbA1c (12/2017): 6.6 * Accuchecks * ISS- Medium dose * Hypoglycemic protocol Status: Acute (8) Prophylactic measure Assessment & Plan: * DVT: SCDs; Eliquis 5mg PO daily * Renal diet * Case management, social services designee consulted * PT/OT * Wound care * Palliative care consult- Goals of care * Percocet 1tab Q6h prn for pain Disposition: Wound care on case. Per case management- [employer] will no longer cover [facility] as patient has already stayed at [facility] for too long in the past. Patient fell on 03/23/18 and went to [facility] ER. Patient was discharged, daughter was contacted to leaf size picker the patient, however daughter would not pick her up. Patient was scheduled for dialysis at [facility] in [place]. Because she did not show up at appointment, [facility] called daughter who did not answer. Patient was found still at [facility] after being discharged. [facility] was called. Patient was then transferred to [facility] [place] for dialysis. Case management working on case and placement. Per patient- daughter faxed appropriate forms for medicare/ medicaid, however no fax has been received as of yet. No other updates at this time. Status: Acute <Anival Mccall - Last Filed: 04/04/18 12:02> Objective - Vital Signs/Intake and Output Vital Signs (last 24 hours): Temp Pulse Resp BP Pulse Ox 98.4 F 70 20 106/60 96 04/04/18 08:00 04/04/18 08:00 04/04/18 08:00 04/04/18 08:00 04/04/18 08:00 Intake and Output: 04/04/18 04/04/18 06:59 18:59 Intake Total 500 Balance 500 - Medications Medications: Current Medications Amlodipine Besylate (Norvasc) 5 mg PO DAILY [facility] Last Admin: 04/04/18 11:32 Dose: 5 mg Bacitracin (Bacitracin) 0 gm TOP DAILY [facility] Last Admin: 04/04/18 11:32 Dose: 1 applic Calcitriol (Rocaltrol) 0.5 mcg PO DAILY [facility] Last Admin: 04/04/18 11:31 Dose: 0.5 mcg Calcium Acetate (Phoslo) 2,001 mg PO WM [facility] Docusate Sodium (Colace) 100 mg PO DAILY [facility] Last Admin: 04/04/18 11:31 Dose: 100 mg Epoetin Nico (Procrit) 2,000 u IV [facility] Last Admin: 04/02/18 16:48 Dose: 2,000 u Epoetin Nico (Procrit) 3,000 unit IV [facility] Last Admin: 04/02/18 16:49 Dose: 3,000 unit Epoetin Nico (Procrit) 10,000 unit IV [facility] Last Admin: 04/02/18 16:49 Dose: 10,000 unit Ferric Sodium Gluconate Complex (Ferrlecit) 125 mg IVPB QWK [facility] Stop: 04/09/18 10:01 Last Admin: 04/01/18 10:18 Dose: 125 mg Fluoxetine HCl (Prozac) 40 mg PO DAILY [facility] Last Admin: 04/04/18 11:31 Dose: 40 mg Heparin Sodium (Porcine) (Heparin) 5,400 units IVP [facility] Last Admin: 04/02/18 16:48 Dose: 5,400 units Insulin Human Regular (Novolin R) 0 unit SC [facility] PRN Reason: Protocol Last Admin: 04/04/18 11:33 Dose: Not Given Rosuvastatin Calcium (Crestor) 5 mg PO HS [facility] Last Admin: 04/03/18 21:19 Dose: 5 mg Sodium Polystyrene Sulfonate (Kayexalate Susp) 15 gm PO SA [facility] Last Admin: 04/03/18 09:46 Dose: Not Given Sodium Polystyrene Sulfonate (Kayexalate Susp) 15 gm PO M[facility]LAIN [facility] Last Admin: 04/04/18 11:32 Dose: 15 gm Tramadol HCl (Ultram) 50 mg PO Q8H PRN PRN Reason: Pain, moderate (4-7) Last Admin: 04/03/18 21:21 Dose: 50 mg - Labs Labs: 04/03/18 12:57 04/04/18 07:59 Attending/Attestation - Attestation I have personally seen and examined this patient.: Yes I have fully participated in the care of the patient.: Yes I have reviewed all pertinent clinical information, including history, physical exam and plan: Yes Notes (Text): 04/04/18 12:01 Medical attending: Patient was seen and examined by me. Agree with the above note by the resident The patient was not in any acute distress. 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 She says she felt fine today, just the ongoing pain when she tries to stand. Family members came in on Thursday she says.
[2018-04-04] MEDS: (Novolin R) Insulin Human Regular 100 units/ml vial SC SCH ×4 (07:21→21:19)
[2018-04-04 08:42] LABS: ALB/GLOB RATIO 1.1 (1.0-2.1)
[2018-04-04] MEDS: Sod Polystyrene Sulf 15 gm/60 ml Susp PO SCH (11:32)
[2018-04-04] MEDS: Bacitracin Ointment 30 GM TUBE TOP SCH (11:32)
[2018-04-05] MEDS: (Novolin R) Insulin Human Regular 100 units/ml vial SC SCH ×4 (07:41→21:58)
[2018-04-05] MEDS: Bacitracin Ointment 30 GM TUBE TOP SCH (10:09)
--- NOTE | 2018-04-05 13:19 | CP.PCM.PN ---
Addendum entered and electronically signed by Portillo Monroe 04/05/18 17:15: error in plan 8, Prophylactic treatment, Error on DVT: Eliquis 5mg PO BID Error in plan 6, last line. We garry not hold elliquis. elliquis 5mg PO BID Error in plan 4, IVC thrombosis. eliquis 5mg PO BID Original Note: <Portillo Monroe - Last Filed: 04/05/18 16:24> Subjective - Date & Time of Evaluation Date of Evaluation: 04/05/18 Time of Evaluation: 13:13 - Subjective Subjective: Pgy-[address] Wells service. Pt seen and examined sitting in chair. Pt reports no acute event overnight. Pt complains of dizziness and lightheadness, and asks to be placed on the bed. Pt states dizziness started this morning. Pt denies fever, chills. Pt reports some nausea but denies vomiting. Pt for dialysis today. Objective - Vital Signs/Intake and Output Vital Signs (last 24 hours): Temp Pulse Resp BP Pulse Ox 97.4 F L 66 18 146/55 L 95 04/05/18 08:00 04/05/18 08:00 04/05/18 08:00 04/05/18 08:00 04/05/18 08:00 Intake and Output: 04/05/18 04/05/18 06:59 18:59 Intake Total 420 Output Total 200 Balance 220 - Medications Medications: Current Medications Amlodipine Besylate (Norvasc) 5 mg PO DAILY [facility] Last Admin: 04/05/18 10:09 Dose: 5 mg Apixaban (Eliquis) 10 mg PO BID [facility] Last Admin: 04/05/18 10:15 Dose: 10 mg Bacitracin (Bacitracin) 0 gm TOP DAILY [facility] Last Admin: 04/05/18 10:09 Dose: 1 applic Calcitriol (Rocaltrol) 0.5 mcg PO DAILY [facility] Last Admin: 04/05/18 10:11 Dose: 0.5 mcg Calcium Acetate (Phoslo) 2,001 mg PO [facility] Docusate Sodium (Colace) 100 mg PO DAILY [facility] Last Admin: 04/05/18 10:17 Dose: 100 mg Epoetin Nico (Procrit) 2,000 u [place] [facility] [place] Admin: 04/02/18 16:48 Dose: 2,000 u [facility] Last Admin: 04/02/18 16:49 Dose: 3,000 unit Epoetin Nico (Procrit) 10,000 unit IV MWF [facility] Last Admin: 04/02/18 16:49 Dose: 10,000 unit Ferric Sodium Gluconate Complex (Ferrlecit) 125 mg IVPB QWK [facility] Stop: 04/09/18 10:01 Last Admin: 04/01/18 10:18 Dose: 125 mg Fluoxetine HCl (Prozac) 40 mg PO DAILY [facility] Last Admin: 04/05/18 10:11 Dose: 40 mg Heparin Sodium (Porcine) (Heparin) 5,400 units [place] [facility] [place] Admin: 04/02/18 16:48 Dose: 5,400 units Insulin Human Regular (Novolin R) [facility] Reason: Protocol Last Admin: 04/05/18 12:19 Dose: 3 unit Rosuvastatin Calcium (Crestor) 5 mg PO HS [facility] Last Admin: 04/04/18 21:19 Dose: 5 mg Sodium Polystyrene Sulfonate (Kayexalate Susp) 15 gm PO SA [facility] Last Admin: 04/03/18 09:46 Dose: Not Given Sodium Polystyrene Sulfonate (Kayexalate Susp) 15 gm PO [facility]LAIN [facility] Last Admin: 04/04/18 11:32 Dose: 15 gm Tramadol HCl (Ultram) 50 mg PO Q8H PRN PRN Reason: Pain, moderate (4-7) Last Admin: 04/03/18 21:21 Dose: 50 mg - Labs Labs: 04/03/18 12:57 04/04/18 07:59 - Constitutional Appears: Well, Non-toxic - Head Exam Head Exam: ATRAUMATIC, NORMAL INSPECTION - Eye Exam Eye Exam: EOMI, Normal appearance - ENT Exam ENT Exam: Mucous Membranes Moist - Neck Exam Neck Exam: Full ROM, Normal Inspection - Respiratory Exam Respiratory Exam: Clear to Ausculation Bilateral, NORMAL BREATHING PATTERN - Cardiovascular Exam Cardiovascular Exam: REGULAR RHYTHM, +S1, +S2 - GI/Abdominal Exam GI & Abdominal Exam: Soft, Normal Bowel Sounds. absent: Guarding, Tenderness - Extremities Exam Extremities Exam: Full ROM. absent: Pedal Edema - Neurological Exam Neurological Exam: Alert, Awake. absent: Normal Gait - Psychiatric Exam Psychiatric exam: Normal Affect, Normal Mood - Skin Skin Exam: Erythema, Normal Color Additional comments: bilateral erythema on legs Assessment and Plan - Assessment and Plan (Free Text) Plan: (1) ESRD (end stage renal disease) Assessment & Plan: * Nephrology (Dr. Still) on consult, recs appreciated * Vascular surgery (Dr. Olson) consulted- no surgical intervention for AVG at this time * Continue HD MWF schedule * Procrit [id number] MWF * Phoslo 2,001mg PO WM * Calcitriol 0.5.cg PO daily * Renal Diet * Femoral vein permacath thrombosed- New dialysis catheter placed in back on at [facility] [place]. Patient was dialyzed s/p catheter placement. Percocet 1tab Q6h prn for pain (2) HTN (hypertension) Assessment & Plan: * Norvasc 5mg PO daily * Continue MWF dialysis schedule (3) Anemia in chronic kidney disease Assessment & Plan: Hgb below goal of 10-11 but stable Procrit 20,000 units M, W,F Ferrlecit 125mg IVPB QWK (4) IVC thrombosis Assessment & Plan: * Continue Eliquis 5mg PO daily * While placing new dialysis catheter in back on 03/29, found atrial clot. * Echo: borderline to mild asymetric LVH; EF 50-55%; mild global hypokinesis of lV; LA mildly dilated; trace-mild MR; mild to moderate TR. (5) Ataxia Assessment & Plan: * PT/OT * Case management/social work consulted for placement at [facility]. (6) History of fall Assessment & Plan: Subcutaneous soft tissue and posterio back edema/hemorrhage hematoma * Lumbar spine CT: subcutaneous hematoma partially visulaized in right lower lumbar and gluteal regions measuring 7.8x2.3cm; urinary bladder wall thickening possibly due to incomplete distention or cystitis; no fracture * Pelvic CT: Right lower lumbar and sacral region hematoma measuring up to 8.7 cm as well as a left side lateral gluteal/ hip region hematoma measuring 7 x 5.3 centimeters. Imaging from previous hospitalization * CT head (03/07/18): no evidence of acute intracranial hemorrhage, midline shift , or mass effect is identified, possible right facial soft tissue swelling * Rib xrays (03/07/18): multiple left side rib fractures as described. Mild bibasilar atelectasis left greater than right. Elevation right hemidiaphrgam likely due to eventration * Hip (03/07/18):no definitive radiographic evidence of acute hip or pelvic fracture seen * Lumbar CT scan (12/20/17): incompletely visualized posterior back subcutaneous soft tissue fluid and right posterior back edema/hemorrhage hematoma measuring 6cm ~ in right and left dimension at level of L4-S1. Small left pleural effusion. no acute fracture of the lumbar spine. * Imaging available [facility] to transfer; will hold Eliquis given hematoma and increase risk of falls (7) Diabetes mellitus Assessment & Plan: * HgbA1c (12/2017): 6.6 * Accuchecks * ISS- Medium dose * Hypoglycemic protocol (8) Prophylactic measure Assessment & Plan: * DVT: SCDs; Eliquis 10mg PO daily * Renal diet * Case management, social work msw consulted * PT/OT * Wound care * Palliative care consult- Goals of care * Percocet 1tab Q6h prn for pain Disposition: [facility] @ [facility] is in process for placement as per . Possible D/C to [facility] tomorrow. Portillo Monroe, PGY-1 All plans and management have been discussed with Dr Wells <Misha Wells - Last Filed: 04/07/18 16:49> Objective - Vital Signs/Intake and Output Vital Signs (last 24 hours): Temp Pulse Resp BP Pulse Ox 97.6 F 63 18 145/60 98 04/07/18 13:30 04/07/18 13:30 04/07/18 13:30 04/07/18 15:00 04/07/18 13:30 Intake and Output: 04/07/18 04/07/18 06:59 18:59 Intake Total 350 360 Balance 350 360 - Medications Medications: Current Medications Amlodipine Besylate (Norvasc) 5 mg PO DAILY [facility] Last Admin: 04/07/18 10:15 Dose: Not Given Apixaban (Eliquis) 5 mg PO BID [facility] Last Admin: 04/07/18 10:15 Dose: Not Given Bacitracin (Bacitracin) 0 gm TOP DAILY [facility] Last Admin: 04/07/18 10:16 Dose: 1 applic Calcitriol (Rocaltrol) 0.5 mcg PO DAILY [facility] Last Admin: 04/07/18 10:15 Dose: Not Given Calcium Acetate (Phoslo) 1,334 mg PO TIDCC [facility] Last Admin: 04/07/18 13:00 Dose: Not Given Docusate Sodium (Colace) 100 mg PO DAILY [facility] Last Admin: 04/07/18 10:20 Dose: Not Given Epoetin Nico (Procrit) 2,000 u IV [facility] [place] Last Admin: 04/07/18 14:33 Dose: 2,000 u Epoetin Nico (Procrit) [facility] Last Admin: 04/07/18 14:35 Dose: 3,000 unit Epoetin Nico (Procrit) 10,000 unit IV [facility] [place] Last Admin: 04/07/18 14:34 Dose: 10,000 unit Ferric Sodium Gluconate Complex (Ferrlecit) 125 mg IVPB QWK [facility] Stop: 04/09/18 10:01 Last Admin: 04/01/18 10:18 Dose: 125 mg Fluoxetine HCl (Prozac) 40 mg PO DAILY [facility] Last Admin: 04/07/18 10:15 Dose: Not Given Heparin Sodium (Porcine) (Heparin) 5,400 units IVP [facility] [place] Last Admin: 04/07/18 14:32 Dose: 5,400 units Insulin Human Regular (Novolin R) [facility] Reason: Protocol Last Admin: 04/07/18 12:00 Dose: 3 unit Rosuvastatin Calcium (Crestor) 5 mg PO HS [facility] Last Admin: 04/06/18 21:39 Dose: 5 mg Sodium Polystyrene Sulfonate (Kayexalate Susp) 15 gm PO SA [facility] Last Admin: 04/03/18 09:46 Dose: Not Given Sodium Polystyrene Sulfonate (Kayexalate Susp) 15 gm PO [facility] Last Admin: 04/04/18 11:32 Dose: 15 gm Tramadol HCl (Ultram) 50 mg PO Q8H PRN PRN Reason: Pain, moderate (4-7) Last Admin: 04/05/18 16:16 Dose: 50 mg - Labs Labs: 04/07/18 13:46 04/07/18 13:46 Attending/Attestation - Attestation I have personally seen and examined this patient.: Yes I have fully participated in the care of the patient.: Yes I have reviewed all pertinent clinical information, including history, physical exam and plan: Yes Notes (Text): Patient was seen and examined. no changes,no complain Discussed with the resident and I agree with the assessment and the plan of documentation
--- NOTE | 2018-04-05 14:44 | CP.PCM.PN ---
Subjective - Date & Time of Evaluation Date of Evaluation: 04/05/18 Time of Evaluation: 14:42 - Subjective Subjective: PGY-3 Nephrology progress note for Dr. Still's service Patient seen and examined at bedside. No acute distress. Patient is scheduled for hemodialysis today. Patient denies sob, chest pain, abd pain. Hematoma continue t be painful with palpation. Objective - Vital Signs/Intake and Output Vital Signs (last 24 hours): Temp Pulse Resp BP Pulse Ox 97.4 F L 66 18 146/55 L 95 04/05/18 08:00 04/05/18 08:00 04/05/18 08:00 04/05/18 08:00 04/05/18 08:00 Intake and Output: 04/05/18 04/05/18 06:59 18:59 Intake Total 420 Output Total 200 Balance 220 - Medications Medications: Current Medications Amlodipine Besylate (Norvasc) 5 mg PO DAILY [facility] Last Admin: 04/05/18 10:09 Dose: 5 mg Apixaban (Eliquis) 10 mg PO BID [facility] Last Admin: 04/05/18 10:15 Dose: 10 mg Bacitracin (Bacitracin) 0 gm TOP DAILY [facility] Last Admin: 04/05/18 10:09 Dose: 1 applic Calcitriol (Rocaltrol) 0.5 mcg PO DAILY [facility] Last Admin: 04/05/18 10:11 Dose: 0.5 mcg Calcium Acetate (Phoslo) 2,001 mg PO WM [facility] Docusate Sodium (Colace) 100 mg PO DAILY [facility] Last Admin: 04/05/18 10:17 Dose: 100 mg Epoetin Nico (Procrit) 2,000 u IV MWF [facility] Last Admin: 04/02/18 16:48 Dose: 2,000 u Epoetin Nico (Procrit) 3,000 unit IV MWF [facility] Last Admin: 04/02/18 16:49 Dose: 3,000 unit Epoetin Nico (Procrit) 10,000 unit IV MWF [facility] Last Admin: 04/02/18 16:49 Dose: 10,000 unit Ferric Sodium Gluconate Complex (Ferrlecit) 125 mg IVPB QWK [facility] Stop: 04/09/18 10:01 Last Admin: 04/01/18 10:18 Dose: 125 mg Fluoxetine HCl (Prozac) 40 mg PO DAILY [facility] Last Admin: 04/05/18 10:11 Dose: 40 mg Heparin Sodium (Porcine) (Heparin) 5,400 units IVP MWF [facility] Last Admin: 04/02/18 16:48 Dose: 5,400 units Insulin Human Regular (Novolin R) 0 unit SC ACHS [facility] PRN Reason: Protocol Last Admin: 04/05/18 12:19 Dose: 3 unit Rosuvastatin Calcium (Crestor) 5 mg PO HS [facility] Last Admin: 04/04/18 21:19 Dose: 5 mg Sodium Polystyrene Sulfonate (Kayexalate Susp) 15 gm PO SA [facility] Last Admin: 04/03/18 09:46 Dose: Not Given Sodium Polystyrene Sulfonate (Kayexalate Susp) 15 gm PO MCCLAIN [facility] Last Admin: 04/04/18 11:32 Dose: 15 gm Tramadol HCl (Ultram) 50 mg PO Q8H PRN PRN Reason: Pain, moderate (4-7) Last Admin: 04/03/18 21:21 Dose: 50 mg - Labs Labs: 04/03/18 12:57 04/04/18 07:59 - Constitutional Appears: No Acute Distress - Head Exam Head Exam: ATRAUMATIC, NORMAL INSPECTION, NORMOCEPHALIC - Eye Exam Eye Exam: EOMI, Normal appearance - Respiratory Exam Respiratory Exam: Clear to Ausculation Bilateral, NORMAL BREATHING PATTERN. absent: Rhonchi, Wheezes, Respiratory Distress - Cardiovascular Exam Cardiovascular Exam: REGULAR RHYTHM. absent: Bradycardia, Tachycardia, Murmur - GI/Abdominal Exam GI & Abdominal Exam: Soft, Normal Bowel Sounds. absent: Distended, Tenderness - Neurological Exam Neurological Exam: Alert, Awake, Oriented x3 - Skin Skin Exam: Dry, Intact, Warm Additional comments: hematoma of left upper leg Assessment and Plan - Assessment and Plan (Free Text) Assessment: 57 yo Female withpmh of htn, dm with neuropathy/retinopathy, PAD, CAD s/p remote intervention, s/p pacemaker placement, s/p IVC thrombus, now with SVC thrombus and ESRD on HD now s/p new trans-lumbar HD catheter. Plan: ESRD on hemodialysis - patient with sub-par blood flow even using new trans-lumbar catheter last HD - stable electrolyte status - consider possibility of going back to [facility]; per previous discussions patient is open to it if someone can do it for her - social studies department chair working on finding alf care facility care - scheduled for HD today, bring her back to 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 - SVC thrombus seen on fluoroscopy during catheter exchange; question also of RA thrombus but not mentioned on TTE; remains hypercoaguable with free floating thrombus seen in IVC last year; - continue eliquis (loading dose of 10 mg bid for 1 week, followed by 5 mg bid); Right atrial thrombus - suspected - continue eliquis Anemia of renal disease - last Hgb was 9.7 - EPO 2,000 units qHD - iron sat low but ferritin elevated; will give maintenance IV ferrlecit 125 mcg weekly - continue to monitor; transfuse as needed; Ataxic gait - Major fall risk; awaiting placement; - Status: 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 - PTH was at goal - continue calcitriol 0.5 mcg daily; phos high, increase phoslo to 3 tabs w/ meals; hemodialysis catheter malfunction - chronic, currently using IVF catheter Hypertensive CKD, ESRD on dialysis - Fluctuating BP; continue amlodipine 5 if SBP > 120; case seen and discussed with Dr. Still
[2018-04-05 15:08] LABS: BASO % 0.9 % (0.0-2.0); LYMPH # 0.6 K/uL (1.0-4.3); MEAN CELL VOLUME 96.3 fL (81.0-99.0); MEAN CORPUSCULAR HEMOGLOBIN 31.3 pg (27.0-31.0); MEAN CORPUSCULAR HGB CONC 32.5 g/dL (33.0-37.0); MEAN PLATELET VOLUME 9.7 fL (7.2-11.7); MONO # 0.4 K/uL (0.0-0.8); MONO % 8.3 % (0.0-10.0); NEUT # 4.1 K/uL (1.8-7.0); NEUT % 77.8 % (50.0-75.0); RBC 2.88 Mil/uL (3.80-5.20); RED CELL DISTRIBUTION WIDTH 17.5 % (11.5-14.5); WHITE BLOOD COUNT 5.2 K/uL (4.8-10.8)
[2018-04-05 15:28] LABS: ALB/GLOB RATIO 1.1 (1.0-2.1); ALBUMIN 3.5 g/dL (3.5-5.0); CALCIUM 8.2 mg/dl (8.6-10.4)
[2018-04-05] MEDS: Epoetin Alfa Dialysis 3000 UNIT/ML Inj IV SCH (15:35)
[2018-04-05] MEDS: Epoetin Alfa 10,000 unit/ml Dialysis IV SCH (15:57)
[2018-04-05] MEDS: Epoetin Alfa Dialysis 2000 U/ML Inj IV SCH (16:01)
--- NOTE | 2018-04-06 07:07 | CP.PCM.PN ---
<Portillo Monroe - Last Filed: 04/06/18 20:45> Subjective - Date & Time of Evaluation Date of Evaluation: 04/06/18 Time of Evaluation: 11:29 - Subjective Subjective: PGY-[address] Wells service Pt is seen and examined sitting in chair eating breakfast. Pt states feeling much better. Pt went for HD yesterday. Pt complains of feeling bilateral leg pain and back pain that worsens when she lies in bed for prolong periods of time. Pt denies fevers, chills, dizziness, SOB, nausea, vomiting, headaches, diarrhea or constipation Objective - Vital Signs/Intake and Output Vital Signs (last 24 hours): Temp Pulse Resp BP Pulse Ox 97.9 F 62 20 102/63 97 04/05/18 23:49 04/05/18 23:49 04/05/18 23:49 04/05/18 23:49 04/05/18 23:49 Intake and Output: 04/06/18 04/06/18 06:59 18:59 Intake Total 380 Balance 380 - Medications Medications: Current Medications Amlodipine Besylate (Norvasc) 5 mg PO DAILY [facility] Last Admin: 04/05/18 10:09 Dose: 5 mg Apixaban (Eliquis) 5 mg PO BID [facility] Last Admin: 04/05/18 17:55 Dose: 5 mg Bacitracin (Bacitracin) 0 gm TOP DAILY [facility] Last Admin: 04/05/18 10:09 Dose: 1 applic Calcitriol (Rocaltrol) 0.5 mcg PO DAILY [facility] Last Admin: 04/05/18 10:11 Dose: 0.5 mcg Calcium Acetate (Phoslo) 2,001 mg PO [facility] Docusate Sodium (Colace) 100 mg PO DAILY [facility] Last Admin: 04/05/18 10:17 Dose: 100 mg Epoetin Nico (Procrit) 2,000 u IV MWF [facility] Last Admin: 04/05/18 16:01 Dose: 2,000 u Epoetin Nico (Procrit) 3,000 unit IV MWF [facility] Last Admin: 04/05/18 15:35 Dose: 3,000 unit Epoetin Nico (Procrit) 10,000 unit IV MWF [facility] Last Admin: 04/05/18 15:57 Dose: 10,000 unit Ferric Sodium Gluconate Complex (Ferrlecit) 125 mg IVPB QWK [facility] Stop: 04/09/18 10:01 Last Admin: 04/01/18 10:18 Dose: 125 mg Fluoxetine HCl (Prozac) 40 mg PO DAILY [facility] Last Admin: 04/05/18 10:11 Dose: 40 mg Heparin Sodium (Porcine) (Heparin) 5,400 units IVP MWF [facility] Last Admin: 04/05/18 15:55 Dose: 5,400 units Insulin Human Regular (Novolin R) 0 unit SC ACHS [facility] PRN Reason: Protocol Last Admin: 04/05/18 21:58 Dose: Not Given Rosuvastatin Calcium (Crestor) 5 mg PO HS [facility] Last Admin: 04/05/18 21:56 Dose: 5 mg Sodium Polystyrene Sulfonate (Kayexalate Susp) 15 gm PO SA [facility] Last Admin: 04/03/18 09:46 Dose: Not Given Sodium Polystyrene Sulfonate (Kayexalate Susp) 15 gm PO MCCLAIN [facility] Last Admin: 04/04/18 11:32 Dose: 15 gm Tramadol HCl (Ultram) 50 mg PO Q8H PRN PRN Reason: Pain, moderate (4-7) Last Admin: 04/05/18 16:16 Dose: 50 mg - Labs Labs: 04/05/18 15:00 04/05/18 15:00 - Constitutional Appears: Non-toxic, No Acute Distress - Head Exam Head Exam: ATRAUMATIC, NORMAL INSPECTION - Eye Exam Eye Exam: Normal appearance - Respiratory Exam Respiratory Exam: Clear to Ausculation Bilateral, NORMAL BREATHING PATTERN - Cardiovascular Exam Cardiovascular Exam: REGULAR RHYTHM, +S1, +S2 - GI/Abdominal Exam GI & Abdominal Exam: Soft, Normal Bowel Sounds. absent: Distended, Firm, Guarding - Extremities Exam Extremities Exam: Normal Inspection. absent: Calf Tenderness - Neurological Exam Neurological Exam: Alert, Awake - Psychiatric Exam Psychiatric exam: Normal Affect, Normal Mood - Skin Skin Exam: Intact, Normal Color Assessment and Plan - Assessment and Plan (Free Text) Plan: (1) ESRD (end stage renal disease) Assessment & Plan: * Patient was on dialysis yesterday for 2 hours due to decrease flow and complains of pain when lying down. * Patient scheduled for short dialysis today and tPA to be used for improved flow as per Nephro recommendation * CMP, CBC, PTH, Phosphorus lab to be drawn before dialysis - Patient refused blood work after two tries due to inability to obtain access to draw blood\ * electrolytes stable * Vascular surgery (Dr. Olson) consulted- no surgical intervention for AVG at this time * Continue HD MWF schedule * Procrit [id number] MWF * Phoslo 2,001mg PO WM * Calcitriol 0.5.cg PO daily * Renal Diet * Femoral vein permacath thrombosed- New dialysis catheter placed in back on at [facility]. Patient was dialyzed s/p catheter placement. Percocet 1tab Q6h prn for pain (2) HTN (hypertension) Assessment & Plan: * Blood pressure is stable * continue Norvasc 5mg PO daily * Continue MWF dialysis schedule (3) Anemia in chronic kidney disease Assessment & Plan: Hgb 9.0 Procrit 20,000 units M, W,F Ferrlecit 125mg IVPB QWK Continue monitoring, transfuse if needed. (4) IVC thrombosis Assessment & Plan: * Continue Eliquis 5mg PO BID ( pt completed 1 week of 10 mg PO bid ) * While placing new dialysis catheter in back on 03/29, found atrial clot. * Echo: borderline to mild asymetric LVH; EF 50-55%; mild global hypokinesis of lV; LA mildly dilated; trace-mild MR; mild to moderate TR. (5) Ataxia Assessment & Plan: * PT/OT * Case management/social work consulted for placement at [facility]. (6) History of fall Assessment & Plan: Subcutaneous soft tissue and posterio back edema/hemorrhage hematoma * Continue Tramadol for pain PRN * Lumbar spine CT: subcutaneous hematoma partially visulaized in right lower lumbar and gluteal regions measuring 7.8x2.3cm; urinary bladder wall thickening possibly due to incomplete distention or cystitis; no fracture * Pelvic CT: Right lower lumbar and sacral region hematoma measuring up to 8.7 cm as well as a left side lateral gluteal/ hip region hematoma measuring 7 x 5.3 centimeters. Imaging from previous hospitalization * CT head (03/07/18): no evidence of acute intracranial hemorrhage, midline shift , or mass effect is identified, possible right facial soft tissue swelling * Rib xrays (03/07/18): multiple left side rib fractures as described. Mild bibasilar atelectasis left greater than right. Elevation right hemidiaphrgam likely due to eventration * Hip (03/07/18):no definitive radiographic evidence of acute hip or pelvic fracture seen * Lumbar CT scan (12/20/17): incompletely visualized posterior back subcutaneous soft tissue fluid and right posterior back edema/hemorrhage hematoma measuring 6cm ~ in right and left dimension at level of L4-S1. Small left pleural effusion. no acute fracture of the lumbar spine. (7) Diabetes mellitus Assessment & Plan: * HgbA1c (12/2017): 6.6 * Accuchecks * ISS- Medium dose * Hypoglycemic protocol (8) Prophylactic measure Assessment & Plan: * DVT: SCDs; Eliquis 5mg PO BID (patient completed 1 week of 10mg bid) * Renal diet * Case management, social sciences research scientist consulted * PT/OT * Wound care * Palliative care consult- Goals of care * Percocet 1tab Q6h prn for pain Disposition: SW is working on finding [facility] placement for patient. SW will be considering other alternatives based on the patients insurance. Patient is requesting [facility] as [facility] placement to continue her HD due to family member working there (brother). F/U SW on [facility] placement vs Home health Aide Portillo Monroe, PGY-1 <Misha Wells - Last Filed: 04/09/18 18:24> Objective - Vital Signs/Intake and Output Vital Signs (last 24 hours): Temp Pulse Resp BP Pulse Ox 97.9 F 89 20 104/63 98 04/09/18 17:45 04/09/18 17:45 04/09/18 17:45 04/09/18 17:45 04/09/18 17:45 Intake and Output: 04/09/18 04/09/18 06:59 18:59 Intake Total 400 450 Balance 400 450 - Medications Medications: Current Medications Amlodipine Besylate (Norvasc) 5 mg PO DAILY [facility] Last Admin: 04/09/18 10:05 Dose: Not Given Apixaban (Eliquis) 5 mg PO BID [facility] Last Admin: 04/09/18 17:35 Dose: 5 mg Bacitracin (Bacitracin) 0 gm TOP DAILY [facility] Last Admin: 04/09/18 09:29 Dose: 1 applic Calcitriol (Rocaltrol) 0.5 mcg PO DAILY [facility] Last Admin: 04/09/18 09:26 Dose: 0.5 mcg Calcium Acetate (Phoslo) 1,334 mg PO TIDCC [facility] Last Admin: 04/09/18 17:36 Dose: 1,334 mg Docusate Sodium (Colace) 100 mg PO DAILY [facility] Last Admin: 04/09/18 09:25 Dose: 100 mg Epoetin Nico (Procrit) 2,000 u IV [facility] Last Admin: 04/09/18 15:21 Dose: 2,000 u Epoetin Nico (Procrit) 3,000 unit IV [facility] Last Admin: 04/09/18 15:22 Dose: 3,000 unit Epoetin Nico (Procrit) 10,000 unit IV MWF [facility] Last Admin: 04/09/18 15:21 Dose: 10,000 unit Fluoxetine HCl (Prozac) 40 mg PO DAILY [facility] Last Admin: 04/09/18 09:25 Dose: 40 mg Heparin Sodium (Porcine) (Heparin) 5,400 units IVP [facility] Last Admin: 04/09/18 15:23 Dose: 5,400 units Insulin Human Regular (Novolin R) 0 unit SC [facility] PRN Reason: Protocol Last Admin: 04/09/18 17:34 Dose: Not Given Rosuvastatin Calcium (Crestor) 5 mg PO HS [facility] Last Admin: 04/08/18 21:29 Dose: 5 mg Sodium Polystyrene Sulfonate (Kayexalate Susp) 15 gm PO SA [facility] Last Admin: 04/03/18 09:46 Dose: Not Given Sodium Polystyrene Sulfonate (Kayexalate Susp) 15 gm PO MCCLAIN [facility] Last Admin: 04/04/18 11:32 Dose: 15 gm Tramadol HCl (Ultram) 50 mg PO Q8H PRN PRN Reason: Pain, moderate (4-7) Last Admin: 04/05/18 16:16 Dose: 50 mg - Labs Labs: 04/07/18 13:46 04/09/18 13:40 Attending/Attestation - Attestation I have personally seen and examined this patient.: Yes I have fully participated in the care of the patient.: Yes I have reviewed all pertinent clinical information, including history, physical exam and plan: Yes Notes (Text): Seen and examined by me.No complain,no changes 1. ESRD on hemodialysis Dialysis as per radiology manager Dr Doherty Hemodialysis catheter malfunctions currently using IVC catheter placed in right lumbar area 2.Multiple falls at home with lack of support Pending rehab/ocean transportation intermediary milk house worker working on it 3.Patient with DVT of superior vena cava hypercoaguable with free floating thrombus seen in IVC last year continue eliquis 5 mg bid 4.Anemia secondary to ESRD Epogen and iron as per nephro Discussed with resident and I agree with the assessment and the plan
[2018-04-06] MEDS: (Novolin R) Insulin Human Regular 100 units/ml vial SC SCH ×4 (08:03→22:09)
--- NOTE | 2018-04-06 09:20 | CP.PCM.PN ---
<Williams Morales - Last Filed: 04/06/18 14:11> Subjective - Date & Time of Evaluation Date of Evaluation: 04/06/18 Time of Evaluation: 07:30 - Subjective Subjective: PGY-1 Nephrology progress note for Dr. Still's serice Patient was seen and examined at bedside. Patient was pleasant and not in any acute distress. Patient had HD yesterday for 2 hours only. Patient is urinating without any complaints. Patient reports soreness at site of hematoma upon palpation. Patient reports no dizziness, chest pain, shortness of breath, nausea , or vomiting. Objective - Vital Signs/Intake and Output Vital Signs (last 24 hours): Temp Pulse Resp BP Pulse Ox 97.6 F 60 20 119/76 97 04/06/18 07:59 04/06/18 07:59 04/06/18 07:59 04/06/18 07:59 04/06/18 07:59 Intake and Output: 04/06/18 04/06/18 06:59 18:59 Intake Total 380 Balance 380 - Medications Medications: Current Medications Amlodipine Besylate (Norvasc) 5 mg PO DAILY [facility] Last Admin: 04/05/18 10:09 Dose: 5 mg Apixaban (Eliquis) 5 mg PO BID [facility] Last Admin: 04/05/18 17:55 Dose: 5 mg Bacitracin (Bacitracin) 0 gm TOP DAILY [facility] Last Admin: 04/05/18 10:09 Dose: 1 applic Calcitriol (Rocaltrol) 0.5 mcg PO DAILY [facility] Last Admin: 04/05/18 10:11 Dose: 0.5 mcg Calcium Acetate (Phoslo) 2,001 mg PO [facility] Docusate Sodium (Colace) 100 mg PO DAILY [facility] Last Admin: 04/05/18 10:17 Dose: 100 mg Epoetin Nico (Procrit) 2,000 u IV MWF [facility] Last Admin: 04/05/18 16:01 Dose: 2,000 u Epoetin Nico (Procrit) 3,000 unit IV MWF [facility] Last Admin: 04/05/18 15:35 Dose: 3,000 unit Epoetin Nico (Procrit) 10,000 unit IV MWF [facility] Last Admin: 04/05/18 15:57 Dose: 10,000 unit Ferric Sodium Gluconate Complex (Ferrlecit) 125 mg IVPB QWK [facility] Stop: 04/09/18 10:01 Last Admin: 04/01/18 10:18 Dose: 125 mg Fluoxetine HCl (Prozac) 40 mg PO DAILY [facility] Last Admin: 04/05/18 10:11 Dose: 40 mg Heparin Sodium (Porcine) (Heparin) 5,400 units IVP MWF [facility] Last Admin: 04/05/18 15:55 Dose: 5,400 units Insulin Human Regular (Novolin R) 0 unit SC ACHS [facility] PRN Reason: Protocol Last Admin: 04/06/18 08:03 Dose: Not Given Rosuvastatin Calcium (Crestor) 5 mg PO HS [facility] Last Admin: 04/05/18 21:56 Dose: 5 mg Sodium Polystyrene Sulfonate (Kayexalate Susp) 15 gm PO SA [facility] Last Admin: 04/03/18 09:46 Dose: Not Given Sodium Polystyrene Sulfonate (Kayexalate Susp) 15 gm PO MCCLAIN [facility] Last Admin: 04/04/18 11:32 Dose: 15 gm Tramadol HCl (Ultram) 50 mg PO Q8H PRN PRN Reason: Pain, moderate (4-7) Last Admin: 04/05/18 16:16 Dose: 50 mg - Labs Labs: 04/05/18 15:00 04/05/18 15:00 - Constitutional Appears: No Acute Distress - Head Exam Head Exam: ATRAUMATIC, NORMAL INSPECTION, NORMOCEPHALIC - Eye Exam Eye Exam: EOMI, Normal appearance - Respiratory Exam Respiratory Exam: Clear to Ausculation Bilateral, NORMAL BREATHING PATTERN. absent: Decreased Breath Sounds, Rhonchi, Wheezes - Cardiovascular Exam Cardiovascular Exam: REGULAR RHYTHM, RRR, +S1, +S2 - GI/Abdominal Exam GI & Abdominal Exam: Soft, Normal Bowel Sounds. absent: Distended, Tenderness - Back Exam Additional comments: HD catheter inserted in right lumbar area. Appears viable. - Neurological Exam Neurological Exam: Alert, Awake, Oriented x3 - Psychiatric Exam Psychiatric exam: Normal Affect - Skin Skin Exam: Dry, Intact, Normal Color Additional comments: hematoma on LLE Assessment and Plan - Assessment and Plan (Free Text) Assessment: 57 y.o female with PMH of HTN, DM with neuropathy/retinopathy, PAD, CAD s/p remote intervention, s/p pacemaker placement, s/p IVC thrombus, now with SVC thrombus and ESRD on HD now s/p new trans-lumbar HD catheter. Plan: ESRD on hemodialysis -Hemodialysis yesterday was for 2 hours only due to patient complaints and decreased flow -Short term dialysis scheduled for today; Will use tPa to improve flow -CMP; CBC; PTH; Phosphorus labs to be collected prior to dialysis session -Electrolytes stable -[place] [facility] [place] because of family support (brother and mother) -weld lay out worker assisting due to difficulties with Medicaid -No hyperkalemia as per labs yesterday -Continue to give kayexelate on Thu and Thursday Acute DVT of superior vena cava -SVC SVC thrombus seen on fluoroscopy during catheter exchange; question also of RA thrombus but not mentioned on TTE; remains hypercoaguable with free floating thrombus seen in IVC last year; - continue eliquis 5 mg bid (patient completed 1 week of 10 mg bid) RA thrombus - Suspected - Continue eliquis 5mg bid (patient completed 1 week of 10mg bid) Anemia secondary to ESRD -Hgb 9.0 -EPO 2,000 units qHD -give maintenance IV ferrlecit 125 mcg weekly due to low iron sat and elevated ferritin -continue to monitor; transfuse as needed; Ataxic gat -Waiting for social work for placement; fall risk -Status: 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 - PTH was at goal - continue calcitriol 0.5 mcg daily; phos high, increase phoslo to 3 tabs w/ meals; hemodialysis catheter malfunction - chronic, currently using IVC catheter placed in right lumbar area Hypertensive CKD, ESRD on dialysis - Fluctuating BP; continue amlodipine 5 if SBP > 120; <Melvin Still - Last Filed: 04/06/18 23:43> Objective - Vital Signs/Intake and Output Vital Signs (last 24 hours): Temp Pulse Resp BP Pulse Ox 97.9 F 65 20 138/80 100 04/06/18 17:33 04/06/18 17:33 04/06/18 17:33 04/06/18 17:33 04/06/18 17:33 Intake and Output: 04/06/18 04/07/18 18:59 06:59 Intake Total 300 200 Balance 300 200 - Medications Medications: Current Medications Amlodipine Besylate (Norvasc) 5 mg PO DAILY [facility] Last Admin: 04/06/18 10:07 Dose: 5 mg Apixaban (Eliquis) 5 mg PO BID [facility] Last Admin: 04/06/18 17:12 Dose: 5 mg Bacitracin (Bacitracin) 0 gm TOP DAILY [facility] Last Admin: 04/06/18 10:07 Dose: 1 applic Calcitriol (Rocaltrol) 0.5 mcg PO DAILY [facility] Last Admin: 04/06/18 10:07 Dose: 0.5 mcg Calcium Acetate (Phoslo) 1,334 mg PO [facility] Docusate Sodium (Colace) 100 mg PO DAILY [facility] Last Admin: 04/06/18 10:07 Dose: 100 mg Epoetin Nico (Procrit) 2,000 u IV [facility] Last Admin: 04/05/18 16:01 Dose: 2,000 u Epoetin Nico (Procrit) 3,000 unit IV MWF [facility] Last Admin: 04/05/18 15:35 Dose: 3,000 unit Epoetin Nico (Procrit) 10,000 unit IV [facility] Last Admin: 04/05/18 15:57 Dose: 10,000 unit Ferric Sodium Gluconate Complex (Ferrlecit) 125 mg IVPB QWK [facility] Stop: 04/09/18 10:01 Last Admin: 04/01/18 10:18 Dose: 125 mg Fluoxetine HCl (Prozac) 40 mg PO DAILY [facility] Last Admin: 04/06/18 10:07 Dose: 40 mg Heparin Sodium (Porcine) (Heparin) 5,400 units IVP MWF [facility] Last Admin: 04/05/18 15:55 Dose: 5,400 units Insulin Human Regular (Novolin R) 0 [facility] Reason: Protocol Last Admin: 04/06/18 22:09 Dose: Not Given Rosuvastatin Calcium (Crestor) 5 mg PO HS [facility] Last Admin: 04/06/18 21:39 Dose: 5 mg Sodium Polystyrene Sulfonate (Kayexalate Susp) 15 gm PO SA [facility] Last Admin: 04/03/18 09:46 Dose: Not Given Sodium Polystyrene Sulfonate (Kayexalate Susp) 15 gm PO MCCLAIN [facility] Last Admin: 04/04/18 11:32 Dose: 15 gm Tramadol HCl (Ultram) 50 mg PO Q8H PRN PRN Reason: Pain, moderate (4-7) Last Admin: 04/05/18 16:16 Dose: 50 mg - Labs Labs: 04/05/18 15:00 04/05/18 15:00 Assessment and Plan (1) ESRD on hemodialysis Status: Chronic (2) Acute deep vein thrombosis (DVT) of superior vena cava Status: Acute (3) Right atrial thrombus Status: Suspected (4) Anemia of renal disease Status: Chronic (5) Ataxic gait Status: Chronic (6) Chronic kidney disease-mineral and bone disorder Status: Chronic (7) Hemodialysis catheter malfunction Status: Chronic (8) Hypertensive CKD, ESRD on dialysis Status: Chronic Attending/Attestation - Attestation I have personally seen and examined this patient.: Yes I have fully participated in the care of the patient.: Yes I have reviewed all pertinent clinical information, including history, physical exam and plan: Yes Notes (Text): Patient seen and examined; I agree with the resident's note as above with the following additions/edits: 57 yo F w/ pmh of htn, dm w/ neuropathy and retinopathy, PVD, s/p IVC and now SVC thrombosis, and ESRD on HD, admitted s/p recurrent falls; Patient having issues with newly placed trans-lumbar IVC HD catheter, unable to achieve full blood flow on HD yesterday; treatment cut short to 2 hrs for this reason and due to patient discomfort; refused HD today despite counseling her; leaving tPA in HD catheter overnight and planning for full HD session tomorrow; if catheter fails, will need to have IR exchange it; HTN of ESRD, BP fluctuating with mild hypotension with UF on HD in the setting of irregular PO intake; will decrease UF goal tomorrow to 2L net; Anemia of CKD; hgb still below goal of 10-11 g; continuing EPO 15,000 u qHD ( dose increased last week) and IV iron 125 mg weekly for maintenance; CKD MBD; with PTH, Ca and phos at goal; on calcitriol 0.5 mg dailiy, continue; unclear if receiving phos binders; will decrease phoslo to tabs w/ meals; SVC thrombus; patient needs to be on AC indefinitely, continue eliquis 5 mg bid; Overall, patient is losing her drive to keep up with therapeutic measures; recently made DNR/DNI; awaiting placement in retirement care facility, will depend on Medicaid status; otherwise, is unsafe for d/c home due to recurrent falls and lack of adequate family support; prognosis is guarded; 04/06/18 23:36
[2018-04-06] MEDS: Bacitracin Ointment 30 GM TUBE TOP SCH (10:07)
--- NOTE | 2018-04-07 02:34 | CP.PCM.PN ---
<Keyla Malagon - Last Filed: 04/07/18 02:27> Subjective - Date & Time of Evaluation Date of Evaluation: 04/07/18 Time of Evaluation: 02:27 - Subjective Subjective: Medicine progress note for Dr. Wells Patient was seen and examined at bedside in no acute distress. Patient reports feeling okay, but still has the pain with coughing (secondary to rib fractures) and back pain due to the dialysis catheter. Patient denies chest pain, dyspnea , abdominal pain, nausea, vomiting, fevers, leg pain, and leg swelling. Objective - Vital Signs/Intake and Output Vital Signs (last 24 hours): Temp Pulse Resp BP Pulse Ox 97.9 F 68 20 100/60 98 04/06/18 23:58 04/06/18 23:58 04/06/18 23:58 04/06/18 23:58 04/06/18 23:58 Intake and Output: 04/06/18 04/07/18 18:59 06:59 Intake Total 300 200 Balance 300 200 - Medications Medications: Current Medications Amlodipine Besylate (Norvasc) 5 mg PO DAILY [facility] Last Admin: 04/06/18 10:07 Dose: 5 mg Apixaban (Eliquis) 5 mg PO BID [facility] Last Admin: 04/06/18 17:12 Dose: 5 mg Bacitracin (Bacitracin) 0 gm TOP DAILY [facility] Last Admin: 04/06/18 10:07 Dose: 1 applic Calcitriol (Rocaltrol) 0.5 mcg PO DAILY [facility] Last Admin: 04/06/18 10:07 Dose: 0.5 mcg Calcium Acetate (Phoslo) 1,334 mg PO TIDCC [facility] Docusate Sodium (Colace) 100 mg PO DAILY [facility] Last Admin: 04/06/18 10:07 Dose: 100 mg Epoetin Nico (Procrit) 2,000 u IV MWF [facility] Last Admin: 04/05/18 16:01 Dose: 2,000 u Epoetin Nico (Procrit) 3,000 unit IV MWF [facility] Last Admin: 04/05/18 15:35 Dose: 3,000 unit Epoetin Nico (Procrit) 10,000 unit IV MWF [facility] Last Admin: 04/05/18 15:57 Dose: 10,000 unit Ferric Sodium Gluconate Complex (Ferrlecit) 125 mg IVPB QWK [facility] Stop: 04/09/18 10:01 Last Admin: 04/01/18 10:18 Dose: 125 mg Fluoxetine HCl (Prozac) 40 mg PO DAILY [facility] Last Admin: 04/06/18 10:07 Dose: 40 mg Heparin Sodium (Porcine) (Heparin) 5,400 units IVP MWF [facility] Last Admin: 04/05/18 15:55 Dose: 5,400 units Insulin Human Regular (Novolin R) 0 unit SC ACHS [facility] PRN Reason: Protocol Last Admin: 04/06/18 22:09 Dose: Not Given Rosuvastatin Calcium (Crestor) 5 mg PO HS [facility] Last Admin: 04/06/18 21:39 Dose: 5 mg Sodium Polystyrene Sulfonate (Kayexalate Susp) 15 gm PO SA [facility] Last Admin: 04/03/18 09:46 Dose: Not Given Sodium Polystyrene Sulfonate (Kayexalate Susp) 15 gm PO MCCLAIN [facility] Last Admin: 04/04/18 11:32 Dose: 15 gm Tramadol HCl (Ultram) 50 mg PO Q8H PRN PRN Reason: Pain, moderate (4-7) Last Admin: 04/05/18 16:16 Dose: 50 mg - Labs Labs: 04/05/18 15:00 04/05/18 15:00 - Additional Findings Additional findings: - Additional Findings Additional findings: - Constitutional Appears: Chronically Ill - Head Exam Head Exam: NORMOCEPHALIC - Eye Exam Eye Exam: EOMI, Normal appearance - ENT Exam ENT Exam: Mucous Membranes Moist - Respiratory Exam Respiratory Exam: NORMAL BREATHING PATTERN. absent: Rales, Rhonchi, Wheezes, Respiratory Distress - Cardiovascular Exam Cardiovascular Exam: REGULAR RHYTHM, +S1, +S2 - GI/Abdominal Exam GI & Abdominal Exam: Soft, Normal Bowel Sounds. absent: Distended, Tenderness Additional comments: Obese - Extremities Exam Extremities Exam: absent: Normal Inspection Additional comments: Bilateral LE: multiple ecchymosis on LE bilaterally; muscle atrophy RLE: hematoma on right hip and gluteal region, hematoma on sacrum; pain with palpation of the bruised region; decreased ROM of RLE due to pain. [improving] LLE: left hip-wound from previous fall with yellow purulent discharge; erythema on LLE, no discharge, not tender to palpation. - Back Exam Additional comments: Abrasion and ecchymosis noted mid back from fall Dialysis catheter place; dressing clean, dry, and intact - Neurological Exam Neurological Exam: Abnormal Gait, Awake, Oriented x3 - Psychiatric Exam Psychiatric exam: Normal Affect, Normal Mood - Skin Skin Exam: Warm Assessment and Plan - Assessment and Plan (Free Text) Plan: (1) ESRD on hemodialysis Assessment & Plan: * Nephrology (Dr. Still) on consult, recs appreciated * Vascular surgery (Dr. Olson) consulted- no surgical intervention for AVG at this time * Continue MWF schedule * Procrit [id number] MWF * Phoslo 1334mg PO WM * Calcitriol 0.5.cg PO daily * Renal Diet * Femoral vein permacath thrombosed- New dialysis catheter placed on right back on 03/29/18 at [facility]. (2) Hypertensive CKD, ESRD on dialysis Assessment & Plan: * Norvasc 5mg PO daily * Continue MWF dialysis schedule (3) Anemia of renal disease Assessment & Plan: * Hgb below goal of 10-11 but stable * Veterinary X Ray Operator, Dr. Still, consulted. rec appreciated (4) Chronic kidney disease-mineral and bone disorder Assessment & Plan: * Phos and PTH controlled on phoslo 2 tabs w/ meals and calcitriol 0.5mcg daily respectively; continue same (6) IVC thrombosis Assessment & Plan: * Continue Eliquis 5mg PO daily * While placing new dialysis catheter in back on 03/29 * Echo: borderline to mild asymetric LVH; EF 50-55%; mild global hypokinesis of lV; LA mildly dilated; trace-mild MR; mild to moderate TR. (7) Ataxic gait * PT/OT * Case management/social work consulted for placement at [facility] (8) s/p Fall; History of Falls Subcutaneous soft tissue and posterio back edema/hemorrhage hematoma * Lumbar spine CT: subcutaneous hematoma partially visulaized in right lower lumbar and gluteal regions measuring 7.8x2.3cm; urinary bladder wall thickening possibly due to incomplete distention or cystitis; no fracture * Pelvic CT: Right lower lumbar and sacral region hematoma measuring up to 8.7 cm as well as a left side lateral gluteal/ hip region hematoma measuring 7 x 5.3 centimeters. Imaging from previous hospitalization * CT head (03/07/18): no evidence of acute intracranial hemorrhage, midline shift , or mass effect is identified, possible right facial soft tissue swelling * Rib xrays (03/07/18): multiple left side rib fractures as described. Mild bibasilar atelectasis left greater than right. Elevation right hemidiaphrgam likely due to eventration * Hip (03/07/18):no definitive radiographic evidence of acute hip or pelvic fracture seen * Lumbar CT scan (12/20/17): incompletely visualized posterior back subcutaneous soft tissue fluid and right posterior back edema/hemorrhage hematoma measuring 6cm ~ in right and left dimension at level of L4-S1. Small left pleural effusion. no acute fracture of the lumbar spine. * Imaging available in patient's [place] hospitalization prior to transfer; will hold Eliquis given hematoma and increase risk of falls (8) DM * Accuchecks * ISS * Hypoglycemic protocol * A1c (12/2017): 6.6 (9) Prophylaxis * DVT: SCDs; Eliquis 5mg PO daily * Renal diet * Case management, adoption social worker consulted * PT/OT * Wound care * Palliative care consult- Goals of care * Tramadol 50mg Q8 prn for pain * POLST- DNR/DNI Disposition: Inset Cutter is working on finding [facility] placement for patient; will be considering other alternatives based on the patients insurance. Patient is requesting [facility] as [facility] placement to continue her HD due to family member working there (brother). Follow up with adoption social worker on [facility] placement vs Home health Aide. Continue PT/OT. <Misha Wells - Last Filed: 04/10/18 17:57> Objective - Vital Signs/Intake and Output Vital Signs (last 24 hours): Temp Pulse Resp BP Pulse Ox 98.7 F 64 20 100/53 L 98 04/10/18 16:00 04/10/18 16:00 04/10/18 16:00 04/10/18 16:00 04/10/18 16:00 Intake and Output: 04/10/18 04/10/18 06:59 18:59 Intake Total 240 540 Balance 240 540 - Medications Medications: Current Medications Amlodipine Besylate (Norvasc) 5 mg PO DAILY [facility] Last Admin: 04/10/18 09:28 Dose: 5 mg Apixaban (Eliquis) 5 mg PO BID [facility] Last Admin: 04/10/18 17:50 Dose: 5 mg Bacitracin (Bacitracin) 0 gm TOP DAILY [facility] Last Admin: 04/10/18 10:21 Dose: 1 applic Calcitriol (Rocaltrol) 0.5 mcg PO DAILY [facility] Last Admin: 04/10/18 09:28 Dose: 0.5 mcg Calcium Acetate (Phoslo) 1,334 mg PO TIDCC [facility] Last Admin: 04/10/18 17:50 Dose: 1,334 mg Docusate Sodium (Colace) 100 mg PO DAILY [facility] Last Admin: 04/10/18 09:28 Dose: 100 mg Epoetin Nico (Procrit) 2,000 u IV [facility] Last Admin: 04/09/18 15:21 Dose: 2,000 u Epoetin Nico (Procrit) 3,000 unit IV [facility] Last Admin: 04/09/18 15:22 Dose: 3,000 unit Epoetin Nico (Procrit) 10,000 unit IV [facility] Last Admin: 04/09/18 15:21 Dose: 10,000 unit Fluoxetine HCl (Prozac) 40 mg PO DAILY [facility] Last Admin: 04/10/18 09:28 Dose: 40 mg Heparin Sodium (Porcine) (Heparin) 5,400 units IVP [facility] Last Admin: 04/09/18 15:23 Dose: 5,400 units Insulin Human Regular (Novolin R) 0 unit SC [facility] PRN Reason: Protocol Last Admin: 04/10/18 17:50 Dose: 2 unit Rosuvastatin Calcium (Crestor) 5 mg PO HS [facility] Last Admin: 04/09/18 21:38 Dose: 5 mg Sodium Polystyrene Sulfonate (Kayexalate Susp) 15 gm PO SA [facility] Last Admin: 04/10/18 09:29 Dose: 15 gm Sodium Polystyrene Sulfonate (Kayexalate Susp) 15 gm PO MCCLAIN [facility] Last Admin: 04/04/18 11:32 Dose: 15 gm Tramadol HCl (Ultram) 50 mg PO Q8H PRN PRN Reason: Pain, moderate (4-7) Last Admin: 04/05/18 16:16 Dose: 50 mg - Labs Labs: 04/07/18 13:46 04/09/18 13:40 Attending/Attestation - Attestation I have personally seen and examined this patient.: Yes I have fully participated in the care of the patient.: Yes I have reviewed all pertinent clinical information, including history, physical exam and plan: Yes Notes (Text): Seen and examined by me. No complain 1. ESRD on hemodialysis Dialysis as per guitar teacher Dr Gill Hemodialysis catheter malfunctions currently using IVC catheter placed in right lumbar area 2.Multiple falls at home with lack of support Pending rehab/fpc slag production worker working on it 3.Patient with DVT of superior vena cava hypercoaguable with free floating thrombus seen in IVC last year continue eliquis 5 mg bid 4.Anemia secondary to ESRD Epogen and iron as per nephro Discussed with resident and I agree with the assessment and the plan
[2018-04-07] MEDS: (Novolin R) Insulin Human Regular 100 units/ml vial SC SCH ×4 (08:33→21:32)
[2018-04-07] MEDS: Bacitracin Ointment 30 GM TUBE TOP SCH (10:16)
[2018-04-07 13:51] LABS: BASO % 0.6 % (0.0-2.0); EOS # 0.1 K/uL (0.0-0.7); HEMOGLOBIN 9.2 g/dL (11.0-16.0); LYMPH # 0.5 K/uL (1.0-4.3); LYMPH % 9.3 % (20.0-40.0); MEAN CELL VOLUME 96.2 fL (81.0-99.0); MEAN CORPUSCULAR HEMOGLOBIN 31.2 pg (27.0-31.0); MEAN CORPUSCULAR HGB CONC 32.5 g/dL (33.0-37.0); MEAN PLATELET VOLUME 9.3 fL (7.2-11.7); MONO # 0.4 K/uL (0.0-0.8); MONO % 8.6 % (0.0-10.0); NEUT # 4.2 K/uL (1.8-7.0); NEUT % 80.5 % (50.0-75.0); NRBC % 0.1 % (0.0-2.0); PLATELET COUNT 316 K/uL (130-400); RBC 2.95 Mil/uL (3.80-5.20); RED CELL DISTRIBUTION WIDTH 17.7 % (11.5-14.5); WHITE BLOOD COUNT 5.2 K/uL (4.8-10.8)
[2018-04-07 14:10] LABS: ALB/GLOB RATIO 1.2 (1.0-2.1); ALBUMIN 3.9 g/dL (3.5-5.0); CALCIUM 8.7 mg/dl (8.6-10.4)
[2018-04-07 14:18] LABS: LYMPHOCYTE 9 % (20-40); MONOCYTE 10 % (0-10); NEUTROPHIL 81 % (50-75); PLATELET ESTIMATE NORMAL (NORMAL); TOTAL CELLS COUNTED 100
[2018-04-07 14:19] LABS: ANISOCYTOSIS SLIGHT
[2018-04-07] MEDS: Epoetin Alfa Dialysis 2000 U/ML Inj IV SCH (14:33)
[2018-04-07] MEDS: Epoetin Alfa 10,000 unit/ml Dialysis IV SCH (14:34)
[2018-04-07] MEDS: Epoetin Alfa Dialysis 3000 UNIT/ML Inj IV SCH (14:35)
--- NOTE | 2018-04-07 23:47 | CP.PCM.PN ---
Subjective - Date & Time of Evaluation Date of Evaluation: 04/07/18 Time of Evaluation: 11:00 - Subjective Subjective: 57 yo F w/ pmh of htn, dm w/ neuropathy/retinopathy, PAD, ataxia, s/p IVC and now SVC thrombus, and ESRD on HD, admitted s/p recurrent falls; Reports feeling well; per nursing staff, has unsafe transfers (chair to bed) when attempting to do so on her own; otherwise tolerating diet well; no nausea/ vomiting or breathing complaints; Objective - Vital Signs/Intake and Output Vital Signs (last 24 hours): Temp Pulse Resp BP Pulse Ox 97.4 F L 60 18 111/49 L 99 04/07/18 16:30 04/07/18 16:30 04/07/18 16:30 04/07/18 16:30 04/07/18 16:30 Intake and Output: 04/07/18 04/08/18 18:59 06:59 Intake Total 360 240 Balance 360 240 - Medications Medications: Current Medications Amlodipine Besylate (Norvasc) 5 mg PO DAILY [facility] Last Admin: 04/07/18 10:15 Dose: Not Given Apixaban (Eliquis) 5 mg PO BID [facility] Last Admin: 04/07/18 17:53 Dose: 5 mg Bacitracin (Bacitracin) 0 gm TOP DAILY [facility] Last Admin: 04/07/18 10:16 Dose: 1 applic Calcitriol (Rocaltrol) 0.5 mcg PO DAILY [facility] Last Admin: 04/07/18 10:15 Dose: Not Given Calcium Acetate (Phoslo) 1,334 mg PO TIDCC [facility] Last Admin: 04/07/18 17:55 Dose: 1,334 mg Docusate Sodium (Colace) 100 mg PO DAILY [facility] Last Admin: 04/07/18 10:20 Dose: Not Given Epoetin Nico (Procrit) 2,000 u IV MWF [facility] Last Admin: 04/07/18 14:33 Dose: 2,000 u Epoetin Nico (Procrit) 3,000 unit IV MWF [facility] Last Admin: 04/07/18 14:35 Dose: 3,000 unit Epoetin Nico (Procrit) 10,000 unit IV MWF [facility] Last Admin: 04/07/18 14:34 Dose: 10,000 unit Ferric Sodium Gluconate Complex (Ferrlecit) 125 mg IVPB QWK [facility] Stop: 04/09/18 10:01 Last Admin: 04/01/18 10:18 Dose: 125 mg Fluoxetine HCl (Prozac) 40 mg PO DAILY [facility] Last Admin: 04/07/18 10:15 Dose: Not Given Heparin Sodium (Porcine) (Heparin) 5,400 units IVP MWF [facility] Last Admin: 04/07/18 14:32 Dose: 5,400 units Insulin Human Regular (Novolin R) 0 unit SC ACHS [facility] PRN Reason: Protocol Last Admin: 04/07/18 21:32 Dose: Not Given Rosuvastatin Calcium (Crestor) 5 mg PO HS [facility] Last Admin: 04/07/18 21:34 Dose: 5 mg Sodium Polystyrene Sulfonate (Kayexalate Susp) 15 gm PO SA [facility] Last Admin: 04/03/18 09:46 Dose: Not Given Sodium Polystyrene Sulfonate (Kayexalate Susp) 15 gm PO MCCLAIN [facility] Last Admin: 04/04/18 11:32 Dose: 15 gm Tramadol HCl (Ultram) 50 mg PO Q8H PRN PRN Reason: Pain, moderate (4-7) Last Admin: 04/05/18 16:16 Dose: 50 mg - Labs Labs: 04/07/18 13:46 04/07/18 13:46 - Constitutional Appears: Non-toxic, No Acute Distress - Eye Exam Eye Exam: absent: Scleral icterus - Respiratory Exam Respiratory Exam: Clear to Ausculation Bilateral. absent: Respiratory Distress - Cardiovascular Exam Cardiovascular Exam: RRR, +S1, +S2. absent: Gallop - GI/Abdominal Exam GI & Abdominal Exam: Soft. absent: Distended, Tenderness - Extremities Exam Additional comments: minimal lower leg edema; - Neurological Exam Neurological Exam: Alert, Awake - Psychiatric Exam Psychiatric exam: absent: Agitated, Normal Mood - Skin Skin Exam: Warm. absent: Cyanosis Assessment and Plan (1) ESRD on hemodialysis Assessment & Plan: Stable electrolyte and volume status; dialyzing today per routine for both UF and clearance; s/p tPA overnight for malfunctioning HD catheter; will continue to monitor closely for need for catheter exchange; Status: Chronic (2) Acute deep vein thrombosis (DVT) of superior vena cava Assessment & Plan: On eliquis 5 mg bid, need to continue indefinitely despite fall risk; Status: Acute (3) Right atrial thrombus Status: Suspected (4) Anemia of renal disease Assessment & Plan: Hgb below goal (10-11 g) but stable, continue IV iron 125 mg weekly and EPO 15, 000 u on HD; Status: Chronic (5) Ataxic gait Assessment & Plan: Major fall and bleeding risk; awaiting placement into superintendent terminal facility, is unsafe to discharge home; Status: Chronic (6) Chronic kidney disease-mineral and bone disorder Assessment & Plan: PTH at goal, continue calcitriol 0.5 mcg daily; checking phos, continue phoslo 2 tabs w/ meals; Status: Chronic (7) Hemodialysis catheter malfunction Status: Chronic (8) Hypertensive CKD, ESRD on dialysis Assessment & Plan: BP elevated pre-HD, continuing with amlodipine 5 mg daily; Status: Chronic
--- NOTE | 2018-04-08 09:48 | CP.PCM.PN ---
<Portillo Monroe - Last Filed: 04/08/18 20:22> Subjective - Date & Time of Evaluation Date of Evaluation: 04/08/18 Time of Evaluation: 09:48 - Subjective Subjective: PGY-[address] Wells service Patient was seen and examined sitting comfortably in chair. No acute events overnight. Pt complains of lower back and thighs itchiness. Pt continues to complain of back and right leg pain. Pt denies fever, chills, headaches, dizziness, nausea, Vomiting, Diarrhea or constipation. Objective - Vital Signs/Intake and Output Vital Signs (last 24 hours): Temp Pulse Resp BP Pulse Ox 97.6 F 72 20 108/52 L 100 04/08/18 07:59 04/08/18 07:59 04/08/18 07:59 04/08/18 07:59 04/08/18 07:59 Intake and Output: 04/08/18 04/08/18 06:59 18:59 Intake Total 440 Balance 440 - Medications Medications: Current Medications Amlodipine Besylate (Norvasc) 5 mg PO DAILY [facility] Last Admin: 04/07/18 10:15 Dose: Not Given Apixaban (Eliquis) 5 mg PO BID [facility] Last Admin: 04/07/18 17:53 Dose: 5 mg Bacitracin (Bacitracin) 0 gm TOP DAILY [facility] Last Admin: 04/07/18 10:16 Dose: 1 applic Calcitriol (Rocaltrol) 0.5 mcg PO DAILY [facility] Last Admin: 04/07/18 10:15 Dose: Not Given Calcium Acetate (Phoslo) 1,334 mg PO TIDCC [facility] Last Admin: 04/07/18 17:55 Dose: 1,334 mg Docusate Sodium (Colace) 100 mg PO DAILY [facility] Last Admin: 04/07/18 10:20 Dose: Not Given Epoetin Nico (Procrit) 2,000 u IV MWF [facility] Last Admin: 04/07/18 14:33 Dose: 2,000 u Epoetin Nico (Procrit) 3,000 unit IV MWF [facility] Last Admin: 04/07/18 14:35 Dose: 3,000 unit Epoetin Nico (Procrit) 10,000 unit IV MWF [facility] Last Admin: 04/07/18 14:34 Dose: 10,000 unit Ferric Sodium Gluconate Complex (Ferrlecit) 125 mg IVPB QWK [facility] Stop: 04/09/18 10:01 Last Admin: 04/01/18 10:18 Dose: 125 mg Fluoxetine HCl (Prozac) 40 mg PO DAILY [facility] Last Admin: 04/07/18 10:15 Dose: Not Given Heparin Sodium (Porcine) (Heparin) 5,400 units IVP MWF [facility] Last Admin: 04/07/18 14:32 Dose: 5,400 units Insulin Human Regular (Novolin R) 0 unit SC ACHS [facility] PRN Reason: Protocol Last Admin: 04/07/18 21:32 Dose: Not Given Rosuvastatin Calcium (Crestor) 5 mg PO HS [facility] Last Admin: 04/07/18 21:34 Dose: 5 mg Sodium Polystyrene Sulfonate (Kayexalate Susp) 15 gm PO SA [facility] Last Admin: 04/03/18 09:46 Dose: Not Given Sodium Polystyrene Sulfonate (Kayexalate Susp) 15 gm PO MCCLAIN [facility] Last Admin: 04/04/18 11:32 Dose: 15 gm Tramadol HCl (Ultram) 50 mg PO Q8H PRN PRN Reason: Pain, moderate (4-7) Last Admin: 04/05/18 16:16 Dose: 50 mg - Labs Labs: 04/07/18 13:46 04/07/18 13:46 - Constitutional Appears: Well, Non-toxic, No Acute Distress - Head Exam Head Exam: ATRAUMATIC, NORMAL INSPECTION - Eye Exam Eye Exam: EOMI, Normal appearance - Neck Exam Neck Exam: Full ROM - Respiratory Exam Respiratory Exam: Clear to Ausculation Bilateral, NORMAL BREATHING PATTERN. absent: Rales, Rhonchi, Wheezes - Cardiovascular Exam Cardiovascular Exam: REGULAR RHYTHM, +S1, +S2 - GI/Abdominal Exam GI & Abdominal Exam: Soft, Normal Bowel Sounds. absent: Firm, Guarding, Tenderness - Extremities Exam Extremities Exam: Full ROM, Normal Inspection. absent: Calf Tenderness - Back Exam Back Exam: NORMAL INSPECTION Additional comments: echymosis noted mid back from fall. Dialysis cath in place, dressing clean, dry and intact. - Neurological Exam Neurological Exam: Abnormal Gait, Alert, Awake, Oriented x3 - Psychiatric Exam Psychiatric exam: Normal Affect, Normal Mood - Skin Skin Exam: Intact, Normal Color Assessment and Plan - Assessment and Plan (Free Text) Plan: (1) ESRD on hemodialysis Assessment & Plan: * Will be going for Dialysis tomorrow. * Nephrology (Dr. Still) consulted- -Hemodialysis completed yesterday s/p tPA for malfunctioning catheter; no need for catheter exchange as of now. Electrolytes stable; volume status stable * Vascular surgery (Dr. Olson) consulted- no surgical intervention for AVG at this time * Continue MWF schedule * Procrit [id number] MWF * Phoslo 1334mg PO WM * Calcitriol 0.5.cg PO daily * Consistent carbohydrate diet * Femoral vein permacath thrombosed- New dialysis catheter placed on right back on 03/29/18 at [facility]. (2) Hypertensive CKD, ESRD on dialysis Assessment & Plan: * BP: 108/52 * Norvasc 5mg PO daily * Continue MWF dialysis schedule (3) Anemia of renal disease Assessment & Plan: * Hgb 9.2, below goal of 10-11 but stable * Continue IV iron 125 mg Q weekly, EPO [id number] units on HD as per Dr Bhakta recommendations (4) Chronic kidney disease-mineral and bone disorder Assessment & Plan: * Phos 6.7 * continue phoslo 2 tabs w/ meals and calcitriol 0.5mcg daily respectively (6) IVC thrombosis Assessment & Plan: * Continue Eliquis 5mg PO daily * While placing new dialysis catheter in back on 03/29 * Echo: borderline to mild asymetric LVH; EF 50-55%; mild global hypokinesis of lV; LA mildly dilated; trace-mild MR; mild to moderate TR. * (7) Ataxic gait * fall risk - ambulating from chair to bed * PT/OT * Case management/social work consulted for placement at [facility] (8) s/p Fall; History of Falls Subcutaneous soft tissue and posterio back edema/hemorrhage hematoma * Lumbar spine CT: subcutaneous hematoma partially visulaized in right lower lumbar and gluteal regions measuring 7.8x2.3cm; urinary bladder wall thickening possibly due to incomplete distention or cystitis; no fracture * Pelvic CT: Right lower lumbar and sacral region hematoma measuring up to 8.7 cm as well as a left side lateral gluteal/ hip region hematoma measuring 7 x 5.3 centimeters. Imaging from previous hospitalization * CT head (03/07/18): no evidence of acute intracranial hemorrhage, midline shift , or mass effect is identified, possible right facial soft tissue swelling * Rib xrays (03/07/18): multiple left side rib fractures as described. Mild bibasilar atelectasis left greater than right. Elevation right hemidiaphrgam likely due to eventration * Hip (03/07/18):no definitive radiographic evidence of acute hip or pelvic fracture seen * Lumbar CT scan (12/20/17): incompletely visualized posterior back subcutaneous soft tissue fluid and right posterior back edema/hemorrhage hematoma measuring 6cm ~ in right and left dimension at level of L4-S1. Small left pleural effusion. no acute fracture of the lumbar spine. * Imaging available in patient's [place] hospitalization prior to transfer; will hold Eliquis given hematoma and increase risk of falls (8) DM * Accuchecks * ISS * Hypoglycemic protocol * A1c (12/2017): 6.6 (9) Prophylaxis * DVT: SCDs; Eliquis 5mg PO daily * Consistent Carbohydrate diet * Case management, pediatric social worker consulted * PT/OT * Wound care * Palliative care consult- Goals of care * Tramadol 50mg Q8 prn for pain * POLST- DNR/DNI Disposition: [employer] is working on finding [facility] placement for patient, assisting on difficulties with Medicaid; will be considering other alternatives based on the patients insurance. Patient is requesting [facility] as [facility] placement to continue her HD due to family member working there (brother). Follow up with pediatric social worker on [facility] placement vs Home health Aide. Continue PT/OT. <Misha Wells - Last Filed: 04/10/18 18:00> Objective - Vital Signs/Intake and Output Vital Signs (last 24 hours): Temp Pulse Resp BP Pulse Ox 98.7 F 64 20 100/53 L 98 04/10/18 16:00 04/10/18 16:00 04/10/18 16:00 04/10/18 16:00 04/10/18 16:00 Intake and Output: 04/10/18 04/10/18 06:59 18:59 Intake Total 240 540 Balance 240 540 - Medications Medications: Current Medications Amlodipine Besylate (Norvasc) 5 mg PO DAILY [facility] Last Admin: 04/10/18 09:28 Dose: 5 mg Apixaban (Eliquis) 5 mg PO BID [facility] Last Admin: 04/10/18 17:50 Dose: 5 mg Bacitracin (Bacitracin) 0 gm TOP DAILY [facility] Last Admin: 04/10/18 10:21 Dose: 1 applic Calcitriol (Rocaltrol) 0.5 mcg PO DAILY [facility] Last Admin: 04/10/18 09:28 Dose: 0.5 mcg Calcium Acetate (Phoslo) 1,334 mg PO TIDCC [facility] Last Admin: 04/10/18 17:50 Dose: 1,334 mg Docusate Sodium (Colace) 100 mg PO DAILY [facility] Last Admin: 04/10/18 09:28 Dose: 100 mg [facility]etin N[facility] ([facility]) [facility] Last Admin: 04/09/18 15:21 Dose: 2,000 u Epoetin Nico (Procrit) 3,000 unit IV [facility] Last Admin: 04/09/18 15:22 Dose: 3,000 unit Epoetin Nico (Procrit) 10,000 unit IV [facility] Last Admin: 04/09/18 15:21 Dose: 10,000 unit Fluoxetine HCl (Prozac) 40 mg PO DAILY [facility] Last Admin: 04/10/18 09:28 Dose: 40 mg Heparin Sodium (Porcine) (Heparin) 5,400 units IVP [facility] Last Admin: 04/09/18 15:23 Dose: 5,400 units Insulin Human Regular (Novolin R) 0 unit SC ACHS [facility] PRN Reason: Protocol Last Admin: 04/10/18 17:50 Dose: 2 unit Rosuvastatin Calcium (Crestor) 5 mg PO HS [facility] Last Admin: 04/09/18 21:38 Dose: 5 mg Sodium Polystyrene Sulfonate (Kayexalate Susp) 15 gm PO SA [facility] Last Admin: 04/10/18 09:29 Dose: 15 gm Sodium Polystyrene Sulfonate (Kayexalate Susp) 15 gm PO MCCLAIN [facility] Last Admin: 04/04/18 11:32 Dose: 15 gm Tramadol HCl (Ultram) 50 mg PO Q8H PRN PRN Reason: Pain, moderate (4-7) Last Admin: 04/05/18 16:16 Dose: 50 mg - Labs Labs: 04/07/18 13:46 04/09/18 13:40 Attending/Attestation - Attestation I have personally seen and examined this patient.: Yes I have fully participated in the care of the patient.: Yes I have reviewed all pertinent clinical information, including history, physical exam and plan: Yes Notes (Text): 1. 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
--- NOTE | 2018-04-08 10:32 | CP.PCM.PN ---
<Williams Morales - Last Filed: 04/08/18 13:12> Subjective - Date & Time of Evaluation Date of Evaluation: 04/08/18 Time of Evaluation: 10:10 - Subjective Subjective: PGY-1 Nephrology progress note for Dr. Still's service Patient was seen and examined at bedside. Patient was pleasant to speak with and not in any acute distress. Patient reports good urine output this morning. Patient had dialysis yesterday with no complaints. Pt reports no chest pain, shortness of breath, nausea or vomiting, constipation or diarrhea. Objective - Vital Signs/Intake and Output Vital Signs (last 24 hours): Temp Pulse Resp BP Pulse Ox 97.6 F 72 20 108/52 L 100 04/08/18 07:59 04/08/18 07:59 04/08/18 07:59 04/08/18 07:59 04/08/18 07:59 Intake and Output: 04/08/18 04/08/18 06:59 18:59 Intake Total 440 Balance 440 - Medications Medications: Current Medications Amlodipine Besylate (Norvasc) 5 mg PO DAILY [facility] Last Admin: 04/07/18 10:15 Dose: Not Given Apixaban (Eliquis) 5 mg PO BID [facility] Last Admin: 04/07/18 17:53 Dose: 5 mg Bacitracin (Bacitracin) 0 gm TOP DAILY [facility] Last Admin: 04/07/18 10:16 Dose: 1 applic Calcitriol (Rocaltrol) 0.5 mcg PO DAILY [facility] Last Admin: 04/07/18 10:15 Dose: Not Given Calcium Acetate (Phoslo) 1,334 mg PO TIDCC [facility] Last Admin: 04/07/18 17:55 Dose: 1,334 mg Docusate Sodium (Colace) 100 mg PO DAILY [facility] Last Admin: 04/07/18 10:20 Dose: Not Given Epoetin Nico (Procrit) 2,000 u IV MWF [facility] Last Admin: 04/07/18 14:33 Dose: 2,000 u Epoetin Nico (Procrit) 3,000 unit IV MWF [facility] Last Admin: 04/07/18 14:35 Dose: 3,000 unit Epoetin Nico (Procrit) 10,000 unit IV MWF [facility] Last Admin: 04/07/18 14:34 Dose: 10,000 unit Ferric Sodium Gluconate Complex (Ferrlecit) 125 mg IVPB QWK [facility] Stop: 04/09/18 10:01 Last Admin: 04/01/18 10:18 Dose: 125 mg Fluoxetine HCl (Prozac) 40 mg PO DAILY [facility] Last Admin: 04/07/18 10:15 Dose: Not Given Heparin Sodium (Porcine) (Heparin) 5,400 units IVP MWF [facility] Last Admin: 04/07/18 14:32 Dose: 5,400 units Insulin Human Regular (Novolin R) 0 unit SC ACHS [facility] PRN Reason: Protocol Last Admin: 04/07/18 21:32 Dose: Not Given Rosuvastatin Calcium (Crestor) 5 mg PO HS [facility] Last Admin: 04/07/18 21:34 Dose: 5 mg Sodium Polystyrene Sulfonate (Kayexalate Susp) 15 gm PO SA [facility] Last Admin: 04/03/18 09:46 Dose: Not Given Sodium Polystyrene Sulfonate (Kayexalate Susp) 15 gm PO MCCLAIN [facility] Last Admin: 04/04/18 11:32 Dose: 15 gm Tramadol HCl (Ultram) 50 mg PO Q8H PRN PRN Reason: Pain, moderate (4-7) Last Admin: 04/05/18 16:16 Dose: 50 mg - Labs Labs: 04/07/18 13:46 04/07/18 13:46 - Additional Findings Additional findings: - Constitutional Appears: No Acute Distress - Head Exam Head Exam: ATRAUMATIC, NORMAL INSPECTION, NORMOCEPHALIC - Eye Exam Eye Exam: EOMI, Normal appearance - Respiratory Exam Respiratory Exam: Clear to Ausculation Bilateral, NORMAL BREATHING PATTERN. absent: Decreased Breath Sounds, Rhonchi, Wheezes - Cardiovascular Exam Cardiovascular Exam: REGULAR RHYTHM, RRR, +S1, +S2 - GI/Abdominal Exam GI & Abdominal Exam: Soft, Normal Bowel Sounds. absent: Distended, Tenderness - Back Exam Additional comments: HD catheter inserted in right lumbar area. Appears viable. - Neurological Exam Neurological Exam: Alert, Awake, Oriented x3 - Psychiatric Exam Psychiatric exam: Normal Affect - Skin Skin Exam: Dry, Intact, Normal Color Additional comments: hematoma on LLE Assessment and Plan - Assessment and Plan (Free Text) Assessment: 57 y.o female with PMH of HTN, DM with neuropathy/retinopathy, PAD, CAD s/p remote intervention, s/p pacemaker placement, s/p IVC thrombus, now with SVC thrombus and ESRD on HD now s/p new trans-lumbar HD catheter. Plan: ESRD on hemodialysis -Hemodialysis completed yesterday s/p tPA for malfunctioning catheter; no need for catheter exchange as of now -Electrolytes stable; volume status stable -Pt would prefer placement into [facility] for further dialysis because of family support (brother and mother) -body worker assisting due to difficulties with Medicaid Acute DVT of superior vena cava -SVC SVC thrombus seen on fluoroscopy during catheter exchange; question also of RA thrombus but not mentioned on TTE; remains hypercoaguable with free floating thrombus seen in IVC last year; - continue eliquis 5 mg bid RA thrombus - Suspected - Continue eliquis 5mg bid (patient completed 1 week of 10mg bid) Anemia secondary to ESRD -Hgb 9.2 below goal (10-11g); Continue IV iron 125 mg weekly and EPO [id number] units on HD -continue to monitor; Ataxic gat -Waiting for social work for placement; fall risk; unsafe to discharge at home; spoke to patient about not ambulating alone -Status: 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 - PTH was at goal - continue calcitriol 0.5 mcg daily; phos 6.7 still high, continue phoslo 2 tabs w/ meals; Hemodialysis catheter malfunction - chronic, currently using IVC catheter placed in right lumbar area Hypertensive CKD, ESRD on dialysis - Fluctuating BP; continue amlodipine 5mg daily; <Melvin Still - Last Filed: 04/09/18 08:02> Objective - Vital Signs/Intake and Output Vital Signs (last 24 hours): Temp Pulse Resp BP Pulse Ox 98.9 F 73 20 112/63 95 04/09/18 00:00 04/09/18 00:00 04/09/18 00:00 04/09/18 00:00 04/09/18 00:00 Intake and Output: 04/09/18 04/09/18 06:59 18:59 Intake Total 400 200 Balance 400 200 - Medications Medications: Current Medications Amlodipine Besylate (Norvasc) 5 mg PO DAILY [facility] Last Admin: 04/08/18 10:47 Dose: Not Given Apixaban (Eliquis) 5 mg PO BID [facility] Last Admin: 04/08/18 17:22 Dose: 5 mg Bacitracin (Bacitracin) 0 gm TOP DAILY [facility] Last Admin: 04/08/18 10:52 Dose: 1 applic Calcitriol (Rocaltrol) 0.5 mcg PO DAILY [facility] Last Admin: 04/08/18 10:50 Dose: 0.5 mcg Calcium Acetate (Phoslo) 1,334 mg PO TIDCC [facility] Last Admin: 04/08/18 17:22 Dose: 1,334 mg Docusate Sodium (Colace) 100 mg PO DAILY [facility] Last Admin: 04/08/18 10:44 Dose: 100 mg Epoetin Nico (Procrit) 2,000 u IV [facility] Last Admin: 04/07/18 14:33 Dose: 2,000 u Epoetin Nico (Procrit) 3,000 unit IV [facility] Last Admin: 04/07/18 14:35 Dose: 3,000 unit Epoetin Nico (Procrit) 10,000 unit IV [facility] Last Admin: 04/07/18 14:34 Dose: 10,000 unit Ferric Sodium Gluconate Complex (Ferrlecit) 125 mg IVPB QWK [facility] Stop: 04/09/18 10:01 Last Admin: 04/08/18 10:49 Dose: 125 mg Fluoxetine HCl (Prozac) 40 mg PO DAILY [facility] Last Admin: 04/08/18 10:50 Dose: 40 mg Heparin Sodium (Porcine) (Heparin) 5,400 units IVP MWF [facility] Last Admin: 04/07/18 14:32 Dose: 5,400 units Heparin Sodium (Porcine) (Heparin) 2,000 units IVP ONCE ONE Stop: 04/09/18 09:01 Insulin Human Regular (Novolin R) 0 unit SC [facility] PRN Reason: Protocol Last Admin: 04/08/18 12:19 Dose: 3 unit Rosuvastatin Calcium (Crestor) 5 mg PO HS [facility] Last Admin: 04/08/18 21:29 Dose: 5 mg Sodium Polystyrene Sulfonate (Kayexalate Susp) 15 gm PO SA [facility] Last Admin: 04/03/18 09:46 Dose: Not Given Sodium Polystyrene Sulfonate (Kayexalate Susp) 15 gm PO MCCLAIN [facility] Last Admin: 04/04/18 11:32 Dose: 15 gm Tramadol HCl (Ultram) 50 mg PO Q8H PRN PRN Reason: Pain, moderate (4-7) Last Admin: 04/05/18 16:16 Dose: 50 mg - Labs Labs: 04/07/18 13:46 04/07/18 13:46 Assessment and Plan (1) ESRD on hemodialysis Status: Chronic (2) Acute deep vein thrombosis (DVT) of superior vena cava Status: Acute (3) Right atrial thrombus Status: Suspected (4) Anemia of renal disease Status: Chronic (5) Ataxic gait Status: Chronic (6) Chronic kidney disease-mineral and bone disorder Status: Chronic (7) Hemodialysis catheter malfunction Status: Chronic (8) Hypertensive CKD, ESRD on dialysis Status: Chronic Attending/Attestation - Attestation I have personally seen and examined this patient.: Yes I have fully participated in the care of the patient.: Yes I have reviewed all pertinent clinical information, including history, physical exam and plan: Yes Notes (Text): Patient seen and examined; I agree with the resident's note as above with the following additions/edits: 57 yo F being followed by out outpatient ESRD service, admitted s/p recurrent falls, unsafe for discharge home, awaiting placement into shelter care facility; Underwent HD yesterday after having tPA instilled and left overnight the day before; still with subpar blood flows (only ~200 cc/min) but able to complete HD treatment; will give heparin bolus at beginning of treatment tomorrow; planning for extended 4 hr treatment although with only half of regular blood flows, she will remain under-dialyzed; checking chem panel at start of treatment ; Anemia relatively stable, hgb still below goal, continue EPO on HD; 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
[2018-04-08] MEDS: (Novolin R) Insulin Human Regular 100 units/ml vial SC SCH ×2 (10:45→12:19)
[2018-04-08] MEDS: Ferric Sodium Gluconat Complex 62.5 mg/5 ml Vial IVPB SCH (10:49)
[2018-04-08] MEDS: Bacitracin Ointment 30 GM TUBE TOP SCH (10:52)
--- NOTE | 2018-04-09 07:25 | CP.PCM.PN ---
<Portillo Monroe - Last Filed: 04/10/18 00:22> Subjective - Date & Time of Evaluation Date of Evaluation: 04/09/18 Time of Evaluation: 07:25 - Subjective Subjective: PGY-[address] Wells service Pt is seen and examined at bedside. No acute changes overnight. Patient complains of headache, mostly localized in her forehead. Pt reports no chest pain, lightheadness, shortness of breath, nausea or vomiting, constipation or diarrhea. Objective - Vital Signs/Intake and Output Vital Signs (last 24 hours): Temp Pulse Resp BP Pulse Ox 98.9 F 73 20 112/63 95 04/09/18 00:00 04/09/18 00:00 04/09/18 00:00 04/09/18 00:00 04/09/18 00:00 Intake and Output: 04/09/18 04/09/18 06:59 18:59 Intake Total 400 Balance 400 - Medications Medications: Current Medications Amlodipine Besylate (Norvasc) 5 mg PO DAILY [facility] Last Admin: 04/08/18 10:47 Dose: Not Given Apixaban (Eliquis) 5 mg PO BID [facility] Last Admin: 04/08/18 17:22 Dose: 5 mg Bacitracin (Bacitracin) 0 gm TOP DAILY [facility] Last Admin: 04/08/18 10:52 Dose: 1 applic Calcitriol (Rocaltrol) 0.5 mcg PO DAILY [facility] Last Admin: 04/08/18 10:50 Dose: 0.5 mcg Calcium Acetate (Phoslo) 1,334 mg PO TIDCC [facility] Last Admin: 04/08/18 17:22 Dose: 1,334 mg Docusate Sodium (Colace) 100 mg PO DAILY [facility] Last Admin: 04/08/18 10:44 Dose: 100 mg Epoetin Nico (Procrit) 2,000 u IV MWF [facility] Last Admin: 04/07/18 14:33 Dose: 2,000 u Epoetin Nico (Procrit) 3,000 unit IV MWF [facility] Last Admin: 04/07/18 14:35 Dose: 3,000 unit Epoetin Nico (Procrit) 10,000 unit IV MWF [facility] Last Admin: 04/07/18 14:34 Dose: 10,000 unit Ferric Sodium Gluconate Complex (Ferrlecit) 125 mg IVPB QWK [facility] Stop: 04/09/18 10:01 Last Admin: 04/08/18 10:49 Dose: 125 mg Fluoxetine HCl (Prozac) 40 mg PO DAILY [facility] Last Admin: 04/08/18 10:50 Dose: 40 mg Heparin Sodium (Porcine) (Heparin) 5,400 units IVP MWF [facility] Last Admin: 04/07/18 14:32 Dose: 5,400 units Heparin Sodium (Porcine) (Heparin) 2,000 units IVP ONCE ONE Stop: 04/09/18 09:01 Insulin Human Regular (Novolin R) 0 unit SC ACHS [facility] PRN Reason: Protocol Last Admin: 04/08/18 12:19 Dose: 3 unit Rosuvastatin Calcium (Crestor) 5 mg PO HS [facility] Last Admin: 04/08/18 21:29 Dose: 5 mg Sodium Polystyrene Sulfonate (Kayexalate Susp) 15 gm PO SA [facility] Last Admin: 04/03/18 09:46 Dose: Not Given Sodium Polystyrene Sulfonate (Kayexalate Susp) 15 gm PO [facility] Last Admin: 04/04/18 11:32 Dose: 15 gm Tramadol HCl (Ultram) 50 mg PO Q8H PRN PRN Reason: Pain, moderate (4-7) Last Admin: 04/05/18 16:16 Dose: 50 mg - Labs Labs: 04/07/18 13:46 04/07/18 13:46 - Constitutional Appears: Non-toxic, No Acute Distress - Head Exam Head Exam: ATRAUMATIC, NORMAL INSPECTION - Eye Exam Eye Exam: EOMI, Normal appearance, PERRL - Neck Exam Neck Exam: Full ROM, Normal Inspection - Respiratory Exam Respiratory Exam: Clear to Ausculation Bilateral, NORMAL BREATHING PATTERN. absent: Rales, Rhonchi, Wheezes - Cardiovascular Exam Cardiovascular Exam: REGULAR RHYTHM, +S1, +S2 - GI/Abdominal Exam GI & Abdominal Exam: Soft, Normal Bowel Sounds - Extremities Exam Extremities Exam: Full ROM, Normal Inspection. absent: Pedal Edema, Tenderness Additional comments: leg erythema bilaterally - Back Exam Back Exam: NORMAL INSPECTION - Neurological Exam Neurological Exam: Alert, Awake, Oriented x3. absent: Normal Gait - Psychiatric Exam Psychiatric exam: Normal Affect, Normal Mood - Skin Skin Exam: Intact, Normal Color Assessment and Plan - Assessment and Plan (Free Text) Plan: 1) ESRD on hemodialysis Assessment & Plan: * Dialysis Today (04/09) * Nephrology (Dr. Still) consulted-Patient was receiving dialysis with good flow from catheter; Patient received 2000 units of heparin during dialysis, Electrolytes stable; volume status stable * Vascular surgery (Dr. Olson) consulted- no surgical intervention for AVG at this time * Continue MWF schedule * Procrit [id number] MWF * Phoslo 1334mg PO WM * Calcitriol 0.5.cg PO daily * Consistent carbohydrate diet * Femoral vein permacath thrombosed- New dialysis catheter placed on right back on 03/29/18 at [facility]. (2) Hypertensive CKD, ESRD on dialysis Assessment & Plan: * BP: 108/52 * Norvasc 5mg PO daily * Continue MWF dialysis schedule (3) Anemia of renal disease Assessment & Plan: * Hgb 9.2, below goal of 10-11 but stable * Continue IV iron 125 mg Q weekly, EPO 61068 units on HD as per Dr Bhakta recommendations (4) Chronic kidney disease-mineral and bone disorder Assessment & Plan: * Phos 6.7 * continue phoslo 2 tabs w/ meals and calcitriol 0.5mcg daily respectively (6) IVC thrombosis Assessment & Plan: * Continue Eliquis 5mg PO daily * While placing new dialysis catheter in back on 03/29 * Echo: borderline to mild asymetric LVH; EF 50-55%; mild global hypokinesis of lV; LA mildly dilated; trace-mild MR; mild to moderate TR. (7) Ataxic gait * fall risk - ambulating from chair to bed * PT/OT * Case management/social work consulted for placement at [facility] (8) s/p Fall; History of Falls Subcutaneous soft tissue and posterio back edema/hemorrhage hematoma * Lumbar spine CT: subcutaneous hematoma partially visulaized in right lower lumbar and gluteal regions measuring 7.8x2.3cm; urinary bladder wall thickening possibly due to incomplete distention or cystitis; no fracture * Pelvic CT: Right lower lumbar and sacral region hematoma measuring up to 8.7 cm as well as a left side lateral gluteal/ hip region hematoma measuring 7 x 5.3 centimeters. Imaging from previous hospitalization * CT head (03/07/18): no evidence of acute intracranial hemorrhage, midline shift , or mass effect is identified, possible right facial soft tissue swelling * Rib xrays (03/07/18): multiple left side rib fractures as described. Mild bibasilar atelectasis left greater than right. Elevation right hemidiaphrgam likely due to eventration * Hip (03/07/18):no definitive radiographic evidence of acute hip or pelvic fracture seen * Lumbar CT scan (12/20/17): incompletely visualized posterior back subcutaneous soft tissue fluid and right posterior back edema/hemorrhage hematoma measuring 6cm ~ in right and left dimension at level of L4-S1. Small left pleural effusion. no acute fracture of the lumbar spine. * Imaging available in patient's [place] hospitalization prior to transfer; will hold Eliquis given hematoma and increase risk of falls (8) DM * Accuchecks * ISS * Hypoglycemic protocol * A1c (12/2017): 6.6 (9) Prophylaxis * DVT: SCDs; Eliquis 5mg PO daily * Consistent Carbohydrate diet * Case management, director of social services consulted * PT/OT * Wound care * Palliative care consult- Goals of care * Tramadol 50mg Q8 prn for pain * POLST- DNR/DNI Disposition: Securities Consultant is working on finding [facility] placement for patient, assisting on difficulties with Medicaid; will be considering other alternatives based on the patients insurance. Patient is requesting [facility] as [facility] placement to continue her HD due to family member working there (brother). Most likely will be Discharged next week. <Misha Wells - Last Filed: 04/11/18 14:26> Objective - Vital Signs/Intake and Output Vital Signs (last 24 hours): Temp Pulse Resp BP Pulse Ox 98.4 F 80 20 98/59 L 96 04/11/18 08:29 04/11/18 08:29 04/11/18 08:29 04/11/18 08:29 04/11/18 08:29 Intake and Output: 04/11/18 04/11/18 06:59 18:59 Intake Total 350 Balance 350 - Medications Medications: Current Medications Amlodipine Besylate (Norvasc) 5 mg PO DAILY [facility] Last Admin: 04/11/18 09:53 Dose: Not Given Apixaban (Eliquis) 5 mg PO BID [facility] Last Admin: 04/11/18 09:52 Dose: 5 mg Bacitracin (Bacitracin) 0 gm TOP DAILY [facility] Last Admin: 04/11/18 10:00 Dose: 1 applic Calcitriol (Rocaltrol) 0.5 mcg PO DAILY [facility] Last Admin: 04/11/18 09:49 Dose: 0.5 mcg Calcium Acetate (Phoslo) 1,334 mg PO TIDCC [facility] Last Admin: 04/11/18 12:04 Dose: 1,334 mg Docusate Sodium (Colace) 100 mg PO DAILY [facility] Last Admin: 04/11/18 09:49 Dose: 100 mg Epoetin Nico (Procrit) 2,000 u IV [facility] Last Admin: 04/09/18 15:21 Dose: 2,000 u Epoetin Nico (Procrit) 3,000 unit IV [facility] Last Admin: 04/09/18 15:22 Dose: 3,000 unit Epoetin Nico (Procrit) 10,000 unit IV MWF [facility] Last Admin: 04/09/18 15:21 Dose: 10,000 unit Fluoxetine HCl (Prozac) 40 mg PO DAILY [facility] Last Admin: 04/11/18 09:49 Dose: 40 mg Insulin Human Regular (Novolin R) 0 unit SC ACHS [facility] PRN Reason: Protocol Last Admin: 04/11/18 12:04 Dose: 4 unit Rosuvastatin Calcium (Crestor) 5 mg PO HS [facility] Last Admin: 04/10/18 21:52 Dose: Not Given Sodium Polystyrene Sulfonate (Kayexalate Susp) 15 gm PO SA [facility] Last Admin: 04/10/18 09:29 Dose: 15 gm Sodium Polystyrene Sulfonate (Kayexalate Susp) 15 gm PO [facility] Last Admin: 04/11/18 09:52 Dose: 15 gm Tramadol HCl (Ultram) 50 mg PO Q8H PRN PRN Reason: Pain, moderate (4-7) Last Admin: 04/05/18 16:16 Dose: 50 mg - Labs Labs: 04/07/18 13:46 04/09/18 13:40 Attending/Attestation - Attestation I have personally seen and examined this patient.: Yes I have fully participated in the care of the patient.: Yes I have reviewed all pertinent clinical information, including history, physical exam and plan: Yes Notes (Text): Seen and examined by me,no complain No new changes. Hematoma size is going down. Left hip wound no change Leg abrasions are dry and clean Lunge clear continue her meds including Eliquis d/w resident I agree with the assessment and the plan
[2018-04-09] MEDS: (Novolin R) Insulin Human Regular 100 units/ml vial SC SCH ×4 (08:24→21:32)
[2018-04-09] MEDS: Bacitracin Ointment 30 GM TUBE TOP SCH (09:29)
--- NOTE | 2018-04-09 13:50 | CP.PCM.PN ---
Subjective - Date & Time of Evaluation Date of Evaluation: 04/09/18 Time of Evaluation: 00:30 - Subjective Subjective: PGY-1 Nephrology progress note for Dr. Still's service Patient was seen and examined in dialysis treatment room. Patient was pleasant to speak with and not in any acute distress. Patient reports good urine output. Discussed options about [facility] care placement. Patient will discuss with social work therapist to fill out paperwork for Medicaid. Pt reports no chest pain, shortness of breath, nausea or vomiting, constipation or diarrhea. Objective - Vital Signs/Intake and Output Vital Signs (last 24 hours): Temp Pulse Resp BP Pulse Ox 97.7 F 62 16 125/86 97 04/09/18 12:30 04/09/18 12:30 04/09/18 12:30 04/09/18 13:30 04/09/18 08:40 Intake and Output: 04/09/18 04/09/18 06:59 18:59 Intake Total 400 200 Balance 400 200 - Medications Medications: Current Medications Amlodipine Besylate (Norvasc) 5 mg PO DAILY [facility] Last Admin: 04/09/18 10:05 Dose: Not Given Apixaban (Eliquis) 5 mg PO BID [facility] Last Admin: 04/09/18 09:25 Dose: 5 mg Bacitracin (Bacitracin) 0 gm TOP DAILY [facility] Last Admin: 04/09/18 09:29 Dose: 1 applic Calcitriol (Rocaltrol) 0.5 mcg PO DAILY [facility] Last Admin: 04/09/18 09:26 Dose: 0.5 mcg Calcium Acetate (Phoslo) 1,334 mg PO TIDCC [facility] Last Admin: 04/09/18 08:24 Dose: 1,334 mg Docusate Sodium (Colace) 100 mg PO DAILY [facility] Last Admin: 04/09/18 09:25 Dose: 100 mg Epoetin Nico (Procrit) 2,000 u IV MWF [facility] Last Admin: 04/07/18 14:33 Dose: 2,000 u Epoetin Nico (Procrit) 3,000 unit IV MWF [facility] Last Admin: 04/07/18 14:35 Dose: 3,000 unit Epoetin Nico (Procrit) 10,000 unit IV MWF [facility] Last Admin: 04/07/18 14:34 Dose: 10,000 unit Fluoxetine HCl (Prozac) 40 mg PO DAILY [facility] Last Admin: 04/09/18 09:25 Dose: 40 mg Heparin Sodium (Porcine) (Heparin) 5,400 units IVP MWF [facility] Last Admin: 04/07/18 14:32 Dose: 5,400 units Insulin Human Regular (Novolin R) 0 unit SC ACHS [facility] PRN Reason: Protocol Last Admin: 04/09/18 12:55 Dose: Not Given Rosuvastatin Calcium (Crestor) 5 mg PO HS [facility] Last Admin: 04/08/18 21:29 Dose: 5 mg Sodium Polystyrene Sulfonate (Kayexalate Susp) 15 gm PO SA [facility] Last Admin: 04/03/18 09:46 Dose: Not Given Sodium Polystyrene Sulfonate (Kayexalate Susp) 15 gm PO [facility] Last Admin: 04/04/18 11:32 Dose: 15 gm Tramadol HCl (Ultram) 50 mg PO Q8H PRN PRN Reason: Pain, moderate (4-7) Last Admin: 04/05/18 16:16 Dose: 50 mg - Labs Labs: 04/07/18 13:46 04/07/18 13:46 - Additional Findings Additional findings: - Additional Findings Additional findings: - Constitutional Appears: No Acute Distress - Head Exam Head Exam: ATRAUMATIC, NORMAL INSPECTION, NORMOCEPHALIC - Eye Exam Eye Exam: EOMI, Normal appearance - Respiratory Exam Respiratory Exam: Clear to Ausculation Bilateral, NORMAL BREATHING PATTERN. absent: Decreased Breath Sounds, Rhonchi, Wheezes - Cardiovascular Exam Cardiovascular Exam: REGULAR RHYTHM, RRR, +S1, +S2 - GI/Abdominal Exam GI & Abdominal Exam: Soft, Normal Bowel Sounds. absent: Distended, Tenderness - Back Exam Additional comments: HD catheter inserted in right lumbar area. Appears viable. - Neurological Exam Neurological Exam: Alert, Awake, Oriented x3 - Psychiatric Exam Psychiatric exam: Normal Affect - Skin Skin Exam: Dry, Intact, Normal Color Additional comments: hematoma on LLE Assessment and Plan - Assessment and Plan (Free Text) Assessment: 57 y.o female with PMH of HTN, DM with neuropathy/retinopathy, PAD, CAD s/p remote intervention, s/p pacemaker placement, s/p IVC thrombus, now with SVC thrombus and ESRD on HD now s/p new trans-lumbar HD catheter. Plan: ESRD on hemodialysis -Patient was receiving dialysis with good flow from catheter; Patient received 2000 units of heparin during dialysis -Electrolytes stable; volume status stable -Pt would prefer placement into [facility] for further dialysis because of family support (brother and mother) -market research worker assisting due to difficulties with Medicaid Acute DVT of superior vena cava -SVC SVC thrombus seen on fluoroscopy during catheter exchange; question also of RA thrombus but not mentioned on TTE; remains hypercoaguable with free floating thrombus seen in IVC last year; - continue eliquis 5 mg bid RA thrombus - Suspected - Continue eliquis 5mg bid (patient completed 1 week of 10mg bid) Anemia secondary to ESRD -Hgb 9.2 below goal (10-11g); Continue IV iron 125 mg weekly and EPO 26637 units on HD -continue to monitor; Ataxic gat -Waiting for social work for placement; fall risk; unsafe to discharge at home; spoke to patient about not ambulating alone -Discussed that patient needs around the clock care not just daycare -Status: 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 - PTH was at goal - continue calcitriol 0.5 mcg daily; phos 6.4 still high, continue phoslo 2 tabs w/ meals; Hemodialysis catheter malfunction - chronic, currently using IVC catheter placed in right lumbar area Hypertensive CKD, ESRD on dialysis - Fluctuating BP; continue amlodipine 5mg daily;
[2018-04-09 14:01] LABS: ALB/GLOB RATIO 1.2 (1.0-2.1); ALBUMIN 3.8 g/dL (3.5-5.0); CALCIUM 8.7 mg/dl (8.6-10.4)
[2018-04-09] MEDS: Epoetin Alfa 10,000 unit/ml Dialysis IV SCH (15:21)
[2018-04-09] MEDS: Epoetin Alfa Dialysis 2000 U/ML Inj IV SCH (15:21)
[2018-04-09] MEDS: Epoetin Alfa Dialysis 3000 UNIT/ML Inj IV SCH (15:22)
--- NOTE | 2018-04-10 06:25 | CP.PCM.PN ---
<Janine Hernandez P - Last Filed: 04/10/18 06:22> Subjective - Date & Time of Evaluation Date of Evaluation: 04/10/18 Time of Evaluation: 06:23 - Subjective Subjective: Medicine progress note for Dr. Wells, Patient seen and evaluated at bedside. In no acute distress. Sitting up watching television. Patient has no complaints at this time. Denies chest pain, shortness of breath, abdominal pain, nausea, vomiting, headache, fever, and chills. Objective - Vital Signs/Intake and Output Vital Signs (last 24 hours): Temp Pulse Resp BP Pulse Ox 99.1 F 64 20 110/72 97 04/09/18 23:25 04/09/18 23:25 04/09/18 23:25 04/09/18 23:25 04/09/18 23:25 Intake and Output: 04/09/18 04/10/18 18:59 06:59 Intake Total 450 240 Balance 450 240 - Medications Medications: Current Medications Amlodipine Besylate (Norvasc) 5 mg PO DAILY [facility] Last Admin: 04/09/18 10:05 Dose: Not Given Apixaban (Eliquis) 5 mg PO BID [facility] Last Admin: 04/09/18 17:35 Dose: 5 mg Bacitracin (Bacitracin) 0 gm TOP DAILY [facility] Last Admin: 04/09/18 09:29 Dose: 1 applic Calcitriol (Rocaltrol) 0.5 mcg PO DAILY [facility] Last Admin: 04/09/18 09:26 Dose: 0.5 mcg Calcium Acetate (Phoslo) 1,334 mg PO TIDCC [facility] Last Admin: 04/09/18 17:36 Dose: 1,334 mg Docusate Sodium (Colace) 100 mg PO DAILY [facility] Last Admin: 04/09/18 09:25 Dose: 100 mg Epoetin Nico (Procrit) 2,000 u IV MWF [facility] Last Admin: 04/09/18 15:21 Dose: 2,000 u Epoetin Nico (Procrit) 3,000 unit IV MWF [facility] Last Admin: 04/09/18 15:22 Dose: 3,000 unit Epoetin Nico (Procrit) 10,000 unit IV MWF [facility] Last Admin: 04/09/18 15:21 Dose: 10,000 unit Fluoxetine HCl (Prozac) 40 mg PO DAILY [facility] Last Admin: 04/09/18 09:25 Dose: 40 mg Heparin Sodium (Porcine) (Heparin) 5,400 units IVP MWF [facility] Last Admin: 04/09/18 15:23 Dose: 5,400 units Insulin Human Regular (Novolin R) 0 unit SC ACHS [facility] PRN Reason: Protocol Last Admin: 04/09/18 21:32 Dose: Not Given Rosuvastatin Calcium (Crestor) 5 mg PO HS [facility] Last Admin: 04/09/18 21:38 Dose: 5 mg Sodium Polystyrene Sulfonate (Kayexalate Susp) 15 gm PO SA [facility] Last Admin: 04/03/18 09:46 Dose: Not Given Sodium Polystyrene Sulfonate (Kayexalate Susp) 15 gm PO MCCLAIN [facility] Last Admin: 04/04/18 11:32 Dose: 15 gm Tramadol HCl (Ultram) 50 mg PO Q8H PRN PRN Reason: Pain, moderate (4-7) Last Admin: 04/05/18 16:16 Dose: 50 mg - Labs Labs: 04/07/18 13:46 04/09/18 13:40 - Constitutional Appears: No Acute Distress - Head Exam Head Exam: ATRAUMATIC, NORMOCEPHALIC - Eye Exam Eye Exam: EOMI - Respiratory Exam Respiratory Exam: Clear to Ausculation Bilateral. absent: Rales, Rhonchi, Wheezes - Cardiovascular Exam Cardiovascular Exam: REGULAR RHYTHM, +S1, +S2 - GI/Abdominal Exam GI & Abdominal Exam: Soft, Normal Bowel Sounds. absent: Tenderness - Extremities Exam Additional comments: Bilateral lower extremities with chronic venous stasis changes L>R. - Neurological Exam Neurological Exam: Alert, Awake - Psychiatric Exam Psychiatric exam: Normal Mood Assessment and Plan - Assessment and Plan (Free Text) Plan: 1) ESRD on hemodialysis Assessment & Plan: * Dialysis Today (04/09) * Nephrology (Dr. Still) consulted-Patient was receiving dialysis with good flow from catheter; Patient received 2000 units of heparin during dialysis, Electrolytes stable; volume status stable * Vascular surgery (Dr. Olson) consulted- no surgical intervention for AVG at this time * Continue MWF schedule * Procrit [id number] MWF * Phoslo 1334mg PO WM * Calcitriol 0.5.cg PO daily * Consistent carbohydrate diet * Femoral vein permacath thrombosed- New dialysis catheter placed on right back on 03/29/18 at [place]. (2) Hypertensive CKD, ESRD on dialysis Assessment & Plan: * BP: 108/52 * Norvasc 5mg PO daily * Continue MWF dialysis schedule (3) Anemia of renal disease Assessment & Plan: * Hgb 9.2, below goal of 10-11 but stable * Continue IV iron 125 mg Q weekly, EPO 91090 units on HD as per Dr Bhakta recommendations (4) Chronic kidney disease-mineral and bone disorder Assessment & Plan: * Phos 6.7 * continue phoslo 2 tabs w/ meals and calcitriol 0.5mcg daily respectively (6) IVC thrombosis Assessment & Plan: * Continue Eliquis 5mg PO daily * While placing new dialysis catheter in back on 03/29 * Echo: borderline to mild asymetric LVH; EF 50-55%; mild global hypokinesis of lV; LA mildly dilated; trace-mild MR; mild to moderate TR. (7) Ataxic gait * fall risk - ambulating from chair to bed * PT/OT * Case management/social work consulted for placement at [facility] (8) s/p Fall; History of Falls Subcutaneous soft tissue and posterio back edema/hemorrhage hematoma * Lumbar spine CT: subcutaneous hematoma partially visulaized in right lower lumbar and gluteal regions measuring 7.8x2.3cm; urinary bladder wall thickening possibly due to incomplete distention or cystitis; no fracture * Pelvic CT: Right lower lumbar and sacral region hematoma measuring up to 8.7 cm as well as a left side lateral gluteal/ hip region hematoma measuring 7 x 5.3 centimeters. Imaging from previous hospitalization * CT head (03/07/18): no evidence of acute intracranial hemorrhage, midline shift , or mass effect is identified, possible right facial soft tissue swelling * Rib xrays (03/07/18): multiple left side rib fractures as described. Mild bibasilar atelectasis left greater than right. Elevation right hemidiaphrgam likely due to eventration * Hip (03/07/18):no definitive radiographic evidence of acute hip or pelvic fracture seen * Lumbar CT scan (12/20/17): incompletely visualized posterior back subcutaneous soft tissue fluid and right posterior back edema/hemorrhage hematoma measuring 6cm ~ in right and left dimension at level of L4-S1. Small left pleural effusion. no acute fracture of the lumbar spine. * Imaging available in patient's [place] hospitalization prior to transfer; will hold Eliquis given hematoma and increase risk of falls (8) DM * Accuchecks * ISS * Hypoglycemic protocol * A1c (12/2017): 6.6 (9) Prophylaxis * DVT: SCDs; Eliquis 5mg PO daily * Consistent Carbohydrate diet * Case management, social work case manager consulted * PT/OT * Wound care * Palliative care consult- Goals of care * Tramadol 50mg Q8 prn for pain * POLST- DNR/DNI Disposition: [employer] Former is working on finding [facility] placement for patient, assisting on difficulties with Medicaid; will be considering other alternatives based on the patients insurance. Patient is requesting [facility] placement to continue her HD due to family member working there (brother). Most likely will be Discharged next week. <Misha Wells - Last Filed: 04/11/18 14:27> Objective - Vital Signs/Intake and Output Vital Signs (last 24 hours): Temp Pulse Resp BP Pulse Ox 98.4 F 80 20 98/59 L 96 04/11/18 08:29 04/11/18 08:29 04/11/18 08:29 04/11/18 08:29 04/11/18 08:29 Intake and Output: 04/11/18 04/11/18 06:59 18:59 Intake Total 350 Balance 350 - Medications Medications: Current Medications Amlodipine Besylate (Norvasc) 5 mg PO DAILY [facility] Last Admin: 04/11/18 09:53 Dose: Not Given Apixaban (Eliquis) 5 mg PO BID [facility] Last Admin: 04/11/18 09:52 Dose: 5 mg Bacitracin (Bacitracin) 0 gm TOP DAILY [facility] Last Admin: 04/11/18 10:00 Dose: 1 applic Calcitriol (Rocaltrol) 0.5 mcg PO DAILY [facility] Last Admin: 04/11/18 09:49 Dose: 0.5 mcg Calcium Acetate (Phoslo) 1,334 mg PO TIDCC [facility] Last Admin: 04/11/18 12:04 Dose: 1,334 mg Docusate Sodium (Colace) 100 mg PO DAILY [facility] Last Admin: 04/11/18 09:49 Dose: 100 mg Epoetin Nico (Procrit) 2,000 u IV MWF [facility] Last Admin: 04/09/18 15:21 Dose: 2,000 u Epoetin Nico (Procrit) 3,000 unit IV MWF [facility] Last Admin: 04/09/18 15:22 Dose: 3,000 unit Epoetin Nico (Procrit) 10,000 unit IV MWF [facility] Last Admin: 04/09/18 15:21 Dose: 10,000 unit Fluoxetine HCl (Prozac) 40 mg PO DAILY [facility] Last Admin: 04/11/18 09:49 Dose: 40 mg Insulin Human Regular (Novolin R) 0 unit SC ACHS [facility] PRN Reason: Protocol Last Admin: 04/11/18 12:04 Dose: 4 unit Rosuvastatin Calcium (Crestor) 5 mg PO HS [facility] Last Admin: 04/10/18 21:52 Dose: Not Given Sodium Polystyrene Sulfonate (Kayexalate Susp) 15 gm PO SA [facility] Last Admin: 04/10/18 09:29 Dose: 15 gm Sodium Polystyrene Sulfonate (Kayexalate Susp) 15 gm PO MCCLAIN [facility] Last Admin: 04/11/18 09:52 Dose: 15 gm Tramadol HCl (Ultram) 50 mg PO Q8H PRN PRN Reason: Pain, moderate (4-7) Last Admin: 04/05/18 16:16 Dose: 50 mg - Labs Labs: 04/07/18 13:46 04/09/18 13:40 Attending/Attestation - Attestation I have personally seen and examined this patient.: Yes I have fully participated in the care of the patient.: Yes I have reviewed all pertinent clinical information, including history, physical exam and plan: Yes Notes (Text): een and examined by me, sitting on the chair and watching TV No new changes. Hematoma size is going down. Left hip wound no change Leg abrasions are dry and clean Lunge clear continue her meds including Eliquis d/w resident I agree with the assessment and the plan pending discharge to rehab
[2018-04-10] MEDS: (Novolin R) Insulin Human Regular 100 units/ml vial SC SCH ×4 (08:07→21:53)
[2018-04-10] MEDS: Sod Polystyrene Sulf 15 gm/60 ml Susp PO SCH (09:29)
[2018-04-10] MEDS: Bacitracin Ointment 30 GM TUBE TOP SCH (10:21)
--- NOTE | 2018-04-11 05:35 | CP.PCM.PN ---
<Janine Hernandez P - Last Filed: 04/11/18 05:31> Subjective - Date & Time of Evaluation Date of Evaluation: 04/11/18 Time of Evaluation: 05:31 - Subjective Subjective: Medicine progress note for Dr. Wells, Patient seen and evaluated at bedside. In no acute distress. Patient is sitting in chair, which she states feels much more comfortable than sitting in bed. States she is eating well and having bowel movements. Denies chest pain, shortness of breath, abdominal pain, nausea, vomiting, headache, fever, and chills. Objective - Vital Signs/Intake and Output Vital Signs (last 24 hours): Temp Pulse Resp BP Pulse Ox 98.1 F 61 20 141/73 96 04/10/18 23:36 04/10/18 23:36 04/10/18 23:36 04/10/18 23:36 04/10/18 23:36 Intake and Output: 04/10/18 04/11/18 18:59 06:59 Intake Total 540 300 Balance 540 300 - Medications Medications: Current Medications Amlodipine Besylate (Norvasc) 5 mg PO DAILY [facility] Last Admin: 04/10/18 09:28 Dose: 5 mg Apixaban (Eliquis) 5 mg PO BID [facility] Last Admin: 04/10/18 17:50 Dose: 5 mg Bacitracin (Bacitracin) 0 gm TOP DAILY [facility] Last Admin: 04/10/18 10:21 Dose: 1 applic Calcitriol (Rocaltrol) 0.5 mcg PO DAILY [facility] Last Admin: 04/10/18 09:28 Dose: 0.5 mcg Calcium Acetate (Phoslo) 1,334 mg PO TIDCC [facility] Last Admin: 04/10/18 17:50 Dose: 1,334 mg Docusate Sodium (Colace) 100 mg PO DAILY [facility] Last Admin: 04/10/18 09:28 Dose: 100 mg Epoetin Nico (Procrit) 2,000 u IV MWF [facility] Last Admin: 04/09/18 15:21 Dose: 2,000 u Epoetin Nico (Procrit) 3,000 unit IV MWF [facility] Last Admin: 04/09/18 15:22 Dose: 3,000 unit Epoetin Nico (Procrit) 10,000 unit IV MWF [facility] Last Admin: 04/09/18 15:21 Dose: 10,000 unit Fluoxetine HCl (Prozac) 40 mg PO DAILY [facility] Last Admin: 04/10/18 09:28 Dose: 40 mg Insulin Human Regular (Novolin R) 0 unit SC ACHS [facility] PRN Reason: Protocol Last Admin: 04/10/18 21:53 Dose: Not Given Rosuvastatin Calcium (Crestor) 5 mg PO HS [facility] Last Admin: 04/10/18 21:52 Dose: Not Given Sodium Polystyrene Sulfonate (Kayexalate Susp) 15 gm PO SA [facility] Last Admin: 04/10/18 09:29 Dose: 15 gm Sodium Polystyrene Sulfonate (Kayexalate Susp) 15 gm PO MCCLAIN [facility] Last Admin: 04/04/18 11:32 Dose: 15 gm Tramadol HCl (Ultram) 50 mg PO Q8H PRN PRN Reason: Pain, moderate (4-7) Last Admin: 04/05/18 16:16 Dose: 50 mg - Labs Labs: 04/07/18 13:46 04/09/18 13:40 - Additional Findings Additional findings: - Constitutional Appears: No Acute Distress - Head Exam Head Exam: ATRAUMATIC, NORMOCEPHALIC - Eye Exam Eye Exam: EOMI - Respiratory Exam Respiratory Exam: Clear to Ausculation Bilateral. absent: Rales, Rhonchi, Wheezes - Cardiovascular Exam Cardiovascular Exam: REGULAR RHYTHM, +S1, +S2 - GI/Abdominal Exam GI & Abdominal Exam: Soft, Normal Bowel Sounds. absent: Tenderness - Extremities Exam Additional comments: scaling skin noted to bilateral lower extremities L>R. - Neurological Exam Neurological Exam: Alert, Awake - Psychiatric Exam Psychiatric exam: Normal Mood Assessment and Plan - Assessment and Plan (Free Text) Plan: 1) ESRD on hemodialysis Assessment & Plan: * Dialysis (04/09) * Nephrology (Dr. Still) consulted-Patient was receiving dialysis with good flow from catheter; Patient received 2000 units of heparin during dialysis, Electrolytes stable; volume status stable * Vascular surgery (Dr. Olson) consulted- no surgical intervention for AVG at this time * Continue MWF schedule * Procrit [id number] MWF * Phoslo 1334mg PO WM * Calcitriol 0.5.cg PO daily * Consistent carbohydrate diet * Femoral vein permacath thrombosed- New dialysis catheter placed on right back on 03/29/18 at [facility]. (2) Hypertensive CKD, ESRD on dialysis Assessment & Plan: * BP: 108/52 * Norvasc 5mg PO daily * Continue MWF dialysis schedule (3) Anemia of renal disease Assessment & Plan: * Hgb 9.2, below goal of 10-11 but stable * Continue IV iron 125 mg Q weekly, EPO 33859 units on HD as per Dr Bhakta recommendations (4) Chronic kidney disease-mineral and bone disorder Assessment & Plan: * Phos 6.7 * continue phoslo 2 tabs w/ meals and calcitriol 0.5mcg daily respectively (6) IVC thrombosis Assessment & Plan: * Continue Eliquis 5mg PO daily * While placing new dialysis catheter in back on 03/29 * Echo: borderline to mild asymetric LVH; EF 50-55%; mild global hypokinesis of lV; LA mildly dilated; trace-mild MR; mild to moderate TR. (7) Ataxic gait * fall risk - ambulating from chair to bed * PT/OT * Case management/social work consulted for placement at [facility] (8) s/p Fall; History of Falls Subcutaneous soft tissue and posterio back edema/hemorrhage hematoma * Lumbar spine CT: subcutaneous hematoma partially visulaized in right lower lumbar and gluteal regions measuring 7.8x2.3cm; urinary bladder wall thickening possibly due to incomplete distention or cystitis; no fracture * Pelvic CT: Right lower lumbar and sacral region hematoma measuring up to 8.7 cm as well as a left side lateral gluteal/ hip region hematoma measuring 7 x 5.3 centimeters. Imaging from previous hospitalization * CT head (03/07/18): no evidence of acute intracranial hemorrhage, midline shift , or mass effect is identified, possible right facial soft tissue swelling * Rib xrays (03/07/18): multiple left side rib fractures as described. Mild bibasilar atelectasis left greater than right. Elevation right hemidiaphrgam likely due to eventration * Hip (03/07/18):no definitive radiographic evidence of acute hip or pelvic fracture seen * Lumbar CT scan (12/20/17): incompletely visualized posterior back subcutaneous soft tissue fluid and right posterior back edema/hemorrhage hematoma measuring 6cm ~ in right and left dimension at level of L4-S1. Small left pleural effusion. no acute fracture of the lumbar spine. * Imaging available in patient's [place] hospitalization prior to transfer; will hold Eliquis given hematoma and increase risk of falls (8) DM * Accuchecks * ISS * Hypoglycemic protocol * A1c (12/2017): 6.6 (9) Prophylaxis * DVT: SCDs; Eliquis 5mg PO daily * Consistent Carbohydrate diet * Case management, social media marketing specialist consulted * PT/OT * Wound care * Palliative care consult- Goals of care * Tramadol 50mg Q8 prn for pain * POLST- DNR/DNI Disposition: [employer] Technician is working on finding [facility] placement for patient, assisting on difficulties with Medicaid; will be considering other alternatives based on the patients insurance. Patient is requesting [facility] placement to continue her HD due to family member working there (brother). Most likely will be Discharged this week. <Misha Wells - Last Filed: 04/11/18 14:28> Objective - Vital Signs/Intake and Output Vital Signs (last 24 hours): Temp Pulse Resp BP Pulse Ox 98.4 F 80 20 98/59 L 96 04/11/18 08:29 04/11/18 08:29 04/11/18 08:29 04/11/18 08:29 04/11/18 08:29 Intake and Output: 04/11/18 04/11/18 06:59 18:59 Intake Total 350 Balance 350 - Medications Medications: Current Medications Amlodipine Besylate (Norvasc) 5 mg PO DAILY [facility] Last Admin: 04/11/18 09:53 Dose: Not Given Apixaban (Eliquis) 5 mg PO BID [facility] Last Admin: 04/11/18 09:52 Dose: 5 mg Bacitracin (Bacitracin) 0 gm TOP DAILY [facility] Last Admin: 04/11/18 10:00 Dose: 1 applic Calcitriol (Rocaltrol) 0.5 mcg PO DAILY [facility] Last Admin: 04/11/18 09:49 Dose: 0.5 mcg Calcium Acetate (Phoslo) 1,334 mg PO TIDCC [facility] Last Admin: 04/11/18 12:04 Dose: 1,334 mg Docusate Sodium (Colace) 100 mg PO DAILY [facility] Last Admin: 04/11/18 09:49 Dose: 100 mg Epoetin Nico (Procrit) 2,000 u IV MWF [facility] Last Admin: 04/09/18 15:21 Dose: 2,000 u Epoetin Nico (Procrit) 3,000 unit IV MWF [facility] Last Admin: 04/09/18 15:22 Dose: 3,000 unit Epoetin Nico (Procrit) 10,000 unit IV MWF [facility] Last Admin: 04/09/18 15:21 Dose: 10,000 unit Fluoxetine HCl (Prozac) 40 mg PO DAILY [facility] Last Admin: 04/11/18 09:49 Dose: 40 mg Insulin Human Regular (Novolin R) 0 unit SC ACHS [facility] PRN Reason: Protocol Last Admin: 04/11/18 12:04 Dose: 4 unit Rosuvastatin Calcium (Crestor) 5 mg PO HS [facility] Last Admin: 04/10/18 21:52 Dose: Not Given Sodium Polystyrene Sulfonate (Kayexalate Susp) 15 gm PO SA [facility] Last Admin: 04/10/18 09:29 Dose: 15 gm Sodium Polystyrene Sulfonate (Kayexalate Susp) 15 gm PO MCCLAIN [facility] Last Admin: 04/11/18 09:52 Dose: 15 gm Tramadol HCl (Ultram) 50 mg PO Q8H PRN PRN Reason: Pain, moderate (4-7) Last Admin: 04/05/18 16:16 Dose: 50 mg - Labs Labs: 04/07/18 13:46 04/09/18 13:40 Attending/Attestation - Attestation I have personally seen and examined this patient.: Yes I have fully participated in the care of the patient.: Yes I have reviewed all pertinent clinical information, including history, physical exam and plan: Yes Notes (Text): een and examined by me this morning sitting on the chair and watching TV,no complain,tolerating diet No new changes. Hematoma size is going down slowly. Left hip wound no change Leg abrasions are dry and clean continue her meds including Eliquis d/w resident I agree with the assessment and the plan pending discharge to rehab
[2018-04-11] MEDS: (Novolin R) Insulin Human Regular 100 units/ml vial SC SCH ×4 (07:45→21:37)
--- NOTE | 2018-04-11 08:16 | CP.PCM.PN ---
Subjective - Date & Time of Evaluation Date of Evaluation: 04/10/18 Time of Evaluation: 12:00 - Subjective Subjective: Patient denies any complaints; tolerating diet; Objective - Vital Signs/Intake and Output Vital Signs (last 24 hours): Temp Pulse Resp BP Pulse Ox 98.1 F 61 20 141/73 96 04/10/18 23:36 04/10/18 23:36 04/10/18 23:36 04/10/18 23:36 04/10/18 23:36 Intake and Output: 04/11/18 04/11/18 06:59 18:59 Intake Total 350 Balance 350 - Medications Medications: Current Medications Amlodipine Besylate (Norvasc) 5 mg PO DAILY [facility] Last Admin: 04/10/18 09:28 Dose: 5 mg Apixaban (Eliquis) 5 mg PO BID [facility] Last Admin: 04/10/18 17:50 Dose: 5 mg Bacitracin (Bacitracin) 0 gm TOP DAILY [facility] Last Admin: 04/10/18 10:21 Dose: 1 applic Calcitriol (Rocaltrol) 0.5 mcg PO DAILY [facility] Last Admin: 04/10/18 09:28 Dose: 0.5 mcg Calcium Acetate (Phoslo) 1,334 mg PO TIDCC [facility] Last Admin: 04/10/18 17:50 Dose: 1,334 mg Docusate Sodium (Colace) 100 mg PO DAILY [facility] Last Admin: 04/10/18 09:28 Dose: 100 mg Epoetin Nico (Procrit) 2,000 u IV MWF [facility] Last Admin: 04/09/18 15:21 Dose: 2,000 u Epoetin Nico (Procrit) 3,000 unit IV MWF [facility] Last Admin: 04/09/18 15:22 Dose: 3,000 unit Epoetin Nico (Procrit) 10,000 unit IV MWF [facility] Last Admin: 04/09/18 15:21 Dose: 10,000 unit Fluoxetine HCl (Prozac) 40 mg PO DAILY [facility] Last Admin: 04/10/18 09:28 Dose: 40 mg Insulin Human Regular (Novolin R) 0 unit SC [facility] PRN Reason: Protocol Last Admin: 04/11/18 07:45 Dose: Not Given Rosuvastatin Calcium (Crestor) 5 mg PO HS [facility] Last Admin: 04/10/18 21:52 Dose: Not Given Sodium Polystyrene Sulfonate (Kayexalate Susp) 15 gm PO SA [facility] Last Admin: 04/10/18 09:29 Dose: 15 gm Sodium Polystyrene Sulfonate (Kayexalate Susp) 15 gm PO MCCLAIN [facility] Last Admin: 04/04/18 11:32 Dose: 15 gm Tramadol HCl (Ultram) 50 mg PO Q8H PRN PRN Reason: Pain, moderate (4-7) Last Admin: 04/05/18 16:16 Dose: 50 mg - Labs Labs: 04/07/18 13:46 04/09/18 13:40 - Constitutional Appears: Non-toxic, No Acute Distress - Eye Exam Eye Exam: absent: Scleral icterus - ENT Exam ENT Exam: Mucous Membranes Moist - Respiratory Exam Respiratory Exam: Clear to Ausculation Bilateral. absent: Respiratory Distress - Cardiovascular Exam Cardiovascular Exam: RRR, +S1, +S2 - GI/Abdominal Exam GI & Abdominal Exam: Soft. absent: Distended, Tenderness - Extremities Exam Additional comments: minimal lower leg edema; - Neurological Exam Neurological Exam: Alert, Awake - Psychiatric Exam Psychiatric exam: Normal Mood. absent: Agitated - Skin Skin Exam: Warm. 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 guarded; will continue with kayexalate 15 g on SatSun due to history of potassium spikes after the weekend; next HD for Thursday; Status: Chronic (2) Acute deep vein thrombosis (DVT) of superior vena cava Assessment & Plan: On eliquis 5 mg bid, need to continue indefinitely; Status: Acute (3) Right atrial thrombus Status: Suspected (4) Anemia of renal disease Assessment & Plan: Hgb below goal but stable, continue with EPO 15,000 u on HD days; Status: Chronic (5) Ataxic gait Status: Chronic (6) Chronic kidney disease-mineral and bone disorder Assessment & Plan: PTH around goal; continue calcitriol 0.5 mcg daily; continue phoslo 2 tabs w/ meals, will monitor periodically; Status: Chronic (7) Hemodialysis catheter malfunction Assessment & Plan: see above; Status: Chronic (8) Hypertensive CKD, ESRD on dialysis Assessment & Plan: BP controlled, continue amlodipine 5 mg daily; Status: Chronic
[2018-04-11] MEDS: Sod Polystyrene Sulf 15 gm/60 ml Susp PO SCH (09:52)
[2018-04-11] MEDS: Bacitracin Ointment 30 GM TUBE TOP SCH (10:00)
[2018-04-12] MEDS: (Novolin R) Insulin Human Regular 100 units/ml vial SC SCH ×5 (07:47→21:29)
[2018-04-12] MEDS: Bacitracin Ointment 30 GM TUBE TOP SCH (10:04)
[2018-04-12 10:19] LABS: BASO % 0.7 % (0.0-2.0); EOS # 0.1 K/uL (0.0-0.7); EOS % 1.4 % (0.0-4.0); HEMOGLOBIN 9.2 g/dL (11.0-16.0); LYMPH # 0.7 K/uL (1.0-4.3); LYMPH % 12.6 % (20.0-40.0); MEAN CELL VOLUME 97.1 fL (81.0-99.0); MEAN CORPUSCULAR HEMOGLOBIN 31.8 pg (27.0-31.0); MEAN CORPUSCULAR HGB CONC 32.7 g/dL (33.0-37.0); MEAN PLATELET VOLUME 9.5 fL (7.2-11.7); MONO # 0.6 K/uL (0.0-0.8); MONO % 10.8 % (0.0-10.0); NEUT # 4.4 K/uL (1.8-7.0); NEUT % 74.5 % (50.0-75.0); NRBC % 0.1 % (0.0-2.0); RBC 2.88 Mil/uL (3.80-5.20); RED CELL DISTRIBUTION WIDTH 18.1 % (11.5-14.5); WHITE BLOOD COUNT 5.9 K/uL (4.8-10.8)
[2018-04-12 10:59] LABS: ALB/GLOB RATIO 1.3 (1.0-2.1); CALCIUM 8.9 mg/dl (8.6-10.4)
[2018-04-12] MEDS: Epoetin Alfa Dialysis 2000 U/ML Inj IV SCH (11:09)
[2018-04-12] MEDS: Epoetin Alfa 10,000 unit/ml Dialysis IV SCH (11:10)
[2018-04-12] MEDS: Epoetin Alfa Dialysis 3000 UNIT/ML Inj IV SCH (11:10)
--- NOTE | 2018-04-12 13:28 | CP.PCM.PN ---
Subjective - Date & Time of Evaluation Date of Evaluation: 04/12/18 Time of Evaluation: 10:00 - Subjective Subjective: PGY-[address] Zeferino villeda, Patient is seen and evaluated sitting in chair. Patient reports no acute events overnight. Patient is in no acutre distress. Patient states that her back itches sometimes. Patient denies any pain, fever, chills, SOB, headache, lightheadedness, Nausea, Vomiting, diarrhea or constipation. Patient will be going for dialysis today. Objective - Vital Signs/Intake and Output Vital Signs (last 24 hours): Temp Pulse Resp BP Pulse Ox 97.7 F 60 18 85/33 L 99 04/12/18 12:50 04/12/18 12:50 04/12/18 12:50 04/12/18 12:50 04/12/18 12:50 Intake and Output: 04/12/18 04/12/18 06:59 18:59 Intake Total 400 Balance 400 - Medications Medications: Current Medications Amlodipine Besylate (Norvasc) 5 mg PO DAILY [facility] Last Admin: 04/12/18 10:04 Dose: Not Given Apixaban (Eliquis) 5 mg PO BID [facility] Last Admin: 04/12/18 10:04 Dose: Not Given Bacitracin (Bacitracin) 0 gm TOP DAILY [facility] Last Admin: 04/12/18 10:04 Dose: Not Given Calcitriol (Rocaltrol) 0.5 mcg PO DAILY [facility] Last Admin: 04/12/18 10:05 Dose: Not Given Calcium Acetate (Phoslo) 1,334 mg PO TIDCC [facility] Last Admin: 04/12/18 12:25 Dose: Not Given Docusate Sodium (Colace) 100 mg PO DAILY [facility] Last Admin: 04/12/18 10:04 Dose: Not Given Epoetin Nico (Procrit) 2,000 u IV MWF [facility] Last Admin: 04/12/18 11:09 Dose: 2,000 u Epoetin Nico (Procrit) 3,000 unit IV MWF [facility] Last Admin: 04/12/18 11:10 Dose: 3,000 unit Epoetin Nico (Procrit) 10,000 unit IV MWF [facility] Last Admin: 04/12/18 11:10 Dose: 10,000 unit Fluoxetine HCl (Prozac) 40 mg PO DAILY [facility] Last Admin: 04/12/18 10:04 Dose: Not Given Insulin Human Regular (Novolin R) 0 unit SC ACHS [facility] PRN Reason: Protocol Last Admin: 04/12/18 12:25 Dose: Not Given Rosuvastatin Calcium (Crestor) 5 mg PO HS [facility] Last Admin: 04/11/18 21:37 Dose: 5 mg Sodium Polystyrene Sulfonate (Kayexalate Susp) 15 gm PO SA [facility] Last Admin: 04/10/18 09:29 Dose: 15 gm Sodium Polystyrene Sulfonate (Kayexalate Susp) 15 gm PO [facility] Last Admin: 04/11/18 09:52 Dose: 15 gm Tramadol HCl (Ultram) 50 mg PO Q8H PRN PRN Reason: Pain, moderate (4-7) Last Admin: 04/05/18 16:16 Dose: 50 mg - Labs Labs: 04/12/18 10:12 04/12/18 10:12 - Constitutional Appears: Well, Non-toxic, No Acute Distress - Head Exam Head Exam: ATRAUMATIC, NORMOCEPHALIC - Eye Exam Eye Exam: EOMI, Normal appearance, PERRL - Neck Exam Neck Exam: Full ROM, Normal Inspection - Respiratory Exam Respiratory Exam: Clear to Ausculation Bilateral, NORMAL BREATHING PATTERN. absent: Rales, Rhonchi, Wheezes - Cardiovascular Exam Cardiovascular Exam: REGULAR RHYTHM, +S1, +S2 - GI/Abdominal Exam GI & Abdominal Exam: Soft, Normal Bowel Sounds. absent: Guarding, Rigid, Tenderness - Extremities Exam Extremities Exam: Full ROM. absent: Pedal Edema, Tenderness Additional comments: erythema and scaling noted bilaterally lower extremities - Neurological Exam Neurological Exam: Alert, Awake. absent: Normal Gait - Psychiatric Exam Psychiatric exam: Normal Affect, Normal Mood Assessment and Plan - Assessment and Plan (Free Text) Plan: 1) ESRD on hemodialysis Assessment & Plan: * 04/12 BUN/Cr: 57/9.4 * Dialysis to be done today Thursday 04/12 * Nephrology (Dr. Still) consulted-Relatively stable electrolyte and volume status, recommends to continue with kayexakate 15 g on Sat Sun due to hx of potassium spikes after the weekend * Vascular surgery (Dr. Olson) consulted- no surgical intervention for AVG at this time * Continue MWF schedule * Procrit [id number] MWF * Phoslo 1334mg PO WM * Calcitriol 0.5.cg PO daily * Consistent carbohydrate diet * Femoral vein permacath thrombosed- New dialysis catheter placed on right back on 03/29/18 at [facility] [place]. (2) Hypertensive CKD, ESRD on dialysis Assessment & Plan: * 04/12: Bp 111/58 * Norvasc 5mg PO daily * Continue MWF dialysis schedule (3) Anemia of renal disease Assessment & Plan: * 04/12 Hgb 9.2, below goal of 10-11 but stable * Continue IV iron 125 mg Q weekly, EPO 00752 units on HD as per Dr Bhakta recommendations (4) Chronic kidney disease-mineral and bone disorder Assessment & Plan: * Phos 6.7 * continue phoslo 2 tabs w/ meals and calcitriol 0.5mcg daily respectively (6) IVC thrombosis Assessment & Plan: * Continue Eliquis 5mg PO daily * While placing new dialysis catheter in back on 03/29 * Echo: borderline to mild asymetric LVH; EF 50-55%; mild global hypokinesis of lV; LA mildly dilated; trace-mild MR; mild to moderate TR. (7) Ataxic gait * fall risk - ambulating from chair to bed * PT/OT * Case management/social work consulted for placement at [facility] (8) s/p Fall; History of Falls Subcutaneous soft tissue and posterio back edema/hemorrhage hematoma * Lumbar spine CT: subcutaneous hematoma partially visulaized in right lower lumbar and gluteal regions measuring 7.8x2.3cm; urinary bladder wall thickening possibly due to incomplete distention or cystitis; no fracture * Pelvic CT: Right lower lumbar and sacral region hematoma measuring up to 8.7 cm as well as a left side lateral gluteal/ hip region hematoma measuring 7 x 5.3 centimeters. Imaging from previous hospitalization * CT head (03/07/18): no evidence of acute intracranial hemorrhage, midline shift , or mass effect is identified, possible right facial soft tissue swelling * Rib xrays (03/07/18): multiple left side rib fractures as described. Mild bibasilar atelectasis left greater than right. Elevation right hemidiaphrgam likely due to eventration * Hip (03/07/18):no definitive radiographic evidence of acute hip or pelvic fracture seen * Lumbar CT scan (12/20/17): incompletely visualized posterior back subcutaneous soft tissue fluid and right posterior back edema/hemorrhage hematoma measuring 6cm ~ in right and left dimension at level of L4-S1. Small left pleural effusion. no acute fracture of the lumbar spine. * Imaging available in patient's [place] hospitalization prior to transfer; will hold Eliquis given hematoma and increase risk of falls (8) DM * Accuchecks * ISS * Hypoglycemic protocol * A1c (12/2017): 6.6 (9) Prophylaxis * DVT: SCDs; Eliquis 5mg PO daily * Consistent Carbohydrate diet * Case management, social service worker consulted * PT/OT * Wound care - 04/11 as per nurse, wound care to left hip wound rendered as ordered. noted ulcer draining purulent discharge. Covered with DSD. * Palliative care consult- Goals of care * Tramadol 50mg Q8 prn for pain * POLST- DNR/DNI Disposition: [employer] is working on finding [facility] placement for patient, assisting on difficulties with Medicaid; will be considering other alternatives based on the patients insurance. SW working for placement to [facility] but waiting for family member to fill out paperwork at the site.
--- NOTE | 2018-04-12 23:51 | CP.PCM.PN ---
Objective - Vital Signs/Intake and Output Vital Signs (last 24 hours): Temp Pulse Resp BP Pulse Ox 98.3 F 76 20 122/72 96 04/12/18 23:41 04/12/18 23:41 04/12/18 23:41 04/12/18 23:41 04/12/18 23:41 Intake and Output: 04/12/18 04/13/18 18:59 06:59 Intake Total 300 300 Balance 300 300 - Medications Medications: Current Medications Amlodipine Besylate (Norvasc) 5 mg PO DAILY [facility] Last Admin: 04/12/18 10:04 Dose: Not Given Apixaban (Eliquis) 5 mg PO BID [facility] Last Admin: 04/12/18 17:00 Dose: 5 mg Bacitracin (Bacitracin) 0 gm TOP DAILY [facility] Last Admin: 04/12/18 10:04 Dose: Not Given Calcitriol (Rocaltrol) 0.5 mcg PO DAILY [facility] Last Admin: 04/12/18 10:05 Dose: Not Given Calcium Acetate (Phoslo) 1,334 mg PO TIDCC [facility] Last Admin: 04/12/18 17:01 Dose: 1,334 mg Docusate Sodium (Colace) 100 mg PO DAILY [facility] Last Admin: 04/12/18 10:04 Dose: Not Given Epoetin Nico (Procrit) 2,000 u IV [facility] Last Admin: 04/12/18 11:09 Dose: 2,000 u Epoetin Nico (Procrit) 3,000 unit IV MWF [facility] Last Admin: 04/12/18 11:10 Dose: 3,000 unit Epoetin Nico (Procrit) 10,000 unit IV F [facility] Last Admin: 04/12/18 11:10 Dose: 10,000 unit Fluoxetine HCl (Prozac) 40 mg PO DAILY [facility] Last Admin: 04/12/18 10:04 Dose: Not Given Insulin Human Regular (Novolin R) 0 unit SC [facility] PRN Reason: Protocol Last Admin: 04/12/18 21:29 Dose: Not Given Rosuvastatin Calcium (Crestor) 5 mg PO HS [facility] Last Admin: 04/12/18 21:29 Dose: 5 mg Sodium Polystyrene Sulfonate (Kayexalate Susp) 15 gm PO SA [facility] Last Admin: 04/10/18 09:29 Dose: 15 gm Sodium Polystyrene Sulfonate (Kayexalate Susp) 15 gm PO [facility] Last Admin: 04/11/18 09:52 Dose: 15 gm Tramadol HCl (Ultram) 50 mg PO Q8H PRN PRN Reason: Pain, moderate (4-7) Last Admin: 04/05/18 16:16 Dose: 50 mg - Labs Labs: 04/12/18 10:12 04/12/18 10:12 Assessment and Plan (1) ESRD on hemodialysis Status: Chronic (2) Acute deep vein thrombosis (DVT) of superior vena cava Status: Acute (3) Right atrial thrombus Status: Suspected (4) Anemia of renal disease Status: Chronic (5) Ataxic gait Status: Chronic (6) Chronic kidney disease-mineral and bone disorder Status: Chronic (7) Hemodialysis catheter malfunction Status: Chronic (8) Hypertensive CKD, ESRD on dialysis Status: Chronic
[2018-04-13] MEDS: (Novolin R) Insulin Human Regular 100 units/ml vial SC SCH ×4 (07:47→21:29)
[2018-04-13] MEDS: Bacitracin Ointment 30 GM TUBE TOP SCH (14:28)
[2018-04-13] MEDS ORDERED: Naphazoline-Pheniramine Ophth Soln OU PRN (14:32)
[2018-04-13] MEDS: Ammonium Lactate 12% Lotion (225 g) EXT SCH (17:05)
--- NOTE | 2018-04-13 17:57 | CP.PCM.PN ---
Subjective - Date & Time of Evaluation Date of Evaluation: 04/13/18 Time of Evaluation: 13:30 - Subjective Subjective: PGY -[address] Jose D Mcgarry service Pt is seen and examined sitting in chair. Patient reports no acute events overnight. Patient is currently in no acute distress. Patient states having itchiness on her back, as well as her eyes. Patient denies Fever, chills, Shortness of breath, chest pain, abdominal pain nausea, vomiting, diarrhea or constipation. Objective - Vital Signs/Intake and Output Vital Signs (last 24 hours): Temp Pulse Resp BP Pulse Ox 98.8 F 61 20 150/73 97 04/13/18 16:05 04/13/18 16:05 04/13/18 16:05 04/13/18 16:05 04/13/18 16:05 Intake and Output: 04/13/18 04/13/18 06:59 18:59 Intake Total 300 530 Balance 300 530 - Medications Medications: Current Medications Amlodipine Besylate (Norvasc) 5 mg PO DAILY [facility] Last Admin: 04/13/18 10:02 Dose: 5 mg Apixaban (Eliquis) 5 mg PO BID [facility] Last Admin: 04/13/18 17:05 Dose: 5 mg Bacitracin (Bacitracin) 0 gm TOP DAILY [facility] Last Admin: 04/13/18 14:28 Dose: Not Given Calcitriol (Rocaltrol) 0.5 mcg PO DAILY [facility] Last Admin: 04/13/18 10:02 Dose: 0.5 mcg Calcium Acetate (Phoslo) 1,334 mg PO TIDCC [facility] Last Admin: 04/13/18 16:35 Dose: 1,334 mg Docusate Sodium (Colace) 100 mg PO DAILY [facility] Last Admin: 04/13/18 10:02 Dose: 100 mg Epoetin Nico (Procrit) 2,000 u IV MWF [facility] Last Admin: 04/12/18 11:09 Dose: 2,000 u Epoetin Nico (Procrit) 3,000 unit IV MWF [facility] Last Admin: 04/12/18 11:10 Dose: 3,000 unit Epoetin Nico (Procrit) 10,000 unit IV MWF [facility] Last Admin: 04/12/18 11:10 Dose: 10,000 unit Fluoxetine HCl (Prozac) 40 mg PO DAILY [facility] Last Admin: 04/13/18 10:02 Dose: 40 mg Insulin Human Regular (Novolin R) 0 unit SC ACHS [facility] PRN Reason: Protocol Last Admin: 04/13/18 17:06 Dose: 3 unit Lactic Acid (Lac-Hydrin 12% Lotion (225 G)) 0 gm EXT BID [facility] Last Admin: 04/13/18 17:05 Dose: 1 applic Naphazoline HCl/Pheniramine Maleate (Naphcon-A Opht) 0 ml OU Q6 PRN PRN Reason: Allergy symptoms Rosuvastatin Calcium (Crestor) 5 mg PO HS [facility] Last Admin: 04/12/18 21:29 Dose: 5 mg Sodium Polystyrene Sulfonate (Kayexalate Susp) 15 gm PO SA [facility] Last Admin: 04/10/18 09:29 Dose: 15 gm Sodium Polystyrene Sulfonate (Kayexalate Susp) 15 gm PO M[facility]LAIN [facility] Last Admin: 04/11/18 09:52 Dose: 15 gm Tramadol HCl (Ultram) 50 mg PO Q8H PRN PRN Reason: Pain, moderate (4-7) Last Admin: 04/05/18 16:16 Dose: 50 mg - Labs Labs: 04/12/18 10:12 04/12/18 10:12 - Constitutional Appears: Well, Non-toxic, No Acute Distress - Head Exam Head Exam: ATRAUMATIC, NORMAL INSPECTION, NORMOCEPHALIC - Eye Exam Eye Exam: EOMI, Normal appearance Pupil Exam: Miosis Additional comments: Bilateral Miosis - Neck Exam Neck Exam: Full ROM, Normal Inspection - Respiratory Exam Respiratory Exam: Clear to Ausculation Bilateral, NORMAL BREATHING PATTERN. absent: Rales, Rhonchi, Wheezes - Cardiovascular Exam Cardiovascular Exam: REGULAR RHYTHM, +S1, +S2 - GI/Abdominal Exam GI & Abdominal Exam: Tenderness, Normal Bowel Sounds. absent: Guarding, Rebound Additional comments: tenderness on upper left quadrant - Extremities Exam Extremities Exam: Full ROM, Tenderness Additional comments: mild tenderness on lower extremities bilaterally upon palpation erythema on both lower extremities, anteriorly - Back Exam Back Exam: NORMAL INSPECTION. absent: rash noted, tenderness Additional comments: no redness, rashes or lesion on back - Neurological Exam Neurological Exam: Alert, Awake, Normal Gait - Psychiatric Exam Psychiatric exam: Normal Affect, Normal Mood - Skin Skin Exam: Dry, Intact Assessment and Plan - Assessment and Plan (Free Text) Plan: 1) ESRD on hemodialysis Assessment & Plan: * 04/12 BUN/Cr: 57/9.4 * next labs to be done Dialysis to be done tomorrow Saturday 04/14 * Nephrology (Dr. Still) consulted 04/10-Relatively stable electrolyte and volume status, recommends to continue with kayexakate 15 g on Sat Sun due to hx of potassium spikes after the weekend * Vascular surgery (Dr. Olson) consulted- no surgical intervention for AVG at this time * Continue MWF schedule * Procrit [id number] MWF * Phoslo 1334mg PO WM * Calcitriol 0.5.cg PO daily * Consistent carbohydrate diet * Femoral vein permacath thrombosed- New dialysis catheter placed on right back on 03/29/18 at [facility] [place]. (2) Hypertensive CKD, ESRD on dialysis Assessment & Plan: * cont Norvasc 5mg PO daily * Continue MWF dialysis schedule (3) Anemia of renal disease Assessment & Plan: * 04/12 Hgb 9.2, below goal of 10-11 but stable * Continue IV iron 125 mg Q weekly, EPO 48651 units on HD as per Dr Bhakta recommendations (4) Chronic kidney disease-mineral and bone disorder Assessment & Plan: * Phos 6.7 * continue phoslo 2 tabs w/ meals and calcitriol 0.5mcg daily respectively (6) IVC thrombosis Assessment & Plan: * Continue Eliquis 5mg PO daily * While placing new dialysis catheter in back on 03/29 * Echo: borderline to mild asymetric LVH; EF 50-55%; mild global hypokinesis of lV; LA mildly dilated; trace-mild MR; mild to moderate TR. (7) Pruritus, back * 04/13 start Lac Hydrin 12% lotion EXT BID (8) ocular pruritis * 04/13 start Naphazoline Hcl/Pheniramine Maleate (Naphcon-A) OU Q6 PRN (9) Ataxic gait * fall risk - ambulating from chair to bed * PT/OT * Case management/social work consulted for placement at [facility] (10) s/p Fall; History of Falls Subcutaneous soft tissue and posterio back edema/hemorrhage hematoma * Lumbar spine CT: subcutaneous hematoma partially visulaized in right lower lumbar and gluteal regions measuring 7.8x2.3cm; urinary bladder wall thickening possibly due to incomplete distention or cystitis; no fracture * Pelvic CT: Right lower lumbar and sacral region hematoma measuring up to 8.7 cm as well as a left side lateral gluteal/ hip region hematoma measuring 7 x 5.3 centimeters. Imaging from previous hospitalization * CT head (03/07/18): no evidence of acute intracranial hemorrhage, midline shift , or mass effect is identified, possible right facial soft tissue swelling * Rib xrays (03/07/18): multiple left side rib fractures as described. Mild bibasilar atelectasis left greater than right. Elevation right hemidiaphrgam likely due to eventration * Hip (03/07/18):no definitive radiographic evidence of acute hip or pelvic fracture seen * Lumbar CT scan (12/20/17): incompletely visualized posterior back subcutaneous soft tissue fluid and right posterior back edema/hemorrhage hematoma measuring 6cm ~ in right and left dimension at level of L4-S1. Small left pleural effusion. no acute fracture of the lumbar spine. * Imaging available in patient's [place] hospitalization prior to transfer; will hold Eliquis given hematoma and increase risk of falls (11) DM * Accuchecks * ISS * Hypoglycemic protocol * A1c (12/2017): 6.6 (12) Prophylaxis * DVT: SCDs; Eliquis 5mg PO daily * Consistent Carbohydrate diet * Case management, long term care social worker consulted * PT/OT * Wound care - 04/11 as per nurse, wound care to left hip wound rendered as ordered. noted ulcer draining purulent discharge. Covered with DSD. * Palliative care consult- Goals of care * Tramadol 50mg Q8 prn for pain * POLST- DNR/DNI Disposition: [employer] is working on finding [facility] placement for patient, assisting on difficulties with Medicaid; will be considering other alternatives based on the patients insurance. SW working for placement to [facility] but waiting for family member (daughter) to fill out paperwork at the site.
--- NOTE | 2018-04-14 06:53 | CP.PCM.PN ---
Subjective - Date & Time of Evaluation Date of Evaluation: 04/14/18 Time of Evaluation: 06:53 - Subjective Subjective: PGY-[address] Mcgarry service Patient is seen and examined sitting in chair. No acute events overnight reported. Patient went for dialysis this morning. Patient says she continues having itchiness in her back and tight pain, described as restless pain in both legs of chronic nature. Patient denies fevers, chills, SOB. Chest pain, swelling , nausea, vomiting, diarrhea or constipation. Objective - Vital Signs/Intake and Output Vital Signs (last 24 hours): Temp Pulse Resp BP Pulse Ox 98.7 F 65 20 148/74 98 04/14/18 00:45 04/14/18 00:45 04/14/18 00:45 04/14/18 00:45 04/14/18 00:45 Intake and Output: 04/13/18 04/14/18 18:59 06:59 Intake Total 530 600 Balance 530 600 - Medications Medications: Current Medications Amlodipine Besylate (Norvasc) 5 mg PO DAILY [facility] Last Admin: 04/13/18 10:02 Dose: 5 mg Apixaban (Eliquis) 5 mg PO BID [facility] Last Admin: 04/13/18 17:05 Dose: 5 mg Bacitracin (Bacitracin) 0 gm TOP DAILY [facility] Last Admin: 04/13/18 14:28 Dose: Not Given Calcitriol (Rocaltrol) 0.5 mcg PO DAILY [facility] Last Admin: 04/13/18 10:02 Dose: 0.5 mcg Calcium Acetate (Phoslo) 1,334 mg PO TIDCC [facility] Last Admin: 04/13/18 16:35 Dose: 1,334 mg Docusate Sodium (Colace) 100 mg PO DAILY [facility] Last Admin: 04/13/18 10:02 Dose: 100 mg Epoetin Nico (Procrit) 2,000 u IV MWF [facility] Last Admin: 04/12/18 11:09 Dose: 2,000 u Epoetin Nico (Procrit) 3,000 unit IV MWF [facility] Last Admin: 04/12/18 11:10 Dose: 3,000 unit Epoetin Nico (Procrit) 10,000 unit IV MWF [facility] Last Admin: 04/12/18 11:10 Dose: 10,000 unit Fluoxetine HCl (Prozac) 40 mg PO DAILY [facility] Last Admin: 04/13/18 10:02 Dose: 40 mg Insulin Human Regular (Novolin R) 0 unit SC ACHS [facility] PRN Reason: Protocol Last Admin: 04/13/18 21:29 Dose: Not Given Lactic Acid (Lac-Hydrin 12% Lotion (225 G)) 0 gm EXT BID [facility] Last Admin: 04/13/18 17:05 Dose: 1 applic Naphazoline HCl/Pheniramine Maleate (Naphcon-A Opht) 0 ml OU Q6 PRN PRN Reason: Allergy symptoms Rosuvastatin Calcium (Crestor) 5 mg PO HS [facility] Last Admin: 04/13/18 21:29 Dose: Not Given Sodium Polystyrene Sulfonate (Kayexalate Susp) 15 gm PO SA [facility] Last Admin: 04/10/18 09:29 Dose: 15 gm Sodium Polystyrene Sulfonate (Kayexalate Susp) 15 gm PO MCCLAIN [facility] Last Admin: 04/11/18 09:52 Dose: 15 gm Tramadol HCl (Ultram) 50 mg PO Q8H PRN PRN Reason: Pain, moderate (4-7) Last Admin: 04/05/18 16:16 Dose: 50 mg - Labs Labs: 04/12/18 10:12 04/12/18 10:12 - Constitutional Appears: Well, Non-toxic, No Acute Distress - Head Exam Head Exam: ATRAUMATIC, NORMAL INSPECTION, NORMOCEPHALIC - Eye Exam Eye Exam: EOMI, Normal appearance, PERRL Pupil Exam: Miosis - Neck Exam Neck Exam: Full ROM, Normal Inspection - Respiratory Exam Respiratory Exam: Clear to Ausculation Bilateral, Respiratory Distress, NORMAL BREATHING PATTERN. absent: Rales, Rhonchi, Wheezes - Cardiovascular Exam Cardiovascular Exam: REGULAR RHYTHM, +S1, +S2. absent: Clicks, Gallop, Rubs, Murmur - GI/Abdominal Exam GI & Abdominal Exam: Soft, Tenderness, Normal Bowel Sounds Additional comments: mild tenderness on right upper quadrant - Extremities Exam Extremities Exam: Full ROM. absent: Pedal Edema - Back Exam Back Exam: NORMAL INSPECTION Additional comments: no rashes or lesions noted - Neurological Exam Neurological Exam: Alert, Awake - Psychiatric Exam Psychiatric exam: Normal Affect, Normal Mood - Skin Skin Exam: Dry, Intact Assessment and Plan - Assessment and Plan (Free Text) Plan: 1) ESRD on hemodialysis Assessment & Plan: * 04/12 BUN/Cr: 57/9.4 * next labs to be done 04/19 * 04/14 (thursday) Hemodialysis session was complicated with low blood flow; t- PA was ordered and will have HD tomorrow as scheduled as per Dr Still. * Patient lost 10 Kg - started on protein shakes to improve weight loss, as per Dr Still's recs * Nephrology (Dr. Still) consulted 04/14-Relatively stable electrolyte and volume status * Vascular surgery (Dr. Olson) consulted- no surgical intervention for AVG at this time * Continue MWF schedule. Extra session tomorrow 04/15 due to patient being under dialysed because time constrains that limit her dialysis treatment. * Procrit [id number] QHD MWF * Phoslo 1334mg PO WM * Calcitriol 0.5.cg PO daily * Consistent carbohydrate diet (2) Hypertensive CKD, ESRD on dialysis Assessment & Plan: * cont Norvasc 5mg PO daily * Continue MWF dialysis schedule. Extra session 04/15 (3) Anemia of renal disease Assessment & Plan: * 04/12 Hgb 9.2, below goal of 10- but stable * Continue IV iron 125 mg Q weekly, EPO 70628 units on HD as per Dr Bhakta recommendations (4) Chronic kidney disease-mineral and bone disorder Assessment & Plan: * Phos 6.7 * continue phoslo 2 tabs w/ meals and calcitriol 0.5mcg daily respectively (6) IVC thrombosis Assessment & Plan: * Continue Eliquis 5mg PO daily * While placing new dialysis catheter in back on 03/29 * Echo: borderline to mild asymetric LVH; EF 50-55%; mild global hypokinesis of lV; LA mildly dilated; trace-mild MR; mild to moderate TR. (7) Pruritus, back * continue Lac Hydrin 12% lotion EXT BID (8) ocular pruritis * continue Naphazoline Hcl/Pheniramine Maleate (Naphcon-A) OU Q6 PRN (9) Ataxic gait * fall risk - ambulating from chair to bed * PT/OT * Case management/social work consulted for placement at [facility] (10) s/p Fall; History of Falls Subcutaneous soft tissue and posterio back edema/hemorrhage hematoma * Lumbar spine CT: subcutaneous hematoma partially visulaized in right lower lumbar and gluteal regions measuring 7.8x2.3cm; urinary bladder wall thickening possibly due to incomplete distention or cystitis; no fracture * Pelvic CT: Right lower lumbar and sacral region hematoma measuring up to 8.7 cm as well as a left side lateral gluteal/ hip region hematoma measuring 7 x 5.3 centimeters. Imaging from previous hospitalization * CT head (03/07/18): no evidence of acute intracranial hemorrhage, midline shift , or mass effect is identified, possible right facial soft tissue swelling * Rib xrays (03/07/18): multiple left side rib fractures as described. Mild bibasilar atelectasis left greater than right. Elevation right hemidiaphrgam likely due to eventration * Hip (03/07/18):no definitive radiographic evidence of acute hip or pelvic fracture seen * Lumbar CT scan (12/20/17): incompletely visualized posterior back subcutaneous soft tissue fluid and right posterior back edema/hemorrhage hematoma measuring 6cm ~ in right and left dimension at level of L4-S1. Small left pleural effusion. no acute fracture of the lumbar spine. * Imaging available in patient's [place] hospitalization prior to transfer; will hold Eliquis given hematoma and increase risk of falls (11) DM * Accuchecks * ISS * Hypoglycemic protocol * A1c (12/2017): 6.6 (12) Prophylaxis * DVT: SCDs; Eliquis 5mg PO daily * Consistent Carbohydrate diet * Case management, long term care social worker consulted * PT/OT * Wound care - 04/11 as per nurse, wound care to left hip wound rendered as ordered. noted ulcer draining purulent discharge. Covered with DSD. * Palliative care consult- Goals of care * Tramadol 50mg Q8 prn for pain * POLST- DNR/DNI Disposition: [employer] is working on finding [facility] placement for patient, assisting on difficulties with Medicaid; will be considering other alternatives based on the patients insurance. SW working for placement to [facility] but waiting for family member (daughter) to fill out paperwork at the site.
--- NOTE | 2018-04-14 07:32 | CP.PCM.PN ---
Subjective - Date & Time of Evaluation Date of Evaluation: 04/13/18 Time of Evaluation: 13:00 - Subjective Subjective: Patient denies any sob; tolerating diet; waiting for PT, otherwise not ambulating; Objective - Vital Signs/Intake and Output Vital Signs (last 24 hours): Temp Pulse Resp BP Pulse Ox 98.7 F 65 20 148/74 98 04/14/18 00:45 04/14/18 00:45 04/14/18 00:45 04/14/18 00:45 04/14/18 00:45 Intake and Output: 04/14/18 04/14/18 06:59 18:59 Intake Total 600 Balance 600 - Medications Medications: Current Medications Amlodipine Besylate (Norvasc) 5 mg PO DAILY [facility] Last Admin: 04/13/18 10:02 Dose: 5 mg Apixaban (Eliquis) 5 mg PO BID [facility] Last Admin: 04/13/18 17:05 Dose: 5 mg Bacitracin (Bacitracin) 0 gm TOP DAILY [facility] Last Admin: 04/13/18 14:28 Dose: Not Given Calcitriol (Rocaltrol) 0.5 mcg PO DAILY [facility] Last Admin: 04/13/18 10:02 Dose: 0.5 mcg Calcium Acetate (Phoslo) 1,334 mg PO TIDCC [facility] Last Admin: 04/13/18 16:35 Dose: 1,334 mg Docusate Sodium (Colace) 100 mg PO DAILY [facility] Last Admin: 04/13/18 10:02 Dose: 100 mg Epoetin Nico (Procrit) 2,000 u IV [facility] Last Admin: 04/12/18 11:09 Dose: 2,000 u Epoetin Nico (Procrit) 3,000 unit IV MWF [facility] Last Admin: 04/12/18 11:10 Dose: 3,000 unit Epoetin Nico (Procrit) 10,000 unit IV MWF [facility] Last Admin: 04/12/18 11:10 Dose: 10,000 unit Fluoxetine HCl (Prozac) 40 mg PO DAILY [facility] Last Admin: 04/13/18 10:02 Dose: 40 mg Insulin Human Regular (Novolin R) 0 unit SC [facility] PRN Reason: Protocol Last Admin: 04/13/18 21:29 Dose: Not Given Lactic Acid (Lac-Hydrin 12% Lotion (225 G)) 0 gm EXT BID [facility] Last Admin: 04/13/18 17:05 Dose: 1 applic Naphazoline HCl/Pheniramine Maleate (Naphcon-A Opht) 0 ml OU Q6 PRN PRN Reason: Allergy symptoms Rosuvastatin Calcium (Crestor) 5 mg PO HS [facility] Last Admin: 04/13/18 21:29 Dose: Not Given Sodium Polystyrene Sulfonate (Kayexalate Susp) 15 gm PO SA [facility] Last Admin: 04/10/18 09:29 Dose: 15 gm Sodium Polystyrene Sulfonate (Kayexalate Susp) 15 gm PO [place]LAIN [facility] Last Admin: 04/11/18 09:52 Dose: 15 gm Tramadol HCl (Ultram) 50 mg PO Q8H PRN PRN Reason: Pain, moderate (4-7) Last Admin: 04/05/18 16:16 Dose: 50 mg - Labs Labs: 04/12/18 10:12 04/12/18 10:12 - Constitutional Appears: Non-toxic, No Acute Distress - Eye Exam Eye Exam: Normal appearance - ENT Exam ENT Exam: Mucous Membranes Moist - Respiratory Exam Respiratory Exam: Clear to Ausculation Bilateral. absent: Respiratory Distress - Cardiovascular Exam Cardiovascular Exam: RRR, +S1, +S2 - GI/Abdominal Exam GI & Abdominal Exam: Soft. absent: Distended, Tenderness - Extremities Exam Additional comments: minimal lower leg edema; - Neurological Exam Neurological Exam: Alert, Awake - Psychiatric Exam Psychiatric exam: Normal Mood. absent: Agitated - Skin Skin Exam: Warm. 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 Assessment & Plan: On eliquis 5 mg bid, continue indefinitely; Status: Acute (3) Right atrial thrombus Status: Suspected (4) Anemia of renal disease Assessment & Plan: Hgb stable though below goal; will continue EPO at 15,000 u qHD this week, weekly IV iron 125 mg; Status: Chronic (5) Ataxic gait Status: Chronic (6) Chronic kidney disease-mineral and bone disorder Assessment & Plan: PTH at goal, continue calcitriol 0.5 mcg daily; phos controlled, continue phoslo 2 tabs w/ meals; Status: Chronic (7) Hemodialysis catheter malfunction Assessment & Plan: Blood flow fluctuating, 325 cc/min on Thursday which is as good as we can expect with current catheter; will monitor regularly; will check URR on HD tomorrow to assess adequacy of HD; Status: Chronic (8) Hypertensive CKD, ESRD on dialysis Assessment & Plan: BP fluctuating, volume dependent, continue amlodipine 5 mg daily; Status: Chronic
[2018-04-14] MEDS: (Novolin R) Insulin Human Regular 100 units/ml vial SC SCH ×4 (08:08→21:16)
[2018-04-14] MEDS ORDERED: Ferric Sodium Gluconat Complex 62.5 mg/5 ml Vial IVPB ONE (10:00)
[2018-04-14] MEDS: Epoetin Alfa Dialysis 2000 U/ML Inj IV SCH (10:05)
[2018-04-14] MEDS: Epoetin Alfa Dialysis 3000 UNIT/ML Inj IV SCH (10:12)
[2018-04-14] MEDS: Epoetin Alfa 10,000 unit/ml Dialysis IV SCH (10:13)
[2018-04-14] MEDS: Bacitracin Ointment 30 GM TUBE TOP SCH (10:48)
[2018-04-14] MEDS: Ammonium Lactate 12% Lotion (225 g) EXT SCH ×2 (10:48→18:34)
--- NOTE | 2018-04-14 14:22 | CP.PCM.PN ---
Subjective - Date & Time of Evaluation Date of Evaluation: 04/14/18 Time of Evaluation: 01:00 - Subjective Subjective: Williams Morales PGY-1 [facility]phrology Progress Note for Dr. Still's service Patient seen and examined at bedside. Patient not ambulating without PT; Patient had no acute complains and has good appetite. Patient denies dizziness, chest pain, shortness of breath, n/v/c/d. Objective - Vital Signs/Intake and Output Vital Signs (last 24 hours): Temp Pulse Resp BP Pulse Ox 97.6 F 60 20 112/56 L 95 04/14/18 08:40 04/14/18 08:40 04/14/18 08:40 04/14/18 10:40 04/14/18 08:40 Intake and Output: 04/14/18 04/14/18 06:59 18:59 Intake Total 600 Balance 600 - Medications Medications: Current Medications Amlodipine Besylate (Norvasc) 5 mg PO DAILY [facility] Last Admin: 04/14/18 10:48 Dose: Not Given Apixaban (Eliquis) 5 mg PO BID [facility] Last Admin: 04/14/18 10:48 Dose: Not Given Bacitracin (Bacitracin) 0 gm TOP DAILY [facility] Last Admin: 04/14/18 10:48 Dose: Not Given Calcitriol (Rocaltrol) 0.5 mcg PO DAILY [facility] Last Admin: 04/14/18 10:48 Dose: Not Given Calcium Acetate (Phoslo) 1,334 mg PO TIDCC [facility] Last Admin: 04/14/18 12:21 Dose: 1,334 mg Docusate Sodium (Colace) 100 mg PO DAILY [facility] Last Admin: 04/14/18 10:48 Dose: Not Given Epoetin Nico (Procrit) 2,000 u IV MWF [facility] Last Admin: 04/14/18 10:05 Dose: 2,000 u Epoetin Nico (Procrit) 3,000 unit IV MWF [facility] Last Admin: 04/14/18 10:12 Dose: 3,000 unit Epoetin Nico (Procrit) 10,000 unit IV MWF [facility] Last Admin: 04/14/18 10:13 Dose: 10,000 unit Fluoxetine HCl (Prozac) 40 mg PO DAILY [facility] Last Admin: 04/14/18 10:48 Dose: Not Given Insulin Human Regular (Novolin R) 0 unit SC ACHS [facility] PRN Reason: Protocol Last Admin: 04/14/18 11:58 Dose: Not Given Lactic Acid (Lac-Hydrin 12% Lotion (225 G)) 0 gm EXT BID [facility] Last Admin: 04/14/18 10:48 Dose: Not Given Naphazoline HCl/Pheniramine Maleate (Naphcon-A Opht) 0 ml OU Q6 PRN PRN Reason: Allergy symptoms Rosuvastatin Calcium (Crestor) 5 mg PO HS [facility] Last Admin: 04/13/18 21:29 Dose: Not Given Sodium Polystyrene Sulfonate (Kayexalate Susp) 15 gm PO SA [facility] Last Admin: 04/10/18 09:29 Dose: 15 gm Sodium Polystyrene Sulfonate (Kayexalate Susp) 15 gm PO MCCLAIN [facility] Last Admin: 04/11/18 09:52 Dose: 15 gm Tramadol HCl (Ultram) 50 mg PO Q8H PRN PRN Reason: Pain, moderate (4-7) Last Admin: 04/05/18 16:16 Dose: 50 mg - Labs Labs: 04/12/18 10:12 04/12/18 10:12 - Additional Findings Additional findings: - Constitutional Appears: Non-toxic, No Acute Distress - Eye Exam Eye Exam: Normal appearance - ENT Exam ENT Exam: Mucous Membranes Moist - Respiratory Exam Respiratory Exam: Clear to Ausculation Bilateral. absent: Respiratory Distress - Cardiovascular Exam Cardiovascular Exam: RRR, +S1, +S2 - GI/Abdominal Exam GI & Abdominal Exam: Soft. absent: Distended, Tenderness - Extremities Exam Additional comments: minimal lower leg edema; - Neurological Exam Neurological Exam: Alert, Awake - Psychiatric Exam Psychiatric exam: Normal Mood. absent: Agitated - Skin Skin Exam: Warm. absent: Cyanosis Assessment and Plan - Assessment and Plan (Free Text) Assessment: 57 y.o female with PMH of HTN, DM with neuropathy/retinopathy, PAD, CAD s/p remote intervention, s/p pacemaker placement, s/p IVC thrombus, now with SVC thrombus and ESRD on HD now s/p new trans-lumbar HD catheter. 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 Assessment & Plan: On eliquis 5 mg bid, continue indefinitely; Status: Acute (3) Right atrial thrombus Status: Suspected (4) Anemia of renal disease Assessment & Plan: Hgb stable though below goal; will continue EPO at 15,000 u qHD this week, weekly IV iron 125 mg; Status: Chronic (5) Ataxic gait Status: Chronic (6) Chronic kidney disease-mineral and bone disorder Assessment & Plan: PTH at goal, continue calcitriol 0.5 mcg daily; phos controlled, continue phoslo 2 tabs w/ meals; Status: Chronic (7) Hemodialysis catheter malfunction Assessment & Plan: Blood flow fluctuating with current catheter; will monitor regularly; administered t-PA to improve blood flow; effective with last administration Status: Chronic (8) Hypertensive CKD, ESRD on dialysis Assessment & Plan: BP fluctuating, volume dependent, continue amlodipine 5 mg daily; Status: Chronic
--- NOTE | 2018-04-15 06:26 | CP.PCM.PN ---
Subjective - Date & Time of Evaluation Date of Evaluation: 04/15/18 Time of Evaluation: 06:25 - Subjective Subjective: PGY-[address] Mcgarry service Patient is seen and examined sitting in chair. No acute events overnight. Patient is feeling well overall. Patient states she still has itchiness in her middle back area. Patient continues to compalin of right thigh pain, describes it as "restless pain". patient states the pain is chronic. Patient denies fever , chills, chest pain, shortness of breath, nausea, vomiting, diarrhea or constipation. Objective - Vital Signs/Intake and Output Vital Signs (last 24 hours): Temp Pulse Resp BP Pulse Ox 98.5 F 69 20 136/69 98 04/14/18 16:33 04/14/18 16:33 04/14/18 16:33 04/14/18 16:33 04/14/18 16:33 Intake and Output: 04/14/18 04/15/18 18:59 06:59 Intake Total 360 Balance 360 - Medications Medications: Current Medications Amlodipine Besylate (Norvasc) 5 mg PO DAILY [facility] Last Admin: 04/14/18 10:48 Dose: Not Given Apixaban (Eliquis) 5 mg PO BID [facility] Last Admin: 04/14/18 17:15 Dose: 5 mg Bacitracin (Bacitracin) 0 gm TOP DAILY [facility] Last Admin: 04/14/18 10:48 Dose: Not Given Calcitriol (Rocaltrol) 0.5 mcg PO DAILY [facility] Last Admin: 04/14/18 10:48 Dose: Not Given Calcium Acetate (Phoslo) 1,334 mg PO TIDCC [facility] Last Admin: 04/14/18 17:15 Dose: 1,334 mg Docusate Sodium (Colace) 100 mg PO DAILY [facility] Last Admin: 04/14/18 10:48 Dose: Not Given Epoetin Nico (Procrit) 2,000 u IV MWF [facility] Last Admin: 04/14/18 10:05 Dose: 2,000 u Epoetin Nico (Procrit) 3,000 unit IV MWF [facility] Last Admin: 04/14/18 10:12 Dose: 3,000 unit Epoetin Nico (Procrit) 10,000 unit IV MWF [facility] Last Admin: 04/14/18 10:13 Dose: 10,000 unit Fluoxetine HCl (Prozac) 40 mg PO DAILY [facility] Last Admin: 04/14/18 10:48 Dose: Not Given Insulin Human Regular (Novolin R) 0 unit SC ACHS BUZZ PRN Reason: Protocol Last Admin: 04/14/18 21:16 Dose: Not Given Lactic Acid (Lac-Hydrin 12% Lotion (225 G)) 0 gm EXT BID [facility] Last Admin: 04/14/18 18:34 Dose: Not Given Naphazoline HCl/Pheniramine Maleate (Naphcon-A Opht) 0 ml OU Q6 PRN PRN Reason: Allergy symptoms Last Admin: 04/14/18 17:15 Dose: 1 drop Rosuvastatin Calcium (Crestor) 5 mg PO HS [facility] Last Admin: 04/14/18 21:09 Dose: Not Given Sodium Polystyrene Sulfonate (Kayexalate Susp) 15 gm PO SA [facility] Last Admin: 04/10/18 09:29 Dose: 15 gm Sodium Polystyrene Sulfonate (Kayexalate Susp) 15 gm PO MCCLAIN [facility] Last Admin: 04/11/18 09:52 Dose: 15 gm Tramadol HCl (Ultram) 50 mg PO Q8H PRN PRN Reason: Pain, moderate (4-7) Last Admin: 04/05/18 16:16 Dose: 50 mg - Labs Labs: 04/12/18 10:12 04/12/18 10:12 - Constitutional Appears: Well, Non-toxic, No Acute Distress - Head Exam Head Exam: ATRAUMATIC, NORMAL INSPECTION - Eye Exam Eye Exam: EOMI, Normal appearance Pupil Exam: Miosis - Neck Exam Neck Exam: Full ROM, Normal Inspection - Respiratory Exam Respiratory Exam: Clear to Ausculation Bilateral, NORMAL BREATHING PATTERN. absent: Rales, Rhonchi, Wheezes - Cardiovascular Exam Cardiovascular Exam: REGULAR RHYTHM, +S1, +S2 - GI/Abdominal Exam GI & Abdominal Exam: Soft, Tenderness. absent: Distended, Guarding, Rigid Additional comments: mild tenderness on deep palpation on four quadrants. - Extremities Exam Additional comments: erythema in bilateral legs. Right leg and knee scab - Back Exam Back Exam: NORMAL INSPECTION. absent: rash noted, tenderness - Neurological Exam Neurological Exam: Alert, Awake - Psychiatric Exam Psychiatric exam: Normal Affect, Normal Mood - Skin Skin Exam: Intact Assessment and Plan - Assessment and Plan (Free Text) Plan: Plan: 1) ESRD on hemodialysis Assessment & Plan: * 04/12 BUN/Cr: 57/9.4 * next labs to be done 04/19 * 04/15 () Patient went for extra session of hemodialysis. Follow up Dr. Still's recs. * 04/14 (thursday) Hemodialysis session was complicated with low blood flow; t- PA was ordered and will have HD tomorrow as scheduled as per Dr Still. * Patient lost 10 Kg - started on protein shakes to improve weight loss, as per Dr Still's recs * Nephrology (Dr. Still) consulted 04/14-Relatively stable electrolyte and volume status * Vascular surgery (Dr. Olson) consulted- no surgical intervention for AVG at this time * Continue MWF schedule. Extra session tomorrow 04/15 due to patient being under dialysed because time constrains that limit her dialysis treatment. * Procrit [id number] QHD MWF * Phoslo 1334mg PO WM * Calcitriol 0.5.cg PO daily * Consistent carbohydrate diet (2) Hypertensive CKD, ESRD on dialysis Assessment & Plan: * cont Norvasc 5mg PO daily - Holding parameter: if SBP is lower than 110, HR lower than 60. * Continue MWF dialysis schedule. Extra session 04/15 (3) Anemia of renal disease Assessment & Plan: * 04/12 Hgb 9.2, below goal of 10-11 but stable * Continue IV iron 125 mg Q weekly, EPO [id number] units on HD as per Dr Bhakta recommendations (4) Chronic kidney disease-mineral and bone disorder Assessment & Plan: * Phos 6.7 * continue phoslo 2 tabs w/ meals and calcitriol 0.5mcg daily respectively (6) IVC thrombosis Assessment & Plan: * Continue Eliquis 5mg PO daily * While placing new dialysis catheter in back on 03/29 * Echo: borderline to mild asymetric LVH; EF 50-55%; mild global hypokinesis of lV; LA mildly dilated; trace-mild MR; mild to moderate TR. (7) Pruritus, back * continue Lac Hydrin 12% lotion EXT BID (8) ocular pruritis * continue Naphazoline Hcl/Pheniramine Maleate (Naphcon-A) OU Q6 PRN (9) Ataxic gait * fall risk - ambulating from chair to bed * PT/OT * Case management/social work consulted for placement at [facility] (10) s/p Fall; History of Falls Subcutaneous soft tissue and posterio back edema/hemorrhage hematoma * Lumbar spine CT: subcutaneous hematoma partially visulaized in right lower lumbar and gluteal regions measuring 7.8x2.3cm; urinary bladder wall thickening possibly due to incomplete distention or cystitis; no fracture * Pelvic CT: Right lower lumbar and sacral region hematoma measuring up to 8.7 cm as well as a left side lateral gluteal/ hip region hematoma measuring 7 x 5.3 centimeters. Imaging from previous hospitalization * CT head (03/07/18): no evidence of acute intracranial hemorrhage, midline shift , or mass effect is identified, possible right facial soft tissue swelling * Rib xrays (03/07/18): multiple left side rib fractures as described. Mild bibasilar atelectasis left greater than right. Elevation right hemidiaphrgam likely due to eventration * Hip (03/07/18):no definitive radiographic evidence of acute hip or pelvic fracture seen * Lumbar CT scan (12/20/17): incompletely visualized posterior back subcutaneous soft tissue fluid and right posterior back edema/hemorrhage hematoma measuring 6cm ~ in right and left dimension at level of L4-S1. Small left pleural effusion. no acute fracture of the lumbar spine. * Imaging available in patient's [place] hospitalization prior to transfer; will hold Eliquis given hematoma and increase risk of falls (11) DM * Accuchecks * ISS * Hypoglycemic protocol * A1c (12/2017): 6.6 (12) Prophylaxis * DVT: SCDs; Eliquis 5mg PO daily * Consistent Carbohydrate diet * Case management, social work professor consulted * PT/OT * Wound care - 04/11 as per nurse, wound care to left hip wound rendered as ordered. noted ulcer draining purulent discharge. Covered with DSD. * Palliative care consult- Goals of care * Tramadol 50mg Q8 prn for pain * POLST- DNR/DNI Disposition: [employer] is working on finding [facility] placement for patient, assisting on difficulties with Medicaid; will be considering other alternatives based on the patients insurance. SW working for placement to [facility] but waiting for family member (daughter) to fill out paperwork at the site.
[2018-04-15] MEDS: (Novolin R) Insulin Human Regular 100 units/ml vial SC SCH ×4 (09:27→21:24)
[2018-04-15] MEDS: Bacitracin Ointment 30 GM TUBE TOP SCH (10:55)
[2018-04-15 11:33] LABS: BASO % 0.6 % (0.0-2.0); EOS # 0.1 K/uL (0.0-0.7); EOS % 0.9 % (0.0-4.0); HEMOGLOBIN 9.7 g/dL (11.0-16.0); LYMPH # 0.9 K/uL (1.0-4.3); LYMPH % 15.8 % (20.0-40.0); MEAN CELL VOLUME 97.6 fL (81.0-99.0); MEAN CORPUSCULAR HEMOGLOBIN 31.1 pg (27.0-31.0); MEAN CORPUSCULAR HGB CONC 31.9 g/dL (33.0-37.0); MEAN PLATELET VOLUME 9.7 fL (7.2-11.7); MONO # 0.7 K/uL (0.0-0.8); NEUT # 3.9 K/uL (1.8-7.0); NEUT % 70.7 % (50.0-75.0); RBC 3.13 Mil/uL (3.80-5.20); RED CELL DISTRIBUTION WIDTH 18.5 % (11.5-14.5); WHITE BLOOD COUNT 5.6 K/uL (4.8-10.8)
[2018-04-15] MEDS: Ammonium Lactate 12% Lotion (225 g) EXT SCH ×2 (11:56→17:30)
[2018-04-15 11:57] LABS: ALB/GLOB RATIO 1.3 (1.0-2.1); ALBUMIN 4.1 g/dL (3.5-5.0); ALT/SGPT < 6 U/L (9-52); AST/SGOT 16 U/L (14-36); BLOOD UREA NITROGEN 40 mg/dL (7-17); CALCIUM 9.2 mg/dl (8.6-10.4); GFR AFRICAN-AMERICAN 7; GFR NON-AFRICAN AMERICAN 6
[2018-04-15] MEDS: Naphazoline-Pheniramine Ophth Soln OU SCH ×3 (13:03→23:33)
[2018-04-16] MEDS: Naphazoline-Pheniramine Ophth Soln OU SCH ×4 (07:08→23:45)
--- NOTE | 2018-04-16 07:28 | CP.PCM.PN ---
<Corina Hedrick Y - Last Filed: 04/16/18 18:48> Subjective - Date & Time of Evaluation Date of Evaluation: 04/16/18 Time of Evaluation: 07:28 - Subjective Subjective: PGY-1 Medicine Progress Note for hospitalist Dr. Hewitt. Patient was seen and examined today at bedside during dialysis in no acute distress. Nurse reports no acute events overnight. Patient is feeling better; reports no discomfort. Patient denies fever, chills, chest pain, shortness of breath, nausea, vomiting, diarrhea or constipation. Objective - Vital Signs/Intake and Output Vital Signs (last 24 hours): Temp Pulse Resp BP Pulse Ox 99.3 F 62 20 95/60 L 96 04/16/18 00:00 04/16/18 00:00 04/16/18 00:00 04/16/18 00:00 04/16/18 00:00 Intake and Output: 04/16/18 04/16/18 06:59 18:59 Intake Total 240 Balance 240 - Medications Medications: Current Medications Amlodipine Besylate (Norvasc) 5 mg PO DAILY [facility] Last Admin: 04/15/18 17:24 Dose: 5 mg Apixaban (Eliquis) 5 mg PO BID [facility] Last Admin: 04/15/18 17:24 Dose: 5 mg Bacitracin (Bacitracin) 0 gm TOP DAILY [facility] Last Admin: 04/15/18 10:55 Dose: 1 applic Calcitriol (Rocaltrol) 0.5 mcg PO DAILY [facility] Last Admin: 04/15/18 09:29 Dose: 0.5 mcg Calcium Acetate (Phoslo) 1,334 mg PO TIDCC [facility] Last Admin: 04/15/18 17:24 Dose: 1,334 mg Docusate Sodium (Colace) 100 mg PO DAILY [facility] Last Admin: 04/15/18 09:28 Dose: 100 mg Epoetin Nico (Procrit) 2,000 u IV MWF [facility] Last Admin: 04/14/18 10:05 Dose: 2,000 u Epoetin Nico (Procrit) 3,000 unit IV MWF [facility] Last Admin: 04/14/18 10:12 Dose: 3,000 unit Epoetin Nico (Procrit) 10,000 unit IV MWF [facility] Last Admin: 04/14/18 10:13 Dose: 10,000 unit Fluoxetine HCl (Prozac) 40 mg PO DAILY [facility] Last Admin: 04/15/18 09:28 Dose: 40 mg Insulin Human Regular (Novolin R) 0 unit SC ACHS [facility] PRN Reason: Protocol Last Admin: 04/15/18 21:24 Dose: Not Given Lactic Acid (Lac-Hydrin 12% Lotion (225 G)) 0 gm EXT BID [facility] Last Admin: 04/15/18 17:30 Dose: Not Given Naphazoline HCl/Pheniramine Maleate (Naphcon-A Opht) 0 ml OU Q6 [facility] Last Admin: 04/16/18 07:08 Dose: Not Given Rosuvastatin Calcium (Crestor) 5 mg PO HS [facility] Last Admin: 04/15/18 21:25 Dose: Not Given Sodium Polystyrene Sulfonate (Kayexalate Susp) 15 gm PO SA [facility] Last Admin: 04/10/18 09:29 Dose: 15 gm Sodium Polystyrene Sulfonate (Kayexalate Susp) 15 gm PO MCCLAIN [facility] Last Admin: 04/11/18 09:52 Dose: 15 gm Tramadol HCl (Ultram) 50 mg PO Q8H PRN PRN Reason: Pain, moderate (4-7) Last Admin: 04/15/18 14:01 Dose: 50 mg - Labs Labs: 04/15/18 11:27 04/15/18 14:27 - Constitutional Appears: Well, No Acute Distress - Head Exam Head Exam: ATRAUMATIC, NORMOCEPHALIC - Eye Exam Eye Exam: EOMI. absent: Periorbital swelling Pupil Exam: PERRL - ENT Exam ENT Exam: Mucous Membranes Moist. absent: Mucous Membranes Dry - Neck Exam Neck Exam: Full ROM, Normal Inspection - Respiratory Exam Respiratory Exam: Clear to Ausculation Bilateral, NORMAL BREATHING PATTERN. absent: Rales, Rhonchi, Wheezes, Stridor - Cardiovascular Exam Cardiovascular Exam: REGULAR RHYTHM, +S1, +S2. absent: Gallop, Irregular Rhythm , Rubs, Murmur - GI/Abdominal Exam GI & Abdominal Exam: Soft, Normal Bowel Sounds. absent: Rigid, Tenderness, Hernia, Rebound - Exam External exam: NORMAL EXTERNAL EXAM. absent: Ecchymosis, Erythema, Swelling - Extremities Exam Extremities Exam: absent: Joint Swelling, Normal Inspection, Tenderness Additional comments: erythema surrounding 0.5 cm open wound to the left lower extremity encompassing distal half of leg, erythema to the distal third of the right leg - Back Exam Additional comments: HD cath located in the lumbar area - Neurological Exam Neurological Exam: Abnormal Gait, Alert, Awake, Oriented x3 - Psychiatric Exam Psychiatric exam: Normal Affect, Normal Mood - Skin Skin Exam: Dry, Warm Additional comments: except for erythema to the lower extremities bilaterally Assessment and Plan - Assessment and Plan (Free Text) Plan: 1) ESRD on hemodialysis Assessment & Plan: * HD effectiveness being measured via BUN/Cr (04/15) 40/7.2 pre-dialysis; BUN 12 post-dialysis * labs to be done MF of each week * 04/15 () Patient went for extra session of hemodialysis following previous day's shortened session. Follow up Dr. Still's recs. * 04/16: return to normal MWF HD schedule * Patient lost 10 Kg - started on protein shakes to improve weight loss, as per Dr Still's recs * Nephrology (Dr. Still) consulted 04/14-Relatively stable electrolyte and volume status * Vascular surgery (Dr. Olson) consulted - no surgical intervention for AVF at this time * Continue MWF schedule. Extra session tomorrow 04/15 due to patient being under dialyzed because time constrains that limit her dialysis treatment. * Procrit [id number] QHD MWF * Phoslo 1334mg PO WM * Calcitriol 0.5mcg PO daily * Consistent carbohydrate diet (2) Hypertension Assessment & Plan: * Controlled during dialysis by fluid replacement and restriction * Continue Norvasc 5mg PO daily - Holding parameter: if SBP is lower than 110, HR lower than 60. * Monitor BP in AM and during dialysis * Continue MWF dialysis schedule. (3) Anemia of chronic disease 2/2 ESRD Assessment & Plan: * Hgb today 9.7. Below goal of 10-11, but stable * Continue EPO 45995 units on HD as per Dr. Still's recommendations * Continue Ferric Sodium Gluconate 125mg IVPB q1w (Thursday, last dose 04/14) - pending order per Nephro (4) Chronic kidney disease-mineral and bone disorder Assessment & Plan: * Phos today - pending * Continue phoslo 1334mg po tidcc w/ meals * Continue calcitriol 0.5mcg po daily (6) IVC thrombosis Assessment & Plan: * While placing new dialysis catheter in back on 03/29 * Continue Eliquis 5mg PO daily * Echo (03/29/18) borderline to mild asymetric LVH; EF 50-55%; mild global hypokinesis of lV; LA mildly dilated; trace-mild MR; mild to moderate TR. (7) Pruritus, back * continue Lac Hydrin 12% lotion EXT BID (8) ocular pruritis * continue Naphazoline Hcl/Pheniramine Maleate (Naphcon-A) OU Q6 PRN (9) Ataxic gait * fall risk - ambulating from chair to bed * OT eval recommends [facility] * PT screening ordered, unnecessary to treat and eval at this point in time * Case management/social work consulted for placement at [facility] (10) s/p Fall; History of Falls Subcutaneous soft tissue and posterio back edema/hemorrhage hematoma * Lumbar spine CT:(03/23) subcutaneous hematoma partially visulaized in right lower lumbar and gluteal regions measuring 7.8x2.3cm; urinary bladder wall thickening possibly due to incomplete distention or cystitis; no fracture * Pelvic CT (03/23): Right lower lumbar and sacral region hematoma measuring up to 8.7 cm as well as a left side lateral gluteal/ hip region hematoma measuring 7 x 5.3 centimeters. Imaging from previous hospitalization * CT head (03/07/18): no evidence of acute intracranial hemorrhage, midline shift , or mass effect is identified, possible right facial soft tissue swelling * Rib xrays (03/07/18): multiple left side rib fractures as described. Mild bibasilar atelectasis left greater than right. Elevation right hemidiaphrgam likely due to eventration * Hip (03/07/18):no definitive radiographic evidence of acute hip or pelvic fracture seen * Lumbar CT scan (12/20/17): incompletely visualized posterior back subcutaneous soft tissue fluid and right posterior back edema/hemorrhage hematoma measuring 6cm ~ in right and left dimension at level of L4-S1. Small left pleural effusion. no acute fracture of the lumbar spine. * Imaging available in patient's [place] hospitalization prior to transfer; will hold Eliquis given hematoma and increase risk of falls (11) DM * Accuchecks ACHS * ISS * Hypoglycemic protocol * A1c (12/2017): 6.6 (12) Hyperkeratosis of bilateral feet, developing heel ulcer * Podiatry consulted: Dr. New - help appreciated. * Wound care already consulted for wound of left hip. communicated to f/u on feet. (13) Prophylaxis * DVT: SCDs; Eliquis 5mg PO daily * Consistent Carbohydrate diet * Case management, clinical social work aide consulted * PT/OT * Wound care - 04/11 as per nurse, wound care to left hip wound rendered as ordered. noted ulcer draining purulent discharge. Covered with DSD. * Palliative care consult- Goals of care * Tramadol 50mg Q8 prn for pain * POLST- DNR/DNI Disposition: [employer] is working on finding [facility] placement for patient, assisting on difficulties with Medicaid; will be considering other alternatives based on the patients insurance. SW working for placement to [facility] but waiting for family member (daughter) to fill out paperwork at the site. <Giana Hewitt V - Last Filed: 04/16/18 23:03> Objective - Vital Signs/Intake and Output Vital Signs (last 24 hours): Temp Pulse Resp BP Pulse Ox 97.9 F 60 20 75/43 L 100 04/16/18 11:00 04/16/18 14:00 04/16/18 14:00 04/16/18 14:00 04/16/18 14:00 Intake and Output: 04/16/18 04/17/18 18:59 06:59 Intake Total 360 Balance 360 - Medications Medications: Current Medications Amlodipine Besylate (Norvasc) 5 mg PO DAILY [facility] Last Admin: 04/16/18 10:37 Dose: Not Given Apixaban (Eliquis) 5 mg PO BID [facility] Last Admin: 04/16/18 17:15 Dose: 5 mg Bacitracin (Bacitracin) 0 gm TOP DAILY [facility] Last Admin: 04/16/18 10:36 Dose: Not Given Calcitriol (Rocaltrol) 0.5 mcg PO DAILY [facility] Last Admin: 04/16/18 10:37 Dose: Not Given Calcium Acetate (Phoslo) 1,334 mg PO TIDCC [facility] Last Admin: 04/16/18 17:15 Dose: 1,334 mg Docusate Sodium (Colace) 100 mg PO DAILY [facility] Last Admin: 04/16/18 10:36 Dose: Not Given Epoetin Nico (Procrit) 2,000 u IV MWF [facility] Last Admin: 04/16/18 12:37 Dose: 2,000 u Epoetin Nico (Procrit) 3,000 unit IV [facility] Last Admin: 04/16/18 12:38 Dose: 3,000 unit Epoetin Nico (Procrit) [facility] Last Admin: 04/16/18 12:38 Dose: 10,000 unit Fluoxetine HCl (Prozac) 40 mg PO DAILY [facility] Last Admin: 04/16/18 10:37 Dose: Not Given Insulin Human Regular (Novolin R) 0 unit SC ACHS [facility] PRN Reason: Protocol Last Admin: 04/16/18 21:15 Dose: Not Given Lactic Acid (Lac-Hydrin 12% Lotion (225 G)) 0 gm EXT BID [facility] Last Admin: 04/16/18 17:18 Dose: Not Given Naphazoline HCl/Pheniramine Maleate (Naphcon-A Opht) 0 ml OU Q6 [facility] Last Admin: 04/16/18 21:15 Dose: 2 drop Rosuvastatin Calcium (Crestor) 5 mg PO HS [facility] Last Admin: 04/16/18 21:15 Dose: 5 mg Sodium Polystyrene Sulfonate (Kayexalate Susp) 15 gm PO SA [facility] Last Admin: 04/10/18 09:29 Dose: 15 gm Sodium Polystyrene Sulfonate (Kayexalate Susp) 15 gm PO MCCLAIN [facility] Last Admin: 04/11/18 09:52 Dose: 15 gm Tramadol HCl (Ultram) 50 mg PO Q8H PRN PRN Reason: Pain, moderate (4-7) Last Admin: 04/15/18 14:01 Dose: 50 mg - Labs Labs: 04/15/18 11:27 04/15/18 14:27 Attending/Attestation - Attestation I have personally seen and examined this patient.: Yes I have fully participated in the care of the patient.: Yes I have reviewed all pertinent clinical information, including history, physical exam and plan: Yes Notes (Text): Patient seen, examined, and case discussed with medical engineer. Patient seen during dialysis today. Patient doing well denies acute complaints. Patient underwent extra session yesterday. Podiatry consult given disfigurement of nails. Assessment/Plan 1) ESRD on hemodialysis Assessment & Plan: * Nephrology (Dr. Still) consulted 04/14-Relatively stable electrolyte and volume status * Vascular surgery (Dr. Olson) consulted - no surgical intervention for AVF at this time * Continue MWF schedule. Extra session yesterday 04/15 due to patient being under dialyzed because time constrains that limit her dialysis treatment. * Procrit [id number] QHD MWF * Phoslo 1334mg PO TIDCC * Calcitriol 0.5mcg PO daily * On Kayexlate suspecion PO SA and MCCLAIN * Consistent carbohydrate diet (2) Hypertension Assessment & Plan: * Controlled during dialysis by fluid replacement and restriction * Continue Norvasc 5mg PO daily - Holding parameter: if SBP is lower than 110, HR lower than 60. * Monitor BP in AM and during dialysis * Continue MWF dialysis schedule. (3) Anemia of chronic disease 2/2 ESRD Assessment & Plan: * Hgb today 9.7. Below goal of 10-11, but stable * Continue EPO 47993 units on HD as per Dr. Still's recommendations * Continue Ferric Sodium Gluconate 125mg IVPB q1w (Thursday, last dose 04/14) - pending order per Nephro (4) Chronic kidney disease-mineral and bone disorder Assessment & Plan: * Phos today - pending * Continue phoslo 1334mg po tidcc w/ meals * Continue calcitriol 0.5mcg po daily (6) IVC thrombosis Assessment & Plan: * While placing new dialysis catheter in back on 03/29/18 * Continue Eliquis 5mg PO daily * Echo (03/29/18) borderline to mild asymetric LVH; EF 50-55%; mild global hypokinesis of lV; LA mildly dilated; trace-mild MR; mild to moderate TR. (7) Pruritus, back * continue Lac Hydrin 12% lotion EXT BID (8) ocular pruritis * continue Naphazoline Hcl/Pheniramine Maleate (Naphcon-A) OU Q6 PRN (9) Ataxic gait * fall risk - ambulating from chair to bed * OT eval recommends [facility] * PT screening ordered, unnecessary to treat and eval at this point in time * Case management/social work consulted for placement at [facility] (10) s/p Fall; History of Falls Subcutaneous soft tissue and posterio back edema/hemorrhage hematoma * Lumbar spine CT:(03/23) subcutaneous hematoma partially visulaized in right lower lumbar and gluteal regions measuring 7.8x2.3cm; urinary bladder wall thickening possibly due to incomplete distention or cystitis; no fracture * Pelvic CT (03/23): Right lower lumbar and sacral region hematoma measuring up to 8.7 cm as well as a left side lateral gluteal/ hip region hematoma measuring 7 x 5.3 centimeters. Imaging from previous hospitalization * CT head (03/07/18): no evidence of acute intracranial hemorrhage, midline shift , or mass effect is identified, possible right facial soft tissue swelling * Rib xrays (03/07/18): multiple left side rib fractures as described. Mild bibasilar atelectasis left greater than right. Elevation right hemidiaphrgam likely due to eventration * Hip (03/07/18):no definitive radiographic evidence of acute hip or pelvic fracture seen * Lumbar CT scan (12/20/17): incompletely visualized posterior back subcutaneous soft tissue fluid and right posterior back edema/hemorrhage hematoma measuring 6cm ~ in right and left dimension at level of L4-S1. Small left pleural effusion. no acute fracture of the lumbar spine. * Imaging available in patient's [place] hospitalization prior to transfer; will hold Eliquis given hematoma and increase risk of falls (11) DM * Accuchecks ACHS * ISS * Hypoglycemic protocol * A1c (12/2017): 6.6 (12) Hyperkeratosis of bilateral feet * Podiatry consulted: Dr. New - help appreciated * Follow-up recommendations. (13) Prophylaxis * DVT: SCDs; Eliquis 5mg PO daily * Consistent Carbohydrate diet * Case management, clinical social work aide consulted * PT/OT * Wound care - 04/11 as per nurse, wound care to left hip wound rendered as ordered. noted ulcer draining purulent discharge. Covered with DSD. * Palliative care consult- Goals of care * Tramadol 50mg Q8 prn for pain * POLST- DNR/DNI * Ceci Ramos: [phone] Disposition: [employer] is working on finding [facility] placement for patient, assisting on difficulties with Medicaid; will be considering other alternatives based on the patients insurance. SW working for placement to [facility] but waiting for family member (daughter) to fill out paperwork at the site.
[2018-04-16] MEDS: (Novolin R) Insulin Human Regular 100 units/ml vial SC SCH ×4 (08:22→21:15)
[2018-04-16] MEDS: Bacitracin Ointment 30 GM TUBE TOP SCH (10:36)
[2018-04-16] MEDS: Ammonium Lactate 12% Lotion (225 g) EXT SCH ×2 (10:37→17:18)
[2018-04-16] MEDS: Epoetin Alfa Dialysis 2000 U/ML Inj IV SCH (12:37)
[2018-04-16] MEDS: Epoetin Alfa 10,000 unit/ml Dialysis IV SCH (12:38)
[2018-04-16] MEDS: Epoetin Alfa Dialysis 3000 UNIT/ML Inj IV SCH (12:38)
--- NOTE | 2018-04-16 18:09 | CP.PCM.PN ---
Objective - Vital Signs/Intake and Output Vital Signs (last 24 hours): Temp Pulse Resp BP Pulse Ox 97.9 F 60 20 75/43 L 100 04/16/18 11:00 04/16/18 14:00 04/16/18 14:00 04/16/18 14:00 04/16/18 14:00 Intake and Output: 04/16/18 04/16/18 06:59 18:59 Intake Total 240 360 Balance 240 360 - Medications Medications: Current Medications Amlodipine Besylate (Norvasc) 5 mg PO DAILY [facility] Last Admin: 04/16/18 10:37 Dose: Not Given Apixaban (Eliquis) 5 mg PO BID [facility] Last Admin: 04/16/18 17:15 Dose: 5 mg Bacitracin (Bacitracin) 0 gm TOP DAILY [facility] Last Admin: 04/16/18 10:36 Dose: Not Given Calcitriol (Rocaltrol) 0.5 mcg PO DAILY [facility] Last Admin: 04/16/18 10:37 Dose: Not Given Calcium Acetate (Phoslo) 1,334 mg PO TIDCC [facility] Last Admin: 04/16/18 17:15 Dose: 1,334 mg Docusate Sodium (Colace) 100 mg PO DAILY [facility] Last Admin: 04/16/18 10:36 Dose: Not Given Epoetin Nico (Procrit) 2,000 u IV MWF [facility] Last Admin: 04/16/18 12:37 Dose: 2,000 u Epoetin Nico (Procrit) 3,000 unit IV MWF [facility] Last Admin: 04/16/18 12:38 Dose: 3,000 unit Epoetin Nico (Procrit) 10,000 unit IV MWF [facility] Last Admin: 04/16/18 12:38 Dose: 10,000 unit Fluoxetine HCl (Prozac) 40 mg PO DAILY [facility] Last Admin: 04/16/18 10:37 Dose: Not Given Insulin Human Regular (Novolin R) 0 unit SC ACHS [facility] PRN Reason: Protocol Last Admin: 04/16/18 17:16 Dose: 4 unit Lactic Acid (Lac-Hydrin 12% Lotion (225 G)) 0 gm EXT BID [facility] Last Admin: 04/16/18 17:18 Dose: Not Given Naphazoline HCl/Pheniramine Maleate (Naphcon-A Opht) 0 ml OU Q6 [facility] Last Admin: 04/16/18 12:37 Dose: Not Given Rosuvastatin Calcium (Crestor) 5 mg PO HS [facility] Last Admin: 04/15/18 21:25 Dose: Not Given Sodium Polystyrene Sulfonate (Kayexalate Susp) 15 gm PO SA [facility] Last Admin: 04/10/18 09:29 Dose: 15 gm Sodium Polystyrene Sulfonate (Kayexalate Susp) 15 gm PO MCCLAIN [facility] Last Admin: 04/11/18 09:52 Dose: 15 gm Tramadol HCl (Ultram) 50 mg PO Q8H PRN PRN Reason: Pain, moderate (4-7) Last Admin: 04/15/18 14:01 Dose: 50 mg - Labs Labs: 04/15/18 11:27 04/15/18 14:27 Assessment and Plan (1) ESRD on hemodialysis Status: Chronic (2) Acute deep vein thrombosis (DVT) of superior vena cava Status: Acute (3) Right atrial thrombus Status: Suspected (4) Anemia of renal disease Status: Chronic (5) Ataxic gait Status: Chronic (6) Chronic kidney disease-mineral and bone disorder Status: Chronic (7) Hemodialysis catheter malfunction Status: Chronic (8) Hypertensive CKD, ESRD on dialysis Status: Chronic
--- NOTE | 2018-04-17 01:30 | CP.PCM.PN ---
<Portillo Monroe - Last Filed: 04/17/18 07:52> Subjective - Date & Time of Evaluation Date of Evaluation: 04/17/18 Time of Evaluation: 01:30 - Subjective Subjective: PGY-[address] Hewitt service Patient is seen and examined by bedside. Patient report no acute events overnight. Patients is no acute distress, lying comfortably in bed. Patient denies chest pain, shortness of breath, headaches, dizziness, Nausea, vomiting, diarrhea or constipation. Objective - Vital Signs/Intake and Output Vital Signs (last 24 hours): Temp Pulse Resp BP Pulse Ox 97.9 F 60 20 75/43 L 100 04/16/18 11:00 04/16/18 14:00 04/16/18 14:00 04/16/18 14:00 04/16/18 14:00 Intake and Output: 04/16/18 04/17/18 18:59 06:59 Intake Total 360 Balance 360 - Medications Medications: Current Medications Amlodipine Besylate (Norvasc) 5 mg PO DAILY [facility] Last Admin: 04/16/18 10:37 Dose: Not Given Apixaban (Eliquis) 5 mg PO BID [facility] Last Admin: 04/16/18 17:15 Dose: 5 mg Bacitracin (Bacitracin) 0 gm TOP DAILY [facility] Last Admin: 04/16/18 10:36 Dose: Not Given Calcitriol (Rocaltrol) 0.5 mcg PO DAILY [facility] Last Admin: 04/16/18 10:37 Dose: Not Given Calcium Acetate (Phoslo) 1,334 mg PO TIDCC [facility] Last Admin: 04/16/18 17:15 Dose: 1,334 mg Docusate Sodium (Colace) 100 mg PO DAILY [facility] Last Admin: 04/16/18 10:36 Dose: Not Given Epoetin Nico (Procrit) 2,000 u IV MWF [facility] Last Admin: 04/16/18 12:37 Dose: 2,000 u Epoetin Nico (Procrit) 3,000 unit IV MWF [facility] Last Admin: 04/16/18 12:38 Dose: 3,000 unit Epoetin Nico (Procrit) 10,000 unit IV MWF [facility] Last Admin: 04/16/18 12:38 Dose: 10,000 unit Fluoxetine HCl (Prozac) 40 mg PO DAILY [facility] Last Admin: 04/16/18 10:37 Dose: Not Given Insulin Human Regular (Novolin R) 0 unit SC ACHS [facility] PRN Reason: Protocol Last Admin: 04/16/18 21:15 Dose: Not Given Lactic Acid (Lac-Hydrin 12% Lotion (225 G)) 0 gm EXT BID [facility] Last Admin: 04/16/18 17:18 Dose: Not Given Naphazoline HCl/Pheniramine Maleate (Naphcon-A Opht) 0 ml OU Q6 [facility] Last Admin: 04/16/18 23:45 Dose: 2 drop Rosuvastatin Calcium (Crestor) 5 mg PO HS [facility] Last Admin: 04/16/18 21:15 Dose: 5 mg Sodium Polystyrene Sulfonate (Kayexalate Susp) 15 gm PO SA [facility] Last Admin: 04/10/18 09:29 Dose: 15 gm Sodium Polystyrene Sulfonate (Kayexalate Susp) 15 gm PO MCCLAIN [facility] Last Admin: 04/11/18 09:52 Dose: 15 gm Tramadol HCl (Ultram) 50 mg PO Q8H PRN PRN Reason: Pain, moderate (4-7) Last Admin: 04/15/18 14:01 Dose: 50 mg - Labs Labs: 04/15/18 11:27 04/15/18 14:27 - Constitutional Appears: Well, Non-toxic, No Acute Distress - Head Exam Head Exam: ATRAUMATIC, NORMAL INSPECTION, NORMOCEPHALIC - Eye Exam Eye Exam: EOMI, Normal appearance, PERRL - Neck Exam Neck Exam: Full ROM, Normal Inspection - Respiratory Exam Respiratory Exam: Clear to Ausculation Bilateral, NORMAL BREATHING PATTERN. absent: Rales, Rhonchi, Wheezes, Respiratory Distress - Cardiovascular Exam Cardiovascular Exam: REGULAR RHYTHM, +S1, +S2 - GI/Abdominal Exam GI & Abdominal Exam: Soft, Normal Bowel Sounds - Extremities Exam Extremities Exam: absent: Tenderness Additional comments: Anterior Right LE erythema, Anterior Left LE erthema - Neurological Exam Neurological Exam: Alert, Awake - Psychiatric Exam Psychiatric exam: Normal Affect, Normal Mood - Skin Skin Exam: Intact, Normal Color, Warm Assessment and Plan - Assessment and Plan (Free Text) Plan: 1) ESRD on hemodialysis Assessment & Plan: * Will continue HD on Thursday 04/19 - Labs to be done before HD session. * HD effectiveness being measured via BUN/Cr (04/15) 40/7.2 pre-dialysis; BUN 12 post-dialysis * labs to be done MF of each week * 04/15 () Patient went for extra session of hemodialysis following previous day's shortened session. Follow up Dr. Still's recs. * 04/16: return to normal MWF HD schedule * Patient lost 10 Kg - started on protein shakes to improve weight loss, as per Dr Still's recs * Nephrology (Dr. Still) consulted 04/14-Relatively stable electrolyte and volume status * Vascular surgery (Dr. Olson) consulted - no surgical intervention for AVF at this time * Continue MWF schedule. * Meds: * Procrit [id number] QHD MWF * Phoslo 1334mg PO TIDCC * Calcitriol 0.5mcg PO daily * Continue Consistent carbohydrate diet (2) Hypertension Assessment & Plan: * Controlled during dialysis by fluid replacement and restriction * Continue Norvasc 5mg PO daily - Holding parameter: if SBP is lower than 110, HR lower than 60. * Continue MWF dialysis schedule. (3) Anemia of chronic disease 2/2 ESRD Assessment & Plan: * (04/15) Hgb 9.7. Below goal of 10-11, but stable * Continue EPO 99900 units on HD as per Dr. Still's recommendations * Continue Ferric Sodium Gluconate 125mg IVPB q1w (Thursday, last dose 04/14) - pending order per Nephro (4) Chronic kidney disease-mineral and bone disorder Assessment & Plan: * F/U phosp * Continue phoslo 1334mg po tidcc w/ meals * Continue calcitriol 0.5mcg po daily (6) IVC thrombosis Assessment & Plan: * While placing new dialysis catheter in back on 03/29 * Continue Eliquis 5mg PO daily * Echo (03/29/18) borderline to mild asymetric LVH; EF 50-55%; mild global hypokinesis of lV; LA mildly dilated; trace-mild MR; mild to moderate TR. (7) Pruritus, back * Controlled, continue Lac Hydrin 12% lotion EXT BID (8) ocular pruritis * Controlled, continue Naphazoline Hcl/Pheniramine Maleate (Naphcon-A) OU Q6 PRN (9) Ataxic gait * fall risk - ambulating from chair to bed * OT eval recommends [facility] * PT screening ordered, unnecessary to treat and eval at this point in time * Case management/social work consulted for placement at [facility] (10) s/p Fall; History of Falls Subcutaneous soft tissue and posterio back edema/hemorrhage hematoma * Lumbar spine CT:(03/23) subcutaneous hematoma partially visulaized in right lower lumbar and gluteal regions measuring 7.8x2.3cm; urinary bladder wall thickening possibly due to incomplete distention or cystitis; no fracture * Pelvic CT (03/23): Right lower lumbar and sacral region hematoma measuring up to 8.7 cm as well as a left side lateral gluteal/ hip region hematoma measuring 7 x 5.3 centimeters. Imaging from previous hospitalization * CT head (03/07/18): no evidence of acute intracranial hemorrhage, midline shift , or mass effect is identified, possible right facial soft tissue swelling * Rib xrays (03/07/18): multiple left side rib fractures as described. Mild bibasilar atelectasis left greater than right. Elevation right hemidiaphrgam likely due to eventration * Hip (03/07/18):no definitive radiographic evidence of acute hip or pelvic fracture seen * Lumbar CT scan (12/20/17): incompletely visualized posterior back subcutaneous soft tissue fluid and right posterior back edema/hemorrhage hematoma measuring 6cm ~ in right and left dimension at level of L4-S1. Small left pleural effusion. no acute fracture of the lumbar spine. * Imaging available in patient's [facility] hospitalization prior to transfer; will hold Eliquis given hematoma and increase risk of falls (11) DM * Accuchecks ACHS * ISS * Hypoglycemic protocol * A1c (12/2017): 6.6 (12) Hyperkeratosis of bilateral feet, developing heel ulcer * Podiatry consulted: Dr. New - nabila moore. (13) Prophylaxis * DVT: SCDs; Eliquis 5mg PO daily * Consistent Carbohydrate diet * Case management, web content & social media manager consulted * PT/OT * Wound care - 04/11 as per nurse, wound care to left hip wound rendered as ordered. noted ulcer draining purulent discharge. Covered with DSD. * Palliative care consult- Goals of care * Tramadol 50mg Q8 prn for pain * POLST- DNR/DNI Disposition: [employer] is working on finding [facility] placement for patient, assisting on difficulties with Medicaid; will be considering other alternatives based on the patients insurance. SW [facility] [place] but waiting for family member (daughter) to fill out paperwork at the site. <Giana Hewitt V - Last Filed: 04/17/18 10:06> Objective - Vital Signs/Intake and Output Vital Signs (last 24 hours): Temp Pulse Resp BP Pulse Ox 98.2 F 68 20 75/43 L 96 04/17/18 08:33 04/17/18 08:33 04/17/18 08:33 04/16/18 14:00 04/17/18 08:33 Intake and Output: 04/17/18 04/17/18 06:59 18:59 Intake Total 240 Balance 240 - Medications Medications: Current Medications Amlodipine Besylate (Norvasc) 5 mg PO DAILY [facility] Last Admin: 04/16/18 10:37 Dose: Not Given Apixaban (Eliquis) 5 mg PO BID [facility] Last Admin: 04/16/18 17:15 Dose: 5 mg Bacitracin (Bacitracin) 0 gm TOP DAILY [facility] Last Admin: 04/16/18 10:36 Dose: Not Given Calcitriol (Rocaltrol) 0.5 mcg PO DAILY [facility] Last Admin: 04/16/18 10:37 Dose: Not Given Calcium Acetate (Phoslo) 1,334 mg PO TIDCC [facility] Last Admin: 04/17/18 08:30 Dose: 1,334 mg Docusate Sodium (Colace) 100 mg PO DAILY [facility] Last Admin: 04/16/18 10:36 Dose: Not Given Epoetin Nico (Procrit) 2,000 u IV MWF [facility] Last Admin: 04/16/18 12:37 Dose: 2,000 u Epoetin Nico (Procrit) 3,000 unit IV MWF [facility] Last Admin: 04/16/18 12:38 Dose: 3,000 unit Epoetin Nico (Procrit) 10,000 unit IV MWF [facility] Last Admin: 04/16/18 12:38 Dose: 10,000 unit Fluoxetine HCl (Prozac) 40 mg PO DAILY [facility] Last Admin: 04/16/18 10:37 Dose: Not Given Insulin Human Regular (Novolin R) 0 unit SC [facility] PRN Reason: Protocol Last Admin: 04/17/18 08:30 Dose: 2 unit Lactic Acid (Lac-Hydrin 12% Lotion (225 G)) 0 gm EXT BID [facility] Last Admin: 04/16/18 17:18 Dose: Not Given Naphazoline HCl/Pheniramine Maleate (Naphcon-A Opht) 0 ml OU Q6 [facility] Last Admin: 04/17/18 06:12 Dose: Not Given Rosuvastatin Calcium (Crestor) 5 mg PO HS [facility] Last Admin: 04/16/18 21:15 Dose: 5 mg Sodium Polystyrene Sulfonate (Kayexalate Susp) 15 gm PO SA [facility] Last Admin: 04/10/18 09:29 Dose: 15 gm Sodium Polystyrene Sulfonate (Kayexalate Susp) 15 gm PO MCCLAIN [facility] Last Admin: 04/11/18 09:52 Dose: 15 gm Tramadol HCl (Ultram) 50 mg PO Q8H PRN PRN Reason: Pain, moderate (4-7) Last Admin: 04/15/18 14:01 Dose: 50 mg - Labs Labs: 04/15/18 11:27 04/15/18 14:27 Attending/Attestation - Attestation I have personally seen and examined this patient.: Yes I have fully participated in the care of the patient.: Yes I have reviewed all pertinent clinical information, including history, physical exam and plan: Yes Notes (Text): Patient seen, and examined this morning. Patient reports she has nasal congestion requesting for claritin. Patient denies other acute complaints. She reports she has had bowel movement yesterday. Assessment/Plan 1) ESRD on hemodialysis Assessment & Plan: * Nephrology (Dr. Still) consulted 04/14-Relatively stable electrolyte and volume status * Vascular surgery (Dr. Olson) consulted - no surgical intervention for AVF at this time * Continue MWF schedule. Extra session 04/15 due to patient being under dialyzed because time constrains that limit her dialysis treatment. * Procrit [id number] QHD MWF * Phoslo 1334mg PO TIDCC * Calcitriol 0.5mcg PO daily * On Kayexlate suspension PO SA and MCCLAIN * Consistent carbohydrate diet (2) Hypertension Assessment & Plan: * Controlled during dialysis by fluid replacement and restriction * Continue Norvasc 5mg PO daily - Holding parameter: if SBP is lower than 110, HR lower than 60. * Monitor BP in AM and during dialysis * Continue MWF dialysis schedule. (3) Anemia of chronic disease 2/2 ESRD Assessment & Plan: * Hgb today 9.7. Below goal of 10-11, but stable * Continue EPO 07084 units on HD as per Dr. Still's recommendations * Continue Ferric Sodium Gluconate 125mg IVPB q1w (Thursday, last dose 04/14) - pending order per Nephro (4) Chronic kidney disease-mineral and bone disorder Assessment & Plan: * Phos today - pending * Continue phoslo 1334mg po tidcc w/ meals * Continue calcitriol 0.5mcg po daily (6) IVC thrombosis Assessment & Plan: * While placing new dialysis catheter in back on 03/29/18 * Continue Eliquis 5mg PO daily * Echo (03/29/18) borderline to mild asymmetric LVH; EF 50-55%; mild global hypokinesis of lV; LA mildly dilated; trace-mild MR; mild to moderate TR. (7) Pruritus, back * continue Lac Hydrin 12% lotion EXT BID (8) ocular pruritis * continue Naphazoline Hcl/Pheniramine Maleate (Naphcon-A) OU Q6 PRN (9) Ataxic gait * fall risk - ambulating from chair to bed * OT eval recommends [facility] * PT screening ordered, unnecessary to treat and eval at this point in time * Case management/social work consulted for placement at [facility] (10) s/p Fall; History of Falls Subcutaneous soft tissue and posterio back edema/hemorrhage hematoma * Lumbar spine CT:(03/23) subcutaneous hematoma partially visulaized in right lower lumbar and gluteal regions measuring 7.8x2.3cm; urinary bladder wall thickening possibly due to incomplete distention or cystitis; no fracture * Pelvic CT (03/23): Right lower lumbar and sacral region hematoma measuring up to 8.7 cm as well as a left side lateral gluteal/ hip region hematoma measuring 7 x 5.3 centimeters. Imaging from previous hospitalization * CT head (03/07/18): no evidence of acute intracranial hemorrhage, midline shift , or mass effect is identified, possible right facial soft tissue swelling * Rib xrays (03/07/18): multiple left side rib fractures as described. Mild bibasilar atelectasis left greater than right. Elevation right hemidiaphrgam likely due to eventration * Hip (03/07/18):no definitive radiographic evidence of acute hip or pelvic fracture seen * Lumbar CT scan (12/20/17): incompletely visualized posterior back subcutaneous soft tissue fluid and right posterior back edema/hemorrhage hematoma measuring 6cm ~ in right and left dimension at level of L4-S1. Small left pleural effusion. no acute fracture of the lumbar spine. * Imaging available in patient's [facility] hospitalization prior to transfer; will hold Eliquis given hematoma and increase risk of falls (11) DM * Accuchecks ACHS * ISS * Hypoglycemic protocol * A1c (12/2017): 6.6 (12) Hyperkeratosis of bilateral feet * Podiatry consulted: Dr. New - help appreciated * Follow-up recommendations. (13) Prophylaxis * DVT: SCDs; Eliquis 5mg PO daily * Consistent Carbohydrate diet * Case management, web content & social media manager consulted * PT/OT * Wound care - 04/11 as per nurse, wound care to left hip wound rendered as ordered. noted ulcer draining purulent discharge. Covered with DSD. * Palliative care consult- Goals of care * Tramadol 50mg Q8 prn for pain * POLST- DNR/DNI * DaughterCeci: [phone] Disposition: [facility] is working on finding [facility] placement for patient, assisting on difficulties with Medicaid; will be considering other alternatives based on the patients insurance. SW working [facility] [place] but waiting for family member (daughter) to fill out paperwork at the site.
[2018-04-17] MEDS: Naphazoline-Pheniramine Ophth Soln OU SCH ×4 (06:12→23:03)
[2018-04-17] MEDS: (Novolin R) Insulin Human Regular 100 units/ml vial SC SCH ×4 (08:30→21:52)
[2018-04-17] MEDS: Bacitracin Ointment 30 GM TUBE TOP SCH (10:22)
[2018-04-17] MEDS: Sod Polystyrene Sulf 15 gm/60 ml Susp PO SCH (10:31)
--- NOTE | 2018-04-17 11:33 | CP.PCM.PN ---
Subjective - Date & Time of Evaluation Date of Evaluation: 04/17/18 Time of Evaluation: 11:27 - Subjective Subjective: Podiatry Consult Note: Dr. New 57 year old female patient with PMHx of ESRD on HD, HTN, IDDM2, CAD, free- floating IVC thrombus, chronic vertigo and frequent falls seen for healed non- infected wound on the anterior aspect of the left mid-leg. Patient reports that she fell and was brought to the hospital. Reports that she is very well known to Dr. Sandoval's (sales trainer at [employer]) service. She denies any pain to the area. Reports that she sustained this wound during a fall last time. Patient states that she is not aware how long the wound has been present. She denies any pain to the area. Patient is AAOx3 and NAD during examination. Denies any further pedal complaints at this time. 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; Lives at home with family on first story of two story home Objective - Vital Signs/Intake and Output Vital Signs (last 24 hours): Temp Pulse Resp BP Pulse Ox 98.2 F 67 20 105/47 L 96 04/17/18 08:33 04/17/18 10:00 04/17/18 08:33 04/17/18 10:00 04/17/18 08:33 Intake and Output: 04/17/18 04/17/18 06:59 18:59 Intake Total 240 Balance 240 - Medications Medications: Current Medications Amlodipine Besylate (Norvasc) 5 mg PO DAILY [facility] Last Admin: 04/17/18 10:32 Dose: Not Given Apixaban (Eliquis) 5 mg PO BID [facility] Last Admin: 04/17/18 10:21 Dose: 5 mg Bacitracin (Bacitracin) 0 gm TOP DAILY [facility] Last Admin: 04/17/18 10:22 Dose: 1 applic Calcitriol (Rocaltrol) 0.5 mcg PO DAILY [facility] Last Admin: 04/17/18 10:21 Dose: 0.5 mcg Calcium Acetate (Phoslo) 1,334 mg PO TIDCC [facility] Last Admin: 04/17/18 08:30 Dose: 1,334 mg Diphenhydramine HCl (Benadryl) 25 mg PO ONCE ONE Stop: 04/17/18 11:31 Docusate Sodium (Colace) 100 mg PO DAILY [facility] Last Admin: 04/17/18 10:21 Dose: 100 mg [facility]poetin N[facility] ([facility]) [facility] Last Admin: 04/16/18 12:37 Dose: 2,000 u Epoetin Nico (Procrit) 3,000 unit IV [facility] Last Admin: 04/16/18 12:38 Dose: 3,000 unit Epoetin Nico (Procrit) 10,000 unit IV [facility] Last Admin: 04/16/18 12:38 Dose: 10,000 unit Fluoxetine HCl (Prozac) 40 mg PO DAILY [facility] Last Admin: 04/17/18 10:21 Dose: 40 mg Insulin Human Regular (Novolin R) 0 unit SC ACHS [facility] PRN Reason: Protocol Last Admin: 04/17/18 08:30 Dose: 2 unit Lactic Acid (Lac-Hydrin 12% Lotion (225 G)) 0 gm EXT BID [facility] Last Admin: 04/16/18 17:18 Dose: Not Given Naphazoline HCl/Pheniramine Maleate (Naphcon-A Opht) 0 ml OU Q6 [facility] Last Admin: 04/17/18 06:12 Dose: Not Given Rosuvastatin Calcium (Crestor) 5 mg PO HS [facility] Last Admin: 04/16/18 21:15 Dose: 5 mg Sodium Polystyrene Sulfonate (Kayexalate Susp) 15 gm PO SA [facility] Last Admin: 04/17/18 10:31 Dose: Not Given Sodium Polystyrene Sulfonate (Kayexalate Susp) 15 gm PO MCCLAIN [facility] Last Admin: 04/11/18 09:52 Dose: 15 gm Tramadol HCl (Ultram) 50 mg PO Q8H PRN PRN Reason: Pain, moderate (4-7) Last Admin: 04/15/18 14:01 Dose: 50 mg - Labs Labs: 04/15/18 11:27 07/12/18 14:27 - Constitutional Appears: Well, Non-toxic, No Acute Distress - Extremities Exam Additional comments: LLE focused exam: VASC: DP/PT pulses faintly palpable 1/4 b/l. Skin temperature warm to warm from proximal to distal. Cap refill time: < 3 seconds to all digits b/l. No pitting or non-pitting edema noted Derm: Healing scabbed over eschar with no clinical signs of infection noted to anterior left leg. 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 No other open lesions, wounds, maceration, xerosis, abnormal pigmentation or abnormal growths noted Neuro: Epicritic and protective sensation grossly intact b/l MSK: No POP to anterior left leg wound. Severe pes planus deformity noted to left foot. No other gross deformities noted - Neurological Exam Neurological Exam: Alert, Awake, Oriented x3 - Psychiatric Exam Psychiatric exam: Normal Affect, Normal Mood Assessment and Plan - Assessment and Plan (Free Text) Assessment: 57 year old female was evaluated for well healed left left wound Plan: Patient seen and evaluated with attending Dr. New Afebrile, absent leukocytosis No dressing needed - leave open to air Silvadine ordered - apply every other day Patient stable from podiatric standpoint Podiatry will evaluated patient every other day
[2018-04-17] MEDS: Ammonium Lactate 12% Lotion (225 g) EXT SCH ×2 (12:32→17:03)
--- NOTE | 2018-04-17 12:45 | CP.PCM.PN ---
Subjective - Date & Time of Evaluation Date of Evaluation: 04/17/18 Time of Evaluation: 11:00 - Subjective Subjective: Patient reports feeling well; mild, transient lightheadedness after HD yesterday ; otherwise, no breathing complaints, nausea/vomiting; Objective - Vital Signs/Intake and Output Vital Signs (last 24 hours): Temp Pulse Resp BP Pulse Ox 98.2 F 67 20 105/47 L 96 04/17/18 08:33 04/17/18 10:00 04/17/18 08:33 04/17/18 10:00 04/17/18 08:33 Intake and Output: 04/17/18 04/17/18 06:59 18:59 Intake Total 240 Balance 240 - Medications Medications: Current Medications Amlodipine Besylate (Norvasc) 5 mg PO DAILY [facility] [place] Last Admin: 04/17/18 10:32 Dose: Not Given Apixaban (Eliquis) 5 mg PO BID [facility] [place] Last Admin: 04/17/18 10:21 Dose: 5 mg Bacitracin (Bacitracin) 0 gm TOP DAILY [facility] [place] Last Admin: 04/17/18 10:22 Dose: 1 applic Calcitriol (Rocaltrol) 0.5 mcg PO DAILY [facility] [place] Last Admin: 04/17/18 10:21 Dose: 0.5 mcg Calcium Acetate (Phoslo) 1,334 mg PO TIDCC [facility] [place] Last Admin: 04/17/18 12:31 Dose: 1,334 mg Docusate Sodium (Colace) 100 mg PO DAILY [facility] [place] Last Admin: 04/17/18 10:21 Dose: 100 mg Epoetin Nico (Procrit) 2,000 u IV MWF [facility] [place] Last Admin: 04/16/18 12:37 Dose: 2,000 u Epoetin Nico (Procrit) 3,000 unit IV MWF [facility] [place] Last Admin: 04/16/18 12:38 Dose: 3,000 unit Epoetin Nico (Procrit) 10,000 unit IV MWF [facility] [place] Last Admin: 04/16/18 12:38 Dose: 10,000 unit Fluoxetine HCl (Prozac) 40 mg PO DAILY [facility] [place] Last Admin: 04/17/18 10:21 Dose: 40 mg Insulin Human Regular (Novolin R) 0 unit SC [facility] PRN Reason: Protocol Last Admin: 04/17/18 12:30 Dose: 6 unit Lactic Acid (Lac-Hydrin 12% Lotion (225 G)) 0 gm EXT BID [facility] [place] Last Admin: 04/17/18 12:32 Dose: 1 applic Naphazoline HCl/Pheniramine Maleate (Naphcon-A Opht) 0 ml OU Q6 [facility] Last Admin: 04/17/18 12:32 Dose: 1 drop Rosuvastatin Calcium (Crestor) 5 mg PO HS [facility] [place] [place] Last Admin: 04/16/18 21:15 Dose: 5 mg Silver Sulfadiazine (Silvadene 1% 20 Gm) 10 ea TOP DAILY [facility] Sodium Polystyrene Sulfonate (Kayexalate Susp) 15 gm PO SA [facility] Last Admin: 04/17/18 10:31 Dose: Not Given Sodium Polystyrene Sulfonate (Kayexalate Susp) 15 gm PO MCCLAIN [facility] [place] Last Admin: 04/11/18 09:52 Dose: 15 gm Tramadol HCl (Ultram) 50 mg PO Q8H PRN PRN Reason: Pain, moderate (4-7) Last Admin: 04/15/18 14:01 Dose: 50 mg - Labs Labs: 04/15/18 11:27 04/15/18 14:27 - Constitutional Appears: Non-toxic, No Acute Distress - Eye Exam Eye Exam: absent: Scleral icterus - ENT Exam ENT Exam: Mucous Membranes Moist - Respiratory Exam Respiratory Exam: Clear to Ausculation Bilateral. absent: Respiratory Distress - Cardiovascular Exam Cardiovascular Exam: RRR, +S1, +S2 - GI/Abdominal Exam GI & Abdominal Exam: Soft. absent: Distended - Extremities Exam Additional comments: b/l lower leg mild erythema improved; - Neurological Exam Neurological Exam: Alert, Awake - Psychiatric Exam Psychiatric exam: Normal Mood. absent: Agitated - Skin Skin Exam: Warm. absent: Cyanosis Assessment and Plan (1) ESRD on hemodialysis Assessment & Plan: Stable volume and electrolyte status; still fluctuating blood flows but urea reduction ratio at goal (70%); if blood flows are less than 300 cc/min, will consider extra weekly HD session; next HD on Thursday per routine; Status: Chronic (2) Acute deep vein thrombosis (DVT) of superior vena cava Assessment & Plan: On eliquis 5 mg bid, need to continue indefinitely; Status: Acute (3) Right atrial thrombus Status: Suspected (4) Anemia of renal disease Assessment & Plan: Hgb slightly below goal but improved; continue ferrlecit 125 mg weekly and EPO 15,000 u qHD; Status: Chronic (5) Ataxic gait Status: Chronic (6) Chronic kidney disease-mineral and bone disorder Assessment & Plan: PTH and Ca at goal; phos fluctuating; continue calcitriol 0.5 mcg daily and phoslo 2 tabs w/ meals; Status: Chronic (7) Hemodialysis catheter malfunction Assessment & Plan: see above; will monitor regularly; tPA prn; Status: Chronic (8) Hypertensive CKD, ESRD on dialysis Assessment & Plan: BP low after extra HD session; ok to hold amlodipine today; should give tomorrow if BP normal; Status: Chronic
[2018-04-18] MEDS: Naphazoline-Pheniramine Ophth Soln OU SCH ×3 (05:40→17:30)
[2018-04-18] MEDS: (Novolin R) Insulin Human Regular 100 units/ml vial SC SCH ×4 (08:16→21:38)
--- NOTE | 2018-04-18 08:20 | CP.PCM.PN ---
Addendum entered and electronically signed by Portillo Monroe 04/18/18 10:19: Add on subjective: PGY-[address] Wells service Original Note: <Portillo Monroe - Last Filed: 04/18/18 09:14> Subjective - Date & Time of Evaluation Date of Evaluation: 04/18/18 Time of Evaluation: 08:20 - Subjective Subjective: Patient is seen and examined by bedside. Patient reports no acute events overnight. Patient continues to complain of eye itchiness. Patient reports her back does not itch anymore. Overall, patient is in no acute distress and in no discomfort. Pain denies fever, chills, lightheadedness, headaches Shortness of breath, chest pain, abdominal pain, leg pain , swelling in her lower extremities. Objective - Vital Signs/Intake and Output Vital Signs (last 24 hours): Temp Pulse Resp BP Pulse Ox 97.7 F 60 20 129/70 96 04/18/18 07:40 04/18/18 07:40 04/18/18 07:40 04/18/18 07:40 04/18/18 07:40 Intake and Output: 04/18/18 04/18/18 06:59 18:59 Intake Total 360 200 Balance 360 200 - Medications Medications: Current Medications Amlodipine Besylate (Norvasc) 5 mg PO DAILY [facility] Last Admin: 04/17/18 10:32 Dose: Not Given Apixaban (Eliquis) 5 mg PO BID [facility] Last Admin: 04/17/18 17:02 Dose: 5 mg Bacitracin (Bacitracin) 0 gm TOP DAILY [facility] Last Admin: 04/17/18 10:22 Dose: 1 applic Calcitriol (Rocaltrol) 0.5 mcg PO DAILY [facility] Last Admin: 04/17/18 10:21 Dose: 0.5 mcg Calcium Acetate (Phoslo) 1,334 mg PO TIDCC [facility] Last Admin: 04/18/18 08:16 Dose: 1,334 mg Docusate Sodium (Colace) 100 mg PO DAILY [facility] Last Admin: 04/17/18 10:21 Dose: 100 mg Epoetin Nico (Procrit) 2,000 u IV MWF [facility] Last Admin: 04/16/18 12:37 Dose: 2,000 u Epoetin Nico (Procrit) 3,000 unit IV MWF [facility] Last Admin: 04/16/18 12:38 Dose: 3,000 unit Epoetin Nico (Procrit) 10,000 unit IV MWF [facility] Last Admin: 04/16/18 12:38 Dose: 10,000 unit Fluoxetine HCl (Prozac) 40 mg PO DAILY [facility] Last Admin: 04/17/18 10:21 Dose: 40 mg Insulin Human Regular (Novolin R) 0 unit SC ACHS [facility] PRN Reason: Protocol Last Admin: 04/18/18 08:16 Dose: 2 unit Lactic Acid (Lac-Hydrin 12% Lotion (225 G)) 0 gm EXT BID [facility] Last Admin: 04/17/18 17:03 Dose: 1 applic Naphazoline HCl/Pheniramine Maleate (Naphcon-A Opht) 0 ml OU Q6 [facility] Last Admin: 04/18/18 05:40 Dose: 1 drop Rosuvastatin Calcium (Crestor) 5 mg PO HS [facility] Last Admin: 04/17/18 21:10 Dose: Not Given Silver Sulfadiazine (Silvadene 1% 20 Gm) 10 ea TOP DAILY [facility] Sodium Polystyrene Sulfonate (Kayexalate Susp) 15 gm PO SA [facility] Last Admin: 04/17/18 10:31 Dose: Not Given Sodium Polystyrene Sulfonate (Kayexalate Susp) 15 gm PO MCCLAIN [facility] Last Admin: 04/11/18 09:52 Dose: 15 gm Tramadol HCl (Ultram) 50 mg PO Q8H PRN PRN Reason: Pain, moderate (4-7) Last Admin: 04/15/18 14:01 Dose: 50 mg - Labs Labs: 04/15/18 11:27 04/15/18 14:27 - Constitutional Appears: Well, Non-toxic, No Acute Distress - Head Exam Head Exam: ATRAUMATIC, NORMAL INSPECTION - Eye Exam Eye Exam: EOMI, Normal appearance - ENT Exam ENT Exam: Mucous Membranes Moist, Normal Exam - Neck Exam Neck Exam: Full ROM, Normal Inspection - Cardiovascular Exam Cardiovascular Exam: REGULAR RHYTHM, +S1, +S2. absent: Gallop, Murmur - GI/Abdominal Exam GI & Abdominal Exam: Distended, Soft, Tenderness, Normal Bowel Sounds Additional comments: Right Lower quadrant tenderness upon deep palpation - Extremities Exam Extremities Exam: absent: Joint Swelling, Pedal Edema, Tenderness Additional comments: Anterior right LE erythema, Anterior Left LE erythema, healed wound on Left extremity - Back Exam Back Exam: Full ROM, NORMAL INSPECTION - Neurological Exam Neurological Exam: Alert, Awake - Psychiatric Exam Psychiatric exam: Normal Affect, Normal Mood - Skin Skin Exam: Dry, Intact, Normal Color Assessment and Plan - Assessment and Plan (Free Text) Plan: 1) ESRD on hemodialysis Assessment & Plan: * HD tomorrow (04/19), F/U labs tomorrow (04/19) * Nephrology (Dr. Still) consulted 04/14-Relatively stable electrolyte and volume status, consider extra dialysis if blood flow are less than 300cc/min * Vascular surgery (Dr. Olson) consulted - no surgical intervention for AVF at this time * Continue MWF schedule. Extra session 04/15 due to patient being under dialyzed because time constrains that limit her dialysis treatment. * Procrit [id number] QHD MWF * Phoslo 1334mg PO TIDCC * Calcitriol 0.5mcg PO daily * On Kayexlate suspension PO SA and MCCLAIN - 04/18 dose held * Consistent carbohydrate diet (2) Hypertension Assessment & Plan: * Controlled during dialysis by fluid replacement and restriction * 04/17 BP was 106/56 - Norvasc held as per parameter * 04/18 BP was 129/70 - continue to monitor * Monitor BP in AM and during dialysis * Continue MWF dialysis schedule. (3) Anemia of chronic disease 2/2 ESRD Assessment & Plan: * F/U labs tomorrow (04/19) * Hgb today 9.7. Below goal of 10-11, but stable * Continue EPO 54961 units on HD as per Dr. Still's recommendations * Continue Ferric Sodium Gluconate 125mg IVPB q1w (Thursday, last dose 04/14) - pending order per Nephro (4) Chronic kidney disease-mineral and bone disorder Assessment & Plan: * Phos today - pending * Continue phoslo 1334mg po tidcc w/ meals * Continue calcitriol 0.5mcg po daily (6) IVC thrombosis Assessment & Plan: * While placing new dialysis catheter in back on 03/29/18 * Continue Eliquis 5mg PO daily * Echo (03/29/18) borderline to mild asymmetric LVH; EF 50-55%; mild global hypokinesis of lV; LA mildly dilated; trace-mild MR; mild to moderate TR. (7) Pruritus, back, resolved * symptoms resolved as per patient * continue Lac Hydrin 12% lotion EXT BID * Benadryl 25 mg PO ONE (8) ocular pruritis * symptoms remain * continue Naphazoline Hcl/Pheniramine Maleate (Naphcon-A) OU Q6 PRN * Consider alternative eye drops or antihistamines * Will keep monitoring (9) Ataxic gait * fall risk - ambulating from chair to bed * OT eval recommends [facility] * PT screening ordered, unnecessary to treat and eval at this point in time * Case management/social work consulted for placement at [facility] (10) s/p Fall; History of Falls Subcutaneous soft tissue and posterio back edema/hemorrhage hematoma * Lumbar spine CT:(03/23) subcutaneous hematoma partially visulaized in right lower lumbar and gluteal regions measuring 7.8x2.3cm; urinary bladder wall thickening possibly due to incomplete distention or cystitis; no fracture * Pelvic CT (03/23): Right lower lumbar and sacral region hematoma measuring up to 8.7 cm as well as a left side lateral gluteal/ hip region hematoma measuring 7 x 5.3 centimeters. Imaging from previous hospitalization * CT head (03/07/18): no evidence of acute intracranial hemorrhage, midline shift , or mass effect is identified, possible right facial soft tissue swelling * Rib xrays (03/07/18): multiple left side rib fractures as described. Mild bibasilar atelectasis left greater than right. Elevation right hemidiaphrgam likely due to eventration * Hip (03/07/18):no definitive radiographic evidence of acute hip or pelvic fracture seen * Lumbar CT scan (12/20/17): incompletely visualized posterior back subcutaneous soft tissue fluid and right posterior back edema/hemorrhage hematoma measuring 6cm ~ in right and left dimension at level of L4-S1. Small left pleural effusion. no acute fracture of the lumbar spine. * Imaging available in patient's [place] hospitalization prior to transfer; will hold Eliquis given hematoma and increase risk of falls (11) DM * Accuchecks ACHS * ISS * Hypoglycemic protocol * A1c (12/2017): 6.6 (12) Hyperkeratosis of bilateral feet * Podiatry consulted: Dr. New - 04/17- no dressing needed, leave open to air, Silvadine ordered, apply everyday. * Follow-up recommendations. (13) Prophylaxis * DVT: SCDs; Eliquis 5mg PO daily * Consistent Carbohydrate diet * Case management, neonatal social worker consulted * PT/OT - follow recs * Wound care - 04/11 as per nurse, wound care to left hip wound rendered as ordered. noted ulcer draining purulent discharge. Covered with [facility]SD. * Palliative care consult- Goals of care * Tramadol 50mg Q8 prn for pain * POLST- DNR/DNI * DaughterCeci: [phone] Disposition: Mortgage Loan Officer Originator is working on finding [facility] placement for patient, assisting on difficulties with Medicaid; will be considering other alternatives based on the patients insurance. [facility] but waiting for family member (daughter) to fill out paperwork at the site. <Misha Wells - Last Filed: 04/18/18 11:05> Objective - Vital Signs/Intake and Output Vital Signs (last 24 hours): Temp Pulse Resp BP Pulse Ox 97.7 F 60 20 129/70 96 04/18/18 07:40 04/18/18 07:40 04/18/18 07:40 04/18/18 07:40 04/18/18 07:40 Intake and Output: 04/18/18 04/18/18 06:59 18:59 Intake Total 360 200 Balance 360 200 - Medications Medications: Current Medications Amlodipine Besylate (Norvasc) 5 mg PO DAILY [facility] Last Admin: 04/17/18 10:32 Dose: Not Given Apixaban (Eliquis) 5 mg PO BID [facility] Last Admin: 04/18/18 09:40 Dose: 5 mg Bacitracin (Bacitracin) 0 gm TOP DAILY [facility] Last Admin: 04/18/18 09:41 Dose: Not Given Calcitriol (Rocaltrol) 0.5 mcg PO DAILY [facility] Last Admin: 04/18/18 09:40 Dose: 0.5 mcg Calcium Acetate (Phoslo) 1,334 mg PO TIDCC [facility] Last Admin: 04/18/18 08:16 Dose: 1,334 mg Docusate Sodium (Colace) 100 mg PO DAILY [facility] Last Admin: 04/18/18 09:39 Dose: 100 mg Epoetin Nico (Procrit) 2,000 u IV MWF [facility] Last Admin: 04/16/18 12:37 Dose: 2,000 u Epoetin Nico (Procrit) 3,000 unit IV [facility] [place] Last Admin: 04/16/18 12:38 Dose: 3,000 unit Epoetin Nico (Procrit) 10,000 unit IV [facility] [place] Last Admin: 04/16/18 12:38 Dose: 10,000 unit Fluoxetine HCl (Prozac) 40 mg PO DAILY [facility] Last Admin: 04/18/18 09:39 Dose: 40 mg Insulin Human Regular (Novolin R) 0 unit SC ACHS [facility] PRN Reason: Protocol Last Admin: 04/18/18 08:16 Dose: 2 unit Lactic Acid (Lac-Hydrin 12% Lotion (225 G)) 0 gm EXT BID [facility] Last Admin: 04/18/18 09:41 Dose: 1 applic Montelukast Sodium (Singulair) 10 mg PO DAILY [facility] Naphazoline HCl/Pheniramine Maleate (Naphcon-A Opht) 0 ml OU Q6 [facility] Last Admin: 04/18/18 05:40 Dose: 1 drop Rosuvastatin Calcium (Crestor) 5 mg PO HS [facility] Last Admin: 04/17/18 21:10 Dose: Not Given Silver Sulfadiazine (Silvadene 1% 20 Gm) 10 ea TOP DAILY [facility] Last Admin: 04/18/18 09:40 Dose: 1 applic Sodium Polystyrene Sulfonate (Kayexalate Susp) 15 gm PO SA [facility] Last Admin: 04/17/18 10:31 Dose: Not Given Sodium Polystyrene Sulfonate (Kayexalate Susp) 15 gm PO MCCLAIN [facility] Last Admin: 04/11/18 09:52 Dose: 15 gm Tramadol HCl (Ultram) 50 mg PO Q8H PRN PRN Reason: Pain, moderate (4-7) Last Admin: 04/15/18 14:01 Dose: 50 mg - Labs Labs: 04/15/18 11:27 04/15/18 14:27 Attending/Attestation - Attestation I have personally seen and examined this patient.: Yes I have fully participated in the care of the patient.: Yes I have reviewed all pertinent clinical information, including history, physical exam and plan: Yes Notes (Text): seen and examined by me,c/o allergies and runny nose . she was on Singulair which was helping her in the past no fever,no sob. On examination she has clear lungs,benign abdomen,Her left hip wound with dressing,hematoma/swelling remain same leg with chronic changes. I agree with the residents documentation Elis added d/w with her RN
[2018-04-18] MEDS: Silver Sulfadiazine 1% Cream (20 gm) TOP SCH (09:40)
[2018-04-18] MEDS: Ammonium Lactate 12% Lotion (225 g) EXT SCH ×2 (09:41→17:30)
[2018-04-18] MEDS: Bacitracin Ointment 30 GM TUBE TOP SCH (09:41)
[2018-04-19] MEDS: Naphazoline-Pheniramine Ophth Soln OU SCH ×4 (06:27→18:13)
[2018-04-19 07:38] LABS: BASO % 0.5 % (0.0-2.0); EOS # 0.1 K/uL (0.0-0.7); EOS % 1.2 % (0.0-4.0); HEMOGLOBIN 9.9 g/dL (11.0-16.0); LYMPH # 0.9 K/uL (1.0-4.3); LYMPH % 14.9 % (20.0-40.0); MEAN CELL VOLUME 96.8 fL (81.0-99.0); MEAN CORPUSCULAR HEMOGLOBIN 31.1 pg (27.0-31.0); MEAN CORPUSCULAR HGB CONC 32.1 g/dL (33.0-37.0); MONO # 0.7 K/uL (0.0-0.8); MONO % 11.9 % (0.0-10.0); NEUT # 4.3 K/uL (1.8-7.0); NEUT % 71.5 % (50.0-75.0); RBC 3.17 Mil/uL (3.80-5.20); RED CELL DISTRIBUTION WIDTH 18.4 % (11.5-14.5); WHITE BLOOD COUNT 6.1 K/uL (4.8-10.8)
[2018-04-19 08:12] LABS: ALB/GLOB RATIO 1.2 (1.0-2.1); ALBUMIN 3.9 g/dL (3.5-5.0); CALCIUM 9.3 mg/dl (8.6-10.4)
[2018-04-19] MEDS: (Novolin R) Insulin Human Regular 100 units/ml vial SC SCH ×4 (08:12→22:00)
--- NOTE | 2018-04-19 11:08 | CP.PCM.PN ---
Subjective - Date & Time of Evaluation Date of Evaluation: 04/19/18 Time of Evaluation: 11:08 Objective - Vital Signs/Intake and Output Vital Signs (last 24 hours): Temp Pulse Resp BP Pulse Ox 98.7 F 61 20 112/66 97 04/19/18 08:02 04/19/18 08:02 04/19/18 08:02 04/19/18 08:02 04/19/18 08:02 - Medications Medications: Current Medications Amlodipine Besylate (Norvasc) 5 mg PO DAILY [facility] Last Admin: 04/17/18 10:32 Dose: Not Given Apixaban (Eliquis) 5 mg PO BID [facility] Last Admin: 04/18/18 17:01 Dose: 5 mg Bacitracin (Bacitracin) 0 gm TOP DAILY [facility] Last Admin: 04/18/18 09:41 Dose: Not Given Calcitriol (Rocaltrol) 0.5 mcg PO DAILY [facility] Last Admin: 04/18/18 09:40 Dose: 0.5 mcg Calcium Acetate (Phoslo) 1,334 mg PO TIDCC [facility] Last Admin: 04/19/18 08:11 Dose: 1,334 mg Docusate Sodium (Colace) 100 mg PO DAILY [facility] Last Admin: 04/18/18 09:39 Dose: 100 mg Epoetin Nico (Procrit) 2,000 u IV MWF [facility] Last Admin: 04/16/18 12:37 Dose: 2,000 u Epoetin Nico (Procrit) 3,000 unit IV MWF [facility] Last Admin: 04/16/18 12:38 Dose: 3,000 unit Epoetin Nico (Procrit) 10,000 unit IV MWF [facility] Last Admin: 04/16/18 12:38 Dose: 10,000 unit Fluoxetine HCl (Prozac) 40 mg PO DAILY [facility] Last Admin: 04/18/18 09:39 Dose: 40 mg Insulin Human Regular (Novolin R) 0 unit SC ACHS [facility] PRN Reason: Protocol Last Admin: 04/19/18 08:12 Dose: 2 unit Lactic Acid (Lac-Hydrin 12% Lotion (225 G)) 0 gm EXT BID [facility] Last Admin: 04/18/18 17:30 Dose: Not Given Montelukast Sodium (Singulair) 10 mg PO Q24H [facility] Last Admin: 04/19/18 08:16 Dose: 10 mg Naphazoline HCl/Pheniramine Maleate (Naphcon-A Opht) 0 ml OU Q6 [id number] Last Admin: 04/19/18 06:27 Dose: 1 drop Rosuvastatin Calcium (Crestor) 5 mg PO HS [facility] Last Admin: 04/18/18 21:38 Dose: Not Given Silver Sulfadiazine (Silvadene 1% 20 Gm) 10 ea TOP DAILY [facility] Last Admin: 04/18/18 09:40 Dose: 1 applic Sodium Polystyrene Sulfonate (Kayexalate Susp) 15 gm PO SA [facility] Last Admin: 04/17/18 10:31 Dose: Not Given Sodium Polystyrene Sulfonate (Kayexalate Susp) 15 gm PO M[facility]LAIN [facility] Last Admin: 04/11/18 09:52 Dose: 15 gm Tramadol HCl (Ultram) 50 mg PO Q8H PRN PRN Reason: Pain, moderate (4-7) Last Admin: 04/15/18 14:01 Dose: 50 mg - Labs Labs: 04/19/18 07:12 04/19/18 07:12
[2018-04-19] MEDS: Bacitracin Ointment 30 GM TUBE TOP SCH (11:16)
[2018-04-19] MEDS: Ammonium Lactate 12% Lotion (225 g) EXT SCH ×2 (11:16→18:14)
[2018-04-19] MEDS: Silver Sulfadiazine 1% Cream (20 gm) TOP SCH (11:19)
--- NOTE | 2018-04-19 13:32 | CP.PCM.PN ---
<Williams Morales - Last Filed: 04/19/18 13:57> Subjective - Date & Time of Evaluation Date of Evaluation: 04/19/18 Time of Evaluation: 13:00 - Subjective Subjective: Williams Morales PGY-1 [facility] Progress Note Patient seen and examined at bedside. Patient offers no acute complaints. Patient reports healthy appetite and good urine output. Patient was upset when discussing dialysis session today because she prefers to have her sessions earlier in the morning. Patient states she is "fed up" with her dialysis session timing and stated that she will choose not to go today. Patient was educated on the problems if she misses her session today and is still scheduled for today. Patient was told she has the choice but was encouraged to have her dialysis session. Patient denies chest pain, shortness of breath, N/V/C/D. Objective - Vital Signs/Intake and Output Vital Signs (last 24 hours): Temp Pulse Resp BP Pulse Ox 98.7 F 61 20 112/66 97 04/19/18 08:02 04/19/18 08:02 04/19/18 08:02 04/19/18 08:02 04/19/18 08:02 - Medications Medications: Current Medications Amlodipine Besylate (Norvasc) 5 mg PO DAILY [facility] Last Admin: 04/17/18 10:32 Dose: Not Given Apixaban (Eliquis) 5 mg PO BID [facility] Last Admin: 04/19/18 11:13 Dose: 5 mg Bacitracin (Bacitracin) 0 gm TOP DAILY [facility] Last Admin: 04/19/18 11:16 Dose: 1 applic Calcitriol (Rocaltrol) 0.5 mcg PO DAILY [facility] Last Admin: 04/19/18 11:14 Dose: 0.5 mcg Calcium Acetate (Phoslo) 1,334 mg PO TIDCC [facility] Last Admin: 04/19/18 12:55 Dose: 1,334 mg Docusate Sodium (Colace) 100 mg PO DAILY [facility] Last Admin: 04/19/18 11:13 Dose: 100 mg Epoetin Nico (Procrit) 2,000 u IV MWF [facility] Last Admin: 04/16/18 12:37 Dose: 2,000 u Epoetin Nico (Procrit) 3,000 unit IV MWF [facility] Last Admin: 04/16/18 12:38 Dose: 3,000 unit Epoetin Nico (Procrit) 10,000 unit IV MWF [facility] Last Admin: 04/16/18 12:38 Dose: 10,000 unit Fluoxetine HCl (Prozac) 40 mg PO DAILY [facility] Last Admin: 04/19/18 11:14 Dose: 40 mg Insulin Human Regular (Novolin R) 0 unit SC ACHS [facility] PRN Reason: Protocol Last Admin: 04/19/18 12:53 Dose: 4 unit Lactic Acid (Lac-Hydrin 12% Lotion (225 G)) 0 gm EXT BID [facility] Last Admin: 04/19/18 11:16 Dose: 1 applic Montelukast Sodium (Singulair) 10 mg PO Q24H [facility] Last Admin: 04/19/18 11:15 Dose: Not Given Naphazoline HCl/Pheniramine Maleate (Naphcon-A Opht) 0 ml OU Q6 [facility] Last Admin: 04/19/18 12:54 Dose: 1 drop Rosuvastatin Calcium (Crestor) 5 mg PO HS [facility] Last Admin: 04/18/18 21:38 Dose: Not Given Silver Sulfadiazine (Silvadene 1% 20 Gm) 10 ea TOP DAILY [facility] Last Admin: 04/19/18 11:19 Dose: 1 applic Sodium Polystyrene Sulfonate (Kayexalate Susp) 15 gm PO SA [facility] Last Admin: 04/17/18 10:31 Dose: Not Given Sodium Polystyrene Sulfonate (Kayexalate Susp) 15 gm PO MCCLAIN [facility] Last Admin: 04/11/18 09:52 Dose: 15 gm Tramadol HCl (Ultram) 50 mg PO Q8H PRN PRN Reason: Pain, moderate (4-7) Last Admin: 04/15/18 14:01 Dose: 50 mg - Labs Labs: 04/19/18 07:12 04/19/18 07:12 - Additional Findings Additional findings: - Constitutional Appears: Non-toxic, No Acute Distress - Eye Exam Eye Exam: absent: Scleral icterus - ENT Exam ENT Exam: Mucous Membranes Moist - Respiratory Exam Respiratory Exam: Clear to Ausculation Bilateral. absent: Respiratory Distress - Cardiovascular Exam Cardiovascular Exam: RRR, +S1, +S2 - GI/Abdominal Exam GI & Abdominal Exam: Soft. absent: Distended - Extremities Exam Additional comments: b/l lower leg mild erythema improved; - Neurological Exam Neurological Exam: Alert, Awake - Psychiatric Exam Psychiatric exam: Normal Mood, Agitated - Skin Skin Exam: Warm. absent: Cyanosis Assessment and Plan - Assessment and Plan (Free Text) Assessment: 57 y.o female with PMH of HTN, DM with neuropathy/retinopathy, PAD, CAD s/p remote intervention, s/p pacemaker placement, s/p IVC thrombus, now with SVC thrombus and ESRD on HD now s/p new trans-lumbar HD catheter. Plan: (1) ESRD on hemodialysis Assessment & Plan: Stable volume and electrolyte status Slightly hyperkalemic secondary to no dialysis over weekend Patient stated she would refuse dialysis today because she wants morning session Spoke to nursing staff to add her to morning dialysis if possible One time dose of Kayexalate if patient does not go to dialysis Status: Chronic (2) Acute deep vein thrombosis (DVT) of superior vena cava Assessment & Plan: On eliquis 5 mg bid, need to continue indefinitely; Status: Acute (3) Right atrial thrombus Status: Suspected (4) Anemia of renal disease Assessment & Plan: Hgb slightly below goal but improved; continue ferrlecit 125 mg weekly and EPO 15,000 u qHD; Status: Chronic (5) Ataxic gait Status: Chronic (6) Chronic kidney disease-mineral and bone disorder Assessment & Plan: PTH and Ca at goal; phos fluctuating; continue calcitriol 0.5 mcg daily and phoslo 2 tabs w/ meals; Status: Chronic (7) Hemodialysis catheter malfunction Assessment & Plan: see above; will monitor regularly; tPA prn; Status: Chronic (8) Hypertensive CKD, ESRD on dialysis Assessment & Plan: BP 112/66; Hold Amlodipine due to normal blood pressure; HD scheduled for today if patient amenable Status: Chronic Medical Management was discussed with cloth examiner hand, Dr. Still <Melvin Still - Last Filed: 04/20/18 06:27> Objective - Vital Signs/Intake and Output Vital Signs (last 24 hours): Temp Pulse Resp BP Pulse Ox 98.1 F 65 20 132/74 98 04/19/18 23:30 04/19/18 23:30 04/19/18 23:30 04/19/18 23:30 04/19/18 23:30 Intake and Output: 04/19/18 04/20/18 18:59 06:59 Intake Total 400 640 Balance 400 640 - Medications Medications: Current Medications Amlodipine Besylate (Norvasc) 5 mg PO DAILY [facility] Last Admin: 04/17/18 10:32 Dose: Not Given Apixaban (Eliquis) 5 mg PO BID [facility] Last Admin: 04/19/18 18:12 Dose: 5 mg Bacitracin (Bacitracin) 0 gm TOP DAILY [facility] Last Admin: 04/19/18 11:16 Dose: 1 applic Calcitriol (Rocaltrol) 0.5 mcg PO DAILY [facility] Last Admin: 04/19/18 11:14 Dose: 0.5 mcg Calcium Acetate (Phoslo) 1,334 mg PO TIDCC [facility] Last Admin: 04/19/18 18:12 Dose: 1,334 mg Docusate Sodium (Colace) 100 mg PO DAILY [facility] Last Admin: 04/19/18 11:13 Dose: 100 mg Epoetin Nico (Procrit) 2,000 u IV MWF [facility] Last Admin: 04/16/18 12:37 Dose: 2,000 u Epoetin Nico (Procrit) 3,000 unit IV MWF [facility] Last Admin: 04/16/18 12:38 Dose: 3,000 unit Epoetin Nico (Procrit) 10,000 unit IV MWF [facility] Last Admin: 04/16/18 12:38 Dose: 10,000 unit Fluoxetine HCl (Prozac) 40 mg PO DAILY [facility] Last Admin: 04/19/18 11:14 Dose: 40 mg Insulin Human Regular (Novolin R) 0 unit SC ACHS [facility] PRN Reason: Protocol Last Admin: 04/19/18 22:00 Dose: Not Given Lactic Acid (Lac-Hydrin 12% Lotion (225 G)) 0 gm EXT BID [facility] Last Admin: 04/19/18 18:14 Dose: 1 applic Montelukast Sodium (Singulair) 10 mg PO Q24H [facility] Last Admin: 04/19/18 11:15 Dose: Not Given Naphazoline HCl/Pheniramine Maleate (Naphcon-A Opht) 0 ml OU Q6 [facility] Last Admin: 04/20/18 05:22 Dose: 2 drop Rosuvastatin Calcium (Crestor) 5 mg PO QPM [facility] Last Admin: 04/19/18 18:12 Dose: 5 mg Silver Sulfadiazine (Silvadene 1% 20 Gm) 10 ea TOP DAILY [facility] Last Admin: 04/19/18 11:19 Dose: 1 applic Sodium Polystyrene Sulfonate (Kayexalate Susp) 15 gm PO SA [facility] Last Admin: 04/17/18 10:31 Dose: Not Given Tramadol HCl (Ultram) 50 mg PO Q8H PRN PRN Reason: Pain, moderate (4-7) Last Admin: 04/15/18 14:01 Dose: 50 mg - Labs Labs: 04/19/18 07:12 04/19/18 07:12 Assessment and Plan (1) ESRD on hemodialysis Status: Chronic (2) Acute deep vein thrombosis (DVT) of superior vena cava Status: Acute (3) Right atrial thrombus Status: Suspected (4) Anemia of renal disease Status: Chronic (5) Ataxic gait Status: Chronic (6) Chronic kidney disease-mineral and bone disorder Status: Chronic (7) Hemodialysis catheter malfunction Status: Chronic (8) Hypertensive CKD, ESRD on dialysis Status: Chronic Attending/Attestation - Attestation I have personally seen and examined this patient.: Yes I have fully participated in the care of the patient.: Yes I have reviewed all pertinent clinical information, including history, physical exam and plan: Yes Notes (Text): Patient seen and examined; I agree with the resident's note as above with the following additions/edits: Patient with ESRD on HD, admitted s/p recurrent falls, still awaiting placement at [facility] due to safety concerns at home; Refusing HD today because of not wanting HD late in the day; kayexalate given for mild hyperkalemia; plan to dialyze first session tomorrow; Hypertensive ESRD with BP relatively controlled, amlodipine held lately; will try to establish accurate target weight and UF accordingly; CKD MBD, on calcitriol 0.5 mcg daily, continue, checking PTH periodically; continue phoslo 2 tabs w/ meals; SVC thrombosis, on eliquis, continue indefinitely; HD catheter malfunction; will monitor closely for need for tPA and even catheter exchange;
[2018-04-19] MEDS ORDERED: Sod Polystyrene Sulf 15 gm/60 ml Susp PO ONE ×3 (16:00→20:00)
--- NOTE | 2018-04-19 20:51 | CP.PCM.PN ---
<Portillo Monroe - Last Filed: 04/19/18 20:37> Subjective - Date & Time of Evaluation Date of Evaluation: 04/19/18 Time of Evaluation: 09:38 - Subjective Subjective: PGY-[address] Wells service Patient is seen and examined sitting in chair. Patient reports no acute events overnight. Patient states her back itchiness has resolved, however she is very itchy all over her body. Patient says the lotion has helped for her back. Patient states she has weakness in her right leg and pain in her right thigh. Patient scheduled to go to hemodialysis today. Patient reports feeling well overall. Patient denies fever, chills, SOB, chest pain, abdominal pain, nausea, vomiting, constipation, diarrhea or dysuria. Objective - Vital Signs/Intake and Output Vital Signs (last 24 hours): Temp Pulse Resp BP Pulse Ox 98.2 F 66 20 169/75 H 98 04/19/18 16:06 04/19/18 16:06 04/19/18 16:06 04/19/18 16:06 04/19/18 16:06 Intake and Output: 04/19/18 04/20/18 18:59 06:59 Intake Total 400 Balance 400 - Medications Medications: Current Medications Amlodipine Besylate (Norvasc) 5 mg PO DAILY [facility] Last Admin: 04/17/18 10:32 Dose: Not Given Apixaban (Eliquis) 5 mg PO BID [facility] Last Admin: 04/19/18 18:12 Dose: 5 mg Bacitracin (Bacitracin) 0 gm TOP DAILY [facility] Last Admin: 04/19/18 11:16 Dose: 1 applic Calcitriol (Rocaltrol) 0.5 mcg PO DAILY [facility] Last Admin: 04/19/18 11:14 Dose: 0.5 mcg Calcium Acetate (Phoslo) 1,334 mg PO TIDCC [facility] Last Admin: 04/19/18 18:12 Dose: 1,334 mg Docusate Sodium (Colace) 100 mg PO DAILY [facility] Last Admin: 04/19/18 11:13 Dose: 100 mg Epoetin Nico (Procrit) 2,000 u IV MWF [facility] Last Admin: 04/16/18 12:37 Dose: 2,000 u Epoetin Nico (Procrit) 3,000 unit IV MWF [facility] Last Admin: 04/16/18 12:38 Dose: 3,000 unit Epoetin Nico (Procrit) 10,000 unit IV MWF [facility] Last Admin: 04/16/18 12:38 Dose: 10,000 unit Fluoxetine HCl (Prozac) 40 mg PO DAILY [facility] Last Admin: 04/19/18 11:14 Dose: 40 mg Insulin Human Regular (Novolin R) 0 unit SC ACHS [facility] PRN Reason: Protocol Last Admin: 04/19/18 17:38 Dose: 4 unit Lactic Acid (Lac-Hydrin 12% Lotion (225 G)) 0 gm EXT BID [facility] Last Admin: 04/19/18 18:14 Dose: 1 applic Montelukast Sodium (Singulair) 10 mg PO Q24H [facility] Last Admin: 04/19/18 11:15 Dose: Not Given Naphazoline HCl/Pheniramine Maleate (Naphcon-A Opht) 0 ml OU Q6 [facility] Last Admin: 04/19/18 18:13 Dose: 1 drop Rosuvastatin Calcium (Crestor) 5 mg PO QPM [facility] Last Admin: 04/19/18 18:12 Dose: 5 mg Silver Sulfadiazine (Silvadene 1% 20 Gm) 10 ea TOP DAILY [facility] Last Admin: 04/19/18 11:19 Dose: 1 applic Sodium Polystyrene Sulfonate (Kayexalate Susp) 15 gm PO SA [facility] Last Admin: 04/17/18 10:31 Dose: Not Given Tramadol HCl (Ultram) 50 mg PO Q8H PRN PRN Reason: Pain, moderate (4-7) Last Admin: 04/15/18 14:01 Dose: 50 mg - Labs Labs: 04/19/18 07:12 04/19/18 07:12 - Constitutional Appears: Well, Non-toxic, No Acute Distress - Head Exam Head Exam: ATRAUMATIC, NORMAL INSPECTION, NORMOCEPHALIC - Eye Exam Eye Exam: EOMI, Normal appearance, PERRL Pupil Exam: Miosis - Neck Exam Neck Exam: Full ROM, Normal Inspection - Respiratory Exam Respiratory Exam: Clear to Ausculation Bilateral, NORMAL BREATHING PATTERN. absent: Rales, Rhonchi, Wheezes - Cardiovascular Exam Cardiovascular Exam: REGULAR RHYTHM, +S1, +S2. absent: Gallop, Rubs, Murmur - GI/Abdominal Exam GI & Abdominal Exam: Soft, Normal Bowel Sounds. absent: Guarding, Rigid, Tenderness - Extremities Exam Extremities Exam: Full ROM. absent: Pedal Edema, Tenderness Additional comments: Right distal anterior leg erythema with dry blood. No open wounds, cuts, lesions or abrasions. Left distal anterior leg erythema. - Back Exam Back Exam: NORMAL INSPECTION. absent: rash noted Additional comments: catheter placed in lumbar region - Neurological Exam Neurological Exam: Alert, Awake, CN II-XII Intact, Oriented x3 - Psychiatric Exam Psychiatric exam: Normal Affect, Normal Mood - Skin Skin Exam: Dry, Intact Assessment and Plan - Assessment and Plan (Free Text) Plan: 1) ESRD on hemodialysis Assessment & Plan: * HD scheduled for today (04/19) * pre-HD 04/19 CBC: WBC-6.1, Hgb: 9.9, Hct: 30.7, Plts 316 * pre-HD 04/19 CMP: Na: 139, K 5.3, Cl 100, CO2L 23, BUN 62, Cr 9.3 (previous BUN/Cr from 04/15 -- 40/7.2) * Nephrology (Dr. Still) consultation on 04/19-"Stable volume and electrolyte status. Slightly hyperkalemic secondary to no dialysis over weekend. Patient stated she would refuse dialysis today because she wants morning session. Spoke to nursing staff to add her to morning dialysis if possible. One time dose of Kayexalate if patient does not go to dialysis" * Vascular surgery (Dr. Olson) consulted - no surgical intervention for AVF at this time * Continue MWF schedule. Extra session 04/15 due to patient being under dialyzed because time constrains that limit her dialysis treatment. * Procrit [id number] QHD MWF * Phoslo 1334mg PO TIDCC * Calcitriol 0.5mcg PO daily * On Kayexlate suspension PO SA and MCCLAIN - 04/18 dose held, possible dose today if patient does not go for Hemodialysis, as per Dr Still recommendations. * Consistent carbohydrate diet (2) Hypertension Assessment & Plan: * Controlled during dialysis by fluid replacement and restriction * 04/17 BP was 106/56 - Norvasc held as per parameter * 04/18 BP was 129/70 - continue to monitor * Monitor BP in AM and during dialysis * Continue MWF dialysis schedule. (3) Anemia of chronic disease 2/2 ESRD Assessment & Plan: * F/U labs tomorrow (04/19) * Hgb today 9.7. Below goal of 10-11, but stable * Continue EPO 72772 units on HD as per Dr. Still's recommendations * Continue Ferric Sodium Gluconate 125mg IVPB q1w (Thursday, last dose 04/14) - pending order per Nephro (4) Chronic kidney disease-mineral and bone disorder Assessment & Plan: * Phos fluctuating * Continue phoslo 1334mg po tidcc w/ meals * Continue calcitriol 0.5mcg po daily (6) IVC thrombosis Assessment & Plan: * While placing new dialysis catheter in back on 03/29/18 * Continue Eliquis 5mg PO daily, continue indefinitely * Echo (03/29/18) borderline to mild asymmetric LVH; EF 50-55%; mild global hypokinesis of lV; LA mildly dilated; trace-mild MR; mild to moderate TR. (7) Pruritus, body * Pt complains of itchiness over body * continue Lac Hydrin 12% lotion EXT BID (8) ocular pruritis * symptoms remain * continue Naphazoline Hcl/Pheniramine Maleate (Naphcon-A) OU Q6 PRN * Consider alternative eye drops or antihistamines * Will keep monitoring (9) Ataxic gait * Patient reports chronic weakness on left leg * fall risk - ambulating from chair to bed * OT eval recommends [facility] * PT screening ordered, unnecessary to treat and eval at this point in time * Case management/social work consulted for placement at [facility] (10) s/p Fall; History of Falls Subcutaneous soft tissue and posterio back edema/hemorrhage hematoma * Lumbar spine CT:(03/23) subcutaneous hematoma partially visulaized in right lower lumbar and gluteal regions measuring 7.8x2.3cm; urinary bladder wall thickening possibly due to incomplete distention or cystitis; no fracture * Pelvic CT (03/23): Right lower lumbar and sacral region hematoma measuring up to 8.7 cm as well as a left side lateral gluteal/ hip region hematoma measuring 7 x 5.3 centimeters. Imaging from previous hospitalization * CT head (03/07/18): no evidence of acute intracranial hemorrhage, midline shift , or mass effect is identified, possible right facial soft tissue swelling * Rib xrays (03/07/18): multiple left side rib fractures as described. Mild bibasilar atelectasis left greater than right. Elevation right hemidiaphrgam likely due to eventration * Hip (03/07/18):no definitive radiographic evidence of acute hip or pelvic fracture seen * Lumbar CT scan (12/20/17): incompletely visualized posterior back subcutaneous soft tissue fluid and right posterior back edema/hemorrhage hematoma measuring 6cm ~ in right and left dimension at level of L4-S1. Small left pleural effusion. no acute fracture of the lumbar spine. * Imaging available in patient's [place] hospitalization prior to transfer; will hold Eliquis given hematoma and increase risk of falls (11) DM * Accuchecks ACHS * ISS * Hypoglycemic protocol * A1c (12/2017): 6.6 (12) Hyperkeratosis of bilateral feet * Podiatry consulted: Dr. New - 04/17- no dressing needed, leave open to air, Silvadine ordered, apply everyday. * Follow-up recommendations. (13) Prophylaxis * DVT: SCDs; Eliquis 5mg PO daily * Consistent Carbohydrate diet * Case management, social group worker consulted * PT/OT - follow recs * Wound care - 04/11 as per nurse, wound care to left hip wound rendered as ordered. noted ulcer draining purulent discharge. Covered with DSD. * Palliative care consult- Goals of care * Tramadol 50mg Q8 prn for pain * POLST- DNR/DNI * DaughterCeci: [phone] Disposition: [employer] is working on finding [facility] placement for patient, assisting on difficulties with Medicaid; will be considering other alternatives based on the patients insurance. SW working for placement to [facility] but waiting for family member (daughter) to fill out paperwork at the site. Plan was discussed with Dr Russell Monroe, PGY-1 <Misha Wells - Last Filed: 04/20/18 13:54> Objective - Vital Signs/Intake and Output Vital Signs (last 24 hours): Temp Pulse Resp BP Pulse Ox 97.4 F L 62 20 81/51 L 96 04/20/18 12:50 04/20/18 12:50 04/20/18 12:50 04/20/18 12:50 04/20/18 12:50 Intake and Output: 04/20/18 04/20/18 06:59 18:59 Intake Total 640 Balance 640 - Medications Medications: Current Medications Amlodipine Besylate (Norvasc) 5 mg PO DAILY [facility] Last Admin: 04/17/18 10:32 Dose: Not Given Apixaban (Eliquis) 5 mg PO BID [facility] Last Admin: 04/20/18 10:39 Dose: Not Given Bacitracin (Bacitracin) 0 gm TOP DAILY [facility] Last Admin: 04/20/18 10:39 Dose: Not Given Calcitriol (Rocaltrol) 0.5 mcg PO DAILY [facility] Last Admin: 04/20/18 10:40 Dose: Not Given Calcium Acetate (Phoslo) 1,334 mg PO TIDCC [facility] Last Admin: 04/20/18 12:05 Dose: Not Given Docusate Sodium (Colace) 100 mg PO DAILY [facility] Last Admin: 04/20/18 10:39 Dose: Not Given Epoetin Nico (Procrit) 2,000 u IV MWF [facility] Last Admin: 04/16/18 12:37 Dose: 2,000 u Epoetin Nico (Procrit) 3,000 unit IV MWF [facility] Last Admin: 04/16/18 12:38 Dose: 3,000 unit Epoetin Nico (Procrit) 10,000 unit IV MWF [facility] Last Admin: 04/16/18 12:38 Dose: 10,000 unit Fluoxetine HCl (Prozac) 40 mg PO DAILY [facility] Last Admin: 04/20/18 10:40 Dose: Not Given Insulin Human Regular (Novolin R) 0 unit SC [facility] PRN Reason: Protocol Last Admin: 04/20/18 10:39 Dose: Not Given Lactic Acid (Lac-Hydrin 12% Lotion (225 G)) 0 gm EXT BID [facility] Last Admin: 04/20/18 10:39 Dose: Not Given Montelukast Sodium (Singulair) 10 mg PO Q24H [facility] Last Admin: 04/20/18 10:40 Dose: Not Given Naphazoline HCl/Pheniramine Maleate (Naphcon-A Opht) 0 ml OU Q6 [facility] Last Admin: 04/20/18 12:05 Dose: Not Given Rosuvastatin Calcium (Crestor) 5 mg PO QPM [facility] Last Admin: 04/19/18 18:12 Dose: 5 mg Silver Sulfadiazine (Silvadene 1% 20 Gm) 10 ea TOP DAILY [facility] Last Admin: 04/20/18 10:40 Dose: Not Given Sodium Polystyrene Sulfonate (Kayexalate Susp) 15 gm PO SA [facility] Last Admin: 04/17/18 10:31 Dose: Not Given Tramadol HCl (Ultram) 50 mg PO Q8H PRN PRN Reason: Pain, moderate (4-7) Last Admin: 04/15/18 14:01 Dose: 50 mg - Labs Labs: 04/19/18 07:12 04/19/18 07:12 Attending/Attestation - Attestation I have personally seen and examined this patient.: No I have fully participated in the care of the patient.: Yes I have reviewed all pertinent clinical information, including history, physical exam and plan: Yes
[2018-04-20] MEDS: Naphazoline-Pheniramine Ophth Soln OU SCH ×4 (00:25→17:16)
--- NOTE | 2018-04-20 07:11 | CP.PCM.PN ---
Subjective - Date & Time of Evaluation Date of Evaluation: 04/20/18 Time of Evaluation: 07:11 - Subjective Subjective: PGY-[address] Wells service Patient is seen and examined at bedside during Hemodialysis. Patient says she feels well overall. Reports no acute events overnight. Patient continues to complain of itchiness all over his body and itchiness in her eyes. Patient stated she denies hemodialysis yesterday (Thursday 04/19) due to the session starting too late. Patient was rescheduled for today. Patient denies Fever, chills, headache, SOB, chest pain, abdominal pain, nausea, vomiting, diarrhea, constipation or dysuria. Objective - Vital Signs/Intake and Output Vital Signs (last 24 hours): Temp Pulse Resp BP Pulse Ox 98.1 F 65 20 132/74 98 04/19/18 23:30 04/19/18 23:30 04/19/18 23:30 04/19/18 23:30 04/19/18 23:30 Intake and Output: 04/20/18 04/20/18 06:59 18:59 Intake Total 640 Balance 640 - Medications Medications: Current Medications Amlodipine Besylate (Norvasc) 5 mg PO DAILY [facility] Last Admin: 04/17/18 10:32 Dose: Not Given Apixaban (Eliquis) 5 mg PO BID [facility] Last Admin: 04/19/18 18:12 Dose: 5 mg Bacitracin (Bacitracin) 0 gm TOP DAILY [facility] Last Admin: 04/19/18 11:16 Dose: 1 applic Calcitriol (Rocaltrol) 0.5 mcg PO DAILY [facility] Last Admin: 04/19/18 11:14 Dose: 0.5 mcg Calcium Acetate (Phoslo) 1,334 mg PO TIDCC [facility] Last Admin: 04/19/18 18:12 Dose: 1,334 mg Docusate Sodium (Colace) 100 mg PO DAILY [facility] Last Admin: 04/19/18 11:13 Dose: 100 mg Epoetin Nico (Procrit) 2,000 u IV MWF [facility] Last Admin: 04/16/18 12:37 Dose: 2,000 u Epoetin Nico (Procrit) 3,000 unit IV MWF [facility] Last Admin: 04/16/18 12:38 Dose: 3,000 unit Epoetin Nico (Procrit) 10,000 unit IV MWF [facility] Last Admin: 04/16/18 12:38 Dose: 10,000 unit Fluoxetine HCl (Prozac) 40 mg PO DAILY [facility] Last Admin: 04/19/18 11:14 Dose: 40 mg Insulin Human Regular (Novolin R) 0 unit SC ACHS [facility] PRN Reason: Protocol Last Admin: 04/19/18 22:00 Dose: Not Given Lactic Acid (Lac-Hydrin 12% Lotion (225 G)) 0 gm EXT BID [facility] Last Admin: 04/19/18 18:14 Dose: 1 applic Montelukast Sodium (Singulair) 10 mg PO Q24H [facility] Last Admin: 04/19/18 11:15 Dose: Not Given Naphazoline HCl/Pheniramine Maleate (Naphcon-A Opht) 0 ml OU Q6 [facility] Last Admin: 04/20/18 05:22 Dose: 2 drop Rosuvastatin Calcium (Crestor) 5 mg PO QPM [facility] Last Admin: 04/19/18 18:12 Dose: 5 mg Silver Sulfadiazine (Silvadene 1% 20 Gm) 10 ea TOP DAILY [facility] Last Admin: 04/19/18 11:19 Dose: 1 applic Sodium Polystyrene Sulfonate (Kayexalate Susp) 15 gm PO SA [facility] Last Admin: 04/17/18 10:31 Dose: Not Given Tramadol HCl (Ultram) 50 mg PO Q8H PRN PRN Reason: Pain, moderate (4-7) Last Admin: 04/15/18 14:01 Dose: 50 mg - Labs Labs: 04/19/18 07:12 04/19/18 07:12 - Constitutional Appears: Non-toxic, No Acute Distress - Head Exam Head Exam: ATRAUMATIC, NORMAL INSPECTION, NORMOCEPHALIC - Eye Exam Eye Exam: Normal appearance Pupil Exam: Miosis - ENT Exam ENT Exam: Normal Exam - Neck Exam Neck Exam: Full ROM, Normal Inspection - Respiratory Exam Respiratory Exam: Clear to Ausculation Bilateral, NORMAL BREATHING PATTERN. absent: Rales, Rhonchi, Wheezes - Cardiovascular Exam Cardiovascular Exam: REGULAR RHYTHM, +S1, +S2 - GI/Abdominal Exam GI & Abdominal Exam: Soft, Normal Bowel Sounds. absent: Firm, Guarding, Tenderness - Extremities Exam Extremities Exam: absent: Pedal Edema, Tenderness Additional comments: right LE erythema, anterior distal area left LE erythema, anterior distal area - Neurological Exam Neurological Exam: Alert, Awake - Psychiatric Exam Psychiatric exam: Normal Affect, Normal Mood - Skin Skin Exam: Dry, Intact, Normal Color Assessment and Plan - Assessment and Plan (Free Text) Plan: 1) ESRD on hemodialysis Assessment & Plan: * HD make-up session done today (04/20). Missed Thursday 04/19 session. * 04/19 CBC: WBC-6.1, Hgb: 9.9, Hct: 30.7, Plts 316 * 04/19 CMP: Na: 139, K 5.3, Cl 100, CO2L 23, BUN 62, Cr 9.3 (previous BUN/Cr from 04/15 -- 40/7.2) * Nephrology (Dr. Still) consultation 0n 04/20 -"Stable volume and electrolyte status, Slightly hyperkalemic (04/19) secondary to no dialysis over weekend, Patient received kayexelate after dialysis refusal, Recheck potassium" * Vascular surgery (Dr. Olson) consulted - no surgical intervention for AVF at this time * Continue MWF schedule. Extra session 04/15 due to patient being under dialyzed because time constrains that limit her dialysis treatment. * Procrit 55861r QHD MWF * Phoslo 1334mg PO TIDCC * Calcitriol 0.5mcg PO daily * tpA PRN, for HD catheter malfunction (2) Hypertension Assessment & Plan: * Controlled during dialysis by fluid replacement and restriction. * 04/20 BP: 104/58 HR:62 * Continue monitoring BP * Continue MWF dialysis schedule * Consider removing less fluids as per nephro recs (3) Anemia of chronic disease 2/2 ESRD Assessment & Plan: * 04/19 Hgb 9.9. Stable, keep monitoring. goal is above 10. * Continue EPO 48848 units on HD as per Dr. Still's recommendations * Continue Ferric Sodium Gluconate 125mg IVPB q1w (Thursday, last dose 04/14) - pending order per Nephro (4) Chronic kidney disease-mineral and bone disorder Assessment & Plan: * Phos fluctuating * Continue phoslo 1334mg po tidcc w/ meals * Continue calcitriol 0.5mcg po daily (6) IVC thrombosis Assessment & Plan: * While placing new dialysis catheter in back on 03/29/18 * Continue Eliquis 5mg PO daily, continue indefinitely * Echo (03/29/18) borderline to mild asymmetric LVH; EF 50-55%; mild global hypokinesis of lV; LA mildly dilated; trace-mild MR; mild to moderate TR. (7) Pruritus, body * Pt complains of itchiness over body * continue Lac Hydrin 12% lotion EXT BID (8) ocular pruritis * continue Naphazoline Hcl/Pheniramine Maleate (Naphcon-A) OU Q6 PRN * Consider alternative eye drops or antihistamines * Will keep monitoring (9) Ataxic gait * Patient reports chronic weakness on left leg * fall risk - ambulating from chair to bed * OT eval recommends [facility] * PT screening ordered, unnecessary to treat and eval at this point in time * Case management/social work consulted for placement at [facility] (10) s/p Fall; History of Falls Subcutaneous soft tissue and posterio back edema/hemorrhage hematoma * Lumbar spine CT:(03/23) subcutaneous hematoma partially visulaized in right lower lumbar and gluteal regions measuring 7.8x2.3cm; urinary bladder wall thickening possibly due to incomplete distention or cystitis; no fracture * Pelvic CT (03/23): Right lower lumbar and sacral region hematoma measuring up to 8.7 cm as well as a left side lateral gluteal/ hip region hematoma measuring 7 x 5.3 centimeters. Imaging from previous hospitalization * CT head (03/07/18): no evidence of acute intracranial hemorrhage, midline shift , or mass effect is identified, possible right facial soft tissue swelling * Rib xrays (03/07/18): multiple left side rib fractures as described. Mild bibasilar atelectasis left greater than right. Elevation right hemidiaphrgam likely due to eventration * Hip (03/07/18):no definitive radiographic evidence of acute hip or pelvic fracture seen * Lumbar CT scan (12/20/17): incompletely visualized posterior back subcutaneous soft tissue fluid and right posterior back edema/hemorrhage hematoma measuring 6cm ~ in right and left dimension at level of L4-S1. Small left pleural effusion. no acute fracture of the lumbar spine. * Imaging available in patient's [facility] hospitalization prior to transfer; will hold Eliquis given hematoma and increase risk of falls (11) DM * Accuchecks ACHS * ISS * Hypoglycemic protocol * A1c (12/2017): 6.6 (12) Hyperkeratosis of bilateral feet * Podiatry consulted: Dr. New - 04/17- no dressing needed, leave open to air, Silvadine ordered, apply everyday. * Follow-up recommendations. (13) Prophylaxis * DVT: SCDs; Eliquis 5mg PO daily * Consistent Carbohydrate diet * Case management, social media marketing analyst consulted * PT/OT - follow recs * Wound care - 04/11 as per nurse, wound care to left hip wound rendered as ordered. noted ulcer draining purulent discharge. Covered with DSD. * Palliative care consult- Goals of care * Tramadol 50mg Q8 prn for pain * POLST- DNR/DNI * Ceci Ramos: [phone] Disposition: [employer] is working on finding [facility] placement for patient, assisting on difficulties with Medicaid; will be considering other alternatives based on the patients insurance. SW working for placement to [facility] but waiting for family member (daughter) to fill out paperwork at the site. Plan was discussed with Dr Russell Monroe, PGY-1
[2018-04-20] MEDS: (Novolin R) Insulin Human Regular 100 units/ml vial SC SCH ×4 (08:10→21:44)
[2018-04-20] MEDS: Ammonium Lactate 12% Lotion (225 g) EXT SCH ×2 (10:39→17:23)
[2018-04-20] MEDS: Bacitracin Ointment 30 GM TUBE TOP SCH (10:39)
[2018-04-20] MEDS: Silver Sulfadiazine 1% Cream (20 gm) TOP SCH (10:40)
--- NOTE | 2018-04-20 11:47 | CP.PCM.PN ---
Subjective - Date & Time of Evaluation Date of Evaluation: 04/20/18 Time of Evaluation: 10:15 - Subjective Subjective: Williams Morales PGY-1 [facility]phrology Progress Note Patient seen and examined in dialysis unit. Patient denied HD yesterday due to timing of her session. Patient was receiving dialysis today. Patient offers no acute complaints. Patient tolerating diet and reports good urine output with no urinary symptoms. Patient denies chest pain, SOB, N/V/C/D. Objective - Vital Signs/Intake and Output Vital Signs (last 24 hours): Temp Pulse Resp BP Pulse Ox 97.5 F L 62 20 102/61 97 04/20/18 08:50 04/20/18 08:50 04/20/18 08:50 04/20/18 11:20 04/20/18 08:50 Intake and Output: 04/20/18 04/20/18 06:59 18:59 Intake Total 640 Balance 640 - Medications Medications: Current Medications Amlodipine Besylate (Norvasc) 5 mg PO DAILY [facility] Last Admin: 04/17/18 10:32 Dose: Not Given Apixaban (Eliquis) 5 mg PO BID [facility] Last Admin: 04/20/18 10:39 Dose: Not Given Bacitracin (Bacitracin) 0 gm TOP DAILY [facility] Last Admin: 04/20/18 10:39 Dose: Not Given Calcitriol (Rocaltrol) 0.5 mcg PO DAILY [facility] Last Admin: 04/20/18 10:40 Dose: Not Given Calcium Acetate (Phoslo) 1,334 mg PO TIDCC [facility] Last Admin: 04/20/18 08:09 Dose: 1,334 mg Docusate Sodium (Colace) 100 mg PO DAILY [facility] Last Admin: 04/20/18 10:39 Dose: Not Given Epoetin Nico (Procrit) 2,000 u IV MWF [facility] Last Admin: 04/16/18 12:37 Dose: 2,000 u Epoetin Nico (Procrit) 3,000 unit IV MWF [facility] Last Admin: 04/16/18 12:38 Dose: 3,000 unit Epoetin Nico (Procrit) 10,000 unit IV MWF [facility] Last Admin: 04/16/18 12:38 Dose: 10,000 unit Fluoxetine HCl (Prozac) 40 mg PO DAILY [facility] Last Admin: 04/20/18 10:40 Dose: Not Given Insulin Human Regular (Novolin R) 0 unit SC ACHS [facility] PRN Reason: Protocol Last Admin: 04/20/18 10:39 Dose: Not Given Lactic Acid (Lac-Hydrin 12% Lotion (225 G)) 0 gm EXT BID [facility] Last Admin: 04/20/18 10:39 Dose: Not Given Montelukast Sodium (Singulair) 10 mg PO Q24H [facility] Last Admin: 04/20/18 10:40 Dose: Not Given Naphazoline HCl/Pheniramine Maleate (Naphcon-A Opht) 0 ml OU Q6 [facility] Last Admin: 04/20/18 05:22 Dose: 2 drop Rosuvastatin Calcium (Crestor) 5 mg PO QPM [facility] Last Admin: 04/19/18 18:12 Dose: 5 mg Silver Sulfadiazine (Silvadene 1% 20 Gm) 10 ea TOP DAILY [facility] Last Admin: 04/20/18 10:40 Dose: Not Given Sodium Polystyrene Sulfonate (Kayexalate Susp) 15 gm PO SA [facility] Last Admin: 04/17/18 10:31 Dose: Not Given Tramadol HCl (Ultram) 50 mg PO Q8H PRN PRN Reason: Pain, moderate (4-7) Last Admin: 04/15/18 14:01 Dose: 50 mg - Labs Labs: 04/19/18 07:12 04/19/18 07:12 - Additional Findings Additional findings: - Constitutional Appears: Non-toxic, No Acute Distress - Eye Exam Eye Exam: absent: Scleral icterus - ENT Exam ENT Exam: Mucous Membranes Moist - Respiratory Exam Respiratory Exam: Clear to Ausculation Bilateral. absent: Respiratory Distress - Cardiovascular Exam Cardiovascular Exam: RRR, +S1, +S2 - GI/Abdominal Exam GI & Abdominal Exam: Soft. absent: Distended - Extremities Exam Additional comments: b/l lower leg mild erythema improved; - Neurological Exam Neurological Exam: Alert, Awake - Psychiatric Exam Psychiatric exam: Normal Mood, Agitated - Skin Skin Exam: Warm. absent: Cyanosis Assessment and Plan - Assessment and Plan (Free Text) Assessment: 57 y.o female with PMH of HTN, DM with neuropathy/retinopathy, PAD, CAD s/p remote intervention, s/p pacemaker placement, s/p IVC thrombus, now with SVC thrombus and ESRD on HD now s/p new trans-lumbar HD catheter. Plan: (1) ESRD on hemodialysis Assessment & Plan: Stable volume and electrolyte status Slightly hyperkalemic (04/19) secondary to no dialysis over weekend Patient received kayexelate after dialysis refusal Recheck potassium Dialysis today Status: Chronic (2) Acute deep vein thrombosis (DVT) of superior vena cava Assessment & Plan: On eliquis 5 mg bid, need to continue indefinitely; Status: Acute (3) Right atrial thrombus Status: Suspected (4) Anemia of renal disease Assessment & Plan: Hgb slightly below goal but improved; continue ferrlecit 125 mg weekly and EPO 15,000 u qHD; Status: Chronic (5) Ataxic gait Status: Chronic (6) Chronic kidney disease-mineral and bone disorder Assessment & Plan: Monitor PTH and Ca periodically; continue calcitriol 0.5 mcg daily and phoslo 2 tabs w/ meals; Status: Chronic (7) Hemodialysis catheter malfunction Assessment & Plan: see above; will monitor regularly; tPA prn; Status: Chronic (8) Hypertensive CKD, ESRD on dialysis Assessment & Plan: BP 81/51 s/p HD; 3.5 UF removed Consider removing less fluid Monitor daily weights Hold Amlodipine Status: Chronic
[2018-04-21] MEDS: Naphazoline-Pheniramine Ophth Soln OU SCH ×4 (00:14→17:52)
--- NOTE | 2018-04-21 05:29 | CP.PCM.PN ---
Subjective - Date & Time of Evaluation Date of Evaluation: 04/21/18 Time of Evaluation: 05:29 - Subjective Subjective: PGY-[address] Wells Service Patient is seen and examined at bedside. Patient was sleeping before the encounter. Patient reports no acute event overnight. Patient went to hemodialysis yesterday for extra session. Patient states she continues to have mild itchiness in his body and eyes, but that they get better with current treatment given. Patient denies fever, chills, SOB, chest pain, headache,nausea , vomiting, diarrhea or constipation. Patient is scheduled for hemodialysis today. Objective - Vital Signs/Intake and Output Vital Signs (last 24 hours): Temp Pulse Resp BP Pulse Ox 98.2 F 60 20 118/72 98 04/21/18 00:09 04/21/18 00:09 04/21/18 00:09 04/21/18 00:09 04/21/18 00:09 Intake and Output: 04/20/18 04/21/18 18:59 06:59 Intake Total 450 400 Balance 450 400 - Medications Medications: Current Medications Amlodipine Besylate (Norvasc) 5 mg PO DAILY [facility] Last Admin: 04/17/18 10:32 Dose: Not Given Apixaban (Eliquis) 5 mg PO BID [facility] Last Admin: 04/20/18 17:15 Dose: 5 mg Bacitracin (Bacitracin) 0 gm TOP DAILY [facility] Last Admin: 04/20/18 10:39 Dose: Not Given Calcitriol (Rocaltrol) 0.5 mcg PO DAILY [facility] Last Admin: 04/20/18 10:40 Dose: Not Given Calcium Acetate (Phoslo) 1,334 mg PO TIDCC [facility] Last Admin: 04/20/18 17:16 Dose: 1,334 mg Docusate Sodium (Colace) 100 mg PO DAILY [facility] Last Admin: 04/20/18 10:39 Dose: Not Given Epoetin Nico (Procrit) 2,000 u IV MWF [facility] Last Admin: 04/16/18 12:37 Dose: 2,000 u Epoetin Nico (Procrit) 3,000 unit IV MWF [facility] Last Admin: 04/16/18 12:38 Dose: 3,000 unit Epoetin Nico (Procrit) 10,000 unit IV MWF [facility] Last Admin: 04/16/18 12:38 Dose: 10,000 unit Fluoxetine HCl (Prozac) 40 mg PO DAILY [facility] Last Admin: 04/20/18 10:40 Dose: Not Given Insulin Human Regular (Novolin R) 0 unit SC ACHS [facility] PRN Reason: Protocol Last Admin: 04/20/18 21:44 Dose: Not Given Lactic Acid (Lac-Hydrin 12% Lotion (225 G)) 0 gm EXT BID [facility] Last Admin: 04/20/18 17:23 Dose: 1 applic Montelukast Sodium (Singulair) 10 mg PO Q24H [facility] Last Admin: 04/20/18 10:40 Dose: Not Given Naphazoline HCl/Pheniramine Maleate (Naphcon-A Opht) 0 ml OU Q6 [facility] Last Admin: 04/21/18 00:14 Dose: 2 drop Rosuvastatin Calcium (Crestor) 5 mg PO QPM [facility] Last Admin: 04/20/18 17:16 Dose: 5 mg Silver Sulfadiazine (Silvadene 1% 20 Gm) 10 ea TOP DAILY [facility] Last Admin: 04/20/18 10:40 Dose: Not Given Sodium Polystyrene Sulfonate (Kayexalate Susp) 15 gm PO SA [facility] Last Admin: 04/17/18 10:31 Dose: Not Given Tramadol HCl (Ultram) 50 mg PO Q8H PRN PRN Reason: Pain, moderate (4-7) Last Admin: 04/15/18 14:01 Dose: 50 mg - Labs Labs: 04/19/18 07:12 04/19/18 07:12 - Constitutional Appears: Well, Non-toxic, No Acute Distress - Head Exam Head Exam: ATRAUMATIC, NORMAL INSPECTION, NORMOCEPHALIC - Eye Exam Eye Exam: EOMI, Normal appearance - ENT Exam ENT Exam: Mucous Membranes Moist, Normal Exam - Neck Exam Neck Exam: Full ROM, Normal Inspection - Respiratory Exam Respiratory Exam: Clear to Ausculation Bilateral, NORMAL BREATHING PATTERN. absent: Rales, Rhonchi, Wheezes - Cardiovascular Exam Cardiovascular Exam: REGULAR RHYTHM, +S1, +S2 - GI/Abdominal Exam GI & Abdominal Exam: Soft, Normal Bowel Sounds. absent: Guarding, Tenderness, Rebound - Extremities Exam Extremities Exam: Full ROM, Normal Inspection Additional comments: Left LE erythema on anterior distal area Right LE erthema on anterior distal area - Back Exam Additional comments: HD cath on lumbar area - Neurological Exam Neurological Exam: Alert, Awake - Psychiatric Exam Psychiatric exam: Normal Affect, Normal Mood - Skin Skin Exam: Dry, Intact, Normal Color Assessment and Plan - Assessment and Plan (Free Text) Plan: 1) ESRD on hemodialysis Assessment & Plan: * HD today (04/21) * 04/19 CBC: WBC-6.1, Hgb: 9.9, Hct: 30.7, Plts 316 * 04/19 CMP: Na: 139, K 5.3, Cl 100, CO2L 23, BUN 62, Cr 9.3 (previous BUN/Cr from 04/15 -- 40/7.2) * Nephrology (Dr. Still) consultation 0n 04/21 -"Stable volume and electrolyte status. Dialysis session today. Consider removing less UF in the setting of lower blood pressures s/p yesterday dialysis. Monitor daily weights" * Vascular surgery (Dr. Olson) consulted - no surgical intervention for AVF at this time * Continue MWF schedule. Extra session 04/15 due to patient being under dialyzed because time constrains that limit her dialysis treatment. * Procrit [id number] QHD MWF * Phoslo 1334mg PO TIDCC * Calcitriol 0.5mcg PO daily * tpA PRN, for HD catheter malfunction (2) Hypertension Assessment & Plan: * Controlled during dialysis by fluid replacement and restriction. * 04/20 BP: 104/58 HR:62 * Continue monitoring BP * Continue MWF dialysis schedule * Consider removing less fluids as per nephro recs due to low BP after removing fluids - continue to follow up recs (3) Anemia of chronic disease 2/2 ESRD Assessment & Plan: * Next lab 04/26/18 * 04/19 Hgb 9.9. Stable, keep monitoring. goal is above 10. * Continue EPO 25785 units on HD as per Dr. Still's recommendations * Continue Ferric Sodium Gluconate 125mg IVPB q1w (Thursday, last dose 04/14) - pending order per Nephro (4) Chronic kidney disease-mineral and bone disorder Assessment & Plan: * Next lab 04/26/18 * Phos fluctuating * Continue phoslo 1334mg po tidcc w/ meals * Continue calcitriol 0.5mcg po daily (6) IVC thrombosis Assessment & Plan: * While placing new dialysis catheter in back on 03/29/18 * Continue Eliquis 5mg PO daily, continue indefinitely * Echo (03/29/18) borderline to mild asymmetric LVH; EF 50-55%; mild global hypokinesis of lV; LA mildly dilated; trace-mild MR; mild to moderate TR. (7) Pruritus, body * Pt complains of itchiness over body * continue Lac Hydrin 12% lotion EXT BID (8) ocular pruritis * continue Naphazoline Hcl/Pheniramine Maleate (Naphcon-A) OU Q6 PRN * Consider alternative eye drops or antihistamines * Will keep monitoring (9) Ataxic gait * Patient reports chronic weakness on left leg * fall risk - ambulating from chair to bed * OT eval recommends [facility] * PT screening ordered, unnecessary to treat and eval at this point in time * Case management/social work consulted for placement at [facility] (10) s/p Fall; History of Falls Subcutaneous soft tissue and posterio back edema/hemorrhage hematoma * Lumbar spine CT:(03/23) subcutaneous hematoma partially visulaized in right lower lumbar and gluteal regions measuring 7.8x2.3cm; urinary bladder wall thickening possibly due to incomplete distention or cystitis; no fracture * Pelvic CT (03/23): Right lower lumbar and sacral region hematoma measuring up to 8.7 cm as well as a left side lateral gluteal/ hip region hematoma measuring 7 x 5.3 centimeters. Imaging from previous hospitalization * CT head (03/07/18): no evidence of acute intracranial hemorrhage, midline shift , or mass effect is identified, possible right facial soft tissue swelling * Rib xrays (03/07/18): multiple left side rib fractures as described. Mild bibasilar atelectasis left greater than right. Elevation right hemidiaphrgam likely due to eventration * Hip (03/07/18):no definitive radiographic evidence of acute hip or pelvic fracture seen * Lumbar CT scan (12/20/17): incompletely visualized posterior back subcutaneous soft tissue fluid and right posterior back edema/hemorrhage hematoma measuring 6cm ~ in right and left dimension at level of L4-S1. Small left pleural effusion. no acute fracture of the lumbar spine. * Imaging available in patient's [facility] hospitalization prior to transfer; will hold Eliquis given hematoma and increase risk of falls (11) DM * Accuchecks ACHS * ISS * Hypoglycemic protocol * A1c (12/2017): 6.6 (12) Hyperkeratosis of bilateral feet * Podiatry consulted: Dr. New - 04/17- no dressing needed, leave open to air, Silvadine ordered, apply everyday. * Follow-up recommendations. (13) Prophylaxis * DVT: SCDs; Eliquis 5mg PO daily * Consistent Carbohydrate diet * Case management, social media strategist consulted * PT/OT - follow recs * Wound care - 04/11 as per nurse, wound care to left hip wound rendered as ordered. noted ulcer draining purulent discharge. Covered with DSD. * Palliative care consult- Goals of care * Tramadol 50mg Q8 prn for pain * POLST- DNR/DNI * DaughterCeci: [phone] Disposition: [employer] is working on finding [facility] placement for patient, assisting on difficulties with Medicaid; will be considering other alternatives based on the patients insurance. SW working for placement to [facility] but waiting for family member (daughter) to fill out paperwork at the site. Plan was discussed with Dr Russell Monroe, PGY-1
[2018-04-21] MEDS: (Novolin R) Insulin Human Regular 100 units/ml vial SC SCH ×3 (08:14→17:23)
[2018-04-21] MEDS: Epoetin Alfa 10,000 unit/ml Dialysis IV SCH (10:00)
[2018-04-21] MEDS: Epoetin Alfa Dialysis 2000 U/ML Inj IV SCH (10:00)
--- NOTE | 2018-04-21 10:18 | CP.PCM.PN ---
Subjective - Date & Time of Evaluation Date of Evaluation: 04/21/18 Time of Evaluation: 10:00 - Subjective Subjective: Williams Morales PGY-1 [facility] Progress Note Patient seen and examined in dialysis unit. Patient is on scheduled dialysis session today. Patient offers no acute complaints. Patient tolerating diet and reports good urine output with no urinary symptoms. Patient denies chest pain, SOB, N/V/C/D. Objective - Vital Signs/Intake and Output Vital Signs (last 24 hours): Temp Pulse Resp BP Pulse Ox 98.5 F 62 20 136/70 98 04/21/18 08:00 04/21/18 08:00 04/21/18 08:00 04/21/18 08:00 04/21/18 08:00 Intake and Output: 04/21/18 04/21/18 06:59 18:59 Intake Total 640 Balance 640 - Medications Medications: Current Medications Amlodipine Besylate (Norvasc) 5 mg PO DAILY [facility] Last Admin: 04/17/18 10:32 Dose: Not Given Apixaban (Eliquis) 5 mg PO BID [facility] Last Admin: 04/20/18 17:15 Dose: 5 mg Bacitracin (Bacitracin) 0 gm TOP DAILY [facility] Last Admin: 04/20/18 10:39 Dose: Not Given Calcitriol (Rocaltrol) 0.5 mcg PO DAILY [facility] Last Admin: 04/20/18 10:40 Dose: Not Given Docusate Sodium (Colace) 100 mg PO DAILY [facility] Last Admin: 04/20/18 10:39 Dose: Not Given Epoetin Nico (Procrit) 2,000 u IV MWF [facility] Last Admin: 04/16/18 12:37 Dose: 2,000 u Epoetin Nico (Procrit) 3,000 unit IV MWF [facility] Last Admin: 04/16/18 12:38 Dose: 3,000 unit Epoetin Nico (Procrit) 10,000 unit IV MWF [facility] Last Admin: 04/16/18 12:38 Dose: 10,000 unit Fluoxetine HCl (Prozac) 40 mg PO DAILY [facility] Last Admin: 04/20/18 10:40 Dose: Not Given Insulin Human Regular (Novolin R) [address] [facility] PRN Reason: Protocol Last Admin: 04/21/18 08:14 Dose: Not Given Lactic Acid (Lac-Hydrin 12% Lotion (225 G)) 0 gm EXT BID [facility] Last Admin: 04/20/18 17:23 Dose: 1 applic Montelukast Sodium (Singulair) 10 mg PO Q24H [facility] Last Admin: 04/20/18 10:40 Dose: Not Given Naphazoline HCl/Pheniramine Maleate (Naphcon-A Opht) 0 ml OU Q6 BUZZ Last Admin: 04/21/18 06:01 Dose: 2 drop Rosuvastatin Calcium (Crestor) 5 mg PO QPM [facility] Last Admin: 04/20/18 17:16 Dose: 5 mg Silver Sulfadiazine (Silvadene 1% 20 Gm) 10 ea TOP DAILY [facility] Last Admin: 04/20/18 10:40 Dose: Not Given Sodium Polystyrene Sulfonate (Kayexalate Susp) 15 gm PO SA [facility] Last Admin: 04/17/18 10:31 Dose: Not Given Tramadol HCl (Ultram) 50 mg PO Q8H PRN PRN Reason: Pain, moderate (4-7) Last Admin: 04/15/18 14:01 Dose: 50 mg - Labs Labs: 04/19/18 07:12 04/19/18 07:12 - Additional Findings Additional findings: - Constitutional Appears: Non-toxic, No Acute Distress - Eye Exam Eye Exam: absent: Scleral icterus - ENT Exam ENT Exam: Mucous Membranes Moist - Respiratory Exam Respiratory Exam: Clear to Ausculation Bilateral. absent: Respiratory Distress - Cardiovascular Exam Cardiovascular Exam: RRR, +S1, +S2 - GI/Abdominal Exam GI & Abdominal Exam: Soft. absent: Distended - Extremities Exam Additional comments: b/l lower leg mild erythema improved; - Neurological Exam Neurological Exam: Alert, Awake - Psychiatric Exam Psychiatric exam: Normal Mood, Agitated - Skin Skin Exam: Warm. absent: Cyanosis Assessment and Plan - Assessment and Plan (Free Text) Assessment: 57 y.o female with PMH of HTN, DM with neuropathy/retinopathy, PAD, CAD s/p remote intervention, s/p pacemaker placement, s/p IVC thrombus, now with SVC thrombus and ESRD on HD now s/p new trans-lumbar HD catheter. Plan: (1) ESRD on hemodialysis Assessment & Plan: Stable volume and electrolyte status Dialysis session today Consider removing less UF in the setting of lower blood pressures s/p yesterday dialysis Monitor daily weights Status: Chronic (2) Acute deep vein thrombosis (DVT) of superior vena cava Assessment & Plan: On eliquis 5 mg bid, need to continue indefinitely; Status: Acute (3) Right atrial thrombus Status: Suspected (4) Anemia of renal disease Assessment & Plan: Hgb slightly below goal but improved; continue ferrlecit 125 mg weekly and EPO 15,000 u qHD; Status: Chronic (5) Ataxic gait Status: Chronic (6) Chronic kidney disease-mineral and bone disorder Assessment & Plan: Monitor PTH and Ca periodically; continue calcitriol 0.5 mcg daily and phoslo 2 tabs w/ meals; Status: Chronic (7) Hemodialysis catheter malfunction Assessment & Plan: see above; will monitor regularly; tPA prn; Status: Chronic (8) Hypertensive CKD, ESRD on dialysis Assessment & Plan: BP 136/70 currently having HD Monitor daily weights Hold Amlodipine Status: Chronic
[2018-04-21] MEDS: Epoetin Alfa Dialysis 3000 UNIT/ML Inj IV SCH ×2 (10:25→10:26)
[2018-04-21] MEDS: Bacitracin Ointment 30 GM TUBE TOP SCH (10:40)
[2018-04-21] MEDS: Silver Sulfadiazine 1% Cream (20 gm) TOP SCH (10:41)
[2018-04-21] MEDS: Ammonium Lactate 12% Lotion (225 g) EXT SCH ×2 (10:41→17:55)
[2018-04-21 13:03] VITALS: O2SAT 95
--- NOTE | 2018-04-21 15:24 | CP.PCM.PN ---
Subjective - Date & Time of Evaluation Date of Evaluation: 04/21/18 Time of Evaluation: 15:24 - Subjective Subjective: Podiatry - Dr. New 57F seen and examined at bedside for healed wound on anterior left leg. No acute events overnight. No complaints to lower extremities. Ambulating without any issues. Denies N/V/F/D/C/SOB/WILDER/dizziness. Objective - Vital Signs/Intake and Output Vital Signs (last 24 hours): Temp Pulse Resp BP Pulse Ox 98.9 F 65 16 88/44 L 95 04/21/18 09:15 04/21/18 12:15 04/21/18 12:15 04/21/18 12:15 04/21/18 12:15 Intake and Output: 04/21/18 04/21/18 06:59 18:59 Intake Total 640 Balance 640 - Medications Medications: Current Medications Amlodipine Besylate (Norvasc) 5 mg PO DAILY [facility] Last Admin: 04/17/18 10:32 Dose: Not Given Apixaban (Eliquis) 5 mg PO BID [facility] Last Admin: 04/21/18 10:40 Dose: Not Given Bacitracin (Bacitracin) 0 gm TOP DAILY [facility] Last Admin: 04/21/18 10:40 Dose: Not Given Calcitriol (Rocaltrol) 0.5 mcg PO DAILY [facility] Last Admin: 04/21/18 10:41 Dose: Not Given Docusate Sodium (Colace) 100 mg PO DAILY [facility] Last Admin: 04/21/18 10:40 Dose: Not Given Epoetin Nico (Procrit) 2,000 u IV MWF [facility] Last Admin: 04/21/18 10:00 Dose: 2,000 u Epoetin Nico (Procrit) 3,000 unit IV MWF [facility] Last Admin: 04/21/18 10:26 Dose: 3,000 unit Epoetin Nico (Procrit) 10,000 unit IV MWF [facility] Last Admin: 04/21/18 10:00 Dose: 10,000 unit Fluoxetine HCl (Prozac) 40 mg PO DAILY [facility] Last Admin: 04/21/18 10:41 Dose: Not Given Insulin Human Regular (Novolin R) 0 unit SC [facility] PRN Reason: Protocol Last Admin: 04/21/18 13:52 Dose: Not Given Lactic Acid (Lac-Hydrin 12% Lotion (225 G)) 0 gm EXT BID [facility] Last Admin: 04/21/18 10:41 Dose: Not Given Montelukast Sodium (Singulair) 10 mg PO Q24H [facility] Last Admin: 04/21/18 13:52 Dose: Not Given Naphazoline HCl/Pheniramine Maleate (Naphcon-A Opht) 0 ml OU Q6 [facility] Last Admin: 04/21/18 11:56 Dose: Not Given Rosuvastatin Calcium (Crestor) 5 mg PO QPM [facility] Last Admin: 04/20/18 17:16 Dose: 5 mg Silver Sulfadiazine (Silvadene 1% 20 Gm) 10 ea TOP DAILY [facility] Last Admin: 04/21/18 10:41 Dose: Not Given Sodium Polystyrene Sulfonate (Kayexalate Susp) 15 gm PO SA [facility] Last Admin: 04/17/18 10:31 Dose: Not Given Tramadol HCl (Ultram) 50 mg PO Q8H PRN PRN Reason: Pain, moderate (4-7) Last Admin: 04/15/18 14:01 Dose: 50 mg - Labs Labs: 04/19/18 07:12 04/19/18 07:12 - Constitutional Appears: Well, Non-toxic, No Acute Distress - Extremities Exam Additional comments: LLE focused exam: VASC: DP/PT pulses faintly palpable 1/4 b/l. Skin temperature warm to warm from proximal to distal. Cap refill time: < 3 seconds to all digits b/l. No pitting or non-pitting edema noted Derm: Stable eschar with no clinical signs of infection noted to anterior left leg. 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 No other open lesions, wounds, maceration, xerosis, abnormal pigmentation or abnormal growths noted. Neuro: Epicritic and protective sensation grossly intact b/l MSK: No POP to anterior left leg wound. Severe pes planus deformity noted to left foot. No other gross deformities noted - Neurological Exam Neurological Exam: Alert, Awake, Oriented x3 - Psychiatric Exam Psychiatric exam: Normal Affect, Normal Mood Assessment and Plan - Assessment and Plan (Free Text) Assessment: 57 year old female was evaluated for well healed left leg wound Plan: Patient seen and evaluated Discussed with attending, Dr. New Wounds appear stable at this time Silvadene QD to wounds Podiatry to sign off at this time, please reconsult as needed
[2018-04-21 16:48] VITALS: BP 134/44; PULSE 70; RESP 20; TEMP 98.2
--- NOTE | 2018-04-21 22:11 | CP.PCM.DIS ---
Provider - Provider Date of Admission: 03/26/18 09:12 Attending physician: Misha Wells MD Time Spent in preparation of Discharge (in minutes): 35 Diagnosis - Discharge Diagnosis (1) Diabetes mellitus Status: Acute (2) ESRD on peritoneal dialysis Status: Acute (3) HTN (hypertension) Status: Acute (4) History of fall Status: Acute (5) Peritoneal dialysis catheter dysfunction Status: Acute (6) Prophylactic measure Status: Acute (7) Anemia due to chronic kidney disease Status: Chronic (8) Ataxic gait Status: Chronic (9) Chronic kidney disease-mineral and bone disorder Status: Chronic (10) ESRD (end stage renal disease) on dialysis Status: Chronic (11) Hemodialysis catheter malfunction Status: Chronic (12) Hypertensive CKD, ESRD on dialysis Status: Chronic (13) IVC thrombosis Status: Ruled-out Hospital Course - Lab Results Lab Results: Most Recent Lab Values WBC 6.1 K/uL (4.8-10.8) 04/19/18 07:12 RBC 3.17 Mil/uL (3.80-5.20) L 04/19/18 07:12 Hgb 9.9 g/dL (11.0-16.0) L 04/19/18 07:12 Hct 30.7 % (34.0-47.0) L 04/19/18 07:12 MCV 96.8 fL (81.0-99.0) 04/19/18 07:12 MCH 31.1 pg (27.0-31.0) H 04/19/18 07:12 MCHC 32.1 g/dL (33.0-37.0) L 04/19/18 07:12 RDW 18.4 % (11.5-14.5) H 04/19/18 07:12 Plt Count 316 K/uL (130-400) 04/19/18 07:12 MPV 10.0 fL (7.2-11.7) 04/19/18 07:12 Neut % (Auto) 71.5 % (50.0-75.0) 04/19/18 07:12 Lymph % (Auto) 14.9 % (20.0-40.0) L 04/19/18 07:12 [place] % (Auto) 11.9 % (0.0-10.0) H 04/19/18 07:12 Eos % (Auto) 1.2 % (0.0-4.0) 04/19/18 07:12 Baso % (Auto) 0.5 % (0.0-2.0) 04/19/18 07:12 Neut # (Auto) 4.3 K/uL (1.8-7.0) 04/19/18 07:12 Lymph # (Auto) 0.9 K/uL (1.0-4.3) L 04/19/18 07:12 [place] # (Auto) 0.7 K/uL (0.0-0.8) 04/19/18 07:12 Eos # (Auto) 0.1 K/uL (0.0-0.7) 04/19/18 07:12 Baso # (Auto) 0.0 K/uL (0.0-0.2) 04/19/18 07:12 Neutrophils % (Manual) 81 % (50-75) H 04/07/18 13:46 Lymphocytes % (Manual) 9 % (20-40) L 04/07/18 13:46 Monocytes % (Manual) 10 % (0-10) 04/07/18 13:46 Platelet Estimate Normal (NORMAL) 04/07/18 13:46 Anisocytosis (manual) Slight 04/07/18 13:46 Sodium 139 mmol/L (132-148) 04/19/18 07:12 Potassium 5.3 mmol/L (3.6-5.2) H 04/19/18 07:12 Chloride 100 mmol/L (98-107) 04/19/18 07:12 Carbon Dioxide 23 mmol/L (22-30) 04/19/18 07:12 Anion Gap 21 (10-20) H 04/19/18 07:12 BUN 62 mg/dL (7-17) H 04/19/18 07:12 Creatinine 9.3 mg/dL (0.7-1.2) H* D 04/19/18 07:12 Est GFR ( Amer) 5 04/19/18 07:12 Est GFR (Non-Af Amer) 4 04/19/18 07:12 POC Glucose (mg/dL) 381 mg/dL (65-110) H 04/20/18 16:23 Random Glucose 156 mg/dL (65-105) H 04/19/18 07:12 Calcium 9.3 mg/dl (8.6-10.4) 04/19/18 07:12 Phosphorus 3.4 mg/dL (2.5-4.5) 04/21/18 09:43 Magnesium 2.0 mg/dL (1.6-2.3) 04/03/18 12:57 Iron 21 ug/dL (37-170) L 03/31/18 11:25 TIBC 180 ug/dL (250-450) L 03/31/18 11:25 % Saturation 11 (20-55) L 03/31/18 11:25 Ferritin 960.0 ng/mL 03/31/18 11:25 Total Bilirubin 0.3 mg/dL (0.2-1.3) 04/19/18 07:12 AST 14 U/L (14-36) 04/19/18 07:12 ALT 16 U/L (9-52) 04/19/18 07:12 Alkaline Phosphatase 88 U/L (38-126) 04/19/18 07:12 Total Protein 7.1 g/dL (6.3-8.3) 04/19/18 07:12 Albumin 3.9 g/dL (3.5-5.0) 04/19/18 07:12 Globulin 3.2 gm/dL (2.2-3.9) 04/19/18 07:12 Albumin/Globulin Ratio 1.2 (1.0-2.1) 04/19/18 07:12 PTH Intact Whole Molec 253 pg/mL (14-64) H 03/24/18 15:16 Hep Bs Antigen Negative (NEGATIVE) 04/14/18 14:25 - Hospital Course Hospital Course: Patient is a 57 year old female with a past medical history of ESRD on HD (MWF) , HTN, IDDM2, CAD, free-floating IVC thrombus, chronic vertigo and frequent falls who was transferred from [facility] for dialysis. The patient originally went to [facility] overnight because she fell and injured her right hit. The patient was transferring from her wheelchair to walker to bed, and as she stood up, she fell onto her right hip and buttocks. She complains of a hematoma on her hip and pain with movement and palpation. Patient was recently discharged for similar complaints- slipped and fell in her bathtub, fractures her ribs, and wsa admitted for dialysis. She was discharge from [facility] on 03/22/18 with placement at [facility]. She also currently complains of rib pain with movement, breathing, and coughing; however she had the same pain at previous admission due to fractured ribs. Patient denies palpitations, dyspnea, nausea, vomiting, fevers, headaches, diarrhea, and constipation. Patient was admitted for ESRD on hemodialysis. Nephrology Dr. Still was consulted, and managed patient's hemodialysis treatments from 03/25/2018 until 04/21/2018. Patient went for dialysis on a MWF schedule from the period between 03/24/18-04/21/2018. Patient was hemodialysed at the [facility] hemodialysis unit located on the . Patient was monitored with once a week CBC and CMP labs. Patient was given a renal diet to follow with her sessions. Vascular surgery (Dr. Olson) was consulted, and recommended no surgical intervention for AVG at the time. patient was added on Procrit [id number] MWF, Phoslo 1334mg PO WM, Calcitriol 0.5.cg PO daily. Femoral vein permacath thrombosed- New dialysis catheter placed in back on 03/29/18 at [facility]. Patient was dialyzed s/p catheter placement. Patient's diagnosis of hypertension was Controlled during dialysis by fluid replacement and restriction. Norvasc 5mg PO daily was given with Holding parameter: if SBP is lower than 110, HR lower than 60. on 04/17, Norvasc was held in light of low BP; monitor blood pressure to determine when to restart. Patient's diagnosis of anemia of chronic disease 2/2 ESRD was managed with EPO 28518 units on HD as per Dr. Still's recommendation and Ferric Sodium Gluconate 125mg IVPB q1w. Patient's mineral and bone disorder due to CKD was managed with phoslo 1334mg po tidcc w/ meals and calcitriol 0.5mcg po daily. Patient diagnosis of IVC thrombosis, which occurred while placing new dialysis catheter in back on 03/29/18 was managed with Eliquis 5mg PO daily. Echo from 03/29/18 shows borderline to mild asymmetric LVH; EF 50-55%; mild global hypokinesis of lV; LA mildly dilated; trace-mild MR; mild to moderate TR. during hospital course, patient's ataxic gait was managed with fall risk precautions - ambulating from chair to bed. OT eval recommended [facility]. PT screening ordered, unnecessary to treat and eval at this point in time. Case management/social work was consulted for placement at [facility]. Patients subcutaneous soft tissue and posterior back edema/hemorrhage hematoma was managed with the following images: Lumbar spine CT:(03/23) subcutaneous hematoma partially visulaized in right lower lumbar and gluteal regions measuring 7.8x2.3cm; urinary bladder wall thickening possibly due to incomplete distention or cystitis; no fracture. Pelvic CT (03/23): Right lower lumbar and sacral region hematoma measuring up to 8.7 cm as well as a left side lateral gluteal/ hip region hematoma measuring 7 x 5.3 centimeters. Images from previous hospitalizations show the following: CT head (03/07/18): no evidence of acute intracranial hemorrhage, midline shift, or mass effect is identified, possible right facial soft tissue swelling. Rib xrays (03/07/18): multiple left side rib fractures as described. Mild bibasilar atelectasis left greater than right. Elevation right hemidiaphrgam likely due to eventration. Hip (03/07/18):no definitive radiographic evidence of acute hip or pelvic fracture seen. Lumbar CT scan (12/20/17): incompletely visualized posterior back subcutaneous soft tissue fluid and right posterior back edema/hemorrhage hematoma measuring 6cm ~ in right and left dimension at level of L4-S1. Small left pleural effusion. no acute fracture of the lumbar spine. Patient's Diabetes Mellitus was managed with Accuchecks ACHS, ISS, Hypoglycemic protocol, A1c (12/2017): 6.6. Patient diagnosis of bilateral feet was managed with podiatry consult with Dr. New, recommended Silvadene QD to wounds. the following prophylactic measures were established: DVT: SCDs; Eliquis 5mg PO daily, Wound care - 04/11 as per nurse, wound care to left hip wound rendered as ordered. noted ulcer draining purulent discharge. Covered with DSD. Patient's body pruritis was managed with Lac Hydrin 12% lotion EXT BID. Patient ocular pruritis was managed with Naphazoline Hcl/Pheniramine Maleate (Naphcon-A) OU Q6 PRN. This is a brief summary of patient hospitalization. Please review patient's EMR for complete records. Patient stable for discharge per Dr. Wells. Patient should resume the following home medications: Colace 100mg per mouth daily, Prozac 40mg per mouth daily, Norvasc 5 mg per mouth daily .Patient should additionally take the medications listed below as prescribed: Eliquis 5 mg per mouth twice a day Bacitracin 1 mitchell topically twice a day Alphagan 1 drop Rt eye twice a day Calcitriol .5 mcg per mouth daily Phoslo 1334mg per mouth daily Folic acid 1mg per mouth daily Gabapentin 100mg per mouth three times a day Insulin Humulin R Sliding scale before meals at bedtime Bacid 1 cap per mouth twice a day Singulair 10mg per mouth daily Protonix 40mg per mouth daily Crestor 5mg per mouth at bedtime, Nephro-vital 1 tab per mouth daily, Ultram 50mg three times a day. Patient should make an appointment and follow up with PMD within one week for Salmeron. Patient should follow up with Dr. Still within one week. Patient should return to ED immediately if symptoms return or worsen. Instructions discussed with patient who understood and agreed. - Date & Time of H&P Date of H&P: 04/21/18 Time of H&P: 22:13 Discharge Exam - Head Exam Head Exam: ATRAUMATIC, NORMAL INSPECTION, NORMOCEPHALIC - Eye Exam Eye Exam: EOMI, Normal appearance, PERRL - ENT Exam ENT Exam: Mucous Membranes Dry, Normal Exam - Neck Exam Neck exam: Full Rom, Normal Inspection - Respiratory Exam Respiratory Exam: Clear to PA & Lateral, NORMAL BREATHING PATTERN, UNREMARKABLE - Cardiovascular Exam Cardiovascular Exam: REGULAR RHYTHM, +S1, +S2 - GI/Abdominal Exam GI & Abdominal Exam: Distended, Normal Bowel Sounds. absent: Firm, Guarding, Hernia - Extremities Exam Extremities exam: full ROM Additional comments: Anterior distal Left and right leg erythema - Back Exam Back exam: NORMAL INSPECTION - Neurological Exam Neurological exam: Alert - Psychiatric Exam Psychiatric exam: Normal Affect, Normal Mood - Skin Skin Exam: Dry, Intact, Normal Color Discharge Plan - Follow Up Plan Condition: STABLE Disposition: REHAB FACILITY/REHAB UNIT Instructions: Preventing Falls in the Older Adult, Chronic Kidney Disease (DC) , Deep Venous Thrombosis (DC), Pulmonary Embolism (DC), Pulmonary Embolism (GEN) , Deep Venous Thrombosis (GEN), Renal Failure Diet (DC) Additional Instructions: Patient stable for discharge per Dr. Wells. Patient should resume the following home medications: - Colace 100mg per mouth daily -Prozac 40mg per mouth daily -Norvasc 5 mg per mouth daily Patient should additionally take the medications listed below as prescribed: -Eliquis 5 mg per mouth twice a day -Bacitracin 1 mitchell topically twice a day -Alphagan 1 drop Rt eye twice a day - Calcitriol .5 mcg per mouth daily -Phoslo 1334mg per mouth daily -Folic acid 1mg per mouth daily -Gabapentin 100mg per mouth three times a day -Insulin Humulin R Sliding scale before meals at bedtime - Bacid 1 cap per mouth twice a day -Singulair 10mg per mouth daily -Protonix 40mg per mouth daily - Crestor 5mg per mouth at bedtime -Nephro-vital 1 tab per mouth daily -Ultram 50mg three times a day Patient should make an appointment and follow up with PMD within one week for Salmeron. Patient should follow up with Dr. Still within one week. Patient should return to ED immediately if symptoms return or worsen. Instructions discussed with patient who understood and agreed. Referrals: Melvin Still MD [Staff Provider] -
== END 2018-04-21 19:20 | DRG 291 ==
LOC: C.ER 08:35 → C.9E 09:12 → C.3T 10:26 → OBSVTOIN 03-26 09:12 → C.3T 03-29 14:23
PROVIDERS: ADMIT Internal Medicine; ATTEND Internal Medicine
PROC: 5A1D70Z Performance of Urinary Filtration, Intermittent, Less than 6 Hours Per Day (ICD-10-PCS; principal; 2018-03-26)
PROC: 0JPW3XZ Removal of Tunneled Vascular Access Device from Lower Extremity Subcutaneous Tissue and Fascia, Percutaneous Approach (ICD-10-PCS; 2018-03-29)
PROC: 06H033Z Insertion of Infusion Device into Inferior Vena Cava, Percutaneous Approach (ICD-10-PCS; 2018-03-29)
PROC: B519YZA Fluoroscopy of Inferior Vena Cava using Other Contrast, Guidance (ICD-10-PCS; 2018-03-29)
DX: I13.2 Hypertensive heart and chronic kidney disease with heart failure and with stage 5 chronic kidney disease, or end stage renal disease (principal); N18.6 End stage renal disease; I82.220 Acute embolism and thrombosis of inferior vena cava; T82.868A Thrombosis due to vascular prosthetic devices, implants and grafts, initial encounter; D63.1 Anemia in chronic kidney disease; E03.9 Hypothyroidism, unspecified; E11.21 Type 2 diabetes mellitus with diabetic nephropathy; E11.22 Type 2 diabetes mellitus with diabetic chronic kidney disease; E11.40 Type 2 diabetes mellitus with diabetic neuropathy, unspecified; E11.51 Type 2 diabetes mellitus with diabetic peripheral angiopathy without gangrene; E78.00 Pure hypercholesterolemia, unspecified; E87.5 Hyperkalemia; G47.30 Sleep apnea, unspecified; I25.10 Atherosclerotic heart disease of native coronary artery without angina pectoris; I50.9 Heart failure, unspecified; I80.8 Phlebitis and thrombophlebitis of other sites; Z99.2 Dependence on renal dialysis; Y84.1 Kidney dialysis as the cause of abnormal reaction of the patient, or of later complication, without mention of misadventure at the time of the procedure; Z74.2 Need for assistance at home and no other household member able to render care; I51.3 Intracardiac thrombosis, not elsewhere classified; R29.6 Repeated falls; S30.0XXA Contusion of lower back and pelvis, initial encounter; W18.30XA Fall on same level, unspecified, initial encounter; R26.0 Ataxic gait; W18.39XA Other fall on same level, initial encounter; Z79.4 Long term (current) use of insulin